=== PATIENT | male | born 1940 | race Caucasian/White ===

== ENCOUNTER 2017-08-04 12:04 | Day surgery (SDC) | payer OTHER ==
[2017-08-04] MEDS ORDERED: LIDOCAINE HCL 2% (20ML MULTI-DOSE VIAL) NR ONE (12:50)
[2017-08-04] MEDS ORDERED: PROPOFOL 20 ML ONE (12:50)
[2017-08-04 12:51] VITALS: BMI 24.9
[2017-08-04] MEDS ORDERED: METOPROLOL TARTRATE 5 MG/5 ML VIAL ONE (13:21)
[2017-08-04 13:37] VITALS: TEMP 98.5
[2017-08-04] MEDS ORDERED: AMIODARONE HCL 200 MG TABLET (FP) PO ONE (13:45)
[2017-08-04] MEDS ORDERED: METOPROLOL TARTRATE 5 MG/5 ML VIAL IVPUSH ONE (13:45)
[2017-08-04 15:51] VITALS: BP 107/77; PULSE 106
== END 2017-08-04 14:15 | disposition home or self-care (01) ==
LOC: JASU-ENDO 12:04
PROVIDERS: ATTEND Internal Medicine Cardiovascular Disease
PROC: 5A2204Z Restoration of Cardiac Rhythm, Single (ICD-10-PCS; principal; 2017-08-04 12:30)
DX: I48.91 Unspecified atrial fibrillation (principal)
CPT/HCPCS: 92960

== ENCOUNTER 2017-08-25 11:15 | Day surgery (SDC) | payer OTHER ==
[2017-08-25 11:35] VITALS: BMI 24.9
--- NOTE | 2017-08-25 12:28 | EKG ---
Test Reason : Blood Pressure : / mmHG Vent. Rate : 055 BPM Atrial Rate : 055 BPM P-R Int : 182 ms QRS Dur : 088 ms QT Int : 492 ms P-R-T Axes : 084 074 081 degrees QTc Int : 470 ms SINUS BRADYCARDIA WITH PREMATURE ATRIAL COMPLEXES OTHERWISE NORMAL ECG WHEN COMPARED WITH ECG OF 12-FEB-2013 09:38, SINUS RHYTHM HAS REPLACED ATRIAL FIBRILLATION VENT. RATE HAS DECREASED BY 44 BPM NONSPECIFIC T WAVE ABNORMALITY NO LONGER EVIDENT IN INFERIOR LEADS Confirmed by RYLAND PHAM MD ([id number]) on 08/25/2017 12:28:25 PM Referred By: LAKISHA ALCANTARA Confirmed By:RYLAND PHAM MD
== END 2017-08-25 12:26 | disposition home or self-care (01) ==
LOC: JASU-ENDO 11:15
PROVIDERS: ATTEND Internal Medicine Cardiovascular Disease
PROC: 0WQ Anatomical Regions, General, Repair (ICD-10-PCS; principal; 2017-08-25)
DX: Z53.8 Procedure and treatment not carried out for other reasons (principal)
CPT/HCPCS: 93005; 93010

== ENCOUNTER 2018-02-17 19:40 | Emergency (ER) | payer OTHER ==
--- NOTE | 2018-02-17 19:56 | PDOC ---
History of Present Illness - General History Source: Patient (O actually is) Exam Limitations: No Limitations - History of Present Illness Initial Comments: 02/17/18 20:40 A portion of this note was documented by scribe services under my direction. I have reviewed the details of the note, within reason, and agree with the documentation with the following case summary and management plan written by me. Patient treated in the ED. Nursing notes are reviewed and incorporated into the medical decision-making. Vital signs reviewed. Procedure note laceration repair left eyebrow Laceration cleaned and then closed with Dermabond patient tolerated well Assessment and plan: This is an 7-year-old male who sustained a mechanical trip and fall hitting his head on the ground. Patient's last tetanus was unknown so he got a tetanus to update his tetanus Patient sustained abrasion to his left hand, right knee and larger abrasion with associated small laceration to the left side of the face just lateral to the left eye and left eyebrow area. Superficial laceration of the left eyebrow area was closed with Dermabond Patient had a head CT that was negative for any acute pathology. Patient discharged home with his significant other will follow up with his primary care doctor as needed <Les Castillo I - Last Filed: 02/17/18 20:40> - History of Present Illness Initial Comments: 02/17/18 21:03 Patient is a 77 year old male with a significant past medical history of COPD, atrial fibrillation, CAD, and RA, who presents to the ED with complaints of left sided head pain, s/p fall that occurred just prior to ED arrival. Patient reports getting out of his car when he tripped over the curb, hitting his right knee and the left side of his head on the ground. He reports experiencing immediate pain, as well as being able to get up immediately after the fall. Patient reports coming into the ED for further evaluation after he was unable to control the bleeding as time progressed. Denies chest pain, Sob. Denies nausea, vomiting. Denies fevers, chills. Denies contact with sick individuals, out of state travelling. Denies constipation, diarrhea. Denies dysuria, hematuria. Denies trauma to affected area. Denies any other symptoms. Allergies: None Social history: Current smoker. Social drinker. No illicit drugs. Surgical history: None PMD: Dr. Valencia Adult ROS General: No fevers or chills, no weakness, no weight loss HEENT: +Left sided head pain. No change in vision. No sore throat, No ear pain Cardiovascular: No chest pain or shortness of breath Respiratory:No cough, or wheezing. Gastrointestinal: No nausea, vomiting, diarrhea or constipation, No rectal bleeding Genitourinary: No dysuria, hematuria, or frequency Musculoskeletal: No joint or muscle pain or swelling Neurologic: No headache, vertigo, dizziness or loss of consciousness Psychiatric: No depression Skin: No rashes or easy bruising Endocrine: No increased thirst or abnormal weight change Allergic: No skin or latex allergy All other systems reviewed and normal Adult PE General: Well-nourished well-developed individual, no acute distress HEENT: +Left eyebrow contusion with superficial abrasion approximately 1 cm in length. No active bleeding. +Left side of face lateral to left eye larger abrasion approximately 3 cm by 5 cm. No active bleeding. No bony tenderness. Neuro intact Throat: Normal, tonsils normal, no erythema or exudate Neck: Supple, no meningeal signs, no lymphadenopathy Eyes:Pupils equal reactive and round, extraocular motion intact Chest: Nontender to palpation Cardiac: S1-S2 normal, regular rate and rhythm, no murmurs rubs or gallops Respiratory: Lungs clear to auscultation bilateral Abdomen: Soft, nondistended, normal bowel sounds, nontender to palpation diffusely Extremities: +left hand contusion dorsal of hand proximal to middle finger. No bony tenderness. Neuro intact Warm, dry, no cyanosis, clubbing, or edema Skin: No rashes Neuro: Alert and oriented x3, nonfocal exam, grossly intact, normal gait Psych: Normal mood and affect <Ted Raymond - Last Filed: 02/17/18 21:10> - General Chief Complaint: Injury Stated Complaint: HEAD INJURY, FACIAL LAC Time Seen by Provider: 02/17/18 19:55 Past History - Past Medical History Anemia: No Asthma: Yes Cancer: No Cardiac Disorders: Yes (a fib,angina,cad) CVA: No COPD: Yes CHF: No Dementia: No Diabetes: No GI Disorders: Yes (acid reflux) Disorders: No HTN: No Hypercholesterolemia: Yes Liver Disease: No Seizures: No Thyroid Disease: No - Surgical History Abdominal Surgery: No Appendectomy: No Cardiac Surgery: No Cholecystectomy: No Lung Surgery: No Neurologic Surgery: No Orthopedic Surgery: No - Suicide/Smoking/Psychosocial Hx Smoking History: Current some day smoker Have you smoked in the past 12 months: Yes Number of Cigarettes Smoked Daily: 5 Cigars Per Day: 10 Information on smoking cessation initiated: Yes 'Breaking Loose' booklet given: 02/17/18 Hx Alcohol Use: (occasional) Drug/Substance Use Hx: No Substance Use Type: Alcohol Hx Substance Use Treatment: No <Les Castillo I - Last Filed: 02/17/18 20:40> <Ted Raymond - Last Filed: 02/17/18 21:10> - Past Medical History Allergies/Adverse Reactions: Allergies Allergy/AdvReac Type Severity Reaction Status Date / Time No Known Allergies Allergy Verified 02/17/18 19:42 Home Medications: Ambulatory Orders Dabigatran Etexilate Mesylate [Pradaxa -] 150 mg PO BID #0 cap 02/14/13 Sulfasalazine 500 mg PO BID #0 tablet 02/14/13 Carvedilol [Coreg] 6.25 mg PO BID 02/17/18 Ramipril [Altace] 5 mg PO DAILY 02/17/18 *Physical Exam - Vital Signs Last Vital Signs Temp Pulse Resp BP Pulse Ox 97.8 F 87 18 105/77 96 02/17/18 19:40 02/17/18 19:40 02/17/18 19:40 02/17/18 19:40 02/17/18 19:40 <Les Castillo I - Last Filed: 02/17/18 20:40> - Vital Signs Last Vital Signs Temp Pulse Resp BP Pulse Ox 97.8 F 87 18 105/77 96 02/17/18 19:40 02/17/18 19:40 02/17/18 19:40 02/17/18 19:40 02/17/18 19:40 <Ted Raymond - Last Filed: 02/17/18 21:10> Moderate Sedation - Procedure Monitoring Vital Signs: Procedure Monitoring Vital Signs Temperature 97.8 F 02/17/18 19:40 Pulse Rate 87 02/17/18 19:40 Respiratory Rate 18 02/17/18 19:40 Blood Pressure 105/77 02/17/18 19:40 O2 Sat by Pulse Oximetry (%) 96 02/17/18 19:40 <Les Castillo I - Last Filed: 02/17/18 20:40> - Procedure Monitoring Vital Signs: Procedure Monitoring Vital Signs Temperature 97.8 F 02/17/18 19:40 Pulse Rate 87 02/17/18 19:40 Respiratory Rate 18 02/17/18 19:40 Blood Pressure 105/77 02/17/18 19:40 O2 Sat by Pulse Oximetry (%) 96 02/17/18 19:40 <Ted Raymond - Last Filed: 02/17/18 21:10> ED Treatment Course - Medications Given in the ED: ED Medications Discontinued Medications Generic Name Dose Route Start Last Admin Trade Name Freq PRN Reason Stop Dose Admin Diphtheria/Tetanus/Acell Pertussis 0.5 ml 02/17/18 20:40 02/17/18 20:52 Boostrix - IM 02/17/18 20:41 0.5 ml ONCE ONE Administration <Ted Raymond - Last Filed: 02/17/18 21:10> *DC/Admit/Observation/Transfer <Les Castillo I - Last Filed: 02/17/18 20:40> - Attestations Scribe Attestion: 02/17/18 21:10 Documentation prepared by Ted Raymond, acting as medical representative for Les Castillo MD. <Ted Raymond - Last Filed: 02/17/18 21:10> Diagnosis at time of Disposition: Abrasion, right knee, initial encounter Fall Qualifiers: Encounter type: initial encounter Qualified Code(s): W19.XXXA - Unspecified fall, initial encounter Abrasion of face Qualifiers: Encounter type: initial encounter Qualified Code(s): S00.81XA - Abrasion of other part of head, initial encounter Laceration of eyebrow, left Qualifiers: Encounter type: initial encounter Qualified Code(s): S01.112A - Laceration without foreign body of left eyelid and periocular area, initial encounter Abrasion of left hand Qualifiers: Encounter type: initial encounter Qualified Code(s): S60.512A - Abrasion of left hand, initial encounter - Discharge Dispostion Disposition: HOME Condition at time of disposition: Stable - Referrals Referrals: Julia Valencia MD [Primary Care Provider] - - Patient Instructions Printed Discharge Instructions: DI for Laceration Repair With Dermabond, DI for Closed Head Injury Additional Instructions: Read over and follow Dermabond instructions. Tylenol or Motrin as needed for pain apply bacitracin or an antibiotic ointment to the abrasions once a day Return to the emergency department immediately with ANY new, persistent or worsening symptoms. Continue any medications as previously prescribed by your physician. You should follow up with your primary doctor as soon as possible regarding today's emergency department visit. . Please make sure your doctor reviews the results of your emergency evaluation. Thank you for coming to the Emergency Department today for your care. It was a pleasure to see you today. Please note that your evaluation is INCOMPLETE until you follow-up with your doctor. - Post Discharge Activity
[2018-02-17 20:07] VITALS: BP 105/77; PULSE 87; TEMP 97.8; BMI 23.7
[2018-02-17] MEDS ORDERED: DIPHTH,PERTUSS(ACELL),TET 0.5 ML DISP.SYRIN IM ONE ×2 (20:40)
== END 2018-02-17 21:19 | disposition home or self-care (01) ==
LOC: FER 19:40
PROC: 0HQ1XZZ Repair Face Skin, External Approach (ICD-10-PCS; principal; 2018-02-17)
DX: S01.112A Laceration without foreign body of left eyelid and periocular area, initial encounter (principal); S60.512A Abrasion of left hand, initial encounter; W01.0XXA Fall on same level from slipping, tripping and stumbling without subsequent striking against object, initial encounter; Y93.89 Activity, other specified; Y92.89 Other specified places as the place of occurrence of the external cause; F17.210 Nicotine dependence, cigarettes, uncomplicated; E78.00 Pure hypercholesterolemia, unspecified; K21.9 Gastro-esophageal reflux disease without esophagitis; I48.91 Unspecified atrial fibrillation; J44.9 Chronic obstructive pulmonary disease, unspecified; I25.10 Atherosclerotic heart disease of native coronary artery without angina pectoris; M06.9 Rheumatoid arthritis, unspecified; S80.211A Abrasion, right knee, initial encounter
CPT/HCPCS: 12001; 70450-TC; 90715; 99283-25

== ENCOUNTER 2018-06-14 14:00 | Inpatient (IN) | payer OTHER ==
--- NOTE | 2018-06-14 14:21 | PDOC ---
Attending Attestation - Resident Resident Name: Maryam Lancaster - ED Attending Attestation I have performed the following: I have examined & evaluated the patient, The case was reviewed & discussed with the resident, I agree w/resident's findings & plan - HPI HPI: 06/14/18 14:46 78 y/o male with chills and SOB. Patient with cough. Has COPD and a-fib. Prescribed Prednisone a few days ago by his PMD for SOB. No N/V/D/C, Denies chest pain or traveling. Had the Flu and Pneumonia vaccinations this year. Feels weak. - Physicial Exam PE: 06/14/18 14:47 VS noted temp 103 HEENT; unremarkable Heart: RRR without murmur Lungs: coarse breath sounds b/l, no wheezing noted Abdomen: soft non tender +BS EXT: no C/C/E Neuro: grossly intact, no focal deficits noted - Medical Decision Making 06/14/18 17:17 Pt with chills, cough, fever RLL pneumonia, elevated lactate, will treat for sepsis IVF, Tylenol, Levaquin Hospitalist called Dr. Barreto, agrees with admission Further orders as per hospitalist Case discussed with Dr. Lancaster, in agreement with plan CXR RLL infiltrate EKG: NSR Dx: RLL pneumonia Sepsis
[2018-06-14 14:23] VITALS: BMI 23.0
[2018-06-14] MEDS ORDERED: ACETAMINOPHEN 500 MG TABLET (FP) PO ONE (14:27)
[2018-06-14] MEDS ORDERED: ACETAMINOPHEN 500 MG TABLET (FP) ONE (14:28)
--- NOTE | 2018-06-14 14:38 | PDOC ---
History of Present Illness - General Chief Complaint: Respiratory Stated Complaint: CHILLS Time Seen by Provider: 06/14/18 14:05 - History of Present Illness Initial Comments: 78yo M with PMH of COPD, Afib, CAD s/p cath in 2010, RA presenting with chills. "I was shivering uncontrollably today." Patient states the chills came on all of a sudden this morning. He also endorses a cough productive of yellow-brown sputum for the past month or two. Patient states he has had pneumonia, most recently one year ago. He has been feeling poorly for the past couple days such that he contacted his primary care physician and was sent a prescription for prednisone (unknown dose) to his pharmacy. Patient is unsure if he has a fever because he does not have a thermometer at home. He is equivocal about feeling short of breath, but also says that he felt some relief of his symptoms after taking his home inhalers today. He does not use home oxygen. Endorses intermittent angina, but has not felt chest pain today. PCP: Dr. Valencia Past History - Past Medical History Allergies/Adverse Reactions: Allergies Allergy/AdvReac Type Severity Reaction Status Date / Time No Known Allergies Allergy Verified 06/14/18 14:04 Home Medications: Ambulatory Orders Dabigatran Etexilate Mesylate [Pradaxa -] 150 mg PO BID #0 cap 02/14/13 Sulfasalazine 500 mg PO BID #0 tablet 02/14/13 Carvedilol [Coreg] 6.25 mg PO BID 02/17/18 Ramipril [Altace] 5 mg PO DAILY 02/17/18 Aspirin 81 mg PO DAILY 06/14/18 Digoxin [Lanoxin -] 0.125 mg PO DAILY 06/14/18 predniSONE [Deltasone -] 2.5 mg PO DAILY 06/14/18 Anemia: No Asthma: Yes Cancer: No Cardiac Disorders: Yes (a fib,angina,cad) CVA: No COPD: Yes CHF: No Dementia: No Diabetes: No GI Disorders: Yes (acid reflux) Disorders: No HTN: No Hypercholesterolemia: Yes Liver Disease: No Seizures: No Thyroid Disease: No Other medical history: RHEUMATOID ARTHRITIS - Surgical History Abdominal Surgery: No Appendectomy: No Cardiac Surgery: No Cholecystectomy: No Lung Surgery: No Neurologic Surgery: No Orthopedic Surgery: No - Suicide/Smoking/Psychosocial Hx Smoking History: Current every day smoker Have you smoked in the past 12 months: Yes Number of Cigarettes Smoked Daily: 3 Cigars Per Day: 10 Information on smoking cessation initiated: Yes 'Breaking Loose' booklet given: 02/17/18 Hx Alcohol Use: Yes (WINE) Drug/Substance Use Hx: No Substance Use Type: Alcohol Hx Substance Use Treatment: No Review of Systems - Review of Systems Comments:: Constitutional: +fever, +chills HEENT: no throat pain, no dysphagia Cardiovascular: no chest pain, no palpitations Respiratory: +cough, +shortness of breath Gastrointestinal: no abdominal pain, no diarrhea Genitourinary: no dysuria, no frequency Musculoskeletal: no myalgia, no arthralgia Skin: no rash, no itching Neurologic: +headache, no weakness *Physical Exam - Vital Signs Last Vital Signs Temp Pulse Resp BP Pulse Ox 103 F H 90 20 133/75 94 L 06/14/18 14:02 06/14/18 14:02 06/14/18 14:02 06/14/18 14:02 06/14/18 14:02 - Physical Exam Comments: General: Awake, alert, and fully oriented, in no acute distress Head: No signs of trauma Eyes: EOMI, sclera anicteric ENT: Dry mucus membranes Neck: Normal ROM, supple Lungs: Course lung sounds, prolonged expiratory phase Cardio: Regular rhythm, S1 and S2 present Abdomen: Soft, nontender Extremities: Normal range of motion, Distal pulses present SKIN: Warm, Dry, normal turgor Neurologic: Cranial nerves II through XII grossly intact. Normal speech Moderate Sedation - Procedure Monitoring Vital Signs: Procedure Monitoring Vital Signs Temperature 103 F H 06/14/18 14:02 Pulse Rate 90 06/14/18 14:02 Respiratory Rate 20 06/14/18 14:02 Blood Pressure 133/75 06/14/18 14:02 O2 Sat by Pulse Oximetry (%) 94 L 06/14/18 14:02 ED Treatment Course - LABORATORY CBC & Chemistry Diagram: 06/14/18 14:45 06/14/18 14:45 Medical Decision Making - Medical Decision Making 78yo M with PMH of COPD, Afib, CAD s/p cath in 2010, RA presenting with chills. DDX including but not limited to pneumonia, COPD exacerbation, acute bronchitis , URI CBC, CMP, Blood Cx, Tpn, Digoxin level, Lactate Rapid influenza test 1g Ofirmev for fever and headache 06/14/18 15:08 1L NS for hydration EKG: rate 83, QTc 404, NSR CXR suspicious for RLL consolidation, Levaquin ordered 06/14/18 15:14 CXR: "2 apical lordotic views reveal clear lungs, normal mediastinal and sharp angles. There is a scoliosis with convexity to the left. An acute process is not seen. Since 03/27/2018, the density in the left upper lobe is less evident. Correlation recommended. " Patient resting comfortably in stretcher. Periods of hypoxia into the mid-80s. 2L NC placed. Lab at this facility is unable to process the CBC. Sent over to [facility]. 06/14/18 16:22 Plan for admission. Will page Dr. Valencia. 06/14/18 16:39 Omar Barbosa unable to take this case at this time. Discussed case with [facility] hospitalist, Dr. Loyola, who accepted patient for admission 06/14/18 17:00 *DC/Admit/Observation/Transfer Diagnosis at time of Disposition: Pneumonia Qualifiers: Pneumonia type: due to unspecified organism Laterality: right Lung location: lower lobe of lung Qualified Code(s): J18.1 - Lobar pneumonia, unspecified organism Sepsis Qualifiers: Sepsis type: sepsis due to unspecified organism Qualified Code(s): A41.9 - Sepsis, unspecified organism - Discharge Dispostion Condition at time of disposition: Guarded Decision to Admit order: Yes - Referrals Referrals: Julia Valencia MD [Primary Care Provider] - - Patient Instructions - Post Discharge Activity
[2018-06-14 15:21] LABS: ALBUMIN 3.8 g/dl (3.4-5.0); ALK PHOS 51 U/L (45-117); ANION GAP 8 MMOL/L (8-16); BILIRUBIN,TOTAL 0.8 mg/dl (0.2-1); BLOOD UREA NITROGEN 27 mg/dl (7-18); CALCIUM 8.8 mg/dl (8.5-10); CHLORIDE 101 mmol/L (98-107); CO2 26 mmol/L (21-32); CREATININE 0.9 mg/dl (0.55-1.3); GLUCOSE,RANDOM 126 mg/dl (74-106); POTASSIUM 4.4 mmol/L (3.5-5.1); SGOT/AST 19 U/L (15-37); SGPT/ALT 11 U/L (13-61); SODIUM 135 mmol/L (136-145); TOT PROT 5.7 g/dl (6.4-8.2)
[2018-06-14] MEDS ORDERED: SODIUM CHLORIDE 1,000 ML IV STA ×2 (15:28→19:16)
[2018-06-14 17:28] LABS: BASO % 0.1 % (0-2.0); HEMATOCRIT 30.5 % (35.4-49); HEMOGLOBIN 10.6 GM/dL (11.7-16.9); LYMPH % 13.3 % (8-40); MCH 38.1 pg (25.7-33.7); MCHC 34.6 g/dl (32.0-35.9); MEAN CELL VOLUME 109.9 fl (80-96); MEAN PLT VOLUME 7.6 fl (7.5-11.1); MONO % 6.3 % (3.8-10.2); NEUT % 80.3 % (42.8-82.8); PLATELET COUNT 111 K/MM3 (134-434); RBC 2.78 M/mm3 (4.00-5.60)
[2018-06-14] MEDS: SODIUM CHLORIDE 1,000 ML IV SCH (21:28)
[2018-06-14] MEDS: DABIGATRAN ETEXILATE MESYLATE 150 MG CAPSULE PO SCH (21:28)
[2018-06-14] MEDS ORDERED: ALBUTEROL SO4 2.5/IPRATROPIUM 0.5 INH SOL 3 ML VIAL.NEB. NEB PRN (21:40)
[2018-06-14] MEDS ORDERED: PANTOPRAZOLE 40 MG TABLET (FP) PO ONE (21:41)
--- NOTE | 2018-06-14 21:48 | HP ---
Admitting History and Physical - Admission Chief Complaint: fever with chills assoicated with productive cough History of Present Illness: this is a 78 y/o male patient with atrial fibrillation, HTN am rheumatoid arthritis presented to the hospital for fever and chills associated with SOB, and productive cough, patient denied any n/v/d. denied any burning sensation while he urinates stated he was fine until this morning when he started to feel feverish with chills History Source: Patient Limitations to Obtaining History: No Limitations - Past Medical History Cardiovascular: Yes: AFIB, CAD Pulmonary: Yes: COPD Rheumatology: Yes: Rheumatoid Arthritis - Past Surgical History Past Surgical History: Yes: None - Smoking History Smoking history: Current every day smoker Have you smoked in the past 12 months: Yes Aproximately how many cigarettes per day: 3 - Alcohol/Substance Use Hx Alcohol Use: Yes (WINE) Home Medications - Allergies Allergies/Adverse Reactions: Allergies Allergy/AdvReac Type Severity Reaction Status Date / Time No Known Allergies Allergy Verified 06/14/18 14:04 - Home Medications Home Medications: Ambulatory Orders Dabigatran Etexilate Mesylate [Pradaxa -] 150 mg PO BID #0 cap 02/14/13 Sulfasalazine 500 mg PO BID #0 tablet 02/14/13 Carvedilol [Coreg] 6.25 mg PO BID 02/17/18 Ramipril [Altace] 5 mg PO DAILY 02/17/18 Aspirin 81 mg PO DAILY 06/14/18 Digoxin [Lanoxin -] 0.125 mg PO DAILY 06/14/18 predniSONE [Deltasone -] 2.5 mg PO DAILY 06/14/18 Review of Systems - Review of Systems Constitutional: reports: No Symptoms Eyes: reports: No Symptoms HENT: reports: No Symptoms Neck: reports: No Symptoms Cardiovascular: reports: No Symptoms Respiratory: reports: Cough, SOB, SOB on Exertion, Wheezing Gastrointestinal: reports: No Symptoms Genitourinary: reports: No Symptoms Breasts: reports: No Symptoms Reported Musculoskeletal: reports: No Symptoms Physical Examination Vital Signs: Vital Signs Temperature 99.7 F H 06/14/18 20:17 Pulse Rate 75 06/14/18 20:17 Respiratory Rate 20 06/14/18 20:18 Blood Pressure 88/46 L 06/14/18 20:17 O2 Sat by Pulse Oximetry (%) 100 03/24/19 20:18 Constitutional: Yes: Well Nourished, No Distress, Calm Eyes: Yes: WNL, Conjunctiva Clear, EOM Intact HENT: Yes: WNL, Atraumatic, Normocephalic Neck: Yes: WNL, Supple, Trachea Midline Cardiovascular: Yes: WNL, Pulse Irregular, S1, S2 Respiratory: Yes: WNL, Regular, SOB, Wheezes Gastrointestinal: Yes: WNL, Normal Bowel Sounds, Soft Musculoskeletal: Yes: WNL Extremities: Yes: WNL Edema: No Peripheral Pulses WNL: No Integumentary: Yes: WNL Neurological: Yes: WNL, Alert, Oriented ...Motor Strength: WNL Psychiatric: Yes: WNL, Alert, Oriented Labs: CBC, BMP 06/14/18 14:45 06/14/18 14:45 Imaging - Results Chest X-ray: Image Reviewed EKG: Image Reviewed Problem List - Problems (1) Pneumonia Assessment/Plan: CAP start the patient on Levofloxacin 750mg IV daily switch to PO after the patient improves Code(s): J18.9 - PNEUMONIA, UNSPECIFIED ORGANISM Qualifiers: Pneumonia type: due to unspecified organism Laterality: right Lung location: lower lobe of lung Qualified Code(s): J18.1 - Lobar pneumonia, unspecified organism (2) Sepsis Assessment/Plan: 2/2 Community acquired pneumonia levofloxacin fluid x 2 bolus 100cc/hr fluid Code(s): A41.9 - SEPSIS, UNSPECIFIED ORGANISM Qualifiers: Sepsis type: sepsis due to unspecified organism Qualified Code(s): A41.9 - Sepsis, unspecified organism (3) Bronchitis Assessment/Plan: Viral vs bacterial ID consult Pulmonary consult Code(s): J40 - BRONCHITIS, NOT SPECIFIED ACUTE OR CHRONIC (4) COPD with acute exacerbation Code(s): J44.1 - CHRONIC OBSTRUCTIVE PULMONARY DISEASE W (ACUTE) EXACERBATION (5) Atrial fibrillation Assessment/Plan: c/w diagtriban 150mg BID place the carvedilol on hold due to low BP only IVP metoprolol 2.5mg if the patient becomes in rapid atrial fibrillation but first volume replenishment Code(s): I48.91 - UNSPECIFIED ATRIAL FIBRILLATION Qualifiers: Atrial fibrillation type: paroxysmal Qualified Code(s): I48.0 - Paroxysmal atrial fibrillation (6) Troponin level elevated Assessment/Plan: trending down patient has no chest pain cardiology evaluation Code(s): R74.8 - ABNORMAL LEVELS OF OTHER SERUM ENZYMES (7) Lactic acid acidosis Assessment/Plan: 2/ to sepsis resolving with IVF hydration Code(s): E87.2 - ACIDOSIS
--- NOTE | 2018-06-14 23:45 | EKG ---
Test Reason : Blood Pressure : / mmHG Vent. Rate : 083 BPM Atrial Rate : 083 BPM P-R Int : 168 ms QRS Dur : 082 ms QT Int : 344 ms P-R-T Axes : 075 078 075 degrees QTc Int : 404 ms NORMAL SINUS RHYTHM NORMAL ECG WHEN COMPARED WITH ECG OF 25-AUG-2017 12:14, PREMATURE ATRIAL COMPLEXES ARE NO LONGER PRESENT VENT. RATE HAS INCREASED BY 28 BPM QT HAS SHORTENED Confirmed by TAQUERIA CARLSON, DARLINE ([id number]) on 06/14/2018 11:44:23 PM Referred By: GAURAV BOWDEN Confirmed By:DARLINE MENG MD
[2018-06-15] MEDS ORDERED: PIPERACILLIN/TAZOBACTAM 3.375 GM VIAL IVPB ONE ×3 (06:04→17:49)
[2018-06-15] MEDS ORDERED: DEXTROSE 5%-WATER - 50 ML IVPB ONE ×3 (06:04→17:49)
[2018-06-15] MEDS: PIPERACILLIN/TAZOB 3.375 GM 3.375 GM in DEXTROSE 5%-WATER - 50 ML IVPB SCH ×2 (06:52→18:16)
[2018-06-15] MEDS ORDERED: SODIUM CHLORIDE 1,000 ML IV STA (07:55)
--- NOTE | 2018-06-15 07:57 | PN ---
Physical Exam: SUBJECTIVE: Patient seen and examined at bedside. OBJECTIVE: Vital Signs Period Temp Pulse Resp BP Sys/Cedillo Pulse Ox Last 24 Hr 98.9 F-103 F 73-90 16-120 75-133/43-75 94-100 GENERAL: The patient is awake, alert, and fully oriented. No acute distress. LUNGS: Poor air movement, no wheezing; dyspneic with speaking, pursed lip breathing HEART: Regular rate and rhythm, S1, S2 ABDOMEN: Soft, nontender, nondistended EXTREMITIES: 2+ pulses, warm, well-perfused, no edema. NEUROLOGICAL: Cranial nerves II through XII grossly intact. Normal speech, gait not observed. SKIN: Warm, dry, normal turgor Laboratory Results - last 24 hr 06/14/18 06/14/18 06/14/18 14:45 14:45 14:45 WBC 7.0 RBC 2.78 L Hgb 10.6 L Hct 30.5 L MCV 109.9 H MCH 38.1 H D MCHC 34.6 RDW 13.0 Plt Count 111 L D MPV 7.6 D Absolute Neuts (auto) 5.6 Neutrophils % 80.3 Lymphocytes % 13.3 Monocytes % 6.3 Eosinophils % 0.0 Basophils % 0.1 Nucleated RBC % 0 Sodium 135 L Potassium 4.4 Chloride 101 Carbon Dioxide 26 Anion Gap 8 BUN 27 H Creatinine 0.9 Creat Clearance w eGFR 82.04 Random Glucose 126 H Lactic Acid 2.2 H* Calcium 8.8 Total Bilirubin 0.8 AST 19 ALT 11 L Alkaline Phosphatase 51 Troponin I Total Protein 5.7 L Albumin 3.8 Urine Color Urine Appearance Urine pH Urine Protein Urine Glucose (UA) Urine Ketones Urine Blood Urine Nitrite Urine Bilirubin Urine Urobilinogen Ur Leukocyte Esterase Digoxin 1.14 Influenza A (Rapid) Influenza B (Rapid) 06/14/18 06/14/18 06/14/18 14:45 14:51 18:10 WBC RBC Hgb Hct MCV MCH MCHC RDW Plt Count MPV Absolute Neuts (auto) Neutrophils % Lymphocytes % Monocytes % Eosinophils % Basophils % Nucleated RBC % Sodium Potassium Chloride Carbon Dioxide Anion Gap BUN Creatinine Creat Clearance w eGFR Random Glucose Lactic Acid Calcium Total Bilirubin AST ALT Alkaline Phosphatase Troponin I 0.79 H* < 0.03 Total Protein Albumin Urine Color Urine Appearance Urine pH Urine Protein Urine Glucose (UA) Urine Ketones Urine Blood Urine Nitrite Urine Bilirubin Urine Urobilinogen Ur Leukocyte Esterase Digoxin Influenza A (Rapid) Negative Influenza B (Rapid) Negative 06/14/18 06/14/18 06/14/18 18:10 21:10 21:30 WBC RBC Hgb Hct MCV MCH MCHC RDW Plt Count MPV Absolute Neuts (auto) Neutrophils % Lymphocytes % Monocytes % Eosinophils % Basophils % Nucleated RBC % Sodium Potassium Chloride Carbon Dioxide Anion Gap BUN Creatinine Creat Clearance w eGFR Random Glucose Lactic Acid 1.7 Calcium Total Bilirubin AST ALT Alkaline Phosphatase Troponin I < 0.03 Total Protein Albumin Urine Color Yellow Urine Appearance Clear Urine pH 5.5 Urine Protein Negative Urine Glucose (UA) Negative Urine Ketones Negative Urine Blood Trace Urine Nitrite Negative Urine Bilirubin Negative Urine Urobilinogen 0.2 Ur Leukocyte Esterase Negative Digoxin Influenza A (Rapid) Influenza B (Rapid) Active Medications Generic Name Dose Route Start Last Admin Trade Name Freq PRN Reason Stop Dose Admin Acetaminophen 650 mg 06/14/18 21:56 Tylenol - PO Q6H PRN Fever Or Pain Albuterol/Ipratropium 1 amp 06/14/18 21:40 06/14/18 22:11 Duoneb - NEB 1 amp Q6H PRN Administration SHORTNESS OF BREATH Aspirin 81 mg 06/15/18 10:00 Asa - PO DAILY JOSELIN Dabigatran 150 mg 06/14/18 22:00 06/14/18 21:28 Pradaxa - PO 150 mg BID JOSELIN Administration Sodium Chloride 1,000 mls @ 100 mls/hr 06/14/18 20:45 06/14/18 21:28 Normal Saline - IV 100 mls/hr ASDIR JOSELIN Administration Levofloxacin 750 mg in 150 mls @ 150 mls/hr 06/15/18 10:00 Levaquin 750 Mg Premixed Ivpb - IVPB DAILY JOSELIN Protocol Piperacillin Sod/Tazobactam 50 mls @ 100 mls/hr 06/16/18 06:00 Sod 3.375 gm/ Dextrose IVPB TID JOSELIN Protocol Piperacillin Sod/Tazobactam 50 mls @ 100 mls/hr 06/15/18 06:00 06/15/18 06:52 Sod 3.375 gm/ Dextrose IVPB 06/15/18 22:29 100 mls/hr TID JOSELIN Administration Protocol Sodium Chloride 1,000 mls @ 1,000 mls/hr 06/15/18 07:55 Normal Saline - IV 06/15/18 08:54 ASDIR STA Prednisone 40 mg 06/15/18 10:00 Deltasone - PO DAILY JOSELIN Sulfasalazine 500 mg 06/14/18 22:00 06/14/18 22:30 Azulfidine En-Tabs - PO 500 mg BID JOSELIN Administration ASSESSMENT/PLAN 78 year-old male with a PMH significant for HLD, paroxysmal afib on Pradaxa, COPD, RA, and GERD. Admitted with fever, bacteremia, COPD exacerbation, possible pneumonia. Community acquired pneumonia Gram negative bacteremia COPD exacerbation --Tm 103.0; no leukocytosis; hypotensive overnight systolic BP dropped >40 points --NS x2L overnight; 3rd L ordered --CXR: previously seen BHUPENDRA density, no acute process --CT on 04/17 showed moderate to marked centriblobular emphysema with a nodular 9mm opacity BHUPENDRA; will get repeat --CTAP ordered --UA negative --pulmonary consult pending --ID consult pending --Zosyn started --duonebs scheduled --daily peak flows --pre post --started several days ago on prednisone 40mg daily by PCP, continue Elevated troponin --initial troponin elevated, second two negative --demand ischemia from infection Paroxysmal atrial fibrillation with RVR --was in SR on admission, beta leena was held overnight due to hypotension ; went in afib today with RVR @125bmp --restart carvedilol 6.25mg BID --hold Ramipril --continue Pradaxa, ASA --telemetry monitoring Rheumatoid arthritis --on sulfasalazine FEN Fluids: NS @ 100mL/hr Electrolytes: replete as indicated Nutrition: clears pending CTAP DVT prophylaxis: on Pradaxa Physical therapy Dispo: continues to require inpatient care. Full code. Visit type - Emergency Visit Emergency Visit: Yes ED Registration Date: 06/14/18 Care time: The patient presented to the Emergency Department on the above date and was hospitalized for further evaluation of their emergent condition. - New Patient This patient is new to me today: Yes Date on this admission: 06/15/18 - Critical Care Critical Care patient: No
[2018-06-15] MEDS: ALBUTEROL SO4 2.5/IPRATROPIUM 0.5 INH SOL 3 ML VIAL.NEB. NEB SCH ×4 (08:15→21:08)
[2018-06-15] MEDS: ACETAMINOPHEN 325 MG TABLET (FP) PO PRN (09:04)
[2018-06-15] MEDS: ASPIRIN 81 MG CHEWABLE TABLETS PO SCH (09:05)
[2018-06-15] MEDS: predniSONE 20 MG TABLET (UD) PO SCH (09:05)
[2018-06-15] MEDS: DABIGATRAN ETEXILATE MESYLATE 150 MG CAPSULE PO SCH ×2 (09:05→21:09)
--- NOTE | 2018-06-15 09:05 | CON.CARD ---
Consult Consult Specialty:: Cardiology Referred by:: Hospitalist Reason for Consultation:: Demand ischemia - History of Present Illness Chief Complaint: Cough and dyspnea History of Present Illness: cc: fever with chills assoicated with productive cough History of Present Illness: this is a 78 y/o male patient with atrial fibrillation, HTN , COPD, non- obstructive CAD, rheumatoid arthritis presented to the hospital for fever and chills associated with SOB, post-tussive right-sided chest pain, positional light-headedness and cough productive of yellow sputum, patient denied any n/v/ d. denied any burning sensation while he urinates. - History Source History Provided By: Patient Limitations to Obtaining History: No Limitations - Past Medical History Cardio/Vascular: Yes: AFIB, CAD Pulmonary: Yes: COPD Rheumatology: Yes: Rheumatoid Arthritis - Past Surgical History Past Surgical History: Yes: None - Alcohol/Substance Use Hx Alcohol Use: Yes (WINE) - Smoking History Smoking history: Current every day smoker Have you smoked in the past 12 months: Yes Aproximately how many cigarettes per day: 3 Home Medications - Allergies Allergies/Adverse Reactions: Allergies Allergy/AdvReac Type Severity Reaction Status Date / Time No Known Allergies Allergy Verified 06/14/18 14:04 - Home Medications Home Medications: Ambulatory Orders Dabigatran Etexilate Mesylate [Pradaxa -] 150 mg PO BID #0 cap 02/14/13 Carvedilol [Coreg] 6.25 mg PO BID 02/17/18 Ramipril [Altace] 5 mg PO DAILY 02/17/18 Aspirin 81 mg PO DAILY 06/14/18 Digoxin [Lanoxin -] 0.125 mg PO DAILY 06/14/18 predniSONE [Deltasone -] 2.5 mg PO DAILY 06/14/18 Sulfasalazine 1,000 mg PO BID 06/15/18 Review of Systems - Review of Systems Constitutional: reports: Chills, Fever Respiratory: reports: Cough, SOB Vital Signs: Vital Signs Temperature 100.0 F H 06/15/18 06:08 Pulse Rate 78 06/15/18 06:08 Respiratory Rate 19 06/15/18 06:08 Blood Pressure 109/56 L 06/15/18 06:08 O2 Sat by Pulse Oximetry (%) 100 06/15/18 08:31 Constitutional: Yes: No Distress, Calm, Thin Neck: Yes: Supple Respiratory: Yes: Regular, Diminished, On Nasal O2 Gastrointestinal: Yes: Soft, Hypoactive Bowel Sounds Cardiovascular: Yes: Regular Rate and Rhythm JVD: No Carotid Bruit: No Heart Sounds: Yes: S1, S2 Edema: No - Other Data Labs, Other Data: CBC, BMP 06/14/18 14:45 06/14/18 14:45 Troponin, BNP 06/14/18 06/14/18 06/14/18 14:45 18:10 21:10 Troponin I 0.79 H* < 0.03 < 0.03 Troponin, BNP 06/14/18 06/14/18 06/14/18 14:45 18:10 21:10 Troponin I 0.79 H* < 0.03 < 0.03 NSR @ 83 PAC no longer seen Ejection Fraction %: LVEF > or = 40 % Imaging - Results Chest X-ray: Report Reviewed (BHUPENDRA density less evident) Problem List - Problems (1) Demand ischemia Code(s): I24.8 - OTHER FORMS OF ACUTE ISCHEMIC HEART DISEASE (2) COPD (chronic obstructive pulmonary disease) with acute bronchitis Code(s): J44.0 - CHRONIC OBSTRUCTIVE PULMON DISEASE W ACUTE LOWER RESP INFCT; J20.9 - ACUTE BRONCHITIS, UNSPECIFIED (3) Atrial fibrillation Code(s): I48.91 - UNSPECIFIED ATRIAL FIBRILLATION Qualifiers: Atrial fibrillation type: paroxysmal Qualified Code(s): I48.0 - Paroxysmal atrial fibrillation (4) Lactic acid acidosis Code(s): E87.2 - ACIDOSIS (5) Pneumonia Code(s): J18.9 - PNEUMONIA, UNSPECIFIED ORGANISM Qualifiers: Pneumonia type: due to unspecified organism Laterality: right Lung location: lower lobe of lung Qualified Code(s): J18.1 - Lobar pneumonia, unspecified organism (6) Sepsis Code(s): A41.9 - SEPSIS, UNSPECIFIED ORGANISM Qualifiers: Sepsis type: sepsis due to unspecified organism Qualified Code(s): A41.9 - Sepsis, unspecified organism (7) Troponin level elevated Code(s): R74.8 - ABNORMAL LEVELS OF OTHER SERUM ENZYMES (8) Bronchitis Code(s): J40 - BRONCHITIS, NOT SPECIFIED ACUTE OR CHRONIC Assessment/Plan 01/15/2018 Mildly decreased LVEF 45-50%, mild MR, TR, HI 1. CAP, acute bronchitis with sepsis 2. Paroxysmal afib -> SR on Pradaxa 3. Demand ischemia referable to #1 4. Lactic acidosis resolving 5. COPD 6. Rheumatoid arthritis P:1. Trops downtrending 2. Abx course per C&S, BD and O2 as needed 3. Continue Pradaxa 150 bid, ASA 81 qd, resume carvedilol and ramipril as hemodynamics tolerate 4. Thank you for consultative opportunity
[2018-06-15] MEDS ORDERED: PT OWN MED DRAWER 7, Y5N ONE ×3 (09:08→21:07)
[2018-06-15] MEDS ORDERED: predniSONE 2.5 MG TABLET PO SCH (10:00)
--- NOTE | 2018-06-15 13:05 | CON.PULM ---
Consult Consult Specialty:: PULMONARY Referred by:: PMD Reason for Consultation:: COUGH/FEVER/CHILLS - History of Present Illness Chief Complaint: COUGH/FEVER/CHILLS/SOB/YELLOW SPUTUM History of Present Illness: 78 ACTIVE SMOKER H/O COPD/AF/RA ON SULFASALAZINE WITH NO RECENT FLARES. PRESENTS WITH TWO WEEKS OF COUGH WHICH CULMINATED IN SHAKING CHILLS YESTERDAY PROMPTING ER VISIT. PATIENT WAS PLACED ON PRED 20 MG TWO WEEKS AGO VIA PMD DUE TO A/E COPD. HE USES INHALERS AND NEBS AT HOME. ASKED TO EVAL SOURCE OF FEVER. NO RECENT SICK CONTACTS. 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 Cardio/Vascular: Yes: AFIB, CAD Pulmonary: Yes: COPD Gastrointestinal: No: Ascites Hepatobiliary: No: Cirrhosis Renal/: No: Renal Failure Heme/Onc: Yes: Anemia Rheumatology: Yes: Rheumatoid Arthritis - Past Surgical History Past Surgical History: Yes: None - Alcohol/Substance Use Hx Alcohol Use: Yes (WINE) - Smoking History Smoking history: Current every day smoker Have you smoked in the past 12 months: Yes Aproximately how many cigarettes per day: 3 - Social History Usual Living Arrangement: With Spouse ADL: Family Assistance Place of : [facility] Home Medications - Allergies Allergies/Adverse Reactions: Allergies Allergy/AdvReac Type Severity Reaction Status Date / Time No Known Allergies Allergy Verified 06/14/18 14:04 - Home Medications Home Medications: Ambulatory Orders Dabigatran Etexilate Mesylate [Pradaxa -] 150 mg PO BID #0 cap 02/14/13 Carvedilol [Coreg] 6.25 mg PO BID 02/17/18 Ramipril [Altace] 5 mg PO DAILY 02/17/18 Aspirin 81 mg PO DAILY 06/14/18 Digoxin [Lanoxin -] 0.125 mg PO DAILY 06/14/18 predniSONE [Deltasone -] 2.5 mg PO DAILY 06/14/18 Sulfasalazine 1,000 mg PO BID 06/15/18 Family Disease History - Family Disease History Family History: Unremarkable Review of Systems - Review of Systems Constitutional: reports: Chills, Fever, Night Sweats Eyes: denies: Blurred Vision HENT: denies: Difficult Swallowing Neck: denies: Decreased ROM Cardiovascular: reports: Chest Pain (WITH COUGH) Respiratory: reports: Cough, Exercise Intolerance, SOB, SOB on Exertion. denies : Hemoptysis, Orthopnea, Wheezing Gastrointestinal: reports: No Symptoms Genitourinary: reports: No Symptoms Breasts: reports: No Symptoms Reported Musculoskeletal: reports: Muscle Pain Neurological: reports: Headache Physical Exam Vital Sings: Vital Signs Temperature 99.4 F 06/15/18 09:41 Pulse Rate 78 06/15/18 09:41 Respiratory Rate 18 06/15/18 09:41 Blood Pressure 98/53 L 06/15/18 09:41 O2 Sat by Pulse Oximetry (%) 93 L 06/15/18 09:41 Constitutional: Yes: Calm Eyes: Yes: EOM Intact HENT: Yes: Normocephalic Neck: Yes: Trachea Midline Cardiovascular: Yes: Pulse Irregular, S1, S2 Respiratory: Yes: Rhonchi (RIGHT BASE) Gastrointestinal: Yes: Normal Bowel Sounds Extremities: Yes: WNL Edema: No Labs: CBC, BMP 06/14/18 14:45 06/14/18 14:45 Imaging - Results Chest X-ray: Report Reviewed, Image Reviewed Problem List - Problems (1) Atrial fibrillation Code(s): I48.91 - UNSPECIFIED ATRIAL FIBRILLATION Qualifiers: Atrial fibrillation type: paroxysmal Qualified Code(s): I48.0 - Paroxysmal atrial fibrillation (2) Lactic acid acidosis Code(s): E87.2 - ACIDOSIS (3) Pneumonia Code(s): J18.9 - PNEUMONIA, UNSPECIFIED ORGANISM Qualifiers: Pneumonia type: due to unspecified organism Laterality: right Lung location: lower lobe of lung Qualified Code(s): J18.1 - Lobar pneumonia, unspecified organism (4) Sepsis Code(s): A41.9 - SEPSIS, UNSPECIFIED ORGANISM Qualifiers: Sepsis type: sepsis due to unspecified organism Qualified Code(s): A41.9 - Sepsis, unspecified organism (5) Troponin level elevated Code(s): R74.8 - ABNORMAL LEVELS OF OTHER SERUM ENZYMES Assessment/Plan LIKELY GRAM NEGATIVE PNEUMONIA SUPERIMPOSED UPON COPD R/O H. INFLUENZA/KLEBSIELLA PNEUMONIA AWAIT ID ON BLOOD CULTURES CONTINUE ZOSYN FOR NOW/IV FLUIDS/ANTIPYRETICS NEBS/O2 REQUIRED Juana APONTE MD
[2018-06-15] MEDS ORDERED: DIGOXIN 0.125 MG TABLET (FP) PO ONE (13:35)
[2018-06-15] MEDS ORDERED: RAMIPRIL 5 MG CAPSULE (FP) PO ONE (13:35)
[2018-06-15] MEDS ORDERED: CARVEDILOL 6.25 MG TABLET (FP) PO ONE (13:35)
--- NOTE | 2018-06-15 15:43 | CON.ID ---
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 Cardio/Vascular: Yes: AFIB, CAD Pulmonary: Yes: COPD Gastrointestinal: No: Ascites Hepatobiliary: No: Cirrhosis Renal/: No: Renal Failure Rheumatology: Yes: Rheumatoid Arthritis - Past Surgical History Past Surgical History: Yes: None - Alcohol/Substance Use Hx Alcohol Use: Yes (WINE) - Smoking History Smoking history: Current every day smoker Have you smoked in the past 12 months: Yes Aproximately how many cigarettes per day: 3 - Social History Usual Living Arrangement: With Spouse ADL: Family Assistance Home Medications - Allergies Allergies/Adverse Reactions: Allergies Allergy/AdvReac Type Severity Reaction Status Date / Time No Known Allergies Allergy Verified 06/14/18 14:04 - Home Medications Home Medications: Ambulatory Orders Dabigatran Etexilate Mesylate [Pradaxa -] 150 mg PO BID #0 cap 02/14/13 Carvedilol [Coreg] 6.25 mg PO BID 02/17/18 Ramipril [Altace] 5 mg PO DAILY 02/17/18 Aspirin 81 mg PO DAILY 06/14/18 Digoxin [Lanoxin -] 0.125 mg PO DAILY 06/14/18 predniSONE [Deltasone -] 2.5 mg PO DAILY 06/14/18 Sulfasalazine 1,000 mg PO BID 06/15/18 Physical Exam Vital Signs: Vital Signs Temperature 99.4 F 06/15/18 09:41 Pulse Rate 124 H 06/15/18 13:50 Respiratory Rate 18 06/15/18 09:41 Blood Pressure 98/53 L 06/15/18 09:41 O2 Sat by Pulse Oximetry (%) 93 L 06/15/18 09:41 Labs: CBC, BMP 06/14/18 14:45 06/14/18 14:45
[2018-06-15] MEDS: SODIUM CHLORIDE 1,000 ML IV SCH (21:09)
[2018-06-15] MEDS ORDERED: CARVEDILOL 6.25 MG TABLET (FP) PO SCH ×2 (22:00)
[2018-06-16] MEDS ORDERED: SODIUM CHLORIDE 250 ML IV STA (00:18)
[2018-06-16] MEDS ORDERED: DEXTROSE 5%-WATER - 50 ML IVPB ONE ×3 (00:45→16:59)
[2018-06-16] MEDS ORDERED: PIPERACILLIN/TAZOBACTAM 3.375 GM VIAL IVPB ONE ×3 (00:45→16:59)
[2018-06-16] MEDS: ALBUTEROL SO4 2.5/IPRATROPIUM 0.5 INH SOL 3 ML VIAL.NEB. NEB SCH ×6 (00:47→20:47)
[2018-06-16] MEDS: PIPERACILLIN/TAZOB 3.375 GM 3.375 GM in DEXTROSE 5%-WATER - 50 ML IVPB SCH ×4 (01:49→17:11)
[2018-06-16] MEDS ORDERED: PIPERACILLIN/TAZOB 3.375 GM 3.375 GM in DEXTROSE 5%-WATER - 50 ML IVPB SCH (06:00)
[2018-06-16] MEDS ORDERED: PT OWN MED DRAWER 7, Y5N ONE (09:19)
--- NOTE | 2018-06-16 09:28 | EKG ---
Test Reason : Blood Pressure : / mmHG Vent. Rate : 125 BPM Atrial Rate : 147 BPM P-R Int : 000 ms QRS Dur : 084 ms QT Int : 332 ms P-R-T Axes : 000 050 -42 degrees QTc Int : 479 ms ATRIAL FIBRILLATION WITH RAPID VENTRICULAR RESPONSE NONSPECIFIC ST AND T WAVE ABNORMALITY ABNORMAL ECG WHEN COMPARED WITH ECG OF 14-JUN-2018 14:13, ATRIAL FIBRILLATION HAS REPLACED SINUS RHYTHM VENT. RATE HAS INCREASED BY 42 BPM T WAVE VARIATION Confirmed by LAKISHA ALCANTARA MD ([id number]) on 06/16/2018 9:28:04 AM Referred By: JON DIAZ Confirmed By:LAKISHA ALCANTARA MD
[2018-06-16] MEDS: DABIGATRAN ETEXILATE MESYLATE 150 MG CAPSULE PO SCH (09:37)
[2018-06-16] MEDS: predniSONE 20 MG TABLET (UD) PO SCH (09:38)
[2018-06-16 09:42] LABS: BASO % 0.1 % (0-2.0); HEMATOCRIT 25.3 % (35.4-49); HEMOGLOBIN 8.3 GM/dl (11.7-16.9); LYMPH % 17.6 % (8-40); MCH 35.9 pg (25.7-33.7); MCHC 32.8 g/dl (32.0-35.9); MEAN CELL VOLUME 109.4 fl (80-96); MEAN PLT VOLUME 6.9 fl (7.5-11.1); MONO % 4.7 % (3.8-10.2); NEUT % 77.6 % (42.8-82.8); PLATELET COUNT 91 K/MM3 (134-434); RBC 2.31 M/mm3 (4.00-5.60); RDW 12.7 % (11.9-15.9); WHITE BLOOD COUNT 7.4 K/mm3 (4.0-10.8)
[2018-06-16] MEDS: ASPIRIN 81 MG CHEWABLE TABLETS PO SCH (09:44)
[2018-06-16] MEDS ORDERED: DIGOXIN 0.125 MG TABLET (FP) PO SCH ×2 (10:00)
[2018-06-16] MEDS ORDERED: RAMIPRIL 5 MG CAPSULE (FP) PO SCH ×2 (10:00)
[2018-06-16 10:12] LABS: ALBUMIN 2.6 g/dl (3.4-5.0); ALK PHOS 41 U/L (45-117); ANION GAP 6 MMOL/L (8-16); BILIRUBIN,TOTAL 0.8 mg/dl (0.2-1); BLOOD UREA NITROGEN 17 mg/dl (7-18); CALCIUM 7.8 mg/dl (8.5-10); CHLORIDE 107 mmol/L (98-107); CO2 22 mmol/L (21-32); CREATININE 0.9 mg/dl (0.55-1.3); GLUCOSE,RANDOM 130 mg/dl (74-106); MAGNESIUM 1.8 mg/dL (1.8-2.4); POTASSIUM 3.6 mmol/L (3.5-5.1); SGOT/AST 21 U/L (15-37); SGPT/ALT 13 U/L (13-61); SODIUM 135 mmol/L (136-145); TOT PROT 4.3 g/dl (6.4-8.2)
[2018-06-16] MEDS ORDERED: SODIUM CHLORIDE 500 ML IV STA (10:32)
--- NOTE | 2018-06-16 10:40 | PN ---
Progress Note, Physician History of Present Illness: pulmonary alert,less dyspneic,= cough,-cp - Current Medication List Current Medications: Active Medications Acetaminophen (Tylenol -) 650 mg PO Q6H PRN PRN Reason: Fever Or Pain Last Admin: 06/15/18 09:04 Dose: 650 mg Albuterol/Ipratropium (Duoneb -) 1 amp NEB Q4H [facility] Last Admin: 06/16/18 07:42 Dose: 1 amp Aspirin (Asa -) 81 mg PO DAILY [facility] Last Admin: 06/16/18 09:44 Dose: Not Given Carvedilol (Coreg -) 6.25 mg PO BID [facility] Last Admin: 06/15/18 21:09 Dose: 6.25 mg Dabigatran (Pradaxa -) 150 mg PO BID [facility] Last Admin: 06/16/18 09:37 Dose: 150 mg Digoxin (Lanoxin -) 0.125 mg PO DAILY [facility] Last Admin: 06/16/18 09:38 Dose: 0.125 mg Sodium Chloride (Normal Saline -) 1,000 mls @ 100 mls/hr IV ASDIR JOSELIN Last Admin: 06/15/18 21:09 Dose: 100 mls/hr Piperacillin Sod/Tazobactam (Sod 3.375 gm/ Dextrose) 50 mls @ 100 mls/hr IVPB Q8H-IV JOSELIN; Protocol Last Admin: 06/16/18 09:39 Dose: 100 mls/hr Sodium Chloride (Normal Saline -) 500 mls @ 500 mls/hr IV ASDIR STA Stop: 06/16/18 11:31 Prednisone (Deltasone -) 40 mg PO DAILY [facility] Last Admin: 06/16/18 09:38 Dose: 40 mg Sulfasalazine (Azulfidine En-Tabs -) 500 mg PO BID [facility] Last Admin: 06/16/18 09:38 Dose: 500 mg - Objective Vital Signs: Vital Signs Temperature 98.7 F 06/16/18 09:22 Pulse Rate 111 H 06/16/18 09:38 Respiratory Rate 18 06/16/18 09:22 Blood Pressure 80/52 L 06/16/18 09:22 O2 Sat by Pulse Oximetry (%) 93 L 06/16/18 06:00 Constitutional: Yes: Well Nourished, Calm Eyes: Yes: WNL HENT: Yes: WNL Neck: Yes: WNL Cardiovascular: Yes: Pulse Irregular, S1, S2 Respiratory: Yes: Wheezes (scattered lionel wheezes) Gastrointestinal: Yes: Normal Bowel Sounds, Soft Extremities: Yes: WNL Edema: No Labs: CBC, BMP 06/16/18 09:11 06/16/18 09:11 Assessment/Plan Problem List - Problems (1) Atrial fibrillation Code(s): I48.91 - UNSPECIFIED ATRIAL FIBRILLATION Qualifiers: Atrial fibrillation type: paroxysmal Qualified Code(s): I48.0 - Paroxysmal atrial fibrillation (2) Lactic acid acidosis Code(s): E87.2 - ACIDOSIS (3) Pneumonia Code(s): J18.9 - PNEUMONIA, UNSPECIFIED ORGANISM Qualifiers: Pneumonia type: due to unspecified organism Laterality: right Lung location: lower lobe of lung Qualified Code(s): J18.1 - Lobar pneumonia, unspecified organism (4) Sepsis Code(s): A41.9 - SEPSIS, UNSPECIFIED ORGANISM Qualifiers: Sepsis type: sepsis due to unspecified organism Qualified Code(s): A41.9 - Sepsis, unspecified organism (5) Troponin level elevated Code(s): R74.8 - ABNORMAL LEVELS OF OTHER SERUM ENZYMES Assessment/Plan GRAM NEGATIVE PNEUMONIA/BACTEREMIA SEPSIS COPD HYPOTENSION ANEMIA/THROMBOCYTOPENIA PLAN ABX PER ID IV FLUIDS INHALED BRONCHODILATORS PREDNISONE NORMAL TRANFUSION PROTOCOL MONITOR H+H,PLT CT MONITOR LYTES MONITOR BP TRANSFER TO MONITORED BED DR FALK
--- NOTE | 2018-06-16 11:25 | PN ---
Physical Exam: SUBJECTIVE: Patient seen and examined oob to chair. OBJECTIVE: Vital Signs Period Temp Pulse Resp BP Sys/Cedillo Pulse Ox Last 24 Hr 98.5 F-99.6 F 77-124 17-20 80-105/40-54 92-93 GENERAL: The patient is awake, alert, and fully oriented. LUNGS: Poor air movement, wheezing and rhonchi appreciated at the bases; dyspneic with speaking, pursed lip breathing HEART: Regular rate and rhythm, S1, S2 ABDOMEN: Soft, nontender, nondistended EXTREMITIES: 2+ pulses, warm, well-perfused, no edema. NEUROLOGICAL: Cranial nerves II through XII grossly intact. Normal speech, steady gait SKIN: Warm, dry, normal turgor Laboratory Results - last 24 hr 06/15/18 06/16/18 06/16/18 15:30 09:11 09:11 WBC 7.4 RBC 2.31 L Hgb 8.3 L Hct 25.3 L D MCV 109.4 H MCH 35.9 H MCHC 32.8 RDW 12.7 D Plt Count 91 L MPV 6.9 L Absolute Neuts (auto) 5.8 Neutrophils % 77.6 D Lymphocytes % 17.6 D Monocytes % 4.7 Eosinophils % 0.0 D Basophils % 0.1 Sodium 135 L Potassium 3.6 Chloride 107 Carbon Dioxide 22 Anion Gap 6 L BUN 17 Creatinine 0.9 Creat Clearance w eGFR 82.04 Random Glucose 130 H Calcium 7.8 L Magnesium 1.8 Total Bilirubin 0.8 AST 21 ALT 13 Alkaline Phosphatase 41 L D Total Protein 4.3 L Albumin 2.6 L RSV Rapid Negative Active Medications Generic Name Dose Route Start Last Admin Trade Name Kunalq PRN Reason Stop Dose Admin Acetaminophen 650 mg 06/14/18 21:56 06/15/18 09:04 Tylenol - PO 650 mg Q6H PRN Administration Fever Or Pain Albuterol/Ipratropium 1 amp 06/15/18 08:15 06/16/18 07:42 Duoneb - NEB 1 amp Q4H [facility] Administration Aspirin 81 mg 06/15/18 10:00 06/16/18 09:44 Asa - PO Not Given DAILY [facility] Carvedilol 6.25 mg 06/15/18 22:00 06/15/18 21:09 Coreg - PO 6.25 mg BID [facility] Administration Dabigatran 150 mg 06/14/18 22:00 06/16/18 09:37 Pradaxa - PO 150 mg BID [facility] Administration Digoxin 0.125 mg 06/16/18 10:00 06/16/18 09:38 Lanoxin - PO 0.125 mg DAILY [facility] Administration Sodium Chloride 1,000 mls @ 100 mls/hr 06/14/18 20:45 06/15/18 21:09 Normal Saline - IV 100 mls/hr ASDIR [facility] Administration Piperacillin Sod/Tazobactam 50 mls @ 100 mls/hr 06/15/18 18:00 06/16/18 09:39 Sod 3.375 gm/ Dextrose IVPB 100 mls/hr Q8H-IV [facility] Administration Protocol Sodium Chloride 500 mls @ 500 mls/hr 06/16/18 10:32 Normal Saline - IV 06/16/18 11:31 ASDIR STA Prednisone 40 mg 06/15/18 10:00 06/16/18 09:38 Deltasone - PO 40 mg DAILY [facility] Administration Sulfasalazine 500 mg 06/14/18 22:00 06/16/18 09:38 Azulfidine En-Tabs - PO 500 mg BID [facility] Administration ASSESSMENT/PLAN: 78 year-old male with a PMH significant for HLD, paroxysmal afib on Pradaxa, COPD, RA, and GERD. Admitted with fever, bacteremia, COPD exacerbation, possible pneumonia. Community acquired pneumonia COPD exacerbation --afebrile 48 hours; no leukocytosis --CXR today shows new RUL infiltrate --CT chest: extensive bronchiectatic changes probably with active infection; extensive changes of COPD --continue Zosyn --continue PO prednisone --continue duonebs --daily peak flows, pre post --ID and pulmonary following E. coli bacteremia --continues to be hypotensive despite fluid resuscitation --question if there is another source other than pulmonary, CTAP shows fluid in the pelvis of uncertain etiology; IR aspiration? --stool studies pending --continue Zosyn Paroxysmal atrial fibrillation with RVR --was in SR on admission, beta leena held due to hypotension, now in afib with RVR --continue digoxin --continue Pradaxa, ASA --telemetry monitoring --cardiology following Anemia --drop in Hgb 10.6-->8.3 on Pradaxa --occult stool pending --patient had colonoscopy with Dr. Henderson 6 months ago, several polyps removed, was told studies were negative --type and screen --monitor h/h Elevated troponin --initial troponin elevated, second two negative --demand ischemia from infection Rheumatoid arthritis --on sulfasalazine FEN Fluids: NS @ 100mL/hr Electrolytes: replete as indicated Nutrition: low sodium DVT prophylaxis: on Pradaxa Physical therapy Dispo: transfer to [facility] to telemetry. Consider IR aspiration of pelvic fluid. Full code. Visit type - Emergency Visit Emergency Visit: Yes ED Registration Date: 06/14/18 Care time: The patient presented to the Emergency Department on the above date and was hospitalized for further evaluation of their emergent condition. - New Patient This patient is new to me today: No - Critical Care Critical Care patient: Yes Total Critical Care Time (in minutes): 60 Critical Care Statement: The care of this patient involved high complexity decision making to prevent further life threatening deterioration of the patient 's condition and/or to evaluate & treat vital organ system(s) failure or risk of failure.
[2018-06-16] MEDS: ACETAMINOPHEN 325 MG TABLET (FP) PO PRN (17:11)
--- NOTE | 2018-06-16 17:11 | PN ---
Progress Note, Physician History of Present Illness: patient slightly better bp has been stable now hypotension resolving ct scan done of the abdomen - Current Medication List Current Medications: Active Medications Acetaminophen (Tylenol -) 650 mg PO Q6H PRN PRN Reason: Fever Or Pain Last Admin: 06/15/18 09:04 Dose: 650 mg Albuterol/Ipratropium (Duoneb -) 1 amp NEB Q4H [facility] Last Admin: 06/16/18 15:53 Dose: 1 amp Aspirin (Asa -) 81 mg PO DAILY [facility] Last Admin: 06/16/18 09:44 Dose: Not Given Carvedilol (Coreg -) 6.25 mg PO BID [facility] Last Admin: 06/15/18 21:09 Dose: 6.25 mg Dabigatran (Pradaxa -) 150 mg PO BID [facility] Last Admin: 06/16/18 09:37 Dose: 150 mg Digoxin (Lanoxin -) 0.125 mg PO DAILY [facility] Last Admin: 06/16/18 09:38 Dose: 0.125 mg Sodium Chloride (Normal Saline -) 1,000 mls @ 100 mls/hr IV ASDIR [facility] Last Admin: 06/15/18 21:09 Dose: 100 mls/hr Piperacillin Sod/Tazobactam (Sod 3.375 gm/ Dextrose) 50 mls @ 100 mls/hr IVPB Q8H-IV [facility]; Protocol Last Admin: 06/16/18 09:39 Dose: 100 mls/hr Prednisone (Deltasone -) 40 mg PO DAILY [facility] Last Admin: 06/16/18 09:38 Dose: 40 mg Sulfasalazine (Azulfidine En-Tabs -) 500 mg PO BID [facility] Last Admin: 06/16/18 09:38 Dose: 500 mg - Objective Vital Signs: Vital Signs Temperature 99.8 F H 06/16/18 16:12 Pulse Rate 95 H 06/16/18 15:48 Respiratory Rate 20 06/16/18 15:48 Blood Pressure 107/74 06/16/18 15:48 O2 Sat by Pulse Oximetry (%) 93 L 06/16/18 06:00 Constitutional: Yes: No Distress, Calm Cardiovascular: Yes: Pulse Irregular Respiratory: Yes: Regular, Other (barrell chest) Gastrointestinal: Yes: Normal Bowel Sounds, Soft Musculoskeletal: Yes: WNL Extremities: Yes: WNL Neurological: Yes: Alert, Oriented Labs: CBC, BMP 06/16/18 09:11 06/16/18 09:11 - ....Imaging Cat Scan: Report Reviewed, Image Reviewed Assessment/Plan Assessment/Plan Problem List - Problems (1) Atrial fibrillation Code(s): I48.91 - UNSPECIFIED ATRIAL FIBRILLATION Qualifiers: Atrial fibrillation type: paroxysmal Qualified Code(s): I48.0 - Paroxysmal atrial fibrillation (2) Lactic acid acidosis Code(s): E87.2 - ACIDOSIS (3) Pneumonia Code(s): J18.9 - PNEUMONIA, UNSPECIFIED ORGANISM Qualifiers: Pneumonia type: due to unspecified organism Laterality: right Lung location: lower lobe of lung Qualified Code(s): J18.1 - Lobar pneumonia, unspecified organism (4) Sepsis Code(s): A41.9 - SEPSIS, UNSPECIFIED ORGANISM Qualifiers: Sepsis type: sepsis due to unspecified organism Qualified Code(s): A41.9 - Sepsis, unspecified organism (5) Troponin level elevated Code(s): R74.8 - ABNORMAL LEVELS OF OTHER SERUM ENZYMES patients pathology probably coming from the gut or urine plan continue abx should consider aspirating the collectionif possible and check close watch improving close watch on resuscitation
--- NOTE | 2018-06-16 19:27 | PN ---
Progress Note, Physician - Current Medication List Current Medications: Active Medications Acetaminophen (Tylenol -) 650 mg PO Q6H PRN PRN Reason: Fever Or Pain Last Admin: 06/16/18 17:11 Dose: 650 mg Albuterol/Ipratropium (Duoneb -) 1 amp NEB Q4H [facility] Last Admin: 06/16/18 15:53 Dose: 1 amp Aspirin (Asa -) 81 mg PO DAILY [facility] Last Admin: 06/16/18 09:44 Dose: Not Given Carvedilol (Coreg -) 6.25 mg PO BID [facility] Last Admin: 06/15/18 21:09 Dose: 6.25 mg Dabigatran (Pradaxa -) 150 mg PO BID [facility] Last Admin: 06/16/18 09:37 Dose: 150 mg Digoxin (Lanoxin -) 0.125 mg PO DAILY [facility] Last Admin: 06/16/18 09:38 Dose: 0.125 mg Sodium Chloride (Normal Saline -) 1,000 mls @ 100 mls/hr IV ASDIR [facility] Last Admin: 06/15/18 21:09 Dose: 100 mls/hr Piperacillin Sod/Tazobactam (Sod 3.375 gm/ Dextrose) 50 mls @ 100 mls/hr IVPB Q8H-IV [facility]; Protocol Last Admin: 06/16/18 17:11 Dose: 100 mls/hr Prednisone (Deltasone -) 40 mg PO DAILY [facility] Last Admin: 06/16/18 09:38 Dose: 40 mg Sulfasalazine (Azulfidine En-Tabs -) 500 mg PO BID [facility] Last Admin: 06/16/18 09:38 Dose: 500 mg - Objective Vital Signs: Vital Signs Temperature 99.8 F H 06/16/18 16:12 Pulse Rate 95 H 06/16/18 15:48 Respiratory Rate 20 06/16/18 15:48 Blood Pressure 107/74 06/16/18 15:48 O2 Sat by Pulse Oximetry (%) 93 L 06/16/18 06:00 Cardiovascular: Yes: S1, S2 Respiratory: Yes: On Nasal O2, Rhonchi Gastrointestinal: Yes: Normal Bowel Sounds, Soft Labs: CBC, BMP 06/16/18 09:11 06/16/18 09:11 Problem List - Problems (1) COPD with acute exacerbation Assessment/Plan: --continue PO prednisone --continue duonebs --daily peak flows, pre post --ID and pulmonary following Code(s): J44.1 - CHRONIC OBSTRUCTIVE PULMONARY DISEASE W (ACUTE) EXACERBATION (2) Anemia Assessment/Plan: --drop in Hgb 10.6-->8.3 -- --occult stool pending --patient had colonoscopy with Dr. Henderson 6 months ago, several polyps removed, was told studies were negative --type and screen--transfuse if further drop --monitor h/h Code(s): D64.9 - ANEMIA, UNSPECIFIED (3) Atrial fibrillation Assessment/Plan: --was in SR on admission, beta leena held due to hypotension, now in afib with RVR --continue digoxin --continue Pradaxa, ASA --telemetry monitoring --cardiology following Code(s): I48.91 - UNSPECIFIED ATRIAL FIBRILLATION Qualifiers: Atrial fibrillation type: paroxysmal Qualified Code(s): I48.0 - Paroxysmal atrial fibrillation (4) Pneumonia Assessment/Plan: --CT chest: extensive bronchiectatic changes probably with active infection; extensive changes of COPD --continue Zosyn Code(s): J18.9 - PNEUMONIA, UNSPECIFIED ORGANISM Qualifiers: Pneumonia type: due to unspecified organism Laterality: right Lung location: lower lobe of lung Qualified Code(s): J18.1 - Lobar pneumonia, unspecified organism (5) Sepsis Assessment/Plan: --E. coli bacteremia -- hypotensive despite fluid resuscitation --ID on Case --continue Zosyn Code(s): A41.9 - SEPSIS, UNSPECIFIED ORGANISM Qualifiers: Sepsis type: sepsis due to unspecified organism Qualified Code(s): A41.9 - Sepsis, unspecified organism
[2018-06-16] MEDS: SODIUM CHLORIDE 1,000 ML IV SCH (20:45)
[2018-06-16 20:47] LABS: BASO % 0.1 % (0-2.0); HEMATOCRIT 25.6 % (35.4-49); LYMPH % 10.3 % (8-40); MCH 38.7 pg (25.7-33.7); MCHC 35.1 g/dl (32.0-35.9); MEAN CELL VOLUME 110.3 fl (80-96); MEAN PLT VOLUME 7.8 fl (7.5-11.1); MONO % 4.8 % (3.8-10.2); NEUT % 84.8 % (42.8-82.8); PLATELET COUNT 86 K/MM3 (134-434); RBC 2.33 M/mm3 (4.00-5.60); RDW 13.2 % (11.9-15.9); WHITE BLOOD COUNT 7.5 K/mm3 (4.0-10.0)
[2018-06-16] MEDS: CARVEDILOL 6.25 MG TABLET (FP) PO SCH (21:15)
[2018-06-16 21:28] LABS: ALBUMIN 2.7 g/dl (3.4-5.0); ALK PHOS 52 U/L (45-117); ANION GAP 7 MMOL/L (8-16); BILIRUBIN,TOTAL 0.4 mg/dL (0.2-1); BLOOD UREA NITROGEN 18 mg/dL (7-18); CALCIUM 7.8 mg/dL (8.5-10.1); CHLORIDE 111 mmol/L (98-107); CO2 24 mmol/L (21-32); CREATININE 0.8 mg/dL (0.55-1.3); GLUCOSE,RANDOM 159 mg/dL (74-106); POTASSIUM 3.8 mmol/L (3.5-5.1); SGOT/AST 17 U/L (15-37); SGPT/ALT 14 U/L (13-61); SODIUM 142 mmol/L (136-145); TOT PROT 5.1 g/dl (6.4-8.2)
--- NOTE | 2018-06-16 21:47 | EKG ---
Test Reason : Blood Pressure : / mmHG Vent. Rate : 091 BPM Atrial Rate : 110 BPM P-R Int : 000 ms QRS Dur : 084 ms QT Int : 354 ms P-R-T Axes : 000 053 069 degrees QTc Int : 435 ms ATRIAL FIBRILLATION LOW VOLTAGE QRS CANNOT RULE OUT ANTERIOR INFARCT , AGE UNDETERMINED ABNORMAL ECG WHEN COMPARED WITH ECG OF 15-JUN-2018 13:02, MINIMAL CRITERIA FOR ANTERIOR INFARCT ARE NOW PRESENT Confirmed by MD LEXY, FABRICIO ([id number]) on 06/16/2018 9:47:30 PM Referred By: ANABELL Confirmed By:FABRICIO PUGH MD
[2018-06-16] MEDS ORDERED: DABIGATRAN ETEXILATE MESYLATE 150 MG CAPSULE PO SCH (22:00)
[2018-06-17] MEDS: ALBUTEROL SO4 2.5/IPRATROPIUM 0.5 INH SOL 3 ML VIAL.NEB. NEB SCH ×6 (01:20→20:40)
[2018-06-17] MEDS ORDERED: DEXTROSE 5%-WATER - 50 ML IVPB ONE ×3 (01:34→15:35)
[2018-06-17] MEDS ORDERED: PIPERACILLIN/TAZOBACTAM 3.375 GM VIAL IVPB ONE ×2 (01:34→09:12)
[2018-06-17] MEDS: PIPERACILLIN/TAZOB 3.375 GM 3.375 GM in DEXTROSE 5%-WATER - 50 ML IVPB SCH ×2 (01:38→09:23)
[2018-06-17 06:21] LABS: BASO % 0.1 % (0-2.0); HEMATOCRIT 22.5 % (35.4-49); HEMOGLOBIN 7.7 GM/dL (11.7-16.9); MCH 37.3 pg (25.7-33.7); MCHC 34.2 g/dl (32.0-35.9); MEAN CELL VOLUME 108.9 fl (80-96); MEAN PLT VOLUME 7.3 fl (7.5-11.1); MONO % 6.6 % (3.8-10.2); NEUT % 74.3 % (42.8-82.8); PLATELET COUNT 78 K/MM3 (134-434); RBC 2.07 M/mm3 (4.00-5.60); WHITE BLOOD COUNT 6.5 K/mm3 (4.0-10.0)
[2018-06-17 06:50] LABS: ALBUMIN 2.4 g/dl (3.4-5.0); ALK PHOS 47 U/L (45-117); ANION GAP 6 MMOL/L (8-16); BILIRUBIN,TOTAL 0.6 mg/dL (0.2-1); BLOOD UREA NITROGEN 15 mg/dL (7-18); CALCIUM 7.6 mg/dL (8.5-10.1); CHLORIDE 112 mmol/L (98-107); CO2 26 mmol/L (21-32); CREATININE 0.6 mg/dL (0.55-1.3); GLUCOSE,RANDOM 88 mg/dL (74-106); POTASSIUM 3.7 mmol/L (3.5-5.1); SGOT/AST 16 U/L (15-37); SGPT/ALT 13 U/L (13-61); SODIUM 143 mmol/L (136-145); TOT PROT 4.5 g/dl (6.4-8.2)
[2018-06-17] MEDS ORDERED: PT OWN MED DRAWER 7, Y5N ONE ×3 (09:12→21:18)
[2018-06-17] MEDS: predniSONE 20 MG TABLET (UD) PO SCH (09:24)
[2018-06-17] MEDS: CARVEDILOL 6.25 MG TABLET (FP) PO SCH ×2 (09:25→21:18)
[2018-06-17] MEDS ORDERED: DIGOXIN 0.125 MG TABLET (FP) PO SCH (10:00)
[2018-06-17] MEDS ORDERED: ASPIRIN 81 MG CHEWABLE TABLETS PO SCH (10:00)
--- NOTE | 2018-06-17 10:31 | PN ---
Progress Note, Physician History of Present Illness: Transferred for E. coli sepsis, no further fevers or chills, episodes of rapid afib rate-controlled with resumption of carvediolol and IV Lopressor, acute anemia noted planed for pRBC transfusion, a/c to be held pending hemostasis. Dyspnea improved, denies chest pain. - Current Medication List Current Medications: Active Medications Acetaminophen (Tylenol -) 650 mg PO Q6H PRN PRN Reason: Fever Albuterol/Ipratropium (Duoneb -) 1 amp NEB RQ4H [facility] Last Admin: 06/17/18 04:00 Dose: Not Given Carvedilol (Coreg -) 6.25 mg PO BID [facility] Last Admin: 06/17/18 09:25 Dose: 6.25 mg Digoxin (Lanoxin -) 0.125 mg PO DAILY [facility] Last Admin: 06/17/18 09:24 Dose: 0.125 mg Sodium Chloride (Normal Saline -) 1,000 mls @ 100 mls/hr IV ASDIR [facility] Last Admin: 06/16/18 20:45 Dose: 100 mls/hr Piperacillin Sod/Tazobactam (Sod 3.375 gm/ Dextrose) 50 mls @ 100 mls/hr IVPB Q8H-IV [facility]; Protocol Last Admin: 06/17/18 09:23 Dose: 100 mls/hr Metoprolol Tartrate (Lopressor Injection -) 5 mg IVPB Q4H PRN PRN Reason: HEART RATE Pantoprazole Sodium (Protonix -) 40 mg PO BID [facility] Prednisone (Deltasone -) 40 mg PO DAILY [facility] Last Admin: 06/17/18 09:24 Dose: 40 mg Sulfasalazine (Azulfidine En-Tabs -) 1,000 mg PO BID [facility] Last Admin: 06/17/18 09:25 Dose: 1,000 mg - Objective Vital Signs: Vital Signs Temperature 97.7 F 06/17/18 06:00 Pulse Rate 88 06/17/18 09:24 Respiratory Rate 18 06/17/18 06:00 Blood Pressure 113/81 06/17/18 06:00 O2 Sat by Pulse Oximetry (%) 97 06/16/18 21:00 Constitutional: Yes: No Distress, Calm, Thin Neck: Yes: Supple Cardiovascular: Yes: Pulse Irregular Respiratory: Yes: Regular, Diminished, On Nasal O2 Gastrointestinal: Yes: Soft, Hypoactive Bowel Sounds Edema: No Labs: CBC, BMP 06/17/18 06:00 06/17/18 06:00 - ....Imaging EKG: Report Reviewed (Tele: Rapid afib) Problem List - Problems (1) Demand ischemia Code(s): I24.8 - OTHER FORMS OF ACUTE ISCHEMIC HEART DISEASE (2) COPD (chronic obstructive pulmonary disease) with acute bronchitis Code(s): J44.0 - CHRONIC OBSTRUCTIVE PULMON DISEASE W ACUTE LOWER RESP INFCT; J20.9 - ACUTE BRONCHITIS, UNSPECIFIED (3) Atrial fibrillation Code(s): I48.91 - UNSPECIFIED ATRIAL FIBRILLATION Qualifiers: Atrial fibrillation type: paroxysmal Qualified Code(s): I48.0 - Paroxysmal atrial fibrillation (4) Lactic acid acidosis Code(s): E87.2 - ACIDOSIS (5) Pneumonia Code(s): J18.9 - PNEUMONIA, UNSPECIFIED ORGANISM Qualifiers: Pneumonia type: due to unspecified organism Laterality: right Lung location: lower lobe of lung Qualified Code(s): J18.1 - Lobar pneumonia, unspecified organism (6) Sepsis Code(s): A41.9 - SEPSIS, UNSPECIFIED ORGANISM Qualifiers: Sepsis type: sepsis due to unspecified organism Qualified Code(s): A41.9 - Sepsis, unspecified organism (7) Troponin level elevated Code(s): R74.8 - ABNORMAL LEVELS OF OTHER SERUM ENZYMES (8) Bronchitis Code(s): J40 - BRONCHITIS, NOT SPECIFIED ACUTE OR CHRONIC Assessment/Plan 01/15/2018 Mildly decreased LVEF 45-50%, mild MR, [place], [place] 1. CAP, acute bronchitis with e. coli sepsis 2. Paroxysmal afib -> SR on Pradaxa 3. Demand ischemia referable to #1 4. Lactic acidosis resolving 5. COPD 6. Rheumatoid arthritis P:1. Trops downtrending 2. Abx course per C&S, BD, prednisone with gi protection and O2 as needed 3. Hold Pradaxa 150 bid, ASA 81 qd pending hemostasis 4. Continue carvedilol 6.25 bid, IV Lopressor as needed, d/c digoxin, and resume ramipril as hemodynamics tolerate
[2018-06-17] MEDS: PANTOPRAZOLE 40 MG TABLET (FP) PO SCH ×2 (10:50→21:18)
--- NOTE | 2018-06-17 11:46 | PN ---
Progress Note, Physician - Current Medication List Current Medications: Active Medications Acetaminophen (Tylenol -) 650 mg PO Q6H PRN PRN Reason: Fever Albuterol/Ipratropium (Duoneb -) 1 amp NEB RQ4H [facility] Last Admin: 06/17/18 11:33 Dose: 1 amp Carvedilol (Coreg -) 6.25 mg PO BID [facility] Last Admin: 06/17/18 09:25 Dose: 6.25 mg Sodium Chloride (Normal Saline -) 1,000 mls @ 100 mls/hr IV ASDIR [facility] Last Admin: 06/16/18 20:45 Dose: 100 mls/hr Piperacillin Sod/Tazobactam (Sod 3.375 gm/ Dextrose) 50 mls @ 100 mls/hr IVPB Q8H-IV [facility]; Protocol Last Admin: 06/17/18 09:23 Dose: 100 mls/hr Metoprolol Tartrate (Lopressor Injection -) 5 mg IVPB Q4H PRN PRN Reason: HEART RATE Pantoprazole Sodium (Protonix -) 40 mg PO BID [facility] Last Admin: 06/17/18 10:50 Dose: 40 mg Prednisone (Deltasone -) 40 mg PO DAILY [facility] Last Admin: 06/17/18 09:24 Dose: 40 mg Sulfasalazine (Azulfidine En-Tabs -) 1,000 mg PO BID [facility] Last Admin: 06/17/18 09:25 Dose: 1,000 mg - Objective Vital Signs: Vital Signs Temperature 97.7 F 06/17/18 06:00 Pulse Rate 88 06/17/18 09:24 Respiratory Rate 18 06/17/18 06:00 Blood Pressure 113/81 06/17/18 06:00 O2 Sat by Pulse Oximetry (%) 97 06/16/18 21:00 Cardiovascular: Yes: S1, S2 Respiratory: Yes: On Nasal O2, Rhonchi Gastrointestinal: Yes: Normal Bowel Sounds, Soft. No: Tenderness Edema: No Labs: CBC, BMP 06/17/18 06:00 06/17/18 06:00 Problem List - Problems (1) COPD with acute exacerbation Assessment/Plan: --continue PO prednisone --continue duonebs --daily peak flows, pre post --ID and pulmonary following Code(s): J44.1 - CHRONIC OBSTRUCTIVE PULMONARY DISEASE W (ACUTE) EXACERBATION (2) Anemia Assessment/Plan: --drop in Hgb 10.6-->8.3 -->7.7 hold Pradaxa --occult stool pending --patient had colonoscopy with Dr. Henderson 6 months ago, several polyps removed, was told studies were negative --type and screen--transfuse --monitor h/h Code(s): D64.9 - ANEMIA, UNSPECIFIED (3) Atrial fibrillation Assessment/Plan: --was in SR on admission, beta leena held due to hypotension, now in afib with RVR --continue digoxin --Hold Pradaxa, ASA--d/w cardio --telemetry monitoring --cardiology following Code(s): I48.91 - UNSPECIFIED ATRIAL FIBRILLATION Qualifiers: Atrial fibrillation type: paroxysmal Qualified Code(s): I48.0 - Paroxysmal atrial fibrillation (4) Pneumonia Assessment/Plan: --CT chest: extensive bronchiectatic changes probably with active infection; extensive changes of COPD --continue Zosyn Code(s): J18.9 - PNEUMONIA, UNSPECIFIED ORGANISM Qualifiers: Pneumonia type: due to unspecified organism Laterality: right Lung location: lower lobe of lung Qualified Code(s): J18.1 - Lobar pneumonia, unspecified organism (5) Sepsis Assessment/Plan: --E. coli bacteremia -- hypotensive despite fluid resuscitation --ID on Case --continue [employer] [facility] 06/15/18 16:20 Sputum - Expectorated Gram Stain - Final 06/15/18 16:20 Sputum - Expectorated Sputum Culture - Preliminary NORMAL RESPIRATORY BÁRBARA 06/15/18 16:20 Stool Clostridioides difficile Antigen - Final 06/15/18 16:20 Stool Clostridioides difficile Toxin Assay - Final 06/15/18 15:00 Urine - Urine Clean Catch Legionella Antigen - Final 06/15/18 15:00 Urine - Urine Clean Catch Streptococcus pneumoniae Antigen ( M - Final 06/14/18 15:02 Blood - Peripheral Venous Blood Culture - Final Escherichia Coli 06/14/18 14:45 Blood - Peripheral Venous Blood Culture - Final Escherichia Coli 06/14/18 21:30 Urine - Urine Clean Catch Urine Culture - Final NO GROWTH OBTAINED Code(s): A41.9 - SEPSIS, UNSPECIFIED ORGANISM Qualifiers: Sepsis type: sepsis due to unspecified organism Qualified Code(s): A41.9 - Sepsis, unspecified organism
--- NOTE | 2018-06-17 14:37 | PN ---
Progress Note, Physician History of Present Illness: patient feels much better being transfused - Current Medication List Current Medications: Active Medications Acetaminophen (Tylenol -) 650 mg PO Q6H PRN PRN Reason: Fever Albuterol/Ipratropium (Duoneb -) 1 amp NEB RQ4H [facility] Last Admin: 06/17/18 11:33 Dose: 1 amp Carvedilol (Coreg -) 6.25 mg PO BID [facility] Last Admin: 06/17/18 09:25 Dose: 6.25 mg Sodium Chloride (Normal Saline -) 1,000 mls @ 100 mls/hr IV ASDIR [facility] Last Admin: 06/16/18 20:45 Dose: 100 mls/hr Metoprolol Tartrate (Lopressor Injection -) 5 mg IVPB Q4H PRN PRN Reason: HEART RATE Pantoprazole Sodium (Protonix -) 40 mg PO BID [facility] Last Admin: 06/17/18 10:50 Dose: 40 mg Prednisone (Deltasone -) 40 mg PO DAILY [facility] Last Admin: 06/17/18 09:24 Dose: 40 mg Sulfasalazine (Azulfidine En-Tabs -) 1,000 mg PO BID [facility] Last Admin: 06/17/18 09:25 Dose: 1,000 mg - Objective Vital Signs: Vital Signs Temperature 98 F 06/17/18 09:00 Pulse Rate 88 06/17/18 09:24 Respiratory Rate 18 06/17/18 09:00 Blood Pressure 132/74 06/17/18 09:00 O2 Sat by Pulse Oximetry (%) 93 L 06/17/18 09:00 Constitutional: Yes: No Distress, Calm Cardiovascular: Yes: Regular Rate and Rhythm Respiratory: Yes: Regular, CTA Bilaterally Gastrointestinal: Yes: Normal Bowel Sounds, Soft Musculoskeletal: Yes: WNL Extremities: Yes: WNL Neurological: Yes: Alert, Oriented Psychiatric: Yes: Alert, Oriented Labs: CBC, BMP 06/17/18 06:00 06/17/18 06:00 Assessment/Plan Assessment/Plan Problem List - Problems (1) Atrial fibrillation Code(s): I48.91 - UNSPECIFIED ATRIAL FIBRILLATION Qualifiers: Atrial fibrillation type: paroxysmal Qualified Code(s): I48.0 - Paroxysmal atrial fibrillation (2) Lactic acid acidosis Code(s): E87.2 - ACIDOSIS (3) Pneumonia Code(s): J18.9 - PNEUMONIA, UNSPECIFIED ORGANISM Qualifiers: Pneumonia type: due to unspecified organism Laterality: right Lung location: lower lobe of lung Qualified Code(s): J18.1 - Lobar pneumonia, unspecified organism (4) Sepsis Code(s): A41.9 - SEPSIS, UNSPECIFIED ORGANISM Qualifiers: Sepsis type: sepsis due to unspecified organism Qualified Code(s): A41.9 - Sepsis, unspecified organism (5) Troponin level elevated Code(s): R74.8 - ABNORMAL LEVELS OF OTHER SERUM ENZYMES patients pathology probably coming from the gut or urine plan continue abx awaiting for repeat blood cx monitor h and h close watch
--- NOTE | 2018-06-17 14:50 | PN ---
Progress Note, Physician History of Present Illness: pulmonary alert,feeling better,less dyspneic,bp improved - Current Medication List Current Medications: Active Medications Acetaminophen (Tylenol -) 650 mg PO Q6H PRN PRN Reason: Fever Albuterol/Ipratropium (Duoneb -) 1 amp NEB RQ4H [facility] Last Admin: 06/17/18 11:33 Dose: 1 amp Carvedilol (Coreg -) 6.25 mg PO BID [facility] Last Admin: 06/17/18 09:25 Dose: 6.25 mg Sodium Chloride (Normal Saline -) 1,000 mls @ 100 mls/hr IV ASDIR [facility] Last Admin: 06/16/18 20:45 Dose: 100 mls/hr Ceftriaxone Sodium 1 gm/ (Dextrose) 50 mls @ 100 mls/hr IVPB DAILY [facility]; Protocol Metoprolol Tartrate (Lopressor Injection -) 5 mg IVPB Q4H PRN PRN Reason: HEART RATE Pantoprazole Sodium (Protonix -) 40 mg PO BID [facility] Last Admin: 06/17/18 10:50 Dose: 40 mg Prednisone (Deltasone -) 40 mg PO DAILY [facility] Last Admin: 06/17/18 09:24 Dose: 40 mg Sulfasalazine (Azulfidine En-Tabs -) 1,000 mg PO BID [facility] Last Admin: 06/17/18 09:25 Dose: 1,000 mg - Objective Vital Signs: Vital Signs Temperature 98 F 06/17/18 09:00 Pulse Rate 88 06/17/18 09:24 Respiratory Rate 18 06/17/18 09:00 Blood Pressure 132/74 06/17/18 09:00 O2 Sat by Pulse Oximetry (%) 93 L 06/17/18 09:00 Constitutional: Yes: Well Nourished, Calm Eyes: Yes: WNL HENT: Yes: WNL Neck: Yes: WNL Cardiovascular: Yes: Pulse Irregular, S1, S2 Respiratory: Yes: Rhonchi (few rhonchi) Gastrointestinal: Yes: Normal Bowel Sounds, Soft Extremities: Yes: WNL Edema: No Labs: CBC, BMP 06/17/18 06:00 06/17/18 06:00 Assessment/Plan Problem List - Problems (1) Atrial fibrillation Code(s): I48.91 - UNSPECIFIED ATRIAL FIBRILLATION Qualifiers: Atrial fibrillation type: paroxysmal Qualified Code(s): I48.0 - Paroxysmal atrial fibrillation (2) Lactic acid acidosis Code(s): E87.2 - ACIDOSIS (3) Pneumonia Code(s): J18.9 - PNEUMONIA, UNSPECIFIED ORGANISM Qualifiers: Pneumonia type: due to unspecified organism Laterality: right Lung location: lower lobe of lung Qualified Code(s): J18.1 - Lobar pneumonia, unspecified organism (4) Sepsis Code(s): A41.9 - SEPSIS, UNSPECIFIED ORGANISM Qualifiers: Sepsis type: sepsis due to unspecified organism Qualified Code(s): A41.9 - Sepsis, unspecified organism (5) Troponin level elevated Code(s): R74.8 - ABNORMAL LEVELS OF OTHER SERUM ENZYMES Assessment/Plan GRAM NEGATIVE PNEUMONIA/BACTEREMIA SEPSIS COPD HYPOTENSION IMPROVED ANEMIA/THROMBOCYTOPENIA PLAN ABX PER ID IV FLUIDS INHALED BRONCHODILATORS PREDNISONE NORMAL TRANFUSION PROTOCOL MONITOR H+H,PLT CT MONITOR MAX FALK
[2018-06-17] MEDS ORDERED: cefTRIAXone SODIUM 1 GM VIAL ONE (15:35)
[2018-06-17] MEDS: CEFTRIAXONE 1 GM in DEXTROSE 5%-WATER - 50 ML IVPB SCH (16:58)
[2018-06-17] MEDS: METOPROLOL TARTRATE 5 MG/5 ML VIAL IVPB PRN (18:42)
[2018-06-17] MEDS: SODIUM CHLORIDE 1,000 ML IV SCH (21:15)
[2018-06-18] MEDS: ALBUTEROL SO4 2.5/IPRATROPIUM 0.5 INH SOL 3 ML VIAL.NEB. NEB SCH ×6 (00:05→20:34)
[2018-06-18] MEDS: SODIUM CHLORIDE 1,000 ML IV SCH ×3 (04:57→21:36)
[2018-06-18 07:00] LABS: HEMATOCRIT 28.4 % (35.4-49); HEMOGLOBIN 9.7 GM/dL (11.7-16.9); MCH 35.2 pg (25.7-33.7); MEAN CELL VOLUME 103.4 fl (80-96); MEAN PLT VOLUME 7.8 fl (7.5-11.1); PLATELET COUNT 75 K/MM3 (134-434); RBC 2.75 M/mm3 (4.00-5.60); RDW 18.4 % (11.9-15.9); WHITE BLOOD COUNT 6.7 K/mm3 (4.0-10.0)
--- NOTE | 2018-06-18 09:09 | CON.GI ---
Consult Consult Specialty:: GI Referred by:: Drs. Hema Katz/Erik Reason for Consultation:: GI bleed - History of Present Illness Chief Complaint: blood in stool History of Present Illness: Patient is a 78 y/o male with past medical history of Afib (no home AC-on digoxin and metoprolol), HTN, RA. I was consulted for anemia. Patient noted with drop in Hg from 10.6 to 8.3 on admission. On 06/17/18 noted with Hg 7.7 and was transfused 2U PRBC, current Hg 9.7. Noted with low Platelet level 75. Prior to admission patient states he has been experiencing intermittent episodes of bright red blood in stool. Stool OB performed and negative result. Most recent colonoscopy is less than [address] scan done shows several small calcifications in pancreatic head, esophagus has thickened wall and mildly dilated with air, and fluid noted in R pelvis. Patient refused rectal examinaton. 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: Alzheimer's Cardio/Vascular: Yes: AFIB, CAD Pulmonary: Yes: COPD Gastrointestinal: No: Ascites Hepatobiliary: No: Cirrhosis Renal/: No: Renal Failure Rheumatology: Yes: Rheumatoid Arthritis - Past Surgical History Past Surgical History: Yes: None - Alcohol/Substance Use Hx Alcohol Use: Yes (WINE) - Smoking History Smoking history: Current every day smoker Have you smoked in the past 12 months: Yes Aproximately how many cigarettes per day: 3 - Social History Usual Living Arrangement: With Spouse ADL: Family Assistance Home Medications - Allergies Allergies/Adverse Reactions: Allergies Allergy/AdvReac Type Severity Reaction Status Date / Time No Known Allergies Allergy Verified 06/14/18 14:04 - Home Medications Home Medications: Ambulatory Orders Dabigatran Etexilate Mesylate [Pradaxa -] 150 mg PO BID #0 cap 02/14/13 Carvedilol [Coreg] 6.25 mg PO BID 02/17/18 Ramipril [Altace] 5 mg PO DAILY 02/17/18 Aspirin 81 mg PO DAILY 06/14/18 Digoxin [Lanoxin -] 0.125 mg PO DAILY 06/14/18 predniSONE [Deltasone -] 2.5 mg PO DAILY 06/14/18 Sulfasalazine 1,000 mg PO BID 06/15/18 Review of Systems - Review of Systems Constitutional: reports: No Symptoms Eyes: reports: No Symptoms HENT: reports: No Symptoms Neck: reports: No Symptoms Cardiovascular: reports: No Symptoms Respiratory: reports: Cough, SOB Gastrointestinal: reports: No Symptoms, Rectal Bleeding Genitourinary: reports: No Symptoms Breasts: reports: No Symptoms Reported Musculoskeletal: reports: No Symptoms Integumentary: reports: No Symptoms Neurological: reports: No Symptoms Endocrine: reports: No Symptoms Hematology/Lymphatic: reports: No Symptoms Psychiatric: reports: No Symptoms Physical Exam-GI Vital Signs: Vital Signs Temperature 97.9 F 06/18/18 06:00 Pulse Rate 71 06/18/18 06:00 Respiratory Rate 18 06/18/18 06:00 Blood Pressure 119/66 06/18/18 06:00 O2 Sat by Pulse Oximetry (%) 95 06/17/18 21:00 Constitutional: Yes: Well Nourished, No Distress, Calm Eyes: Yes: Conjunctiva Clear HENT: Yes: Atraumatic Cardiovascular: Yes: Pulse Irregular Respiratory: Yes: On Nasal O2, Rhonchi Gastrointestinal Inspection: Yes: Distention (mild distention). No: WNL, Ascites, Hernia, Scars, Other ...Auscultate: Yes: Normoactive Bowel Sounds. No: Hyperactive Bowel Sounds, Hypoactive Bowel Sounds, No Bowel Sounds, Other ...Palpate: Yes: Soft. No: Firm/Rigid, Guarding, Hepatomegaly, Mass, Pulsatile Mass, Splenomegaly, Tenderness, Tenderness, Epigastium, Tenderness, Rebound, Other ...Percussion: Yes: Tympanitic. No: Dullness, Fluid Wave, Other Neurological: Yes: Alert, Oriented Psychiatric: Yes: Alert, Oriented Labs: CBC, BMP 06/18/18 06:00 06/17/18 06:00 Active Medications Generic Name Dose Route Start Last Admin Trade Name Freq PRN Reason Stop Dose Admin Acetaminophen 650 mg 06/16/18 20:08 Tylenol - PO Q6H PRN Fever Albuterol/Ipratropium 1 amp 06/16/18 20:15 06/18/18 07:49 Duoneb - NEB 1 amp RQ4H [facility] Administration Carvedilol 6.25 mg 06/16/18 22:00 06/17/18 21:18 Coreg - PO 6.25 mg BID [facility] Administration Sodium Chloride 1,000 mls @ 100 mls/hr 06/16/18 20:08 06/18/18 04:57 Normal Saline - IV 100 mls/hr ASDIR [facility] Administration Ceftriaxone Sodium 1 gm/ 50 mls @ 100 mls/hr 06/17/18 14:45 06/17/18 16:58 Dextrose IVPB 100 mls/hr DAILY [facility] Administration Protocol Metoprolol Tartrate 5 mg 06/16/18 20:15 06/17/18 18:42 Lopressor Injection - IVPB 5 mg Q4H PRN Administration HEART RATE Pantoprazole Sodium 40 mg 06/17/18 10:00 06/17/18 21:18 Protonix - PO 40 mg BID [facility] Administration Prednisone 40 mg 06/17/18 10:00 06/17/18 09:24 Deltasone - PO 40 mg DAILY [facility] Administration Sulfasalazine 1,000 mg 06/16/18 22:00 06/17/18 21:19 Azulfidine En-Tabs - PO 1,000 mg BID [facility] Administration Problem List - Problems (1) Anemia Assessment/Plan: >monitor Hg daily >transfuse for Hg <8.0 >continue with Pantoprazole Code(s): D64.9 - ANEMIA, UNSPECIFIED (2) Rectal bleeding Assessment/Plan: most likely secondary to large internal hemorrhoids R> consider switching to Coumadin,IV heparin close observation while on anticoagulant Code(s): K62.5 - HEMORRHAGE OF ANUS AND RECTUM
[2018-06-18] MEDS ORDERED: PT OWN MED DRAWER 7, Y5N ONE ×2 (09:26→21:28)
[2018-06-18] MEDS ORDERED: cefTRIAXone SODIUM 1 GM VIAL ONE (09:27)
[2018-06-18] MEDS ORDERED: DEXTROSE 5%-WATER - 50 ML IVPB ONE (09:27)
[2018-06-18] MEDS: CARVEDILOL 6.25 MG TABLET (FP) PO SCH ×2 (09:34→21:33)
[2018-06-18] MEDS: predniSONE 20 MG TABLET (UD) PO SCH (09:34)
[2018-06-18] MEDS: PANTOPRAZOLE 40 MG TABLET (FP) PO SCH ×2 (09:34→21:33)
[2018-06-18] MEDS: ACETAMINOPHEN 325 MG TABLET (FP) PO PRN (09:35)
[2018-06-18] MEDS: CEFTRIAXONE 1 GM in DEXTROSE 5%-WATER - 50 ML IVPB SCH (09:41)
--- NOTE | 2018-06-18 10:47 | PN ---
Progress Note, Physician History of Present Illness: No further fevers or chills, afib rate-controlled with resumption of carvediolol and IV Lopressor, acute anemia noted post 2U pRBC transfusion, a/c held pending hemostasis. Dyspnea improved, denies chest pain. - Current Medication List Current Medications: Active Medications Acetaminophen (Tylenol -) 650 mg PO Q6H PRN PRN Reason: Fever Last Admin: 06/18/18 09:35 Dose: 650 mg Albuterol/Ipratropium (Duoneb -) 1 amp NEB RQ4H [facility] Last Admin: 06/18/18 07:49 Dose: 1 amp Carvedilol (Coreg -) 6.25 mg PO BID [facility] Last Admin: 06/18/18 09:34 Dose: 6.25 mg Sodium Chloride (Normal Saline -) 1,000 mls @ 100 mls/hr IV ASDIR [facility] Last Admin: 06/18/18 04:57 Dose: 100 mls/hr Ceftriaxone Sodium 1 gm/ (Dextrose) 50 mls @ 100 mls/hr IVPB DAILY [facility]; Protocol Last Admin: 06/18/18 09:41 Dose: 100 mls/hr Metoprolol Tartrate (Lopressor Injection -) 5 mg IVPB Q4H PRN PRN Reason: HEART RATE Last Admin: 06/17/18 18:42 Dose: 5 mg Pantoprazole Sodium (Protonix -) 40 mg PO BID [facility] Last Admin: 06/18/18 09:34 Dose: 40 mg Prednisone (Deltasone -) 40 mg PO DAILY [facility] Last Admin: 06/18/18 09:34 Dose: 40 mg Sulfasalazine (Azulfidine En-Tabs -) 1,000 mg PO BID [facility] Last Admin: 06/18/18 09:35 Dose: 1,000 mg - Objective Vital Signs: Vital Signs Temperature 97.9 F 06/18/18 06:00 Pulse Rate 71 06/18/18 06:00 Respiratory Rate 18 06/18/18 06:00 Blood Pressure 119/66 06/18/18 06:00 O2 Sat by Pulse Oximetry (%) 95 06/17/18 21:00 Constitutional: Yes: No Distress, Calm Neck: Yes: Supple Cardiovascular: Yes: Pulse Irregular Respiratory: Yes: Regular, CTA Bilaterally, On Nasal O2 Gastrointestinal: Yes: Soft, Hypoactive Bowel Sounds Edema: No Labs: CBC, BMP 06/18/18 06:00 06/17/18 06:00 - ....Imaging EKG: Report Reviewed (Tele: Afib) Problem List - Problems (1) Demand ischemia Code(s): I24.8 - OTHER FORMS OF ACUTE ISCHEMIC HEART DISEASE (2) COPD (chronic obstructive pulmonary disease) with acute bronchitis Code(s): J44.0 - CHRONIC OBSTRUCTIVE PULMON DISEASE W ACUTE LOWER RESP INFCT; J20.9 - ACUTE BRONCHITIS, UNSPECIFIED (3) Atrial fibrillation Code(s): I48.91 - UNSPECIFIED ATRIAL FIBRILLATION Qualifiers: Atrial fibrillation type: paroxysmal Qualified Code(s): I48.0 - Paroxysmal atrial fibrillation (4) Lactic acid acidosis Code(s): E87.2 - ACIDOSIS (5) Pneumonia Code(s): J18.9 - PNEUMONIA, UNSPECIFIED ORGANISM Qualifiers: Pneumonia type: due to unspecified organism Laterality: right Lung location: lower lobe of lung Qualified Code(s): J18.1 - Lobar pneumonia, unspecified organism (6) Sepsis Code(s): A41.9 - SEPSIS, UNSPECIFIED ORGANISM Qualifiers: Sepsis type: Escherichia coli Qualified Code(s): A41.51 - Sepsis due to Escherichia coli [E. coli] (7) Troponin level elevated Code(s): R74.8 - ABNORMAL LEVELS OF OTHER SERUM ENZYMES (8) Bronchitis Code(s): J40 - BRONCHITIS, NOT SPECIFIED ACUTE OR CHRONIC Assessment/Plan 01/15/2018 Mildly decreased LVEF 45-50%, mild MR, TR, OK 1. CAP, acute bronchitis with e. coli sepsis 2. Paroxysmal afib -> SR on Pradaxa 3. Demand ischemia referable to #1 4. Lactic acidosis resolving 5. COPD 6. Rheumatoid arthritis 7. Hematochezia, anemia post transfusion, thrombocytopenia P:1. Trops downtrending 2. Abx course per C&S, BD, prednisone with gi protection and O2 as needed 3. Hold Pradaxa 150 bid, ASA 81 qd pending hemostasis and GI eval for hematochezia 4. Continue carvedilol 6.25 bid, IV Lopressor as needed, d/c digoxin, and resume ramipril as hemodynamics tolerate
--- NOTE | 2018-06-18 13:36 | PN ---
Progress Note (short form) - Note Progress Note: PULMONARY States breathing a little worse than yesterday. +cough with yellow sputum. No fevers or chills. Vital Signs Period Temp Pulse Resp BP Sys/Cedillo Pulse Ox Last 24 Hr 97.3 F-99.0 F 71-136 16-18 105-148/66-96 95 Gen: tachypneic with speaking Heart: RRR Lung: distant breath sounds Abd: soft, nontender Ext: no edema CBC, BMP 06/18/18 06:00 06/17/18 06:00 Active Medications Acetaminophen (Tylenol -) 650 mg PO Q6H PRN PRN Reason: Fever Last Admin: 06/18/18 09:35 Dose: 650 mg Albuterol/Ipratropium (Duoneb -) 1 amp NEB RQ4H [facility] Last Admin: 06/18/18 11:16 Dose: 1 amp Amino Acids (Prosource No Carb Liquid Pkt) 30 ml PO BID@0800,1730 [facility] Carvedilol (Coreg -) 6.25 mg PO BID [facility] Last Admin: 06/18/18 09:34 Dose: 6.25 mg Sodium Chloride (Normal Saline -) 1,000 mls @ 100 mls/hr IV ASDIR [facility] Last Admin: 06/18/18 04:57 Dose: 100 mls/hr Ceftriaxone Sodium 1 gm/ (Dextrose) 50 mls @ 100 mls/hr IVPB DAILY [facility]; Protocol Last Admin: 06/18/18 09:41 Dose: 100 mls/hr Metoprolol Tartrate (Lopressor Injection -) 5 mg IVPB Q4H PRN PRN Reason: HEART RATE Last Admin: 06/17/18 18:42 Dose: 5 mg Pantoprazole Sodium (Protonix -) 40 mg PO BID [facility] Last Admin: 06/18/18 09:34 Dose: 40 mg Prednisone (Deltasone -) 40 mg PO DAILY [facility] Last Admin: 06/18/18 09:34 Dose: 40 mg Sulfasalazine (Azulfidine En-Tabs -) 1,000 mg PO BID [facility] Last Admin: 06/18/18 09:35 Dose: 1,000 mg A/P Pneumonia E Coli Bacteremia Sepsis +Troponins likely Demand Ischemia Paroxysmal Atrial Fibrillation COPD Likely Chronic Hypoxic Respiratory Failure Rheumatoid Arthritis - continue antibiotics - will change prednisone to medrol 40mg q8h - inhled bronchodilators - O2 to keep SPo2 >90% - when ready for discharge will need to assess for home O2 - DVT prophylaxis
--- NOTE | 2018-06-18 15:44 | PN ---
Progress Note, Physician Chief Complaint: AWAKE ALERT C/O DYSPNEA EVENTS AND NOTES REVIEWED - Current Medication List Current Medications: Active Medications Acetaminophen (Tylenol -) 650 mg PO Q6H PRN PRN Reason: Fever Last Admin: 06/18/18 09:35 Dose: 650 mg Albuterol/Ipratropium (Duoneb -) 1 amp NEB RQ4H [facility] BEDS AT [facility] Last Admin: 06/18/18 15:22 Dose: 1 amp Amino Acids (Prosource No Carb Liquid Pkt) 30 ml PO BID@0800,1730 [facility] 234 BEDS AT [facility] Carvedilol (Coreg -) 6.25 mg PO BID [facility] 234 BEDS AT [facility] Last Admin: 06/18/18 09:34 Dose: 6.25 mg Sodium Chloride (Normal Saline -) 1,000 mls @ 100 mls/hr IV ASDIR [facility]S [facility]CLUDE 234 BEDS AT [facility] Last Admin: 06/18/18 04:57 Dose: 100 mls/hr Ceftriaxone Sodium 1 gm/ (Dextrose) 50 mls @ 100 mls/hr IVPB DAILY [facility] 234 BEDS AT [facility]; Protocol Last Admin: 06/18/18 09:41 Dose: 100 mls/hr Methylprednisolone Sodium Succinate (Solu-Medrol -) 40 mg IVPUSH Q8H-IV [facility] Metoprolol Tartrate (Lopressor Injection -) 5 mg IVPB Q4H PRN PRN Reason: HEART RATE Last Admin: 06/17/18 18:42 Dose: 5 mg Pantoprazole Sodium (Protonix -) 40 mg PO BID [facility] B[facility]S AT [facility] Last Admin: 06/18/18 09:34 Dose: 40 mg Sulfasalazine (Azulfidine En-Tabs -) 1,000 mg PO BID [facility] 234 B[facility]S AT [facility] Last Admin: 06/18/18 09:35 Dose: 1,000 mg - Objective Vital Signs: Vital Signs Temperature 98.2 F 06/18/18 13:45 Pulse Rate 85 06/18/18 13:45 Respiratory Rate 16 06/18/18 13:45 Blood Pressure 117/72 06/18/18 13:45 O2 Sat by Pulse Oximetry (%) 93 L 06/18/18 09:00 Constitutional: Yes: Mild Distress Eyes: Yes: WNL HENT: Yes: WNL Neck: Yes: WNL Cardiovascular: Yes: Pulse Irregular Respiratory: Yes: Cough, Diminished, On Nasal O2, Orthopnea, SOB Gastrointestinal: Yes: Soft Genitourinary: Yes: WNL Musculoskeletal: Yes: Muscle Weakness Extremities: Yes: WNL Edema: No Peripheral Pulses WNL: Yes Integumentary: Yes: WNL Wound/Incision: Yes: Clean/Dry Neurological: Yes: WNL ...Motor Strength: WNL Psychiatric: Yes: WNL Labs: CBC, BMP 06/18/18 06:00 06/17/18 06:00 Problem List - Problems (1) Anemia Code(s): D64.9 - ANEMIA, UNSPECIFIED (2) Atrial fibrillation Code(s): I48.91 - UNSPECIFIED ATRIAL FIBRILLATION Qualifiers: Atrial fibrillation type: paroxysmal Qualified Code(s): I48.0 - Paroxysmal atrial fibrillation (3) COPD (chronic obstructive pulmonary disease) with acute bronchitis Code(s): J44.0 - CHRONIC OBSTRUCTIVE PULMON DISEASE W ACUTE LOWER RESP INFCT; J20.9 - ACUTE BRONCHITIS, UNSPECIFIED (4) Demand ischemia Code(s): I24.8 - OTHER FORMS OF ACUTE ISCHEMIC HEART DISEASE (5) Lactic acid acidosis Code(s): E87.2 - ACIDOSIS (6) Pneumonia Code(s): J18.9 - PNEUMONIA, UNSPECIFIED ORGANISM Qualifiers: Pneumonia type: due to unspecified organism Laterality: right Lung location: lower lobe of lung Qualified Code(s): J18.1 - Lobar pneumonia, unspecified organism (7) Sepsis Code(s): A41.9 - SEPSIS, UNSPECIFIED ORGANISM Qualifiers: Sepsis type: Escherichia coli Qualified Code(s): A41.51 - Sepsis due to Escherichia coli [E. coli] (8) Troponin level elevated Code(s): R74.8 - ABNORMAL LEVELS OF OTHER SERUM ENZYMES (9) COPD with acute exacerbation Code(s): J44.1 - CHRONIC OBSTRUCTIVE PULMONARY DISEASE W (ACUTE) EXACERBATION Assessment/Plan AGREE WITH INCREASING IV STEROIDS IV ABX CONTINUE 02 SUPPORT HOME 02 WILL BE NEEDED SNF PLACEMENT FOR PULM REHAB CARDIO F/U FOR AFIB/DEMAND ISCHEMIA ANEMIA GI F/U TRANSFUSE PRBC
--- NOTE | 2018-06-18 16:04 | PN ---
Progress Note, Physician History of Present Illness: resp difficulty continues stable at rest - Current Medication List Current Medications: Active Medications Acetaminophen (Tylenol -) 650 mg PO Q6H PRN PRN Reason: Fever Last Admin: 06/18/18 09:35 Dose: 650 mg Albuterol/Ipratropium (Duoneb -) 1 amp NEB RQ4H [facility] Last Admin: 06/18/18 15:22 Dose: 1 amp Amino Acids (Prosource No Carb Liquid Pkt) 30 ml PO BID@0800,1730 [facility] Carvedilol (Coreg -) 6.25 mg PO BID [facility] Last Admin: 06/18/18 09:34 Dose: 6.25 mg Sodium Chloride (Normal Saline -) 1,000 mls @ 100 mls/hr IV ASDIR [facility] Last Admin: 06/18/18 04:57 Dose: 100 mls/hr Ceftriaxone Sodium 1 gm/ (Dextrose) 50 mls @ 100 mls/hr IVPB DAILY [facility]; Protocol Last Admin: 06/18/18 09:41 Dose: 100 mls/hr Methylprednisolone Sodium Succinate (Solu-Medrol -) 40 mg IVPUSH Q8H-IV [facility] Metoprolol Tartrate (Lopressor Injection -) 5 mg IVPB Q4H PRN PRN Reason: HEART RATE Last Admin: 06/17/18 18:42 Dose: 5 mg Pantoprazole Sodium (Protonix -) 40 mg PO BID [facility] Last Admin: 06/18/18 09:34 Dose: 40 mg Sulfasalazine (Azulfidine En-Tabs -) 1,000 mg PO BID [facility] Last Admin: 06/18/18 09:35 Dose: 1,000 mg - Objective Vital Signs: Vital Signs Temperature 98.2 F 06/18/18 13:45 Pulse Rate 85 06/18/18 13:45 Respiratory Rate 16 06/18/18 13:45 Blood Pressure 117/72 06/18/18 13:45 O2 Sat by Pulse Oximetry (%) 93 L 06/18/18 09:00 Constitutional: Yes: No Distress, Calm Cardiovascular: Yes: S1, S2 Respiratory: Yes: Regular, On Nasal O2, Poor Air Entry Gastrointestinal: Yes: Normal Bowel Sounds, Soft Musculoskeletal: Yes: WNL Extremities: Yes: WNL Neurological: Yes: Alert Psychiatric: Yes: Alert Labs: CBC, BMP 06/18/18 06:00 06/17/18 06:00 Assessment/Plan Assessment/Plan Problem List - Problems (1) Atrial fibrillation Code(s): I48.91 - UNSPECIFIED ATRIAL FIBRILLATION Qualifiers: Atrial fibrillation type: paroxysmal Qualified Code(s): I48.0 - Paroxysmal atrial fibrillation (2) Lactic acid acidosis Code(s): E87.2 - ACIDOSIS (3) Pneumonia Code(s): J18.9 - PNEUMONIA, UNSPECIFIED ORGANISM Qualifiers: Pneumonia type: due to unspecified organism Laterality: right Lung location: lower lobe of lung Qualified Code(s): J18.1 - Lobar pneumonia, unspecified organism (4) Sepsis Code(s): A41.9 - SEPSIS, UNSPECIFIED ORGANISM Qualifiers: Sepsis type: sepsis due to unspecified organism Qualified Code(s): A41.9 - Sepsis, unspecified organism (5) Troponin level elevated Code(s): R74.8 - ABNORMAL LEVELS OF OTHER SERUM ENZYMES patients pathology probably coming from the gut or urine plan continue abx repeat blood cx noted monitor h and h close watch
[2018-06-18] MEDS: AMINO ACIDS/PROTEIN HYDROLYS 30 ML LIQUID.PKT PO SCH (18:38)
[2018-06-18] MEDS: methylPREDNISolone NA SUCC 40 MG/1 ML VIAL IVPUSH SCH (18:38)
[2018-06-19] MEDS: ALBUTEROL SO4 2.5/IPRATROPIUM 0.5 INH SOL 3 ML VIAL.NEB. NEB SCH ×7 (00:10→23:48)
[2018-06-19] MEDS: methylPREDNISolone NA SUCC 40 MG/1 ML VIAL IVPUSH SCH ×3 (01:29→17:30)
[2018-06-19 06:59] LABS: HEMATOCRIT 29.7 % (35.4-49); MCH 34.4 pg (25.7-33.7); MCHC 33.7 g/dl (32.0-35.9); MEAN CELL VOLUME 102.2 fl (80-96); MEAN PLT VOLUME 7.5 fl (7.5-11.1); PLATELET COUNT 84 K/MM3 (134-434); RBC 2.91 M/mm3 (4.00-5.60); RDW 17.8 % (11.9-15.9)
[2018-06-19 07:32] LABS: WHITE BLOOD COUNT 5.5 K/mm3 (4.0-10.0)
[2018-06-19 07:55] LABS: ANION GAP 4 MMOL/L (8-16); BLOOD UREA NITROGEN 21 mg/dL (7-18); CALCIUM 8.3 mg/dL (8.5-10.1); CHLORIDE 108 mmol/L (98-107); CO2 27 mmol/L (21-32); CREATININE 0.6 mg/dL (0.55-1.3); GLUCOSE,RANDOM 137 mg/dL (74-106); POTASSIUM 4.1 mmol/L (3.5-5.1); SODIUM 139 mmol/L (136-145)
--- NOTE | 2018-06-19 08:14 | PN.GI ---
GI Progress Note Subjective: Patient denies further episodes of rectal bleeding. States he had two episodes of dark colored loose bowel movement, one last night and this morning. Denies abdominal pain, nausea, vomiting. Current stable Hg at 10.0. - Objective Vital Signs: Vital Signs Temperature 97.5 F L 06/19/18 02:00 Pulse Rate 90 06/19/18 05:58 Respiratory Rate 20 06/19/18 05:58 Blood Pressure 109/70 06/19/18 05:58 O2 Sat by Pulse Oximetry (%) 93 L 06/18/18 21:00 Constitutional: No Distress, Calm Eyes: Yes: Conjunctiva Clear HENT: Yes: Atraumatic Cardiovascular: Yes: Pulse Irregular Respiratory: Yes: Diminished, On Nasal O2 Gastrointestinal Inspection: Yes: WNL. No: Ascites, Distention, Hernia, Scars, Other ...Auscultate: Yes: Normoactive Bowel Sounds. No: Hyperactive Bowel Sounds, Hypoactive Bowel Sounds, No Bowel Sounds, Other ...Palpate: Yes: Soft. No: Firm/Rigid, Guarding, Hepatomegaly, Mass, Pulsatile Mass, Splenomegaly, Tenderness, Tenderness, Epigastium, Tenderness, Rebound, Other ...Percussion: Yes: Other (high tympany). No: Dullness, Fluid Wave, Tympanitic Neurological: Yes: Alert, Oriented Psychiatric: Yes: Alert, Oriented Labs: CBC, BMP 06/19/18 06:00 06/19/18 06:00 Active Medications Generic Name Dose Route Start Last Admin Trade Name Freq PRN Reason Stop Dose Admin Acetaminophen 650 mg 06/16/18 20:08 06/18/18 09:35 Tylenol - PO 650 mg Q6H PRN Administration Fever Albuterol/Ipratropium 1 amp 06/16/18 20:15 06/19/18 04:10 Duoneb - NEB Not Given RQ4H [facility] Amino Acids 30 ml 06/18/18 17:30 06/18/18 18:38 Prosource No Carb Liquid Pkt PO 30 ml BID@0800,1730 [facility] Administration Carvedilol 6.25 mg 06/16/18 22:00 06/18/18 21:33 Coreg - PO 6.25 mg BID [facility] Administration Sodium Chloride 1,000 mls @ 100 mls/hr 06/16/18 20:08 06/18/18 21:36 Normal Saline - IV Not Given ASDIR [facility] Ceftriaxone Sodium 1 gm/ 50 mls @ 100 mls/hr 06/17/18 14:45 06/18/18 09:41 Dextrose IVPB 100 mls/hr DAILY [facility] Administration Protocol Methylprednisolone Sodium Succinate 40 mg 06/18/18 18:00 06/19/18 01:29 Solu-Medrol - IVPUSH 40 mg Q8H-IV [facility] Administration Metoprolol Tartrate 5 mg 06/16/18 20:15 06/17/18 18:42 Lopressor Injection - IVPB 5 mg Q4H PRN Administration HEART RATE Pantoprazole Sodium 40 mg 06/17/18 10:00 06/18/18 21:33 Protonix - PO 40 mg BID [facility] Administration Sulfasalazine 1,000 mg 06/16/18 22:00 06/18/18 21:33 Azulfidine En-Tabs - PO 1,000 mg BID [facility] Administration Problem List - Problems (1) Anemia Assessment/Plan: >monitor Hg daily >current Hg stable at 10.0 >transfuse for Hg <8.0 >continue with Pantoprazole Code(s): D64.9 - ANEMIA, UNSPECIFIED (2) Rectal bleeding Assessment/Plan: most likely secondary to large internal hemorrhoids R> consider switching to Coumadin,IV heparin close observation while on anticoagulant Code(s): K62.5 - HEMORRHAGE OF ANUS AND RECTUM (3) Chronic pancreatitis Code(s): K86.1 - OTHER CHRONIC PANCREATITIS
[2018-06-19] MEDS ORDERED: PT OWN MED DRAWER 7, Y5N ONE ×3 (08:48→22:43)
[2018-06-19] MEDS ORDERED: cefTRIAXone SODIUM 1 GM VIAL ONE (08:49)
[2018-06-19] MEDS ORDERED: DEXTROSE 5%-WATER - 50 ML IVPB ONE (08:49)
[2018-06-19] MEDS: PANTOPRAZOLE 40 MG TABLET (FP) PO SCH ×2 (09:04→22:44)
[2018-06-19] MEDS: AMINO ACIDS/PROTEIN HYDROLYS 30 ML LIQUID.PKT PO SCH ×2 (09:05→17:30)
[2018-06-19] MEDS: CARVEDILOL 6.25 MG TABLET (FP) PO SCH ×2 (09:06→22:44)
--- NOTE | 2018-06-19 10:23 | PN ---
Progress Note, Physician History of Present Illness: No further fevers or chills, afib rate-controlled with resumption of carvediolol and IV Lopressor, acute anemia noted post 2U pRBC transfusion, a/c held pending hemostasis. Dyspnea worse and IV steroids resumed, denies chest pain. - Current Medication List Current Medications: Active Medications Acetaminophen (Tylenol -) 650 mg PO Q6H PRN PRN Reason: Fever Last Admin: 06/18/18 09:35 Dose: 650 mg Albuterol/Ipratropium (Duoneb -) 1 amp NEB RQ4H [facility] Last Admin: 06/19/18 08:19 Dose: 1 amp Amino Acids (Prosource No Carb Liquid Pkt) 30 ml PO BID@0800,1730 [facility] Last Admin: 06/19/18 09:05 Dose: 30 ml Carvedilol (Coreg -) 6.25 mg PO BID [facility] Last Admin: 06/19/18 09:06 Dose: 6.25 mg Sodium Chloride (Normal Saline -) 1,000 mls @ 100 mls/hr IV ASDIR [facility] Last Admin: 06/18/18 21:36 Dose: Not Given Ceftriaxone Sodium 1 gm/ (Dextrose) 50 mls @ 100 mls/hr IVPB DAILY [facility]; Protocol Last Admin: 06/18/18 09:41 Dose: 100 mls/hr Methylprednisolone Sodium Succinate (Solu-Medrol -) 40 mg IVPUSH Q8H-IV [facility] Last Admin: 06/19/18 09:04 Dose: 40 mg Metoprolol Tartrate (Lopressor Injection -) 5 mg IVPB Q4H PRN PRN Reason: HEART RATE Last Admin: 06/17/18 18:42 Dose: 5 mg Pantoprazole Sodium (Protonix -) 40 mg PO BID [facility] Last Admin: 06/19/18 09:04 Dose: 40 mg Sulfasalazine (Azulfidine En-Tabs -) 1,000 mg PO BID [facility] Last Admin: 06/19/18 09:06 Dose: 1,000 mg - Objective Vital Signs: Vital Signs Temperature 97.5 F L 06/19/18 02:00 Pulse Rate 90 06/19/18 05:58 Respiratory Rate 20 06/19/18 05:58 Blood Pressure 109/70 06/19/18 05:58 O2 Sat by Pulse Oximetry (%) 93 L 06/18/18 21:00 Constitutional: Yes: No Distress, Calm, Thin Neck: Yes: Supple Cardiovascular: Yes: Pulse Irregular Respiratory: Yes: Regular, Diminished, On Nasal O2 Gastrointestinal: Yes: Normal Bowel Sounds, Soft Edema: No Labs: CBC, BMP 06/19/18 06:00 06/19/18 06:00 - ....Imaging EKG: Report Reviewed (Tele: Rate-controlled afib) Problem List - Problems (1) Demand ischemia Code(s): I24.8 - OTHER FORMS OF ACUTE ISCHEMIC HEART DISEASE (2) COPD (chronic obstructive pulmonary disease) with acute bronchitis Code(s): J44.0 - CHRONIC OBSTRUCTIVE PULMON DISEASE W ACUTE LOWER RESP INFCT; J20.9 - ACUTE BRONCHITIS, UNSPECIFIED (3) Atrial fibrillation Code(s): I48.91 - UNSPECIFIED ATRIAL FIBRILLATION Qualifiers: Atrial fibrillation type: paroxysmal Qualified Code(s): I48.0 - Paroxysmal atrial fibrillation (4) Lactic acid acidosis Code(s): E87.2 - ACIDOSIS (5) Pneumonia Code(s): J18.9 - PNEUMONIA, UNSPECIFIED ORGANISM Qualifiers: Pneumonia type: due to unspecified organism Laterality: right Lung location: lower lobe of lung Qualified Code(s): J18.1 - Lobar pneumonia, unspecified organism (6) Sepsis Code(s): A41.9 - SEPSIS, UNSPECIFIED ORGANISM Qualifiers: Sepsis type: Escherichia coli Qualified Code(s): A41.51 - Sepsis due to Escherichia coli [E. coli] (7) Troponin level elevated Code(s): R74.8 - ABNORMAL LEVELS OF OTHER SERUM ENZYMES (8) Bronchitis Code(s): J40 - BRONCHITIS, NOT SPECIFIED ACUTE OR CHRONIC Assessment/Plan 01/15/2018 Mildly decreased LVEF 45-50%, mild MR, TR, [place] 1. CAP, acute bronchitis with e. coli sepsis 2. Paroxysmal afib -> SR on Pradaxa 3. Demand ischemia referable to #1 4. Lactic acidosis resolving 5. COPD 6. Rheumatoid arthritis 7. Hematochezia most likely secondary to large internal hemorrhoid, anemia post transfusion, thrombocytopenia P:1. Trops downtrending 2. Abx course per C&S, BD, prednisone with gi protection and O2 as needed 3. Resume Pradaxa 150 bid without ASA 81 qd once hemostasis assured 4. Continue carvedilol 6.25 bid, IV Lopressor as needed, d/c digoxin, and resume ramipril 2.5 qd as hemodynamics tolerate
[2018-06-19] MEDS: CEFTRIAXONE 1 GM in DEXTROSE 5%-WATER - 50 ML IVPB SCH (10:31)
--- NOTE | 2018-06-19 12:15 | PN ---
Progress Note, Physician History of Present Illness: pulmonary alert,still dyspneic,+ cough,-cp - Current Medication List Current Medications: Active Medications Acetaminophen (Tylenol -) 650 mg PO Q6H PRN PRN Reason: Fever Last Admin: 06/18/18 09:35 Dose: 650 mg Albuterol/Ipratropium (Duoneb -) 1 amp NEB RQ4H [facility] Last Admin: 06/19/18 11:36 Dose: 1 amp Amino Acids (Prosource No Carb Liquid Pkt) 30 ml PO BID@0800,1730 [facility] Last Admin: 06/19/18 09:05 Dose: 30 ml Carvedilol (Coreg -) 6.25 mg PO BID [facility] Last Admin: 06/19/18 09:06 Dose: 6.25 mg Dabigatran (Pradaxa -) 150 mg PO BID [facility] Sodium Chloride (Normal Saline -) 1,000 mls @ 100 mls/hr IV ASDIR [facility] Last Admin: 06/18/18 21:36 Dose: Not Given Ceftriaxone Sodium 1 gm/ (Dextrose) 50 mls @ 100 mls/hr IVPB DAILY [facility]; Protocol Last Admin: 06/19/18 10:31 Dose: 100 mls/hr Methylprednisolone Sodium Succinate (Solu-Medrol -) 40 mg IVPUSH Q8H-IV [facility] Last Admin: 06/19/18 09:04 Dose: 40 mg Metoprolol Tartrate (Lopressor Injection -) 5 mg IVPB Q4H PRN PRN Reason: HEART RATE Last Admin: 06/17/18 18:42 Dose: 5 mg Pantoprazole Sodium (Protonix -) 40 mg PO BID [facility] Last Admin: 06/19/18 09:04 Dose: 40 mg Ramipril (Altace -) 2.5 mg PO DAILY [facility] Sulfasalazine (Azulfidine En-Tabs -) 1,000 mg PO BID [facility] Last Admin: 06/19/18 09:06 Dose: 1,000 mg - Objective Vital Signs: Vital Signs Temperature 97.5 F L 06/19/18 02:00 Pulse Rate 90 06/19/18 05:58 Respiratory Rate 20 06/19/18 05:58 Blood Pressure 109/70 06/19/18 05:58 O2 Sat by Pulse Oximetry (%) 93 L 06/18/18 21:00 Constitutional: Yes: Well Nourished, Calm Eyes: Yes: WNL HENT: Yes: WNL Neck: Yes: WNL Cardiovascular: Yes: Pulse Irregular, S1, S2 Respiratory: Yes: Rhonchi (few scattered rhonchi) Gastrointestinal: Yes: Normal Bowel Sounds, Soft Extremities: Yes: WNL Edema: No Labs: CBC, BMP 06/19/18 06:00 06/19/18 06:00 Assessment/Plan Problem List - Problems (1) Atrial fibrillation Code(s): I48.91 - UNSPECIFIED ATRIAL FIBRILLATION Qualifiers: Atrial fibrillation type: paroxysmal Qualified Code(s): I48.0 - Paroxysmal atrial fibrillation (2) Lactic acid acidosis Code(s): E87.2 - ACIDOSIS (3) Pneumonia Code(s): J18.9 - PNEUMONIA, UNSPECIFIED ORGANISM Qualifiers: Pneumonia type: due to unspecified organism Laterality: right Lung location: lower lobe of lung Qualified Code(s): J18.1 - Lobar pneumonia, unspecified organism (4) Sepsis Code(s): A41.9 - SEPSIS, UNSPECIFIED ORGANISM Qualifiers: Sepsis type: sepsis due to unspecified organism Qualified Code(s): A41.9 - Sepsis, unspecified organism (5) Troponin level elevated Code(s): R74.8 - ABNORMAL LEVELS OF OTHER SERUM ENZYMES Assessment/Plan GRAM NEGATIVE PNEUMONIA/BACTEREMIA SEPSIS COPD HYPOTENSION IMPROVED ANEMIA/THROMBOCYTOPENIA PLAN ABX PER ID IV FLUIDS INHALED BRONCHODILATORS MEDROL NORMAL TRANFUSION PROTOCOL MONITOR H+H,PLT CT MONITOR LYTES chest x-ray today DR FALK
[2018-06-19] MEDS: RAMIPRIL 2.5 MG CAPSULE (FP) PO SCH (12:33)
[2018-06-19] MEDS: SODIUM CHLORIDE 1,000 ML IV SCH ×2 (12:59→22:46)
--- NOTE | 2018-06-19 13:31 | PN ---
Progress Note, Physician Chief Complaint: patient seen and examined cough is better today on iv steriods - Current Medication List Current Medications: Active Medications Acetaminophen (Tylenol -) 650 mg PO Q6H PRN PRN Reason: Fever Last Admin: 06/18/18 09:35 Dose: 650 mg Albuterol/Ipratropium (Duoneb -) 1 amp NEB RQ4H [facility] Last Admin: 06/19/18 11:36 Dose: 1 amp Amino Acids (Prosource No Carb Liquid Pkt) 30 ml PO BID@0800,1730 [facility] Last Admin: 06/19/18 09:05 Dose: 30 ml Carvedilol (Coreg -) 6.25 mg PO BID [facility] Last Admin: 06/19/18 09:06 Dose: 6.25 mg Dabigatran (Pradaxa -) 150 mg PO BID [facility] Sodium Chloride (Normal Saline -) 1,000 mls @ 100 mls/hr IV ASDIR [facility] Last Admin: 06/19/18 12:59 Dose: 100 mls/hr Ceftriaxone Sodium 1 gm/ (Dextrose) 50 mls @ 100 mls/hr IVPB DAILY [facility]; Protocol Last Admin: 06/19/18 10:31 Dose: 100 mls/hr Methylprednisolone Sodium Succinate (Solu-Medrol -) 40 mg IVPUSH Q8H-IV [facility] Last Admin: 06/19/18 09:04 Dose: 40 mg Metoprolol Tartrate (Lopressor Injection -) 5 mg IVPB Q4H PRN PRN Reason: HEART RATE Last Admin: 06/17/18 18:42 Dose: 5 mg Pantoprazole Sodium (Protonix -) 40 mg PO BID [facility] Last Admin: 06/19/18 09:04 Dose: 40 mg Ramipril (Altace -) 2.5 mg PO DAILY [facility] Last Admin: 06/19/18 12:33 Dose: 2.5 mg Sulfasalazine (Azulfidine En-Tabs -) 1,000 mg PO BID [facility] Last Admin: 06/19/18 09:06 Dose: 1,000 mg - Objective Vital Signs: Vital Signs Temperature 97.5 F L 06/19/18 02:00 Pulse Rate 90 06/19/18 05:58 Respiratory Rate 20 06/19/18 05:58 Blood Pressure 109/70 06/19/18 05:58 O2 Sat by Pulse Oximetry (%) 93 L 06/18/18 21:00 Constitutional: Yes: Calm Cardiovascular: Yes: Regular Rate and Rhythm, S1, S2 Respiratory: Yes: Diminished, On Nasal O2 Gastrointestinal: Yes: Normal Bowel Sounds, Soft Edema: No Neurological: Yes: Alert, Oriented Labs: CBC, BMP 06/19/18 06:00 06/19/18 06:00 Problem List - Problems (1) Atrial fibrillation Assessment/Plan: pradaxa coreg Code(s): I48.91 - UNSPECIFIED ATRIAL FIBRILLATION Qualifiers: Atrial fibrillation type: paroxysmal Qualified Code(s): I48.0 - Paroxysmal atrial fibrillation (2) Pneumonia Assessment/Plan: on rocephin for bacteremia and pna Microbiology 06/17/18 18:31 Stool Escherichia coli 0157 Culture - Final NO GROWTH OF VIBRIO SPECIES OBTAINED NO GROWTH OF E COLI 0157 OBTAINED 06/14/18 21:30 Urine - Urine Clean Catch Urine Culture - Final NO GROWTH OBTAINED 06/14/18 15:02 Blood - Peripheral Venous Blood Culture - Final Escherichia Coli 06/14/18 14:45 Blood - Peripheral Venous Blood Culture - Final Escherichia Coli 06/17/18 18:31 Stool Salmonella/Shigella Culture - Preliminary 06/17/18 18:31 Stool Yersinia Culture - Preliminary NO ENTERIC PATHOGENS, 24 HOURS, ON PRIMARY PLATES NO ENTERIC PATHOGENS, 24 HOURS, ON PRIMARY PLATES Code(s): J18.9 - PNEUMONIA, UNSPECIFIED ORGANISM Qualifiers: Pneumonia type: due to unspecified organism Laterality: right Lung location: lower lobe of lung Qualified Code(s): J18.1 - Lobar pneumonia, unspecified organism (3) COPD with acute exacerbation Assessment/Plan: iv medrol and oxygen Code(s): J44.1 - CHRONIC OBSTRUCTIVE PULMONARY DISEASE W (ACUTE) EXACERBATION
--- NOTE | 2018-06-19 15:18 | PN ---
Progress Note, Physician - Current Medication List Current Medications: Active Medications Acetaminophen (Tylenol -) 650 mg PO Q6H PRN PRN Reason: Fever Last Admin: 06/18/18 09:35 Dose: 650 mg Albuterol/Ipratropium (Duoneb -) 1 amp NEB RQ4H [facility] Last Admin: 06/19/18 11:36 Dose: 1 amp Amino Acids (Prosource No Carb Liquid Pkt) 30 ml PO BID@0800,1730 [facility] Last Admin: 06/19/18 09:05 Dose: 30 ml Carvedilol (Coreg -) 6.25 mg PO BID [facility] Last Admin: 06/19/18 09:06 Dose: 6.25 mg Dabigatran (Pradaxa -) 150 mg PO BID [facility] Sodium Chloride (Normal Saline -) 1,000 mls @ 100 mls/hr IV ASDIR [facility] Last Admin: 06/19/18 12:59 Dose: 100 mls/hr Ceftriaxone Sodium 1 gm/ (Dextrose) 50 mls @ 100 mls/hr IVPB DAILY [facility]; Protocol Last Admin: 06/19/18 10:31 Dose: 100 mls/hr Methylprednisolone Sodium Succinate (Solu-Medrol -) 40 mg IVPUSH Q8H-IV [facility] Last Admin: 06/19/18 09:04 Dose: 40 mg Metoprolol Tartrate (Lopressor Injection -) 5 mg IVPB Q4H PRN PRN Reason: HEART RATE Last Admin: 06/17/18 18:42 Dose: 5 mg Pantoprazole Sodium (Protonix -) 40 mg PO BID [facility] Last Admin: 06/19/18 09:04 Dose: 40 mg Ramipril (Altace -) 2.5 mg PO DAILY [facility] Last Admin: 06/19/18 12:33 Dose: 2.5 mg Sulfasalazine (Azulfidine En-Tabs -) 1,000 mg PO BID [facility] Last Admin: 06/19/18 09:06 Dose: 1,000 mg - Objective Vital Signs: Vital Signs Temperature 97.5 F L 06/19/18 02:00 Pulse Rate 90 06/19/18 05:58 Respiratory Rate 20 06/19/18 05:58 Blood Pressure 109/70 06/19/18 05:58 O2 Sat by Pulse Oximetry (%) 93 L 06/18/18 21:00 Labs: CBC, BMP 06/19/18 06:00 06/19/18 06:00
[2018-06-19] MEDS: DABIGATRAN ETEXILATE MESYLATE 150 MG CAPSULE PO SCH (22:43)
[2018-06-20] MEDS: methylPREDNISolone NA SUCC 40 MG/1 ML VIAL IVPUSH SCH ×3 (01:55→17:28)
[2018-06-20] MEDS: ALBUTEROL SO4 2.5/IPRATROPIUM 0.5 INH SOL 3 ML VIAL.NEB. NEB SCH ×5 (03:56→20:10)
[2018-06-20 08:28] LABS: BASO % 0.1 % (0-2.0); EOS % 0.1 % (0-4.5); LYMPH % 22.4 % (8-40); MCH 34.4 pg (25.7-33.7); MCHC 33.4 g/dl (32.0-35.9); MEAN PLT VOLUME 7.6 fl (7.5-11.1); MONO % 4.4 % (3.8-10.2); PLATELET COUNT 85 K/MM3 (134-434); RBC 2.91 M/mm3 (4.00-5.60); RDW 17.1 % (11.9-15.9); WHITE BLOOD COUNT 4.1 K/mm3 (4.0-10.0)
[2018-06-20 08:31] LABS: ALBUMIN 2.5 g/dl (3.4-5.0); ALK PHOS 56 U/L (45-117); ANION GAP 3 MMOL/L (8-16); BILIRUBIN,TOTAL 0.4 mg/dL (0.2-1); BLOOD UREA NITROGEN 20 mg/dL (7-18); CALCIUM 8.1 mg/dL (8.5-10.1); CHLORIDE 108 mmol/L (98-107); CO2 28 mmol/L (21-32); CREATININE 0.5 mg/dL (0.55-1.3); GLUCOSE,RANDOM 121 mg/dL (74-106); POTASSIUM 4.4 mmol/L (3.5-5.1); SGOT/AST 21 U/L (15-37); SGPT/ALT 33 U/L (13-61); SODIUM 139 mmol/L (136-145); TOT PROT 4.9 g/dl (6.4-8.2)
[2018-06-20] MEDS: AMINO ACIDS/PROTEIN HYDROLYS 30 ML LIQUID.PKT PO SCH ×2 (08:38→17:28)
[2018-06-20] MEDS ORDERED: DEXTROSE 5%-WATER - 50 ML IVPB ONE (08:59)
[2018-06-20] MEDS ORDERED: cefTRIAXone SODIUM 1 GM VIAL ONE (08:59)
[2018-06-20] MEDS: CEFTRIAXONE 1 GM in DEXTROSE 5%-WATER - 50 ML IVPB SCH (09:38)
[2018-06-20] MEDS: PANTOPRAZOLE 40 MG TABLET (FP) PO SCH ×2 (09:39→22:16)
[2018-06-20] MEDS: CARVEDILOL 6.25 MG TABLET (FP) PO SCH ×2 (09:39→22:16)
[2018-06-20] MEDS: RAMIPRIL 2.5 MG CAPSULE (FP) PO SCH (09:39)
[2018-06-20] MEDS: DABIGATRAN ETEXILATE MESYLATE 150 MG CAPSULE PO SCH ×2 (09:39→22:16)
--- NOTE | 2018-06-20 11:23 | PN ---
Progress Note, Physician Chief Complaint: AWAKE ALERT EVENTS REVIEWED C/O BRBPR FROM RECTAL HEMORRHOIDS - Current Medication List Current Medications: Active Medications Acetaminophen (Tylenol -) 650 mg PO Q6H PRN PRN Reason: Fever Last Admin: 06/18/18 09:35 Dose: 650 mg Albuterol/Ipratropium (Duoneb -) 1 amp NEB RQ4H [facility] Last Admin: 06/20/18 08:56 Dose: 1 amp Amino Acids (Prosource No Carb Liquid Pkt) 30 ml PO BID@0800,1730 [facility] Last Admin: 06/20/18 08:38 Dose: 30 ml Carvedilol (Coreg -) 6.25 mg PO BID [facility] Last Admin: 06/20/18 09:39 Dose: 6.25 mg Dabigatran (Pradaxa -) 150 mg PO BID [facility] Last Admin: 06/20/18 09:39 Dose: 150 mg Ceftriaxone Sodium 1 gm/ (Dextrose) 50 mls @ 100 mls/hr IVPB DAILY [facility]; Protocol Last Admin: 06/20/18 09:38 Dose: 100 mls/hr Methylprednisolone Sodium Succinate (Solu-Medrol -) 40 mg IVPUSH Q8H-IV [facility] Last Admin: 06/20/18 09:39 Dose: 40 mg Metoprolol Tartrate (Lopressor Injection -) 5 mg IVPB Q4H PRN PRN Reason: HEART RATE Last Admin: 06/17/18 18:42 Dose: 5 mg Pantoprazole Sodium (Protonix -) 40 mg PO BID [facility] Last Admin: 06/20/18 09:39 Dose: 40 mg Ramipril (Altace -) 2.5 mg PO DAILY [facility] Last Admin: 06/20/18 09:39 Dose: 2.5 mg Starch (Anusol Suppository -) 1 each [place] BID [facility] Sulfasalazine (Azulfidine En-Tabs -) 1,000 mg PO BID [facility] Last Admin: 06/20/18 09:39 Dose: 1,000 mg Witch Tamra/Glycerin (Tucks Pads -) 1 pad TP TID [facility] - Objective Vital Signs: Vital Signs Temperature 98.1 F 06/20/18 05:58 Pulse Rate 8 L 06/20/18 05:58 Respiratory Rate 18 06/20/18 05:58 Blood Pressure 114/86 06/20/18 05:58 O2 Sat by Pulse Oximetry (%) 93 L 06/19/18 21:00 Constitutional: Yes: Mild Distress Eyes: Yes: WNL HENT: Yes: WNL Neck: Yes: WNL Cardiovascular: Yes: Pulse Irregular Respiratory: Yes: Diminished, On Nasal O2 Gastrointestinal: Yes: Soft ...Rectal Exam: Yes: Hemorrhoids/External Genitourinary: Yes: Other Musculoskeletal: Yes: WNL Extremities: Yes: WNL Edema: No Peripheral Pulses WNL: Yes Integumentary: Yes: WNL Wound/Incision: Yes: Clean/Dry Neurological: Yes: WNL ...Motor Strength: WNL Psychiatric: Yes: WNL Labs: CBC, BMP 06/20/18 06:00 06/20/18 06:00 Problem List - Problems (1) Anemia Code(s): D64.9 - ANEMIA, UNSPECIFIED (2) Atrial fibrillation Code(s): I48.91 - UNSPECIFIED ATRIAL FIBRILLATION Qualifiers: Atrial fibrillation type: paroxysmal Qualified Code(s): I48.0 - Paroxysmal atrial fibrillation (3) COPD (chronic obstructive pulmonary disease) with acute bronchitis Code(s): J44.0 - CHRONIC OBSTRUCTIVE PULMON DISEASE W ACUTE LOWER RESP INFCT; J20.9 - ACUTE BRONCHITIS, UNSPECIFIED (4) Demand ischemia Code(s): I24.8 - OTHER FORMS OF ACUTE ISCHEMIC HEART DISEASE (5) Lactic acid acidosis Code(s): E87.2 - ACIDOSIS (6) Pneumonia Code(s): J18.9 - PNEUMONIA, UNSPECIFIED ORGANISM Qualifiers: Pneumonia type: due to unspecified organism Laterality: right Lung location: lower lobe of lung Qualified Code(s): J18.1 - Lobar pneumonia, unspecified organism (7) Sepsis Code(s): A41.9 - SEPSIS, UNSPECIFIED ORGANISM Qualifiers: Sepsis type: Escherichia coli Qualified Code(s): A41.51 - Sepsis due to Escherichia coli [E. coli] (8) Troponin level elevated Code(s): R74.8 - ABNORMAL LEVELS OF OTHER SERUM ENZYMES (9) COPD with acute exacerbation Code(s): J44.1 - CHRONIC OBSTRUCTIVE PULMONARY DISEASE W (ACUTE) EXACERBATION Assessment/Plan RECTAL TUCKS TO AREA TID ANUSOL SUPPOSITORY MONITOR LABS/ HEMOGLOBIN LEVELS AGREE WITH INCREASING IV STEROIDS IV ABX CONTINUE 02 SUPPORT HOME 02 WILL BE NEEDED SNF PLACEMENT FOR PULM REHAB CARDIO F/U FOR AFIB/DEMAND ISCHEMIA ANEMIA GI F/U TRANSFUSE PRBC NEEDED GI EVAL
--- NOTE | 2018-06-20 12:07 | PN ---
Progress Note, Physician History of Present Illness: Still dyspneic with use of accessory muscles, denies chest pain or recurrent hematochezia. - Current Medication List Current Medications: Active Medications Acetaminophen (Tylenol -) 650 mg PO Q6H PRN PRN Reason: Fever Last Admin: 06/18/18 09:35 Dose: 650 mg Albuterol/Ipratropium (Duoneb -) 1 amp NEB RQ4H [facility] Last Admin: 06/20/18 08:56 Dose: 1 amp Amino Acids (Prosource No Carb Liquid Pkt) 30 ml PO BID@0800,1730 [facility] Last Admin: 06/20/18 08:38 Dose: 30 ml Carvedilol (Coreg -) 6.25 mg PO BID [facility] Last Admin: 06/20/18 09:39 Dose: 6.25 mg Dabigatran (Pradaxa -) 150 mg PO BID [facility] Last Admin: 06/20/18 09:39 Dose: 150 mg Ceftriaxone Sodium 1 gm/ (Dextrose) 50 mls @ 100 mls/hr IVPB DAILY [facility]; Protocol Last Admin: 06/20/18 09:38 Dose: 100 mls/hr Methylprednisolone Sodium Succinate (Solu-Medrol -) 40 mg IVPUSH Q8H-IV [facility] Last Admin: 06/20/18 09:39 Dose: 40 mg Metoprolol Tartrate (Lopressor Injection -) 5 mg IVPB Q4H PRN PRN Reason: HEART RATE Last Admin: 06/17/18 18:42 Dose: 5 mg Pantoprazole Sodium (Protonix -) 40 mg PO BID [facility] Last Admin: 06/20/18 09:39 Dose: 40 mg Ramipril (Altace -) 2.5 mg PO DAILY [facility] Last Admin: 06/20/18 09:39 Dose: 2.5 mg Starch (Anusol Suppository -) 1 each [place] BID [facility] Sulfasalazine (Azulfidine En-Tabs -) 1,000 mg PO BID [facility] Last Admin: 06/20/18 09:39 Dose: 1,000 mg Witch Tamra/Glycerin (Tucks Pads -) 1 pad TP TID [facility] - Objective Vital Signs: Vital Signs Temperature 98.1 F 06/20/18 05:58 Pulse Rate 8 L 06/20/18 05:58 Respiratory Rate 18 06/20/18 05:58 Blood Pressure 114/86 06/20/18 05:58 O2 Sat by Pulse Oximetry (%) 93 L 06/19/18 21:00 Constitutional: Yes: No Distress, Calm, Thin Neck: Yes: Supple Cardiovascular: Yes: Pulse Irregular Respiratory: Yes: Regular, Diminished, On Nasal O2 Gastrointestinal: Yes: Normal Bowel Sounds, Soft, Hemorrhoids Edema: No Labs: CBC, BMP 06/20/18 06:00 06/20/18 06:00 - ....Imaging Chest X-ray: Report Reviewed (RUL resolving bronchiectasis) EKG: Report Reviewed (Tele: Rate-controlled afib) Problem List - Problems (1) Demand ischemia Code(s): I24.8 - OTHER FORMS OF ACUTE ISCHEMIC HEART DISEASE (2) COPD (chronic obstructive pulmonary disease) with acute bronchitis Code(s): J44.0 - CHRONIC OBSTRUCTIVE PULMON DISEASE W ACUTE LOWER RESP INFCT; J20.9 - ACUTE BRONCHITIS, UNSPECIFIED (3) Atrial fibrillation Code(s): I48.91 - UNSPECIFIED ATRIAL FIBRILLATION Qualifiers: Atrial fibrillation type: paroxysmal Qualified Code(s): I48.0 - Paroxysmal atrial fibrillation (4) Lactic acid acidosis Code(s): E87.2 - ACIDOSIS (5) Pneumonia Code(s): J18.9 - PNEUMONIA, UNSPECIFIED ORGANISM Qualifiers: Pneumonia type: due to unspecified organism Laterality: right Lung location: lower lobe of lung Qualified Code(s): J18.1 - Lobar pneumonia, unspecified organism (6) Sepsis Code(s): A41.9 - SEPSIS, UNSPECIFIED ORGANISM Qualifiers: Sepsis type: Escherichia coli Qualified Code(s): A41.51 - Sepsis due to Escherichia coli [E. coli] (7) Troponin level elevated Code(s): R74.8 - ABNORMAL LEVELS OF OTHER SERUM ENZYMES (8) Bronchitis Code(s): J40 - BRONCHITIS, NOT SPECIFIED ACUTE OR CHRONIC Assessment/Plan 01/15/2018 Mildly decreased LVEF 45-50%, mild MR, TR, [place] 1. CAP, acute bronchitis with e. coli sepsis 2. Paroxysmal afib -> SR on Pradaxa 3. Demand ischemia referable to #1 4. Lactic acidosis resolving 5. COPD 6. Rheumatoid arthritis 7. Hematochezia most likely secondary to large internal hemorrhoid, anemia post transfusion, thrombocytopenia P:1. Trops downtrending 2. Abx course per C&S, BD, IV steroids with gi protection and O2 as needed 3. Resumed Pradaxa 150 bid without ASA 81 qd as hemostasis achieved 4. Continue carvedilol 6.25 bid, IV Lopressor as needed, d/c digoxin, and resume ramipril 2.5 qd as hemodynamics tolerate
[2018-06-20] MEDS: PHENYLEPHRINE 0.25%/STARCH 1 EACH SUPP.RECT PR SCH ×3 (12:23→22:16)
--- NOTE | 2018-06-20 13:43 | PN ---
Progress Note (short form) - Note Progress Note: Alert. No overall change in dyspnea. No CP. Some dry cough. Intake & Output 06/17/18 06/18/18 06/19/18 06/20/18 23:59 23:59 23:59 23:59 Intake Total 3080 3740 2230 700 Output Total 825 500 300 Balance 2255 3240 1930 700 Last Vital Signs Temp Pulse Resp BP Pulse Ox 98.1 F 8 L 18 114/86 93 L 06/20/18 05:58 06/20/18 05:58 06/20/18 05:58 06/20/18 05:58 06/19/18 21:00 Active Medications Acetaminophen (Tylenol -) 650 mg PO Q6H PRN PRN Reason: Fever Last Admin: 06/18/18 09:35 Dose: 650 mg Albuterol/Ipratropium (Duoneb -) 1 amp NEB RQ4H [facility] Last Admin: 06/20/18 13:23 Dose: 1 amp Amino Acids (Prosource No Carb Liquid Pkt) 30 ml PO BID@0800,1730 [facility] Last Admin: 06/20/18 08:38 Dose: 30 ml Carvedilol (Coreg -) 6.25 mg PO BID [facility] Last Admin: 06/20/18 09:39 Dose: 6.25 mg Dabigatran (Pradaxa -) 150 mg PO BID [facility] Last Admin: 06/20/18 09:39 Dose: 150 mg Ceftriaxone Sodium 1 gm/ (Dextrose) 50 mls @ 100 mls/hr IVPB DAILY [facility]; Protocol Last Admin: 06/20/18 09:38 Dose: 100 mls/hr Methylprednisolone Sodium Succinate (Solu-Medrol -) 40 mg IVPUSH Q8H-IV [facility] Last Admin: 06/20/18 09:39 Dose: 40 mg Metoprolol Tartrate (Lopressor Injection -) 5 mg IVPB Q4H PRN PRN Reason: HEART RATE Last Admin: 06/17/18 18:42 Dose: 5 mg Pantoprazole Sodium (Protonix -) 40 mg PO BID [facility] Last Admin: 06/20/18 09:39 Dose: 40 mg Ramipril (Altace -) 2.5 mg PO DAILY [facility] Last Admin: 06/20/18 09:39 Dose: 2.5 mg Starch (Anusol Suppository -) 1 each [place] BID [facility] Sulfasalazine (Azulfidine En-Tabs -) 1,000 mg PO BID [facility] Last Admin: 06/20/18 09:39 Dose: 1,000 mg Witch Tamra/Glycerin (Tucks Pads -) 1 pad TP TID [facility] Constitutional: Yes: Mildly tachypneic at rest Eyes: Yes: WNL HENT: Yes: WNL Neck: Yes: WNL Cardiovascular: Yes: Pulse Irregular, S1, S2 Respiratory: Yes: Bilateral Rhonchi Gastrointestinal: Yes: Normal Bowel Sounds, Soft Extremities: Yes: WNL Edema: No Labs: Laboratory Results - last 24 hr 06/16/18 06/19/18 06/20/18 11:30 06:00 06:00 WBC 4.1 RBC 2.91 L Hgb 10.0 L Hct 30.0 L MCV 103.0 H MCH 34.4 H MCHC 33.4 RDW 17.1 H Plt Count 85 L MPV 7.6 Absolute Neuts (auto) 3.0 Neutrophils % 73.0 Lymphocytes % 22.4 Monocytes % 4.4 Eosinophils % 0.1 D Basophils % 0.1 Nucleated RBC % 0 Sodium Potassium Chloride Carbon Dioxide Anion Gap BUN Creatinine Creat Clearance w eGFR Random Glucose Calcium Iron 60 Total Bilirubin AST ALT Alkaline Phosphatase Total Protein Albumin Blood Type A POSITIVE Antibody Screen Negative Crossmatch See Detail 06/20/18 06:00 WBC RBC Hgb Hct MCV MCH MCHC RDW Plt Count MPV Absolute Neuts (auto) Neutrophils % Lymphocytes % Monocytes % Eosinophils % Basophils % Nucleated RBC % Sodium 139 Potassium 4.4 Chloride 108 H Carbon Dioxide 28 Anion Gap 3 L BUN 20 H Creatinine 0.5 L Creat Clearance w eGFR 161.67 Random Glucose 121 H Calcium 8.1 L Iron Total Bilirubin 0.4 AST 21 ALT 33 Alkaline Phosphatase 56 Total Protein 4.9 L Albumin 2.5 L Blood Type Antibody Screen Crossmatch Problem List - Problems (1) Atrial fibrillation Code(s): I48.91 - UNSPECIFIED ATRIAL FIBRILLATION Qualifiers: Atrial fibrillation type: paroxysmal Qualified Code(s): I48.0 - Paroxysmal atrial fibrillation (2) Lactic acid acidosis Code(s): E87.2 - ACIDOSIS (3) Pneumonia Code(s): J18.9 - PNEUMONIA, UNSPECIFIED ORGANISM Qualifiers: Pneumonia type: due to unspecified organism Laterality: right Lung location: lower lobe of lung Qualified Code(s): J18.1 - Lobar pneumonia, unspecified organism (4) Sepsis Code(s): A41.9 - SEPSIS, UNSPECIFIED ORGANISM Qualifiers: Sepsis type: sepsis due to unspecified organism Qualified Code(s): A41.9 - Sepsis, unspecified organism (5) Troponin level elevated Code(s): R74.8 - ABNORMAL LEVELS OF OTHER SERUM ENZYMES Assessment/Plan GRAM NEGATIVE PNEUMONIA/BACTEREMIA SEPSIS COPD HYPOTENSION IMPROVED ANEMIA/THROMBOCYTOPENIA PLAN ABX PER ID INHALED BRONCHODILATORS MEDROL AT THE SAME DOSE NORMAL TRANFUSION THRESHOLDS O2 TO MAINTAIN SATURATIONS DR REYNOLDS
[2018-06-20] MEDS ORDERED: PT OWN MED DRAWER 7, Y5N ONE ×2 (13:49→21:25)
[2018-06-20] MEDS ORDERED: MAG HYDROX/AL HYDROX/SIMETH 30 ML UNIT-DOSE CUP PO ONE (14:00)
[2018-06-20] MEDS: WITCH HAZEL 50% (TUCKS) 40 PAD/JAR PAD TP SCH ×2 (14:20→22:18)
--- NOTE | 2018-06-20 16:39 | PN ---
Progress Note, Physician History of Present Illness: Pt seen and examined. Events, labs/imaging studies reviewed. Pt states he feel better overall with less SOB but with cough. Remains afebrile, without acute distress on O2 NC. - Current Medication List Current Medications: Active Medications Acetaminophen (Tylenol -) 650 mg PO Q6H PRN PRN Reason: Fever Last Admin: 06/18/18 09:35 Dose: 650 mg Albuterol/Ipratropium (Duoneb -) 1 amp NEB RQ4H [facility] Last Admin: 06/20/18 13:23 Dose: 1 amp Amino Acids (Prosource No Carb Liquid Pkt) 30 ml PO BID@0800,1730 [facility] Last Admin: 06/20/18 08:38 Dose: 30 ml Carvedilol (Coreg -) 6.25 mg PO BID [facility] Last Admin: 06/20/18 09:39 Dose: 6.25 mg Dabigatran (Pradaxa -) 150 mg PO BID [facility] Last Admin: 06/20/18 09:39 Dose: 150 mg Ceftriaxone Sodium 1 gm/ (Dextrose) 50 mls @ 100 mls/hr IVPB DAILY [facility]; Protocol Last Admin: 06/20/18 09:38 Dose: 100 mls/hr Methylprednisolone Sodium Succinate (Solu-Medrol -) 40 mg IVPUSH Q8H-IV [facility] Last Admin: 06/20/18 09:39 Dose: 40 mg Metoprolol Tartrate (Lopressor Injection -) 5 mg IVPB Q4H PRN PRN Reason: HEART RATE Last Admin: 06/17/18 18:42 Dose: 5 mg Pantoprazole Sodium (Protonix -) 40 mg PO BID [facility] Last Admin: 06/20/18 09:39 Dose: 40 mg Ramipril (Altace -) 2.5 mg PO DAILY [facility] Last Admin: 06/20/18 09:39 Dose: 2.5 mg Starch (Anusol Suppository -) 1 each [place] BID [facility] Last Admin: 06/20/18 12:23 Dose: Not Given Sulfasalazine (Azulfidine En-Tabs -) 1,000 mg PO BID [facility] Last Admin: 06/20/18 09:39 Dose: 1,000 mg Witch Tamra/Glycerin (Tucks Pads -) 1 pad TP TID [facility] Last Admin: 06/20/18 14:20 Dose: 1 pad - Objective Vital Signs: Vital Signs Temperature 97.9 F 06/20/18 14:22 Pulse Rate 80 06/20/18 14:22 Respiratory Rate 18 06/20/18 14:22 Blood Pressure 142/83 06/20/18 14:22 O2 Sat by Pulse Oximetry (%) 93 L 06/19/18 21:00 Constitutional: Yes: No Distress, Calm Eyes: Yes: Conjunctiva Clear Cardiovascular: Yes: Pulse Irregular Respiratory: Yes: On Nasal O2, Wheezes (mild expiratory) Gastrointestinal: Yes: Normal Bowel Sounds, Soft Genitourinary: Yes: WNL Musculoskeletal: Yes: WNL Extremities: Yes: WNL Integumentary: Yes: WNL Neurological: Yes: Alert, Oriented Labs: CBC, BMP 06/20/18 06:00 06/20/18 06:00 Microbiology 06/17/18 18:31 Stool Salmonella/Shigella Culture - Final NO GROWTH OF SALMONELLA OR SHIGELLA SPECIES OBTAINED 06/17/18 18:31 Stool Campylobacter Culture - Final NO GROWTH OF CAMPYLOBACTER SPECIES OBTAINED 06/17/18 18:31 Stool Yersinia Culture - Final NO GROWTH OF YERSINIA SPECIES OBTAINED 06/17/18 18:31 Stool Vibrio Culture - Final NO GROWTH OF VIBRIO SPECIES OBTAINED 06/17/18 18:31 Stool Escherichia coli 0157 Culture - Final NO GROWTH OF E COLI 0157 OBTAINED 06/16/18 17:40 Blood - Peripheral Venous Blood Culture - Preliminary NO GROWTH OBTAINED AFTER 72 HOURS, INCUBATION TO CONTINUE FOR 2 DAYS. 06/16/18 17:35 Blood - Peripheral Venous Blood Culture - Preliminary NO GROWTH OBTAINED AFTER 72 HOURS, INCUBATION TO CONTINUE FOR 2 DAYS. 06/15/18 16:20 Sputum - Expectorated Gram Stain - Final 06/15/18 16:20 Sputum - Expectorated Sputum Culture - Final NORMAL RESPIRATORY BÁRBARA 06/15/18 16:20 Stool Clostridioides difficile Antigen - Final 06/15/18 16:20 Stool Clostridioides difficile Toxin Assay - Final 06/15/18 15:00 Urine - Urine Clean Catch Legionella Antigen - Final 06/15/18 15:00 Urine - Urine Clean Catch Streptococcus pneumoniae Antigen ( M - Final 06/14/18 15:02 Blood - Peripheral Venous Blood Culture - Final Escherichia Coli 06/14/18 14:45 Blood - Peripheral Venous Blood Culture - Final Escherichia Coli 03/24/19 21:30 Urine - Urine Clean Catch Urine Culture - Final NO GROWTH OBTAINED - ....Imaging Chest X-ray: Report Reviewed Cat Scan: Report Reviewed Problem List - Problems (1) Anemia Code(s): D64.9 - ANEMIA, UNSPECIFIED (2) Atrial fibrillation Code(s): I48.91 - UNSPECIFIED ATRIAL FIBRILLATION Qualifiers: Atrial fibrillation type: paroxysmal Qualified Code(s): I48.0 - Paroxysmal atrial fibrillation (3) COPD (chronic obstructive pulmonary disease) with acute bronchitis Code(s): J44.0 - CHRONIC OBSTRUCTIVE PULMON DISEASE W ACUTE LOWER RESP INFCT; J20.9 - ACUTE BRONCHITIS, UNSPECIFIED (4) Pneumonia Code(s): J18.9 - PNEUMONIA, UNSPECIFIED ORGANISM Qualifiers: Pneumonia type: due to unspecified organism Laterality: right Lung location: lower lobe of lung Qualified Code(s): J18.1 - Lobar pneumonia, unspecified organism (5) Rectal bleeding Code(s): K62.5 - HEMORRHAGE OF ANUS AND RECTUM (6) Sepsis Code(s): A41.9 - SEPSIS, UNSPECIFIED ORGANISM Qualifiers: Sepsis type: Escherichia coli Qualified Code(s): A41.51 - Sepsis due to Escherichia coli [E. coli] (7) COPD with acute exacerbation Code(s): J44.1 - CHRONIC OBSTRUCTIVE PULMONARY DISEASE W (ACUTE) EXACERBATION Assessment/Plan E. Coli Bacteremia/Sepsis PNA Bronchitis COPD CAD Paroxysmal AFIB RA Rectal bleed -- Pt is alert, afebrile, without acute distress at this time, still with cough -- continue Ceftriaxone -- Latest blood cultures negative continue monitor
[2018-06-21] MEDS: ALBUTEROL SO4 2.5/IPRATROPIUM 0.5 INH SOL 3 ML VIAL.NEB. NEB SCH ×6 (00:01→20:18)
[2018-06-21] MEDS: methylPREDNISolone NA SUCC 40 MG/1 ML VIAL IVPUSH SCH ×3 (03:00→17:25)
[2018-06-21] MEDS: WITCH HAZEL 50% (TUCKS) 40 PAD/JAR PAD TP SCH ×3 (06:46→23:12)
[2018-06-21 08:18] LABS: HEMATOCRIT 30.9 % (35.4-49); HEMOGLOBIN 10.3 GM/dL (11.7-16.9); MCH 34.3 pg (25.7-33.7); MCHC 33.3 g/dl (32.0-35.9); MEAN PLT VOLUME 7.2 fl (7.5-11.1); PLATELET COUNT 92 K/MM3 (134-434); RDW 16.4 % (11.9-15.9); WHITE BLOOD COUNT 4.9 K/mm3 (4.0-10.0)
[2018-06-21] MEDS: AMINO ACIDS/PROTEIN HYDROLYS 30 ML LIQUID.PKT PO SCH ×2 (08:39→17:25)
[2018-06-21 08:43] LABS: ANION GAP 4 MMOL/L (8-16); BLOOD UREA NITROGEN 23 mg/dL (7-18); CALCIUM 8.2 mg/dL (8.5-10.1); CHLORIDE 105 mmol/L (98-107); CO2 30 mmol/L (21-32); CREATININE 0.5 mg/dL (0.55-1.3); GLUCOSE,RANDOM 114 mg/dL (74-106); POTASSIUM 3.9 mmol/L (3.5-5.1); SODIUM 140 mmol/L (136-145)
--- NOTE | 2018-06-21 10:03 | PN ---
Progress Note, Physician Chief Complaint: AWAKE ALERT FEELING BETTER LOOSE BOWEL MOVEMENTS - Current Medication List Current Medications: Active Medications Acetaminophen (Tylenol -) 650 mg PO Q6H PRN PRN Reason: Fever Last Admin: 06/18/18 09:35 Dose: 650 mg Albuterol/Ipratropium (Duoneb -) 1 amp NEB RQ4H [facility] Last Admin: 06/21/18 07:56 Dose: 1 amp Amino Acids (Prosource No Carb Liquid Pkt) 30 ml PO BID@0800,1730 [facility] Last Admin: 06/21/18 08:39 Dose: 30 ml Carvedilol (Coreg -) 6.25 mg PO BID [facility] Last Admin: 06/20/18 22:16 Dose: 6.25 mg Dabigatran (Pradaxa -) 150 mg PO BID [facility] Last Admin: 06/20/18 22:16 Dose: 150 mg Ceftriaxone Sodium 1 gm/ (Dextrose) 50 mls @ 100 mls/hr IVPB DAILY [facility]; Protocol Last Admin: 06/20/18 09:38 Dose: 100 mls/hr Methylprednisolone Sodium Succinate (Solu-Medrol -) 40 mg IVPUSH Q8H-IV [facility] Last Admin: 06/21/18 03:00 Dose: 40 mg Metoprolol Tartrate (Lopressor Injection -) 5 mg IVPB Q4H PRN PRN Reason: HEART RATE Last Admin: 06/17/18 18:42 Dose: 5 mg Pantoprazole Sodium (Protonix -) 40 mg PO BID [facility] Last Admin: 06/20/18 22:16 Dose: 40 mg Ramipril (Altace -) 2.5 mg PO DAILY [facility] Last Admin: 06/20/18 09:39 Dose: 2.5 mg Starch (Anusol Suppository -) 1 each [place] BID [facility] Last Admin: 06/20/18 22:16 Dose: Not Given Sulfasalazine (Azulfidine En-Tabs -) 1,000 mg PO BID [facility] Last Admin: 06/20/18 22:18 Dose: 1,000 mg Witch Tamra/Glycerin (Tucks Pads -) 1 pad TP TID [facility] Last Admin: 06/21/18 06:46 Dose: 1 pad - Objective Vital Signs: Vital Signs Temperature 97.6 F 06/21/18 07:20 Pulse Rate 73 06/21/18 07:20 Respiratory Rate 18 06/21/18 07:20 Blood Pressure 130/77 06/21/18 07:20 O2 Sat by Pulse Oximetry (%) 92 L 06/20/18 22:00 Constitutional: Yes: Mild Distress Eyes: Yes: WNL HENT: Yes: WNL Neck: Yes: WNL Cardiovascular: Yes: Pulse Irregular Respiratory: Yes: Cough, Diminished, On Nasal O2, Rhonchi Gastrointestinal: Yes: Soft Genitourinary: Yes: WNL Edema: Yes Edema: LLE: Trace, RLE: Trace Peripheral Pulses WNL: Yes Wound/Incision: Yes: Clean/Dry Neurological: Yes: WNL ...Motor Strength: WNL Psychiatric: Yes: WNL Labs: CBC, BMP 06/21/18 07:00 06/21/18 07:00 Problem List - Problems (1) Anemia Code(s): D64.9 - ANEMIA, UNSPECIFIED (2) Atrial fibrillation Code(s): I48.91 - UNSPECIFIED ATRIAL FIBRILLATION Qualifiers: Atrial fibrillation type: paroxysmal Qualified Code(s): I48.0 - Paroxysmal atrial fibrillation (3) COPD (chronic obstructive pulmonary disease) with acute bronchitis Code(s): J44.0 - CHRONIC OBSTRUCTIVE PULMON DISEASE W ACUTE LOWER RESP INFCT; J20.9 - ACUTE BRONCHITIS, UNSPECIFIED (4) Demand ischemia Code(s): I24.8 - OTHER FORMS OF ACUTE ISCHEMIC HEART DISEASE (5) Lactic acid acidosis Code(s): E87.2 - ACIDOSIS (6) Pneumonia Code(s): J18.9 - PNEUMONIA, UNSPECIFIED ORGANISM Qualifiers: Pneumonia type: due to unspecified organism Laterality: right Lung location: lower lobe of lung Qualified Code(s): J18.1 - Lobar pneumonia, unspecified organism (7) Sepsis Code(s): A41.9 - SEPSIS, UNSPECIFIED ORGANISM Qualifiers: Sepsis type: Escherichia coli Qualified Code(s): A41.51 - Sepsis due to Escherichia coli [E. coli] (8) Troponin level elevated Code(s): R74.8 - ABNORMAL LEVELS OF OTHER SERUM ENZYMES (9) COPD with acute exacerbation Code(s): J44.1 - CHRONIC OBSTRUCTIVE PULMONARY DISEASE W (ACUTE) EXACERBATION Assessment/Plan RECTAL TUCKS TO AREA TID ANUSOL SUPPOSITORY PRN MONITOR LABS/ HEMOGLOBIN LEVELS STABLE TODAY 01/20 START STEROID TAPER IV ABX CONTINUE ON CEFTRIAXONE BLOOD CX NEGATIVE 02 SUPPORT HOME 02 WILL BE NEEDED SNF PLACEMENT FOR PULM REHAB CARDIO F/U FOR AFIB/DEMAND ISCHEMIA ANEMIA GI F/U TRANSFUSE PRBC NEEDED GI EVAL
[2018-06-21] MEDS ORDERED: cefTRIAXone SODIUM 1 GM VIAL ONE (10:24)
[2018-06-21] MEDS ORDERED: DEXTROSE 5%-WATER - 50 ML IVPB ONE (10:24)
[2018-06-21] MEDS: RAMIPRIL 2.5 MG CAPSULE (FP) PO SCH (10:53)
[2018-06-21] MEDS: PANTOPRAZOLE 40 MG TABLET (FP) PO SCH ×2 (10:53→23:12)
[2018-06-21] MEDS: CARVEDILOL 6.25 MG TABLET (FP) PO SCH ×2 (10:54→23:12)
[2018-06-21] MEDS: PHENYLEPHRINE 0.25%/STARCH 1 EACH SUPP.RECT PR SCH ×2 (10:54→23:12)
[2018-06-21] MEDS: DABIGATRAN ETEXILATE MESYLATE 150 MG CAPSULE PO SCH ×2 (10:55→23:11)
[2018-06-21] MEDS: CEFTRIAXONE 1 GM in DEXTROSE 5%-WATER - 50 ML IVPB SCH (10:56)
--- NOTE | 2018-06-21 11:59 | PN ---
Progress Note (short form) - Note Progress Note: Alert. Feels a little better today, less dyspnea. No CP. Some dry cough. Intake & Output 06/18/18 06/19/18 06/20/18 06/21/18 23:59 23:59 23:59 23:59 Intake Total 3740 2230 2140 370 Output Total 500 300 Balance 3240 1930 2140 370 Last Vital Signs Temp Pulse Resp BP Pulse Ox 97.6 F 73 18 130/77 92 L 06/21/18 07:20 06/21/18 07:20 06/21/18 07:20 06/21/18 07:20 06/20/18 22:00 Active Medications Acetaminophen (Tylenol -) 650 mg PO Q6H PRN PRN Reason: Fever Last Admin: 06/18/18 09:35 Dose: 650 mg Albuterol/Ipratropium (Duoneb -) 1 amp NEB RQ4H [facility] Last Admin: 06/21/18 07:56 Dose: 1 amp Amino Acids (Prosource No Carb Liquid Pkt) 30 ml PO BID@0800,1730 [facility] Last Admin: 06/21/18 08:39 Dose: 30 ml Carvedilol (Coreg -) 6.25 mg PO BID [facility] Last Admin: 06/21/18 10:54 Dose: 6.25 mg Dabigatran (Pradaxa -) 150 mg PO BID [facility] Last Admin: 06/21/18 10:55 Dose: 150 mg Ceftriaxone Sodium 1 gm/ (Dextrose) 50 mls @ 100 mls/hr IVPB DAILY [facility]; Protocol Last Admin: 06/21/18 10:56 Dose: 100 mls/hr Methylprednisolone Sodium Succinate (Solu-Medrol -) 40 mg IVPUSH Q8H-IV [facility] Last Admin: 06/21/18 10:53 Dose: 40 mg Metoprolol Tartrate (Lopressor Injection -) 5 mg IVPB Q4H PRN PRN Reason: HEART RATE Last Admin: 06/17/18 18:42 Dose: 5 mg Pantoprazole Sodium (Protonix -) 40 mg PO BID [facility] Last Admin: 06/21/18 10:53 Dose: 40 mg Ramipril (Altace -) 2.5 mg PO DAILY [facility] Last Admin: 06/21/18 10:53 Dose: 2.5 mg Starch (Anusol Suppository -) 1 each [place] BID [facility] Last Admin: 06/21/18 10:54 Dose: Not Given Sulfasalazine (Azulfidine En-Tabs -) 1,000 mg PO BID [facility] Last Admin: 06/21/18 10:55 Dose: 1,000 mg Witch Tamra/Glycerin (Tucks Pads -) 1 pad TP TID [facility] Last Admin: 06/21/18 06:46 Dose: 1 pad Constitutional: Yes: Mildly tachypneic at rest Eyes: Yes: WNL HENT: Yes: WNL Neck: Yes: WNL Cardiovascular: Yes: Pulse Irregular, S1, S2 Respiratory: Yes: Bilateral Rhonchi Gastrointestinal: Yes: Normal Bowel Sounds, Soft Extremities: Yes: WNL Edema: No Labs: Laboratory Results - last 24 hr 06/16/18 06/21/18 06/21/18 11:30 07:00 07:00 WBC 4.9 RBC 3.00 L Hgb 10.3 L Hct 30.9 L MCV 103.0 H MCH 34.3 H MCHC 33.3 RDW 16.4 H Plt Count 92 L MPV 7.2 L Sodium 140 Potassium 3.9 Chloride 105 Carbon Dioxide 30 Anion Gap 4 L BUN 23 H Creatinine 0.5 L Creat Clearance w eGFR 161.67 Random Glucose 114 H Calcium 8.2 L Blood Type A POSITIVE Antibody Screen Negative Crossmatch See Detail Problem List - Problems (1) Atrial fibrillation Code(s): I48.91 - UNSPECIFIED ATRIAL FIBRILLATION Qualifiers: Atrial fibrillation type: paroxysmal Qualified Code(s): I48.0 - Paroxysmal atrial fibrillation (2) Lactic acid acidosis Code(s): E87.2 - ACIDOSIS (3) Pneumonia Code(s): J18.9 - PNEUMONIA, UNSPECIFIED ORGANISM Qualifiers: Pneumonia type: due to unspecified organism Laterality: right Lung location: lower lobe of lung Qualified Code(s): J18.1 - Lobar pneumonia, unspecified organism (4) Sepsis Code(s): A41.9 - SEPSIS, UNSPECIFIED ORGANISM Qualifiers: Sepsis type: sepsis due to unspecified organism Qualified Code(s): A41.9 - Sepsis, unspecified organism (5) Troponin level elevated Code(s): R74.8 - ABNORMAL LEVELS OF OTHER SERUM ENZYMES Assessment/Plan GRAM NEGATIVE PNEUMONIA/BACTEREMIA SEPSIS COPD HYPOTENSION IMPROVED ANEMIA/THROMBOCYTOPENIA PLAN ABX PER ID INHALED BRONCHODILATORS WILL WEAN MEDROL TOMORROW IF STABLE / IMPROVED NORMAL TRANFUSION THRESHOLDS O2 TO MAINTAIN SATURATIONS DR REYNOLDS
--- NOTE | 2018-06-21 12:18 | PN ---
Progress Note, Physician History of Present Illness: Pt is alert, remains afebrile. Denies SOB, has some nonproductive cough. No distress noted. He has no other specific complaints. - Current Medication List Current Medications: Active Medications Acetaminophen (Tylenol -) 650 mg PO Q6H PRN PRN Reason: Fever Last Admin: 06/18/18 09:35 Dose: 650 mg Albuterol/Ipratropium (Duoneb -) 1 amp NEB RQ4H [facility] Last Admin: 06/21/18 07:56 Dose: 1 amp Amino Acids (Prosource No Carb Liquid Pkt) 30 ml PO BID@0800,1730 [facility] Last Admin: 06/21/18 08:39 Dose: 30 ml Carvedilol (Coreg -) 6.25 mg PO BID [facility] Last Admin: 06/21/18 10:54 Dose: 6.25 mg Dabigatran (Pradaxa -) 150 mg PO BID [facility] Last Admin: 06/21/18 10:55 Dose: 150 mg Ceftriaxone Sodium 1 gm/ (Dextrose) 50 mls @ 100 mls/hr IVPB DAILY [facility]; Protocol Last Admin: 06/21/18 10:56 Dose: 100 mls/hr Methylprednisolone Sodium Succinate (Solu-Medrol -) 40 mg IVPUSH Q8H-IV [facility] Last Admin: 06/21/18 10:53 Dose: 40 mg Metoprolol Tartrate (Lopressor Injection -) 5 mg IVPB Q4H PRN PRN Reason: HEART RATE Last Admin: 06/17/18 18:42 Dose: 5 mg Pantoprazole Sodium (Protonix -) 40 mg PO BID [facility] Last Admin: 06/21/18 10:53 Dose: 40 mg Ramipril (Altace -) 2.5 mg PO DAILY [facility] Last Admin: 06/21/18 10:53 Dose: 2.5 mg Starch (Anusol Suppository -) 1 each DC BID [facility] Last Admin: 06/21/18 10:54 Dose: Not Given Sulfasalazine (Azulfidine En-Tabs -) 1,000 mg PO BID [facility] Last Admin: 06/21/18 10:55 Dose: 1,000 mg Witch Tamra/Glycerin (Tucks Pads -) 1 pad TP TID [facility] Last Admin: 06/21/18 06:46 Dose: 1 pad - Objective Vital Signs: Vital Signs Temperature 97.6 F 06/21/18 07:20 Pulse Rate 73 06/21/18 07:20 Respiratory Rate 18 06/21/18 07:20 Blood Pressure 130/77 06/21/18 07:20 O2 Sat by Pulse Oximetry (%) 92 L 06/20/18 22:00 Constitutional: Yes: No Distress, Calm Cardiovascular: Yes: Regular Rate and Rhythm Respiratory: Yes: CTA Bilaterally Gastrointestinal: Yes: Normal Bowel Sounds, Soft Genitourinary: Yes: WNL Integumentary: Yes: WNL Neurological: Yes: Alert Labs: CBC, BMP 06/21/18 07:00 06/21/18 07:00 Laboratory Tests 06/14/18 06/14/18 06/14/18 14:45 14:45 14:45 WBC 7.0 RBC 2.78 L Hgb 10.6 L Hct 30.5 L MCV 109.9 H MCH 38.1 H D MCHC 34.6 RDW 13.0 Plt Count 111 L D MPV 7.6 D Absolute Neuts (auto) 5.6 Neutrophils % 80.3 Lymphocytes % 13.3 Monocytes % 6.3 Eosinophils % 0.0 Basophils % 0.1 Nucleated RBC % 0 Manual Slide Review Platelet Comment Sodium 135 L Potassium 4.4 Chloride 101 Carbon Dioxide 26 Anion Gap 8 BUN 27 H Creatinine 0.9 Creat Clearance w eGFR 82.04 Random Glucose 126 H Lactic Acid 2.2 H* Calcium 8.8 Magnesium Iron Total Bilirubin 0.8 AST 19 ALT 11 L Alkaline Phosphatase 51 Troponin I Total Protein 5.7 L Albumin 3.8 Vitamin B12 Serum Folate TSH Free T4 Urine Color Urine Appearance Urine pH Urine Protein Urine Glucose (UA) Urine Ketones Urine Blood Urine Nitrite Urine Bilirubin Urine Urobilinogen Ur Leukocyte Esterase Stool Occult Blood Digoxin 1.14 RPR Titer Influenza A (Rapid) Influenza B (Rapid) RSV Rapid Blood Type Antibody Screen Crossmatch 06/14/18 06/14/18 06/14/18 14:45 14:51 18:10 WBC RBC Hgb Hct MCV MCH MCHC RDW Plt Count MPV Absolute Neuts (auto) Neutrophils % Lymphocytes % Monocytes % Eosinophils % Basophils % Nucleated RBC % Manual Slide Review Platelet Comment Sodium Potassium Chloride Carbon Dioxide Anion Gap BUN Creatinine Creat Clearance w eGFR Random Glucose Lactic Acid Calcium Magnesium Iron Total Bilirubin AST ALT Alkaline Phosphatase Troponin I 0.79 H* < 0.03 Total Protein Albumin Vitamin B12 Serum Folate TSH Free T4 Urine Color Urine Appearance Urine pH Urine Protein Urine Glucose (UA) Urine Ketones Urine Blood Urine Nitrite Urine Bilirubin Urine Urobilinogen Ur Leukocyte Esterase Stool Occult Blood Digoxin RPR Titer Influenza A (Rapid) Negative Influenza B (Rapid) Negative RSV Rapid Blood Type Antibody Screen Crossmatch 06/14/18 06/14/18 06/14/18 18:10 21:10 21:30 WBC RBC Hgb Hct MCV MCH MCHC RDW Plt Count MPV Absolute Neuts (auto) Neutrophils % Lymphocytes % Monocytes % Eosinophils % Basophils % Nucleated RBC % Manual Slide Review Platelet Comment Sodium Potassium Chloride Carbon Dioxide Anion Gap BUN Creatinine Creat Clearance w eGFR Random Glucose Lactic Acid 1.7 Calcium Magnesium Iron Total Bilirubin AST ALT Alkaline Phosphatase Troponin I < 0.03 Total Protein Albumin Vitamin B12 Serum Folate TSH Free T4 Urine Color Yellow Urine Appearance Clear Urine pH 5.5 Urine Protein Negative Urine Glucose (UA) Negative Urine Ketones Negative Urine Blood Trace Urine Nitrite Negative Urine Bilirubin Negative Urine Urobilinogen 0.2 Ur Leukocyte Esterase Negative Stool Occult Blood Digoxin RPR Titer Influenza A (Rapid) Influenza B (Rapid) RSV Rapid Blood Type Antibody Screen Crossmatch 06/15/18 06/16/18 06/16/18 15:30 09:11 09:11 WBC 7.4 RBC 2.31 L Hgb 8.3 L Hct 25.3 L D MCV 109.4 H MCH 35.9 H MCHC 32.8 RDW 12.7 D Plt Count 91 L MPV 6.9 L Absolute Neuts (auto) 5.8 Neutrophils % 77.6 D Lymphocytes % 17.6 D Monocytes % 4.7 Eosinophils % 0.0 D Basophils % 0.1 Nucleated RBC % Manual Slide Review Platelet Comment Sodium 135 L Potassium 3.6 Chloride 107 Carbon Dioxide 22 Anion Gap 6 L BUN 17 Creatinine 0.9 Creat Clearance w eGFR 82.04 Random Glucose 130 H Lactic Acid Calcium 7.8 L Magnesium 1.8 Iron Total Bilirubin 0.8 AST 21 ALT 13 Alkaline Phosphatase 41 L D Troponin I Total Protein 4.3 L Albumin 2.6 L Vitamin B12 Serum Folate TSH Free T4 Urine Color Urine Appearance Urine pH Urine Protein Urine Glucose (UA) Urine Ketones Urine Blood Urine Nitrite Urine Bilirubin Urine Urobilinogen Ur Leukocyte Esterase Stool Occult Blood Digoxin RPR Titer Influenza A (Rapid) Influenza B (Rapid) RSV Rapid Negative Blood Type Antibody Screen Crossmatch 06/16/18 06/16/18 06/16/18 11:30 11:35 20:00 WBC 7.5 RBC 2.33 L Hgb 9.0 L Hct 25.6 L D MCV 110.3 H MCH 38.7 H MCHC 35.1 RDW 13.2 Plt Count 86 L D MPV 7.8 Absolute Neuts (auto) 6.3 Neutrophils % 84.8 H Lymphocytes % 10.3 D Monocytes % 4.8 Eosinophils % 0.0 Basophils % 0.1 Nucleated RBC % 0 Manual Slide Review Platelet Comment Sodium Potassium Chloride Carbon Dioxide Anion Gap BUN Creatinine Creat Clearance w eGFR Random Glucose Lactic Acid Calcium Magnesium Iron Total Bilirubin AST ALT Alkaline Phosphatase Troponin I Total Protein Albumin Vitamin B12 Serum Folate TSH Free T4 Urine Color Urine Appearance Urine pH Urine Protein Urine Glucose (UA) Urine Ketones Urine Blood Urine Nitrite Urine Bilirubin Urine Urobilinogen Ur Leukocyte Esterase Stool Occult Blood Digoxin RPR Titer Influenza A (Rapid) Influenza B (Rapid) RSV Rapid Blood Type A POSITIVE A POSITIVE Antibody Screen Negative Crossmatch See Detail 06/16/18 06/17/18 06/17/18 20:00 06:00 06:00 WBC 6.5 RBC 2.07 L Hgb 7.7 L Hct 22.5 L MCV 108.9 H MCH 37.3 H MCHC 34.2 RDW 13.0 Plt Count 78 L MPV 7.3 L Absolute Neuts (auto) 4.8 Neutrophils % 74.3 Lymphocytes % 19.0 D Monocytes % 6.6 Eosinophils % 0.0 Basophils % 0.1 Nucleated RBC % 0 Manual Slide Review Platelet Comment Sodium 142 143 Potassium 3.8 3.7 Chloride 111 H 112 H Carbon Dioxide 24 26 Anion Gap 7 L 6 L BUN 18 15 Creatinine 0.8 0.6 Creat Clearance w eGFR 93.99 130.99 Random Glucose 159 H 88 Lactic Acid Calcium 7.8 L 7.6 L Magnesium Iron Total Bilirubin 0.4 0.6 AST 17 16 ALT 14 13 Alkaline Phosphatase 52 47 Troponin I Total Protein 5.1 L 4.5 L Albumin 2.7 L 2.4 L Vitamin B12 Serum Folate TSH Free T4 Urine Color Urine Appearance Urine pH Urine Protein Urine Glucose (UA) Urine Ketones Urine Blood Urine Nitrite Urine Bilirubin Urine Urobilinogen Ur Leukocyte Esterase Stool Occult Blood Digoxin RPR Titer Influenza A (Rapid) Influenza B (Rapid) RSV Rapid Blood Type Antibody Screen Crossmatch 06/17/18 06/18/18 06/19/18 18:40 06:00 06:00 WBC 6.7 5.5 RBC 2.75 L 2.91 L Hgb 9.7 L 10.0 L Hct 28.4 L D 29.7 L MCV 103.4 H 102.2 H MCH 35.2 H 34.4 H MCHC 34.0 33.7 RDW 18.4 H 17.8 H Plt Count 75 L 84 L MPV 7.8 7.5 Absolute Neuts (auto) Neutrophils % Lymphocytes % Monocytes % Eosinophils % Basophils % Nucleated RBC % Manual Slide Review Platelet Comment No clumping noted Sodium Potassium Chloride Carbon Dioxide Anion Gap BUN Creatinine Creat Clearance w eGFR Random Glucose Lactic Acid Calcium Magnesium Iron Total Bilirubin AST ALT Alkaline Phosphatase Troponin I Total Protein Albumin Vitamin B12 Serum Folate TSH Free T4 Urine Color Urine Appearance Urine pH Urine Protein Urine Glucose (UA) Urine Ketones Urine Blood Urine Nitrite Urine Bilirubin Urine Urobilinogen Ur Leukocyte Esterase Stool Occult Blood Negative Digoxin RPR Titer Influenza A (Rapid) Influenza B (Rapid) RSV Rapid Blood Type Antibody Screen Crossmatch 06/19/18 06/19/18 06/19/18 06:00 06:00 06:00 WBC RBC Hgb Hct MCV MCH MCHC RDW Plt Count MPV Absolute Neuts (auto) Neutrophils % Lymphocytes % Monocytes % Eosinophils % Basophils % Nucleated RBC % Manual Slide Review Platelet Comment Sodium 139 Potassium 4.1 Chloride 108 H Carbon Dioxide 27 Anion Gap 4 L BUN 21 H Creatinine 0.6 Creat Clearance w eGFR 130.99 Random Glucose 137 H Lactic Acid Calcium 8.3 L Magnesium Iron 60 Total Bilirubin AST ALT Alkaline Phosphatase Troponin I Total Protein Albumin Vitamin B12 296 Serum Folate 9 TSH 0.57 Free T4 0.83 Urine Color Urine Appearance Urine pH Urine Protein Urine Glucose (UA) Urine Ketones Urine Blood Urine Nitrite Urine Bilirubin Urine Urobilinogen Ur Leukocyte Esterase Stool Occult Blood Digoxin RPR Titer Influenza A (Rapid) Influenza B (Rapid) RSV Rapid Blood Type Antibody Screen Crossmatch 06/19/18 06/20/18 06/20/18 06:00 06:00 06:00 WBC 4.1 RBC 2.91 L Hgb 10.0 L Hct 30.0 L MCV 103.0 H MCH 34.4 H MCHC 33.4 RDW 17.1 H Plt Count 85 L MPV 7.6 Absolute Neuts (auto) 3.0 Neutrophils % 73.0 Lymphocytes % 22.4 Monocytes % 4.4 Eosinophils % 0.1 D Basophils % 0.1 Nucleated RBC % 0 Manual Slide Review Platelet Comment Sodium 139 Potassium 4.4 Chloride 108 H Carbon Dioxide 28 Anion Gap 3 L BUN 20 H Creatinine 0.5 L Creat Clearance w eGFR 161.67 Random Glucose 121 H Lactic Acid Calcium 8.1 L Magnesium Iron Total Bilirubin 0.4 AST 21 ALT 33 Alkaline Phosphatase 56 Troponin I Total Protein 4.9 L Albumin 2.5 L Vitamin B12 Serum Folate TSH Free T4 Urine Color Urine Appearance Urine pH Urine Protein Urine Glucose (UA) Urine Ketones Urine Blood Urine Nitrite Urine Bilirubin Urine Urobilinogen Ur Leukocyte Esterase Stool Occult Blood Digoxin RPR Titer Nonreactive Influenza A (Rapid) Influenza B (Rapid) RSV Rapid Blood Type Antibody Screen Crossmatch 06/21/18 06/21/18 07:00 07:00 WBC 4.9 RBC 3.00 L Hgb 10.3 L Hct 30.9 L MCV 103.0 H MCH 34.3 H MCHC 33.3 RDW 16.4 H Plt Count 92 L MPV 7.2 L Absolute Neuts (auto) Neutrophils % Lymphocytes % Monocytes % Eosinophils % Basophils % Nucleated RBC % Manual Slide Review Platelet Comment Sodium 140 Potassium 3.9 Chloride 105 Carbon Dioxide 30 Anion Gap 4 L BUN 23 H Creatinine 0.5 L Creat Clearance w eGFR 161.67 Random Glucose 114 H Lactic Acid Calcium 8.2 L Magnesium Iron Total Bilirubin AST ALT Alkaline Phosphatase Troponin I Total Protein Albumin Vitamin B12 Serum Folate TSH Free T4 Urine Color Urine Appearance Urine pH Urine Protein Urine Glucose (UA) Urine Ketones Urine Blood Urine Nitrite Urine Bilirubin Urine Urobilinogen Ur Leukocyte Esterase Stool Occult Blood Digoxin RPR Titer Influenza A (Rapid) Influenza B (Rapid) RSV Rapid Blood Type Antibody Screen Crossmatch Microbiology 06/16/18 17:40 Blood - Peripheral Venous Blood Culture - Preliminary NO GROWTH OBTAINED AFTER 96 HOURS, INCUBATION TO CONTINUE FOR 1 DAYS. 06/16/18 17:35 Blood - Peripheral Venous Blood Culture - Preliminary NO GROWTH OBTAINED AFTER 96 HOURS, INCUBATION TO CONTINUE FOR 1 DAYS. 06/17/18 18:31 Stool Salmonella/Shigella Culture - Final NO GROWTH OF SALMONELLA OR SHIGELLA SPECIES OBTAINED 06/17/18 18:31 Stool Campylobacter Culture - Final NO GROWTH OF CAMPYLOBACTER SPECIES OBTAINED 06/17/18 18:31 Stool Yersinia Culture - Final NO GROWTH OF YERSINIA SPECIES OBTAINED 06/17/18 18:31 Stool Vibrio Culture - Final NO GROWTH OF VIBRIO SPECIES OBTAINED 06/17/18 18:31 Stool Escherichia coli 0157 Culture - Final NO GROWTH OF E COLI 0157 OBTAINED 06/15/18 16:20 Sputum - Expectorated Gram Stain - Final 06/15/18 16:20 Sputum - Expectorated Sputum Culture - Final NORMAL RESPIRATORY BÁRBARA 06/15/18 16:20 Stool Clostridioides difficile Antigen - Final 06/15/18 16:20 Stool Clostridioides difficile Toxin Assay - Final 06/15/18 15:00 Urine - Urine Clean Catch Legionella Antigen - Final 06/15/18 15:00 Urine - Urine Clean Catch Streptococcus pneumoniae Antigen ( M - Final 06/14/18 15:02 Blood - Peripheral Venous Blood Culture - Final Escherichia Coli 06/14/18 14:45 Blood - Peripheral Venous Blood Culture - Final Escherichia Coli 06/14/18 21:30 Urine - Urine Clean Catch Urine Culture - Final NO GROWTH OBTAINED Problem List - Problems (1) Anemia Code(s): D64.9 - ANEMIA, UNSPECIFIED (2) Atrial fibrillation Code(s): I48.91 - UNSPECIFIED ATRIAL FIBRILLATION Qualifiers: Atrial fibrillation type: paroxysmal Qualified Code(s): I48.0 - Paroxysmal atrial fibrillation (3) COPD (chronic obstructive pulmonary disease) with acute bronchitis Code(s): J44.0 - CHRONIC OBSTRUCTIVE PULMON DISEASE W ACUTE LOWER RESP INFCT; J20.9 - ACUTE BRONCHITIS, UNSPECIFIED (4) Pneumonia Code(s): J18.9 - PNEUMONIA, UNSPECIFIED ORGANISM Qualifiers: Pneumonia type: due to unspecified organism Laterality: right Lung location: lower lobe of lung Qualified Code(s): J18.1 - Lobar pneumonia, unspecified organism (5) Rectal bleeding Code(s): K62.5 - HEMORRHAGE OF ANUS AND RECTUM (6) Sepsis Code(s): A41.9 - SEPSIS, UNSPECIFIED ORGANISM Qualifiers: Sepsis type: Escherichia coli Qualified Code(s): A41.51 - Sepsis due to Escherichia coli [E. coli] (7) COPD with acute exacerbation Code(s): J44.1 - CHRONIC OBSTRUCTIVE PULMONARY DISEASE W (ACUTE) EXACERBATION Assessment/Plan E. Coli Bacteremia/Sepsis PNA Bronchitis COPD CAD Paroxysmal AFIB RA Rectal bleed -- Pt is clinically improving -- Blood cultures now negative -- Will d/c Ceftriaxone and switch to Levaquin 750 mg PO daily x 8 days starting tomorrow to complete total 14 days treatment -- continue monitor -- Pt instructed to seek medical attention if develops abd cramping/pain or diarrhea or condition worsens after discharge
[2018-06-21] MEDS ORDERED: PT OWN MED DRAWER 7, Y5N ONE (23:07)
[2018-06-22] MEDS: ALBUTEROL SO4 2.5/IPRATROPIUM 0.5 INH SOL 3 ML VIAL.NEB. NEB SCH ×6 (00:06→20:10)
[2018-06-22] MEDS: methylPREDNISolone NA SUCC 40 MG/1 ML VIAL IVPUSH SCH ×2 (01:09→10:08)
[2018-06-22] MEDS ORDERED: PT OWN MED DRAWER 7, Y5N ONE ×2 (05:30→09:04)
[2018-06-22] MEDS: WITCH HAZEL 50% (TUCKS) 40 PAD/JAR PAD TP SCH ×3 (05:32→22:19)
[2018-06-22] MEDS: levoFLOXacin 750 MG TABLET PO SCH (05:32)
--- NOTE | 2018-06-22 08:13 | PN ---
Progress Note, Physician - Current Medication List Current Medications: Active Medications Acetaminophen (Tylenol -) 650 mg PO Q6H PRN PRN Reason: Fever Last Admin: 06/18/18 09:35 Dose: 650 mg Albuterol/Ipratropium (Duoneb -) 1 amp NEB RQ4H [facility] Last Admin: 06/22/18 08:00 Dose: 1 amp Amino Acids (Prosource No Carb Liquid Pkt) 30 ml PO BID@0800,1730 [facility] Last Admin: 06/21/18 17:25 Dose: 30 ml Carvedilol (Coreg -) 6.25 mg PO BID [facility] Last Admin: 06/21/18 23:12 Dose: 6.25 mg Dabigatran (Pradaxa -) 150 mg PO BID [facility] Last Admin: 06/21/18 23:11 Dose: 150 mg Levofloxacin (Levaquin) 750 mg PO DAILY@0630 [facility] Last Admin: 06/22/18 05:32 Dose: 750 mg Methylprednisolone Sodium Succinate (Solu-Medrol -) 40 mg IVPUSH Q8H-IV [facility] Last Admin: 06/22/18 01:09 Dose: 40 mg Metoprolol Tartrate (Lopressor Injection -) 5 mg IVPB Q4H PRN PRN Reason: HEART RATE Last Admin: 06/17/18 18:42 Dose: 5 mg Pantoprazole Sodium (Protonix -) 40 mg PO BID [facility] Last Admin: 06/21/18 23:12 Dose: 40 mg Ramipril (Altace -) 2.5 mg PO DAILY [facility] Last Admin: 06/21/18 10:53 Dose: 2.5 mg Starch (Anusol Suppository -) 1 each [place] BID [facility] Last Admin: 06/21/18 23:12 Dose: Not Given Sulfasalazine (Azulfidine En-Tabs -) 1,000 mg PO BID [facility] Last Admin: 06/21/18 23:12 Dose: 1,000 mg Witch Tamra/Glycerin (Tucks Pads -) 1 pad TP TID [facility] Last Admin: 06/22/18 05:32 Dose: 1 pad - Objective Vital Signs: Vital Signs Temperature 97.6 F 06/22/18 06:00 Pulse Rate 104 H 06/22/18 06:00 Respiratory Rate 18 06/22/18 06:00 Blood Pressure 150/93 06/22/18 06:00 O2 Sat by Pulse Oximetry (%) 93 L 06/21/18 21:00 Cardiovascular: Yes: S1, S2 Respiratory: Yes: Regular, CTA Bilaterally Gastrointestinal: Yes: Normal Bowel Sounds, Soft Labs: CBC, BMP 06/21/18 07:00 06/21/18 07:00 Problem List - Problems (1) COPD with acute exacerbation Assessment/Plan: --change to po --continue duonebs --daily peak flows, pre post --ID and pulmonary following Code(s): J44.1 - CHRONIC OBSTRUCTIVE PULMONARY DISEASE W (ACUTE) EXACERBATION (2) Anemia Assessment/Plan: --Monitor --patient had colonoscopy with Dr. Henderson 6 months ago, several polyps removed, was told studies were negative -- GI on Case Code(s): D64.9 - ANEMIA, UNSPECIFIED (3) Atrial fibrillation Assessment/Plan: --was in SR on admission --Pradaxa restarted by cardio --telemetry monitoring --cardiology following Code(s): I48.91 - UNSPECIFIED ATRIAL FIBRILLATION Qualifiers: Atrial fibrillation type: paroxysmal Qualified Code(s): I48.0 - Paroxysmal atrial fibrillation (4) Pneumonia Assessment/Plan: --CT chest: extensive bronchiectatic changes probably with active infection; extensive changes of COPD --continue Levaquin Code(s): J18.9 - PNEUMONIA, UNSPECIFIED ORGANISM Qualifiers: Pneumonia type: due to unspecified organism Laterality: right Lung location: lower lobe of lung Qualified Code(s): J18.1 - Lobar pneumonia, unspecified organism (5) Sepsis Code(s): A41.9 - SEPSIS, UNSPECIFIED ORGANISM Qualifiers: Sepsis type: Escherichia coli Qualified Code(s): A41.51 - Sepsis due to Escherichia coli [E. coli]
[2018-06-22] MEDS: CARVEDILOL 6.25 MG TABLET (FP) PO SCH ×2 (10:08→22:12)
[2018-06-22] MEDS: RAMIPRIL 2.5 MG CAPSULE (FP) PO SCH (10:08)
[2018-06-22] MEDS: PANTOPRAZOLE 40 MG TABLET (FP) PO SCH ×2 (10:08→22:12)
[2018-06-22] MEDS: AMINO ACIDS/PROTEIN HYDROLYS 30 ML LIQUID.PKT PO SCH ×2 (10:09→17:58)
[2018-06-22] MEDS: PHENYLEPHRINE 0.25%/STARCH 1 EACH SUPP.RECT PR SCH ×2 (10:10→22:20)
[2018-06-22] MEDS: DABIGATRAN ETEXILATE MESYLATE 150 MG CAPSULE PO SCH (10:11)
--- NOTE | 2018-06-22 10:19 | EKG ---
Test Reason : Blood Pressure : / mmHG Vent. Rate : 123 BPM Atrial Rate : 133 BPM P-R Int : 000 ms QRS Dur : 082 ms QT Int : 342 ms P-R-T Axes : 000 034 252 degrees QTc Int : 489 ms ATRIAL FIBRILLATION WITH RAPID VENTRICULAR RESPONSE LOW VOLTAGE QRS NONSPECIFIC ST AND T WAVE ABNORMALITY ABNORMAL ECG WHEN COMPARED WITH ECG OF 16-JUN-2018 09:34, NO SIGNIFICANT CHANGE WAS FOUND Confirmed by LAKISHA ALCANTARA MD ([id number]) on 06/22/2018 10:19:05 AM Referred By: Confirmed By:LAKISHA ALCANTARA MD
--- NOTE | 2018-06-22 10:48 | PN ---
Progress Note, Physician History of Present Illness: Still dyspneic with nnprodctive cough and recurrent hematochezia, denies chest pain. - Current Medication List Current Medications: Active Medications Acetaminophen (Tylenol -) 650 mg PO Q6H PRN PRN Reason: Fever Last Admin: 06/18/18 09:35 Dose: 650 mg Albuterol/Ipratropium (Duoneb -) 1 amp NEB RQ4H [facility] Last Admin: 06/22/18 08:00 Dose: 1 amp Amino Acids (Prosource No Carb Liquid Pkt) 30 ml PO BID@0800,1730 [facility] Last Admin: 06/22/18 10:09 Dose: 30 ml Carvedilol (Coreg -) 6.25 mg PO BID [facility] Last Admin: 06/22/18 10:08 Dose: 6.25 mg Levofloxacin (Levaquin) 750 mg PO DAILY@0630 [facility] Last Admin: 06/22/18 05:32 Dose: 750 mg Methylprednisolone Sodium Succinate (Solu-Medrol -) 40 mg IVPUSH Q8H-IV [facility] Last Admin: 06/22/18 10:08 Dose: 40 mg Metoprolol Tartrate (Lopressor Injection -) 5 mg IVPB Q4H PRN PRN Reason: HEART RATE Last Admin: 06/17/18 18:42 Dose: 5 mg Pantoprazole Sodium (Protonix -) 40 mg PO BID [facility] Last Admin: 06/22/18 10:08 Dose: 40 mg Ramipril (Altace -) 2.5 mg PO DAILY [facility] Last Admin: 06/22/18 10:08 Dose: 2.5 mg Starch (Anusol Suppository -) 1 each [place] BID [facility] Last Admin: 06/22/18 10:10 Dose: Not Given Sulfasalazine (Azulfidine En-Tabs -) 1,000 mg PO BID [facility] Last Admin: 06/22/18 10:09 Dose: 1,000 mg Witch Tamra/Glycerin (Tucks Pads -) 1 pad TP TID [facility] Last Admin: 06/22/18 05:32 Dose: 1 pad - Objective Vital Signs: Vital Signs Temperature 97.6 F 06/22/18 10:16 Pulse Rate 113 H 06/22/18 10:16 Respiratory Rate 18 06/22/18 10:16 Blood Pressure 145/89 06/22/18 10:16 O2 Sat by Pulse Oximetry (%) 93 L 06/21/18 21:00 Constitutional: Yes: No Distress, Calm, Thin Neck: Yes: Supple Cardiovascular: Yes: Tachycardia, Pulse Irregular Respiratory: Yes: Regular, Diminished, On Nasal O2, SOB, Wheezes Gastrointestinal: Yes: Normal Bowel Sounds, Soft Edema: No Labs: CBC, BMP 06/21/18 07:00 - ....Imaging EKG: Report Reviewed (Tele: Rapid afib) Problem List - Problems (1) Demand ischemia Code(s): I24.8 - OTHER FORMS OF ACUTE ISCHEMIC HEART DISEASE (2) COPD (chronic obstructive pulmonary disease) with acute bronchitis Code(s): J44.0 - CHRONIC OBSTRUCTIVE PULMON DISEASE W ACUTE LOWER RESP INFCT; J20.9 - ACUTE BRONCHITIS, UNSPECIFIED (3) Atrial fibrillation Code(s): I48.91 - UNSPECIFIED ATRIAL FIBRILLATION Qualifiers: Atrial fibrillation type: paroxysmal Qualified Code(s): I48.0 - Paroxysmal atrial fibrillation (4) Lactic acid acidosis Code(s): E87.2 - ACIDOSIS (5) Pneumonia Code(s): J18.9 - PNEUMONIA, UNSPECIFIED ORGANISM Qualifiers: Pneumonia type: due to unspecified organism Laterality: right Lung location: lower lobe of lung Qualified Code(s): J18.1 - Lobar pneumonia, unspecified organism (6) Sepsis Code(s): A41.9 - SEPSIS, UNSPECIFIED ORGANISM Qualifiers: Sepsis type: Escherichia coli Qualified Code(s): A41.51 - Sepsis due to Escherichia coli [E. coli] (7) Troponin level elevated Code(s): R74.8 - ABNORMAL LEVELS OF OTHER SERUM ENZYMES (8) Bronchitis Code(s): J40 - BRONCHITIS, NOT SPECIFIED ACUTE OR CHRONIC (9) Rectal bleeding Code(s): K62.5 - HEMORRHAGE OF ANUS AND RECTUM Assessment/Plan 01/15/2018 Mildly decreased LVEF 45-50%, mild MR, TR, [place] 1. CAP, acute bronchitis with e. coli sepsis 2. Paroxysmal afib with RVR on Pradaxa 3. Demand ischemia referable to #1 4. Lactic acidosis resolving 5. COPD 6. Rheumatoid arthritis 7. Hematochezia most likely secondary to large internal hemorrhoid, anemia post transfusion, thrombocytopenia P:1. Trops downtrending 2. Completre abx course per C&S, BD, IV steroid taper with gi protection and O2 as needed 3. Pradaxa 150 bid held awaiting resolution of recurrent hematochezia 4. Continue carvedilol 6.25 bid, IV Lopressor as needed, and resume ramipril 2.5 qd as hemodynamics tolerate
[2018-06-22 10:50] LABS: HEMATOCRIT 35.2 % (35.4-49); HEMOGLOBIN 11.5 GM/dL (11.7-16.9); MCH 33.7 pg (25.7-33.7); MCHC 32.5 g/dl (32.0-35.9); MEAN CELL VOLUME 103.7 fl (80-96); MEAN PLT VOLUME 7.4 fl (7.5-11.1); PLATELET COUNT 113 K/MM3 (134-434); RDW 16.7 % (11.9-15.9); WHITE BLOOD COUNT 6.9 K/mm3 (4.0-10.0)
[2018-06-22] MEDS: METOPROLOL TARTRATE 5 MG/5 ML VIAL IVPB PRN ×3 (10:50→23:22)
--- NOTE | 2018-06-22 12:07 | PN ---
Progress Note (short form) - Note Progress Note: Breathing slowly improving but does not feel at baseline. No wheezing. Some hematochezia. Intake & Output 06/19/18 06/20/18 06/21/18 06/22/18 23:59 23:59 23:59 23:59 Intake Total 2230 2140 820 370 Output Total 300 Balance 1930 2140 820 370 Last Vital Signs Temp Pulse Resp BP Pulse Ox 97.6 F 157 H 18 125/79 93 L 06/22/18 10:16 06/22/18 10:50 06/22/18 10:16 06/22/18 10:50 06/21/18 21:00 Active Medications Acetaminophen (Tylenol -) 650 mg PO Q6H PRN PRN Reason: Fever Last Admin: 06/18/18 09:35 Dose: 650 mg Albuterol/Ipratropium (Duoneb -) 1 amp NEB RQ4H [facility] Last Admin: 06/22/18 11:01 Dose: 1 amp Amino Acids (Prosource No Carb Liquid Pkt) 30 ml PO BID@0800,1730 [facility] Last Admin: 06/22/18 10:09 Dose: 30 ml Carvedilol (Coreg -) 6.25 mg PO BID [facility] Last Admin: 06/22/18 10:08 Dose: 6.25 mg Levofloxacin (Levaquin) 750 mg PO DAILY@0630 [facility] Last Admin: 06/22/18 05:32 Dose: 750 mg Methylprednisolone Sodium Succinate (Solu-Medrol -) 40 mg IVPUSH Q8H-IV [facility] Last Admin: 06/22/18 10:08 Dose: 40 mg Metoprolol Tartrate (Lopressor Injection -) 5 mg IVPB Q4H PRN PRN Reason: HEART RATE Last Admin: 06/22/18 10:50 Dose: 5 mg Pantoprazole Sodium (Protonix -) 40 mg PO BID [facility] Last Admin: 06/22/18 10:08 Dose: 40 mg Ramipril (Altace -) 2.5 mg PO DAILY [facility] Last Admin: 06/22/18 10:08 Dose: 2.5 mg Starch (Anusol Suppository -) 1 each OR BID [facility] Last Admin: 06/22/18 10:10 Dose: Not Given Sulfasalazine (Azulfidine En-Tabs -) 1,000 mg PO BID [facility] Last Admin: 06/22/18 10:09 Dose: 1,000 mg Witch Tamra/Glycerin (Tucks Pads -) 1 pad TP TID [facility] Last Admin: 06/22/18 05:32 Dose: 1 pad Constitutional: Yes: Mildly tachypneic at rest Eyes: Yes: WNL HENT: Yes: WNL Neck: Yes: WNL Cardiovascular: Yes: Pulse Irregular, S1, S2 Respiratory: Yes: Bilateral Rhonchi Gastrointestinal: Yes: Normal Bowel Sounds, Soft Extremities: Yes: WNL Edema: No Labs: Laboratory Results - last 24 hr 06/22/18 10:25 WBC 6.9 RBC 3.40 L Hgb 11.5 L Hct 35.2 L MCV 103.7 H MCH 33.7 MCHC 32.5 RDW 16.7 H Plt Count 113 L D MPV 7.4 L Problem List - Problems (1) Atrial fibrillation Code(s): I48.91 - UNSPECIFIED ATRIAL FIBRILLATION Qualifiers: Atrial fibrillation type: paroxysmal Qualified Code(s): I48.0 - Paroxysmal atrial fibrillation (2) Lactic acid acidosis Code(s): E87.2 - ACIDOSIS (3) Pneumonia Code(s): J18.9 - PNEUMONIA, UNSPECIFIED ORGANISM Qualifiers: Pneumonia type: due to unspecified organism Laterality: right Lung location: lower lobe of lung Qualified Code(s): J18.1 - Lobar pneumonia, unspecified organism (4) Sepsis Code(s): A41.9 - SEPSIS, UNSPECIFIED ORGANISM Qualifiers: Sepsis type: sepsis due to unspecified organism Qualified Code(s): A41.9 - Sepsis, unspecified organism (5) Troponin level elevated Code(s): R74.8 - ABNORMAL LEVELS OF OTHER SERUM ENZYMES Assessment/Plan GRAM NEGATIVE PNEUMONIA/BACTEREMIA SEPSIS COPD HYPOTENSION IMPROVED ANEMIA/THROMBOCYTOPENIA PLAN ABX PER ID INHALED BRONCHODILATORS WILL CHANGE TO PREDNISONE NORMAL TRANFUSION THRESHOLDS O2 TO MAINTAIN SATURATIONS DR REYNOLDS
[2018-06-22] MEDS: predniSONE 20 MG TABLET (UD) PO SCH (13:17)
--- NOTE | 2018-06-22 14:37 | PN ---
Progress Note, Physician History of Present Illness: stable breathing improving slowly hematochzia - Current Medication List Current Medications: Active Medications Acetaminophen (Tylenol -) 650 mg PO Q6H PRN PRN Reason: Fever Last Admin: 06/18/18 09:35 Dose: 650 mg Albuterol/Ipratropium (Duoneb -) 1 amp NEB RQ4H [facility] Last Admin: 06/22/18 11:01 Dose: 1 amp Amino Acids (Prosource No Carb Liquid Pkt) 30 ml PO BID@0800,1730 [facility] Last Admin: 06/22/18 10:09 Dose: 30 ml Carvedilol (Coreg -) 6.25 mg PO BID [facility] Last Admin: 06/22/18 10:08 Dose: 6.25 mg Levofloxacin (Levaquin) 750 mg PO DAILY@0630 [facility] Last Admin: 06/22/18 05:32 Dose: 750 mg Metoprolol Tartrate (Lopressor Injection -) 5 mg IVPB Q4H PRN PRN Reason: HEART RATE Last Admin: 06/22/18 10:50 Dose: 5 mg Pantoprazole Sodium (Protonix -) 40 mg PO BID [facility] Last Admin: 06/22/18 10:08 Dose: 40 mg Prednisone (Deltasone -) 40 mg PO DAILY [facility] Last Admin: 06/22/18 13:17 Dose: 40 mg Ramipril (Altace -) 2.5 mg PO DAILY [facility] Last Admin: 06/22/18 10:08 Dose: 2.5 mg Starch (Anusol Suppository -) 1 each [place] BID [facility] Last Admin: 06/22/18 10:10 Dose: Not Given Sulfasalazine (Azulfidine En-Tabs -) 1,000 mg PO BID [facility] Last Admin: 06/22/18 10:09 Dose: 1,000 mg Witch Tamra/Glycerin (Tucks Pads -) 1 pad TP TID [facility] Last Admin: 06/22/18 13:17 Dose: 1 pad - Objective Vital Signs: Vital Signs Temperature 97.6 F 06/22/18 10:16 Pulse Rate 157 H 06/22/18 10:50 Respiratory Rate 18 06/22/18 10:16 Blood Pressure 125/79 06/22/18 10:50 O2 Sat by Pulse Oximetry (%) 93 L 06/21/18 21:00 Constitutional: Yes: No Distress, Calm Cardiovascular: Yes: S1, S2 Respiratory: Yes: On Nasal O2, Poor Air Entry Gastrointestinal: Yes: Normal Bowel Sounds, Soft, Other (hematochezia) Musculoskeletal: Yes: WNL Extremities: Yes: WNL Neurological: Yes: Alert, Oriented Psychiatric: Yes: Alert, Oriented Labs: CBC, BMP 06/22/18 10:25 06/21/18 07:00 Assessment/Plan Assessment/Plan Problem List - Problems (1) Atrial fibrillation Code(s): I48.91 - UNSPECIFIED ATRIAL FIBRILLATION Qualifiers: Atrial fibrillation type: paroxysmal Qualified Code(s): I48.0 - Paroxysmal atrial fibrillation (2) Lactic acid acidosis Code(s): E87.2 - ACIDOSIS (3) Pneumonia Code(s): J18.9 - PNEUMONIA, UNSPECIFIED ORGANISM Qualifiers: Pneumonia type: due to unspecified organism Laterality: right Lung location: lower lobe of lung Qualified Code(s): J18.1 - Lobar pneumonia, unspecified organism (4) Sepsis Code(s): A41.9 - SEPSIS, UNSPECIFIED ORGANISM Qualifiers: Sepsis type: sepsis due to unspecified organism Qualified Code(s): A41.9 - Sepsis, unspecified organism (5) Troponin level elevated Code(s): R74.8 - ABNORMAL LEVELS OF OTHER SERUM ENZYMES patients pathology probably coming from the gut or urine plan conitnue abx incentive riri resp support rest as per pul and he team
[2018-06-22 16:46] LABS: HEMATOCRIT 33.1 % (35.4-49); HEMOGLOBIN 11.1 GM/dL (11.7-16.9); MCH 34.4 pg (25.7-33.7); MCHC 33.4 g/dl (32.0-35.9); MEAN CELL VOLUME 103.1 fl (80-96); MEAN PLT VOLUME 7.2 fl (7.5-11.1); PLATELET COUNT 108 K/MM3 (134-434); RBC 3.22 M/mm3 (4.00-5.60); RDW 16.3 % (11.9-15.9); WHITE BLOOD COUNT 7.3 K/mm3 (4.0-10.0)
[2018-06-22] MEDS: ACETAMINOPHEN 325 MG TABLET (FP) PO PRN (17:17)
[2018-06-23] MEDS: ALBUTEROL SO4 2.5/IPRATROPIUM 0.5 INH SOL 3 ML VIAL.NEB. NEB SCH ×6 (04:00→20:10)
[2018-06-23] MEDS ORDERED: PT OWN MED DRAWER 7, Y5N ONE ×3 (05:53→21:03)
[2018-06-23] MEDS: levoFLOXacin 750 MG TABLET PO SCH (06:44)
[2018-06-23] MEDS: WITCH HAZEL 50% (TUCKS) 40 PAD/JAR PAD TP SCH ×3 (06:45→21:09)
[2018-06-23 07:44] LABS: HEMATOCRIT 30.9 % (35.4-49); HEMOGLOBIN 10.5 GM/dL (11.7-16.9); MCH 35.3 pg (25.7-33.7); MCHC 33.8 g/dl (32.0-35.9); MEAN CELL VOLUME 104.2 fl (80-96); MEAN PLT VOLUME 7.4 fl (7.5-11.1); PLATELET COUNT 102 K/MM3 (134-434); RBC 2.97 M/mm3 (4.00-5.60); RDW 16.5 % (11.9-15.9); WHITE BLOOD COUNT 6.4 K/mm3 (4.0-10.0)
[2018-06-23] MEDS: AMINO ACIDS/PROTEIN HYDROLYS 30 ML LIQUID.PKT PO SCH ×2 (08:42→17:43)
--- NOTE | 2018-06-23 08:46 | PN ---
Progress Note, Physician - Current Medication List Current Medications: Active Medications Acetaminophen (Tylenol -) 650 mg PO Q6H PRN PRN Reason: Fever Last Admin: 06/22/18 17:17 Dose: 650 mg Albuterol/Ipratropium (Duoneb -) 1 amp NEB RQ4H [facility] Last Admin: 06/23/18 08:28 Dose: 1 amp Amino Acids (Prosource No Carb Liquid Pkt) 30 ml PO BID@0800,1730 [facility] Last Admin: 06/23/18 08:42 Dose: Not Given Carvedilol (Coreg -) 6.25 mg PO BID [facility] Last Admin: 06/22/18 22:12 Dose: 6.25 mg Levofloxacin (Levaquin) 750 mg PO DAILY@0630 [facility] Last Admin: 06/23/18 06:44 Dose: 750 mg Metoprolol Tartrate (Lopressor Injection -) 5 mg IVPB Q4H PRN PRN Reason: HEART RATE Last Admin: 06/22/18 23:22 Dose: 5 mg Pantoprazole Sodium (Protonix -) 40 mg PO BID [facility] Last Admin: 06/22/18 22:12 Dose: 40 mg Prednisone (Deltasone -) 40 mg PO DAILY [facility] Last Admin: 06/22/18 13:17 Dose: 40 mg Ramipril (Altace -) 2.5 mg PO DAILY [facility] Last Admin: 06/22/18 10:08 Dose: 2.5 mg Starch (Anusol Suppository -) 1 each [place] BID [facility] Last Admin: 06/22/18 22:20 Dose: Not Given Sulfasalazine (Azulfidine En-Tabs -) 1,000 mg PO BID [facility] Last Admin: 06/22/18 22:14 Dose: 1,000 mg Witch Tamra/Glycerin (Tucks Pads -) 1 pad TP TID [facility] Last Admin: 06/23/18 06:45 Dose: Not Given - Objective Vital Signs: Vital Signs Temperature 98.1 F 06/23/18 08:42 Pulse Rate 109 H 06/23/18 08:42 Respiratory Rate 18 06/23/18 08:42 Blood Pressure 142/73 06/23/18 08:42 O2 Sat by Pulse Oximetry (%) 93 L 06/22/18 21:00 Cardiovascular: Yes: S1, S2 Respiratory: Yes: Regular, CTA Bilaterally Gastrointestinal: Yes: Normal Bowel Sounds, Soft Labs: CBC, BMP 06/23/18 06:00 06/21/18 07:00 Problem List - Problems (1) COPD with acute exacerbation Assessment/Plan: --change to po --continue duonebs --daily peak flows, pre post --ID and pulmonary following Code(s): J44.1 - CHRONIC OBSTRUCTIVE PULMONARY DISEASE W (ACUTE) EXACERBATION (2) Anemia Assessment/Plan: --Monitor --patient had colonoscopy with Dr. Henderson 6 months ago, several polyps removed, was told studies were negative -- GI on Case --Hold Pradaxa Code(s): D64.9 - ANEMIA, UNSPECIFIED (3) Atrial fibrillation Assessment/Plan: --Pradaxa on hold --telemetry monitoring --cardiology following --Coreg 12.5 bid Code(s): I48.91 - UNSPECIFIED ATRIAL FIBRILLATION Qualifiers: Atrial fibrillation type: paroxysmal Qualified Code(s): I48.0 - Paroxysmal atrial fibrillation (4) Pneumonia Assessment/Plan: --CT chest: extensive bronchiectatic changes probably with active infection; extensive changes of COPD --continue Levaquin Code(s): J18.9 - PNEUMONIA, UNSPECIFIED ORGANISM Qualifiers: Pneumonia type: due to unspecified organism Laterality: right Lung location: lower lobe of lung Qualified Code(s): J18.1 - Lobar pneumonia, unspecified organism (5) Sepsis Code(s): A41.9 - SEPSIS, UNSPECIFIED ORGANISM Qualifiers: Sepsis type: Escherichia coli Qualified Code(s): A41.51 - Sepsis due to Escherichia coli [E. coli]
[2018-06-23] MEDS: RAMIPRIL 2.5 MG CAPSULE (FP) PO SCH (10:12)
[2018-06-23] MEDS: PANTOPRAZOLE 40 MG TABLET (FP) PO SCH ×2 (10:12→21:08)
[2018-06-23] MEDS: predniSONE 20 MG TABLET (UD) PO SCH (10:12)
[2018-06-23] MEDS: PHENYLEPHRINE 0.25%/STARCH 1 EACH SUPP.RECT PR SCH ×2 (10:13→21:08)
[2018-06-23] MEDS: CARVEDILOL 12.5 MG TABLET (FP) PO SCH ×2 (10:14→21:08)
--- NOTE | 2018-06-23 10:55 | PN ---
Progress Note, Physician History of Present Illness: PULMONARY ALERT,BREATHING CONTINUES TO IMPROVE,-CP,+ HEMATOCHEZIA - Current Medication List Current Medications: Active Medications Acetaminophen (Tylenol -) 650 mg PO Q6H PRN PRN Reason: Fever Last Admin: 06/22/18 17:17 Dose: 650 mg Albuterol/Ipratropium (Duoneb -) 1 amp NEB RQ4H [facility] Last Admin: 06/23/18 08:28 Dose: 1 amp Amino Acids (Prosource No Carb Liquid Pkt) 30 ml PO BID@0800,1730 [facility] Last Admin: 06/23/18 08:42 Dose: Not Given Carvedilol (Coreg -) 12.5 mg PO BID [facility] Last Admin: 06/23/18 10:14 Dose: 12.5 mg Levofloxacin (Levaquin) 750 mg PO DAILY@0630 [facility] Last Admin: 06/23/18 06:44 Dose: 750 mg Metoprolol Tartrate (Lopressor Injection -) 5 mg IVPB Q4H PRN PRN Reason: HEART RATE Last Admin: 06/22/18 23:22 Dose: 5 mg Pantoprazole Sodium (Protonix -) 40 mg PO BID [facility] Last Admin: 06/23/18 10:12 Dose: 40 mg Prednisone (Deltasone -) 40 mg PO DAILY [facility] Last Admin: 06/23/18 10:12 Dose: 40 mg Ramipril (Altace -) 2.5 mg PO DAILY [facility] Last Admin: 06/23/18 10:12 Dose: 2.5 mg Starch (Anusol Suppository -) 1 each [place] BID [facility] Last Admin: 06/23/18 10:13 Dose: Not Given Sulfasalazine (Azulfidine En-Tabs -) 1,000 mg PO BID [facility] Last Admin: 06/23/18 10:12 Dose: 1,000 mg Witch Tamra/Glycerin (Tucks Pads -) 1 pad TP TID [facility] Last Admin: 06/23/18 06:45 Dose: Not Given - Objective Vital Signs: Vital Signs Temperature 98.1 F 06/23/18 08:42 Pulse Rate 109 H 06/23/18 08:42 Respiratory Rate 18 06/23/18 08:42 Blood Pressure 142/73 06/23/18 08:42 O2 Sat by Pulse Oximetry (%) 93 L 06/22/18 21:00 Constitutional: Yes: Well Nourished, Calm Eyes: Yes: WNL HENT: Yes: WNL Neck: Yes: WNL Cardiovascular: Yes: Pulse Irregular, S1, S2 Respiratory: Yes: Diminished Gastrointestinal: Yes: Normal Bowel Sounds, Soft Extremities: Yes: WNL Edema: Yes Labs: CBC, BMP 06/23/18 06:00 06/21/18 07:00 Assessment/Plan Problem List - Problems (1) Atrial fibrillation Code(s): I48.91 - UNSPECIFIED ATRIAL FIBRILLATION Qualifiers: Atrial fibrillation type: paroxysmal Qualified Code(s): I48.0 - Paroxysmal atrial fibrillation (2) Lactic acid acidosis Code(s): E87.2 - ACIDOSIS (3) Pneumonia Code(s): J18.9 - PNEUMONIA, UNSPECIFIED ORGANISM Qualifiers: Pneumonia type: due to unspecified organism Laterality: right Lung location: lower lobe of lung Qualified Code(s): J18.1 - Lobar pneumonia, unspecified organism (4) Sepsis Code(s): A41.9 - SEPSIS, UNSPECIFIED ORGANISM Qualifiers: Sepsis type: sepsis due to unspecified organism Qualified Code(s): A41.9 - Sepsis, unspecified organism (5) Troponin level elevated Code(s): R74.8 - ABNORMAL LEVELS OF OTHER SERUM ENZYMES Assessment/Plan GRAM NEGATIVE PNEUMONIA/BACTEREMIA SEPSIS COPD HYPOTENSION IMPROVED ANEMIA/THROMBOCYTOPENIA PLAN ABX PER ID INHALED BRONCHODILATORS MEDROL NORMAL TRANFUSION THRESHOLD MONITOR H+H,PLT CT MONITOR LYTES HOLD PRADAXA DR FALK
--- NOTE | 2018-06-23 13:28 | PN ---
Progress Note, Physician Chief Complaint: Events noted Intermittent dyspnea persists History of Present Illness: Patient was seen and examined. Awake and alert. Chart was reviewed Denies chest pain. Less SOB. Complains of intermittent cough. AF with RVR - Current Medication List Current Medications: Active Medications Acetaminophen (Tylenol -) 650 mg PO Q6H PRN PRN Reason: Fever Last Admin: 06/22/18 17:17 Dose: 650 mg Albuterol/Ipratropium (Duoneb -) 1 amp NEB RQ4H [facility] Last Admin: 06/23/18 08:28 Dose: 1 amp Amino Acids (Prosource No Carb Liquid Pkt) 30 ml PO BID@0800,1730 [facility] Last Admin: 06/23/18 08:42 Dose: Not Given Carvedilol (Coreg -) 12.5 mg PO BID [facility] Last Admin: 06/23/18 10:14 Dose: 12.5 mg Levofloxacin (Levaquin) 750 mg PO DAILY@0630 [facility] Last Admin: 06/23/18 06:44 Dose: 750 mg Metoprolol Tartrate (Lopressor Injection -) 5 mg IVPB Q4H PRN PRN Reason: HEART RATE Last Admin: 06/22/18 23:22 Dose: 5 mg Pantoprazole Sodium (Protonix -) 40 mg PO BID [facility] Last Admin: 06/23/18 10:12 Dose: 40 mg Prednisone (Deltasone -) 40 mg PO DAILY [facility] Last Admin: 06/23/18 10:12 Dose: 40 mg Ramipril (Altace -) 2.5 mg PO DAILY [facility] Last Admin: 06/23/18 10:12 Dose: 2.5 mg Starch (Anusol Suppository -) [address] BID [facility] Last Admin: 06/23/18 10:13 Dose: Not Given Sulfasalazine (Azulfidine En-Tabs -) 1,000 mg PO BID [facility] Last Admin: 06/23/18 10:12 Dose: 1,000 mg Witch Tamra/Glycerin (Tucks Pads -) 1 pad TP TID [facility] Last Admin: 06/23/18 06:45 Dose: Not Given - Objective Vital Signs: Vital Signs Temperature 98.1 F 06/23/18 08:42 Pulse Rate 109 H 06/23/18 08:42 Respiratory Rate 18 06/23/18 08:42 Blood Pressure 142/73 06/23/18 08:42 O2 Sat by Pulse Oximetry (%) 93 L 06/22/18 21:00 Eyes: Yes: PERRL HENT: Yes: Atraumatic Neck: Yes: Supple Cardiovascular: Yes: Tachycardia, Pulse Irregular, Murmur (Soft SM), S1, S2 Respiratory: Yes: Diminished Gastrointestinal: Yes: Normal Bowel Sounds, Soft. No: Tenderness Edema: No Labs: CBC, BMP 06/23/18 06:00 Problem List - Problems (1) Anemia Code(s): D64.9 - ANEMIA, UNSPECIFIED (2) Atrial fibrillation Code(s): I48.91 - UNSPECIFIED ATRIAL FIBRILLATION Qualifiers: Atrial fibrillation type: paroxysmal Qualified Code(s): I48.0 - Paroxysmal atrial fibrillation (3) COPD (chronic obstructive pulmonary disease) with acute bronchitis Code(s): J44.0 - CHRONIC OBSTRUCTIVE PULMON DISEASE W ACUTE LOWER RESP INFCT; J20.9 - ACUTE BRONCHITIS, UNSPECIFIED (4) Demand ischemia Code(s): I24.8 - OTHER FORMS OF ACUTE ISCHEMIC HEART DISEASE (5) Lactic acid acidosis Code(s): E87.2 - ACIDOSIS (6) Pneumonia Code(s): J18.9 - PNEUMONIA, UNSPECIFIED ORGANISM Qualifiers: Pneumonia type: due to unspecified organism Laterality: right Lung location: lower lobe of lung Qualified Code(s): J18.1 - Lobar pneumonia, unspecified organism (7) Rectal bleeding Code(s): K62.5 - HEMORRHAGE OF ANUS AND RECTUM (8) Sepsis Code(s): A41.9 - SEPSIS, UNSPECIFIED ORGANISM Qualifiers: Sepsis type: Escherichia coli Qualified Code(s): A41.51 - Sepsis due to Escherichia coli [E. coli] (9) Troponin level elevated Code(s): R74.8 - ABNORMAL LEVELS OF OTHER SERUM ENZYMES Assessment/Plan 1. Community acquired pneumonia, acute bronchitis and E. Coli sepsis 2. Paroxysmal AF with RVR on DOAC (Pradaxa) 3. Demand ischemia referable to #1 4. Lactic acidosis 5. COPD 6. Rheumatoid arthritis 7. Hematochezia most likely secondary to large internal hemorrhoid, anemia post transfusion, thrombocytopenia PLAN: 1. Trend troponin currently down trending 2. Antibiotics, bronchodilator, IV steroid taper with GI protection and O2 as needed 3. Pradaxa 150 mg BID held awaiting resolution of recurrent hematochezia. Ideally needs to be back on anticoagulation 4. Continue Carvedilol 12.5 mg BID, IV Lopressor as needed, and Ramipril 2.5 mg QD as hemodynamics tolerate. If need further rate control, Carvedilol may be changed to Metoprolol ER. Further plans are to follow Jordy Gregory MD
--- NOTE | 2018-06-23 13:44 | PN ---
Progress Note, Physician History of Present Illness: improving hematochizia comfortable - Current Medication List Current Medications: Active Medications Acetaminophen (Tylenol -) 650 mg PO Q6H PRN PRN Reason: Fever Last Admin: 06/22/18 17:17 Dose: 650 mg Albuterol/Ipratropium (Duoneb -) 1 amp NEB RQ4H [facility] Last Admin: 06/23/18 08:28 Dose: 1 amp Amino Acids (Prosource No Carb Liquid Pkt) 30 ml PO BID@0800,1730 [facility] Last Admin: 06/23/18 08:42 Dose: Not Given Carvedilol (Coreg -) 12.5 mg PO BID [facility] Last Admin: 06/23/18 10:14 Dose: 12.5 mg Levofloxacin (Levaquin) 750 mg PO DAILY@0630 [facility] Last Admin: 06/23/18 06:44 Dose: 750 mg Metoprolol Tartrate (Lopressor Injection -) 5 mg IVPB Q4H PRN PRN Reason: HEART RATE Last Admin: 06/22/18 23:22 Dose: 5 mg Pantoprazole Sodium (Protonix -) 40 mg PO BID [facility] Last Admin: 06/23/18 10:12 Dose: 40 mg Prednisone (Deltasone -) 40 mg PO DAILY [facility] Last Admin: 06/23/18 10:12 Dose: 40 mg Ramipril (Altace -) 2.5 mg PO DAILY [facility] Last Admin: 06/23/18 10:12 Dose: 2.5 mg Starch (Anusol Suppository -) 1 each [place] BID [facility] Last Admin: 06/23/18 10:13 Dose: Not Given Sulfasalazine (Azulfidine En-Tabs -) 1,000 mg PO BID [facility] Last Admin: 06/23/18 10:12 Dose: 1,000 mg Witch Tamra/Glycerin (Tucks Pads -) 1 pad TP TID [facility] Last Admin: 06/23/18 06:45 Dose: Not Given - Objective Vital Signs: Vital Signs Temperature 98.1 F 06/23/18 08:42 Pulse Rate 109 H 06/23/18 08:42 Respiratory Rate 18 06/23/18 08:42 Blood Pressure 142/73 06/23/18 08:42 O2 Sat by Pulse Oximetry (%) 93 L 06/22/18 21:00 Constitutional: Yes: No Distress, Calm Cardiovascular: Yes: Regular Rate and Rhythm Respiratory: Yes: On Nasal O2, Poor Air Entry, Other Gastrointestinal: Yes: Normal Bowel Sounds, Other (henatochizia) Musculoskeletal: Yes: WNL Extremities: Yes: WNL Neurological: Yes: Alert, Oriented Psychiatric: Yes: Alert, Oriented Labs: CBC, BMP 06/23/18 06:00 06/21/18 07:00 Assessment/Plan Assessment/Plan Problem List - Problems (1) Atrial fibrillation Code(s): I48.91 - UNSPECIFIED ATRIAL FIBRILLATION Qualifiers: Atrial fibrillation type: paroxysmal Qualified Code(s): I48.0 - Paroxysmal atrial fibrillation (2) Lactic acid acidosis Code(s): E87.2 - ACIDOSIS (3) Pneumonia Code(s): J18.9 - PNEUMONIA, UNSPECIFIED ORGANISM Qualifiers: Pneumonia type: due to unspecified organism Laterality: right Lung location: lower lobe of lung Qualified Code(s): J18.1 - Lobar pneumonia, unspecified organism (4) Sepsis Code(s): A41.9 - SEPSIS, UNSPECIFIED ORGANISM Qualifiers: Sepsis type: sepsis due to unspecified organism Qualified Code(s): A41.9 - Sepsis, unspecified organism (5) Troponin level elevated Code(s): R74.8 - ABNORMAL LEVELS OF OTHER SERUM ENZYMES patients pathology probably coming from the gut or urine plan continue abx as directed incentive riri resp support rest as per pul and he team
[2018-06-23] MEDS: METOPROLOL TARTRATE 5 MG/5 ML VIAL IVPB PRN (23:35)
[2018-06-24] MEDS: ALBUTEROL SO4 2.5/IPRATROPIUM 0.5 INH SOL 3 ML VIAL.NEB. NEB SCH ×6 (00:03→20:35)
[2018-06-24] MEDS ORDERED: PT OWN MED DRAWER 7, Y5N ONE ×2 (06:02→22:07)
[2018-06-24] MEDS: WITCH HAZEL 50% (TUCKS) 40 PAD/JAR PAD TP SCH ×3 (06:04→22:30)
[2018-06-24] MEDS: levoFLOXacin 750 MG TABLET PO SCH (06:04)
--- NOTE | 2018-06-24 08:14 | PN ---
Progress Note, Physician - Current Medication List Current Medications: Active Medications Acetaminophen (Tylenol -) 650 mg PO Q6H PRN PRN Reason: Fever Last Admin: 06/22/18 17:17 Dose: 650 mg Albuterol/Ipratropium (Duoneb -) 1 amp NEB RQ4H [facility] Last Admin: 06/24/18 04:00 Dose: Not Given Amino Acids (Prosource No Carb Liquid Pkt) 30 ml PO BID@0800,1730 [facility] Last Admin: 06/23/18 17:43 Dose: Not Given Carvedilol (Coreg -) 12.5 mg PO BID [facility] Last Admin: 06/23/18 21:08 Dose: 12.5 mg Levofloxacin (Levaquin) 750 mg PO DAILY@0630 [facility] Last Admin: 06/24/18 06:04 Dose: 750 mg Metoprolol Tartrate (Lopressor Injection -) 5 mg IVPB Q4H PRN PRN Reason: HEART RATE Last Admin: 06/23/18 23:35 Dose: 5 mg Pantoprazole Sodium (Protonix -) 40 mg PO BID [facility] Last Admin: 06/23/18 21:08 Dose: 40 mg Prednisone (Deltasone -) 40 mg PO DAILY [facility] Last Admin: 06/23/18 10:12 Dose: 40 mg Ramipril (Altace -) 2.5 mg PO DAILY [facility] Last Admin: 06/23/18 10:12 Dose: 2.5 mg Starch (Anusol Suppository -) 1 each [place] BID [facility] Last Admin: 06/23/18 21:08 Dose: Not Given Sulfasalazine (Azulfidine En-Tabs -) 1,000 mg PO BID [facility] Last Admin: 06/23/18 21:09 Dose: 1,000 mg Witch Tamra/Glycerin (Tucks Pads -) 1 pad TP TID [facility] Last Admin: 06/24/18 06:04 Dose: 1 pad - Objective Vital Signs: Vital Signs Temperature 97.5 F L 06/24/18 02:00 Pulse Rate 76 06/24/18 02:00 Respiratory Rate 20 06/24/18 02:00 Blood Pressure 135/83 06/24/18 02:00 O2 Sat by Pulse Oximetry (%) 94 L 06/23/18 20:35 Cardiovascular: Yes: Tachycardia, S1, S2 Respiratory: Yes: Regular, CTA Bilaterally Gastrointestinal: Yes: Normal Bowel Sounds, Soft Labs: CBC, BMP 06/23/18 06:00 06/21/18 07:00 Problem List - Problems (1) COPD with acute exacerbation Assessment/Plan: --On po pred --continue duonebs --PT Code(s): J44.1 - CHRONIC OBSTRUCTIVE PULMONARY DISEASE W (ACUTE) EXACERBATION (2) Anemia Assessment/Plan: --Monitor --patient had colonoscopy with Dr. Henderson 6 months ago, several polyps removed, was told studies were negative -- GI on Case --Resume Pradaxa Code(s): D64.9 - ANEMIA, UNSPECIFIED (3) Atrial fibrillation Assessment/Plan: --Pradaxa --telemetry monitoring --cardiology following --Coreg 12.5 bid--change to lopresoor 50 bid Code(s): I48.91 - UNSPECIFIED ATRIAL FIBRILLATION Qualifiers: Atrial fibrillation type: paroxysmal Qualified Code(s): I48.0 - Paroxysmal atrial fibrillation (4) Pneumonia Assessment/Plan: --CT chest: extensive bronchiectatic changes probably with active infection; extensive changes of COPD --continue Levaquin Code(s): J18.9 - PNEUMONIA, UNSPECIFIED ORGANISM Qualifiers: Pneumonia type: due to unspecified organism Laterality: right Lung location: lower lobe of lung Qualified Code(s): J18.1 - Lobar pneumonia, unspecified organism (5) Sepsis Assessment/Plan: --E. coli bacteremia --ID on Case --continue oral abx Code(s): A41.9 - SEPSIS, UNSPECIFIED ORGANISM Qualifiers: Sepsis type: Escherichia coli Qualified Code(s): A41.51 - Sepsis due to Escherichia coli [E. coli]
[2018-06-24 08:50] LABS: BASO % 0.4 % (0-2.0); HEMATOCRIT 32.8 % (35.4-49); HEMOGLOBIN 11.1 GM/dL (11.7-16.9); LYMPH % 33.3 % (8-40); MCH 35.3 pg (25.7-33.7); MCHC 33.9 g/dl (32.0-35.9); MEAN CELL VOLUME 104.2 fl (80-96); MEAN PLT VOLUME 7.1 fl (7.5-11.1); MONO % 6.4 % (3.8-10.2); NEUT % 59.9 % (42.8-82.8); PLATELET COUNT 95 K/MM3 (134-434); RBC 3.15 M/mm3 (4.00-5.60); RDW 16.6 % (11.9-15.9); WHITE BLOOD COUNT 7.6 K/mm3 (4.0-10.0)
[2018-06-24] MEDS: AMINO ACIDS/PROTEIN HYDROLYS 30 ML LIQUID.PKT PO SCH ×2 (09:31→17:49)
[2018-06-24] MEDS: PHENYLEPHRINE 0.25%/STARCH 1 EACH SUPP.RECT PR SCH ×2 (09:31→22:30)
[2018-06-24] MEDS: RAMIPRIL 2.5 MG CAPSULE (FP) PO SCH (09:32)
[2018-06-24] MEDS: PANTOPRAZOLE 40 MG TABLET (FP) PO SCH ×2 (09:32→22:23)
[2018-06-24] MEDS: CARVEDILOL 12.5 MG TABLET (FP) PO SCH (09:33)
[2018-06-24] MEDS: predniSONE 20 MG TABLET (UD) PO SCH (09:33)
--- NOTE | 2018-06-24 11:29 | PN ---
Progress Note, Physician - Current Medication List Current Medications: Active Medications Acetaminophen (Tylenol -) 650 mg PO Q6H PRN PRN Reason: Fever Last Admin: 06/22/18 17:17 Dose: 650 mg Albuterol/Ipratropium (Duoneb -) 1 amp NEB RQ4H [facility] Last Admin: 06/24/18 08:36 Dose: 1 amp Amino Acids (Prosource No Carb Liquid Pkt) 30 ml PO BID@0800,1730 [facility] Last Admin: 06/24/18 09:31 Dose: Not Given Dabigatran (Pradaxa -) 150 mg PO BID [facility] Levofloxacin (Levaquin) 750 mg PO DAILY@0630 [facility] Last Admin: 06/24/18 06:04 Dose: 750 mg Metoprolol Tartrate (Lopressor Injection -) 5 mg IVPB Q4H PRN PRN Reason: HEART RATE Last Admin: 06/23/18 23:35 Dose: 5 mg Metoprolol Tartrate (Lopressor -) 50 mg PO BID [facility] Pantoprazole Sodium (Protonix -) 40 mg PO BID [facility] Last Admin: 06/24/18 09:32 Dose: 40 mg Prednisone (Deltasone -) 40 mg PO DAILY [facility] Last Admin: 06/24/18 09:33 Dose: 40 mg Ramipril (Altace -) 2.5 mg PO DAILY [facility] Last Admin: 06/24/18 09:32 Dose: 2.5 mg Starch (Anusol Suppository -) 1 each [place] BID [facility] Last Admin: 06/24/18 09:31 Dose: Not Given Sulfasalazine (Azulfidine En-Tabs -) 1,000 mg PO BID [facility] Last Admin: 06/24/18 09:33 Dose: 1,000 mg Witch Tamra/Glycerin (Tucks Pads -) 1 pad TP TID [facility] Last Admin: 06/24/18 06:04 Dose: 1 pad - Objective Vital Signs: Vital Signs Temperature 97.5 F L 06/24/18 02:00 Pulse Rate 76 06/24/18 02:00 Respiratory Rate 20 06/24/18 02:00 Blood Pressure 135/83 06/24/18 02:00 O2 Sat by Pulse Oximetry (%) 94 L 06/23/18 20:35 Labs: CBC, BMP 06/24/18 08:40 06/21/18 07:00
[2018-06-24] MEDS: METOPROLOL TARTRATE 50 MG TABLET (FP) PO SCH ×3 (11:44→22:23)
--- NOTE | 2018-06-24 12:07 | PN ---
Progress Note, Physician Chief Complaint: pulmonary alert,comfortable,sob improved,-hematochezia,h+h stable - Current Medication List Current Medications: Active Medications Acetaminophen (Tylenol -) 650 mg PO Q6H PRN PRN Reason: Fever Last Admin: 06/22/18 17:17 Dose: 650 mg Albuterol/Ipratropium (Duoneb -) 1 amp NEB RQ4H [facility] Last Admin: 06/24/18 08:36 Dose: 1 amp Amino Acids (Prosource No Carb Liquid Pkt) 30 ml PO BID@0800,1730 [facility] Last Admin: 06/24/18 09:31 Dose: Not Given Dabigatran (Pradaxa -) 150 mg PO BID [facility] Levofloxacin (Levaquin) 750 mg PO DAILY@0630 [facility] Last Admin: 06/24/18 06:04 Dose: 750 mg Metoprolol Tartrate (Lopressor Injection -) 5 mg IVPB Q4H PRN PRN Reason: HEART RATE Last Admin: 06/23/18 23:35 Dose: 5 mg Metoprolol Tartrate (Lopressor -) 50 mg PO BID [facility] Last Admin: 06/24/18 11:44 Dose: Not Given Pantoprazole Sodium (Protonix -) 40 mg PO BID [facility] Last Admin: 06/24/18 09:32 Dose: 40 mg Prednisone (Deltasone -) 40 mg PO DAILY [facility] Last Admin: 06/24/18 09:33 Dose: 40 mg Ramipril (Altace -) 2.5 mg PO DAILY [facility] Last Admin: 06/24/18 09:32 Dose: 2.5 mg Starch (Anusol Suppository -) 1 each [place] BID [facility] Last Admin: 06/24/18 09:31 Dose: Not Given Sulfasalazine (Azulfidine En-Tabs -) 1,000 mg PO BID [facility] Last Admin: 06/24/18 09:33 Dose: 1,000 mg Witch Tamra/Glycerin (Tucks Pads -) 1 pad TP TID [facility] Last Admin: 06/24/18 06:04 Dose: 1 pad - Objective Vital Signs: Vital Signs Temperature 97.5 F L 06/24/18 02:00 Pulse Rate 76 06/24/18 02:00 Respiratory Rate 20 06/24/18 02:00 Blood Pressure 135/83 06/24/18 02:00 O2 Sat by Pulse Oximetry (%) 94 L 06/23/18 20:35 Constitutional: Yes: Well Nourished, Calm Eyes: Yes: WNL HENT: Yes: WNL Neck: Yes: WNL Cardiovascular: Yes: Pulse Irregular, S1, S2 Respiratory: Yes: Diminished Gastrointestinal: Yes: Normal Bowel Sounds, Soft Extremities: Yes: WNL Edema: No Labs: CBC, BMP 06/24/18 08:40 06/21/18 07:00 Assessment/Plan Problem List - Problems (1) Atrial fibrillation Code(s): I48.91 - UNSPECIFIED ATRIAL FIBRILLATION Qualifiers: Atrial fibrillation type: paroxysmal Qualified Code(s): I48.0 - Paroxysmal atrial fibrillation (2) Lactic acid acidosis Code(s): E87.2 - ACIDOSIS (3) Pneumonia Code(s): J18.9 - PNEUMONIA, UNSPECIFIED ORGANISM Qualifiers: Pneumonia type: due to unspecified organism Laterality: right Lung location: lower lobe of lung Qualified Code(s): J18.1 - Lobar pneumonia, unspecified organism (4) Sepsis Code(s): A41.9 - SEPSIS, UNSPECIFIED ORGANISM Qualifiers: Sepsis type: sepsis due to unspecified organism Qualified Code(s): A41.9 - Sepsis, unspecified organism (5) Troponin level elevated Code(s): R74.8 - ABNORMAL LEVELS OF OTHER SERUM ENZYMES Assessment/Plan GRAM NEGATIVE PNEUMONIA/BACTEREMIA SEPSIS COPD HYPOTENSION IMPROVED ANEMIA/THROMBOCYTOPENIA PLAN ABX PER ID INHALED BRONCHODILATORS PREDNISONE TAPER NORMAL TRANFUSION THRESHOLD MONITOR H+H,PLT CT MONITOR LYTES PRADAXA PER CARDIOLOGY DR FALK
--- NOTE | 2018-06-24 12:10 | PN ---
Progress Note, Physician History of Present Illness: Dyspnea slowly improving and recurrent hematochezia, denies chest pain, remains in rapid afib with RVR. - Current Medication List Current Medications: Active Medications Acetaminophen (Tylenol -) 650 mg PO Q6H PRN PRN Reason: Fever Last Admin: 06/22/18 17:17 Dose: 650 mg Albuterol/Ipratropium (Duoneb -) 1 amp NEB RQ4H [facility] Last Admin: 06/24/18 08:36 Dose: 1 amp Amino Acids (Prosource No Carb Liquid Pkt) 30 ml PO BID@0800,1730 [facility] Last Admin: 06/24/18 09:31 Dose: Not Given Dabigatran (Pradaxa -) 150 mg PO BID [facility] Levofloxacin (Levaquin) 750 mg PO DAILY@0630 [facility] Last Admin: 06/24/18 06:04 Dose: 750 mg Metoprolol Tartrate (Lopressor Injection -) 5 mg IVPB Q4H PRN PRN Reason: HEART RATE Last Admin: 06/23/18 23:35 Dose: 5 mg Metoprolol Tartrate (Lopressor -) 50 mg PO BID [facility] Last Admin: 06/24/18 11:44 Dose: Not Given Pantoprazole Sodium (Protonix -) 40 mg PO BID [facility] Last Admin: 06/24/18 09:32 Dose: 40 mg Prednisone (Deltasone -) 40 mg PO DAILY [facility] Last Admin: 06/24/18 09:33 Dose: 40 mg Ramipril (Altace -) 2.5 mg PO DAILY [facility] Last Admin: 06/24/18 09:32 Dose: 2.5 mg Starch (Anusol Suppository -) 1 each [place] BID [facility] Last Admin: 06/24/18 09:31 Dose: Not Given Sulfasalazine (Azulfidine En-Tabs -) 1,000 mg PO BID [facility] Last Admin: 06/24/18 09:33 Dose: 1,000 mg Witch Tamra/Glycerin (Tucks Pads -) 1 pad TP TID [facility] Last Admin: 06/24/18 06:04 Dose: 1 pad - Objective Vital Signs: Vital Signs Temperature 97.5 F L 06/24/18 02:00 Pulse Rate 76 06/24/18 02:00 Respiratory Rate 20 06/24/18 02:00 Blood Pressure 135/83 06/24/18 02:00 O2 Sat by Pulse Oximetry (%) 94 L 06/23/18 20:35 Constitutional: Yes: No Distress, Calm, Thin Neck: Yes: Supple Cardiovascular: Yes: Tachycardia, Pulse Irregular Respiratory: Yes: Regular, Diminished, On Nasal O2, SOB on Exertion Gastrointestinal: Yes: Normal Bowel Sounds, Soft Edema: No Labs: CBC, BMP 06/24/18 08:40 06/21/18 07:00 - ....Imaging EKG: Report Reviewed (Tele: Rapid afib) Problem List - Problems (1) Demand ischemia Code(s): I24.8 - OTHER FORMS OF ACUTE ISCHEMIC HEART DISEASE (2) COPD (chronic obstructive pulmonary disease) with acute bronchitis Code(s): J44.0 - CHRONIC OBSTRUCTIVE PULMON DISEASE W ACUTE LOWER RESP INFCT; J20.9 - ACUTE BRONCHITIS, UNSPECIFIED (3) Atrial fibrillation Code(s): I48.91 - UNSPECIFIED ATRIAL FIBRILLATION Qualifiers: Atrial fibrillation type: paroxysmal Qualified Code(s): I48.0 - Paroxysmal atrial fibrillation (4) Lactic acid acidosis Code(s): E87.2 - ACIDOSIS (5) Pneumonia Code(s): J18.9 - PNEUMONIA, UNSPECIFIED ORGANISM Qualifiers: Pneumonia type: due to unspecified organism Laterality: right Lung location: lower lobe of lung Qualified Code(s): J18.1 - Lobar pneumonia, unspecified organism (6) Sepsis Code(s): A41.9 - SEPSIS, UNSPECIFIED ORGANISM Qualifiers: Sepsis type: Escherichia coli Qualified Code(s): A41.51 - Sepsis due to Escherichia coli [E. coli] (7) Troponin level elevated Code(s): R74.8 - ABNORMAL LEVELS OF OTHER SERUM ENZYMES (8) Bronchitis Code(s): J40 - BRONCHITIS, NOT SPECIFIED ACUTE OR CHRONIC (9) Rectal bleeding Code(s): K62.5 - HEMORRHAGE OF ANUS AND RECTUM Assessment/Plan 01/15/2018 Mildly decreased LVEF 45-50%, mild MR, TR, [place] 1. Community acquired pneumonia, acute bronchitis and E. Coli sepsis 2. Paroxysmal AF with RVR on DOAC (Pradaxa) 3. Demand ischemia referable to #1 4. Lactic acidosis 5. COPD 6. Rheumatoid arthritis 7. Hematochezia most likely secondary to large internal hemorrhoid, anemia post transfusion, thrombocytopenia PLAN: 1. Trend troponin currently down trending 2. Antibiotics, bronchodilator, oral steroid taper with GI protection and O2 as needed 3. Pradaxa 150 mg BID resumed 4. Changed to Lopressor 50 mg BID, IV Lopressor as needed, and Ramipril 2.5 mg QD as hemodynamics tolerate.
--- NOTE | 2018-06-24 13:25 | EKG ---
Test Reason : Blood Pressure : / mmHG Vent. Rate : 115 BPM Atrial Rate : 117 BPM P-R Int : 000 ms QRS Dur : 080 ms QT Int : 316 ms P-R-T Axes : 000 058 078 degrees QTc Int : 437 ms ATRIAL FIBRILLATION WITH RAPID VENTRICULAR RESPONSE WITH PREMATURE VENTRICULAR OR ABERRANTLY CONDUCTED COMPLEXES LOW VOLTAGE QRS NONSPECIFIC ST AND T WAVE ABNORMALITY ABNORMAL ECG WHEN COMPARED WITH ECG OF 20-JUN-2018 14:07, NO SIGNIFICANT CHANGE WAS FOUND Confirmed by YARED SCHNEIDER MD ([id number]) on 06/24/2018 1:24:58 PM Referred By: MICHAEL THOMPSON DR Confirmed By:YARED SCHNEIDER MD
[2018-06-24] MEDS ORDERED: DABIGATRAN ETEXILATE MESYLATE 75 MG CAPSULE PO SCH (22:00)
[2018-06-24] MEDS: DABIGATRAN ETEXILATE MESYLATE 150 MG CAPSULE PO SCH (22:24)
[2018-06-25] MEDS: ALBUTEROL SO4 2.5/IPRATROPIUM 0.5 INH SOL 3 ML VIAL.NEB. NEB SCH ×5 (00:10→17:15)
[2018-06-25] MEDS: levoFLOXacin 750 MG TABLET PO SCH (06:27)
[2018-06-25] MEDS: WITCH HAZEL 50% (TUCKS) 40 PAD/JAR PAD TP SCH ×3 (06:28→21:11)
[2018-06-25] MEDS ORDERED: PT OWN MED DRAWER 7, Y5N ONE ×2 (06:30→21:05)
[2018-06-25 08:35] LABS: ALBUMIN 2.7 g/dl (3.4-5.0); ALK PHOS 49 U/L (45-117); ANION GAP 4 MMOL/L (8-16); BILIRUBIN,TOTAL 0.5 mg/dL (0.2-1); BLOOD UREA NITROGEN 20 mg/dL (7-18); CALCIUM 8.1 mg/dL (8.5-10.1); CHLORIDE 102 mmol/L (98-107); CO2 35 mmol/L (21-32); CREATININE 0.7 mg/dL (0.55-1.3); GLUCOSE,RANDOM 76 mg/dL (74-106); POTASSIUM 3.9 mmol/L (3.5-5.1); SGOT/AST 15 U/L (15-37); SGPT/ALT 22 U/L (13-61); SODIUM 141 mmol/L (136-145); TOT PROT 4.8 g/dl (6.4-8.2)
[2018-06-25] MEDS: RAMIPRIL 2.5 MG CAPSULE (FP) PO SCH (10:06)
[2018-06-25] MEDS: DABIGATRAN ETEXILATE MESYLATE 150 MG CAPSULE PO SCH ×2 (10:06→21:09)
[2018-06-25] MEDS: predniSONE 20 MG TABLET (UD) PO SCH (10:06)
[2018-06-25] MEDS: PANTOPRAZOLE 40 MG TABLET (FP) PO SCH ×2 (10:06→21:09)
[2018-06-25] MEDS: METOPROLOL TARTRATE 50 MG TABLET (FP) PO SCH ×2 (10:06→21:09)
[2018-06-25] MEDS: PHENYLEPHRINE 0.25%/STARCH 1 EACH SUPP.RECT PR SCH ×2 (10:11→21:11)
[2018-06-25] MEDS: AMINO ACIDS/PROTEIN HYDROLYS 30 ML LIQUID.PKT PO SCH ×2 (10:11→17:19)
--- NOTE | 2018-06-25 10:24 | PN ---
Progress Note, Physician History of Present Illness: Dyspnea slowly improving and recurrent hematochezia, denies chest pain, remains in rapid afib with RVR, ambulatory desaturation noted. - Current Medication List Current Medications: Active Medications Acetaminophen (Tylenol -) 650 mg PO Q6H PRN PRN Reason: Fever Last Admin: 06/22/18 17:17 Dose: 650 mg Albuterol/Ipratropium (Duoneb -) 1 amp NEB RQ4H [facility] Last Admin: 06/25/18 08:45 Dose: 1 amp Amino Acids (Prosource No Carb Liquid Pkt) 30 ml PO BID@0800,1730 [facility] Last Admin: 06/25/18 10:11 Dose: Not Given Dabigatran (Pradaxa -) 150 mg PO BID [facility] Last Admin: 06/25/18 10:06 Dose: 150 mg Levofloxacin (Levaquin) 750 mg PO DAILY@0630 [facility] Last Admin: 06/25/18 06:27 Dose: 750 mg Metoprolol Tartrate (Lopressor Injection -) 5 mg IVPB Q4H PRN PRN Reason: HEART RATE Last Admin: 06/23/18 23:35 Dose: 5 mg Metoprolol Tartrate (Lopressor -) 50 mg PO BID [facility] Last Admin: 06/25/18 10:06 Dose: 50 mg Pantoprazole Sodium (Protonix -) 40 mg PO BID [facility] Last Admin: 06/25/18 10:06 Dose: 40 mg Prednisone (Deltasone -) 40 mg PO DAILY [facility] Last Admin: 06/25/18 10:06 Dose: 40 mg Ramipril (Altace -) 2.5 mg PO DAILY [facility] Last Admin: 06/25/18 10:06 Dose: 2.5 mg Starch (Anusol Suppository -) 1 each [place] BID [facility] Last Admin: 06/25/18 10:11 Dose: Not Given Sulfasalazine (Azulfidine En-Tabs -) 1,000 mg PO BID [facility] Last Admin: 06/25/18 10:11 Dose: 1,000 mg Witch Tamra/Glycerin (Tucks Pads -) 1 pad TP TID [facility] Last Admin: 06/25/18 06:28 Dose: Not Given - Objective Vital Signs: Vital Signs Temperature 98.1 F 06/25/18 05:24 Pulse Rate 81 06/25/18 05:24 Respiratory Rate 18 04/04/19 05:24 Blood Pressure 116/75 06/25/18 05:24 O2 Sat by Pulse Oximetry (%) 94 L 06/24/18 22:31 Constitutional: Yes: No Distress, Calm, Thin Neck: Yes: Supple Cardiovascular: Yes: Tachycardia, Pulse Irregular Respiratory: Yes: Regular, Diminished, On Nasal O2 Gastrointestinal: Yes: Normal Bowel Sounds, Soft Edema: No Labs: CBC, BMP 06/24/18 08:40 06/25/18 07:09 - ....Imaging EKG: Report Reviewed (Tele: [employer] afib) Problem List - Problems (1) Demand ischemia Code(s): I24.8 - OTHER FORMS OF ACUTE ISCHEMIC HEART DISEASE (2) COPD (chronic obstructive pulmonary disease) with acute bronchitis Code(s): J44.0 - CHRONIC OBSTRUCTIVE PULMON DISEASE W ACUTE LOWER RESP INFCT; J20.9 - ACUTE BRONCHITIS, UNSPECIFIED (3) Atrial fibrillation Code(s): I48.91 - UNSPECIFIED ATRIAL FIBRILLATION Qualifiers: Atrial fibrillation type: paroxysmal Qualified Code(s): I48.0 - Paroxysmal atrial fibrillation (4) Lactic acid acidosis Code(s): E87.2 - ACIDOSIS (5) Pneumonia Code(s): J18.9 - PNEUMONIA, UNSPECIFIED ORGANISM Qualifiers: Pneumonia type: due to unspecified organism Laterality: right Lung location: lower lobe of lung Qualified Code(s): J18.1 - Lobar pneumonia, unspecified organism (6) Sepsis Code(s): A41.9 - SEPSIS, UNSPECIFIED ORGANISM Qualifiers: Sepsis type: Escherichia coli Qualified Code(s): A41.51 - Sepsis due to Escherichia coli [E. coli] (7) Troponin level elevated Code(s): R74.8 - ABNORMAL LEVELS OF OTHER SERUM ENZYMES (8) Bronchitis Code(s): J40 - BRONCHITIS, NOT SPECIFIED ACUTE OR CHRONIC (9) Rectal bleeding Code(s): K62.5 - HEMORRHAGE OF ANUS AND RECTUM Assessment/Plan 01/15/2018 Mildly decreased LVEF 45-50%, mild MR, [place], [place] 1. Community acquired pneumonia, acute bronchitis and E. Coli sepsis 2. Persistent AF with RVR on DOAC (Pradaxa) 3. Demand ischemia referable to #1 4. Lactic acidosis 5. COPD 6. Rheumatoid arthritis 7. Hematochezia most likely secondary to large internal hemorrhoid, anemia post transfusion, thrombocytopenia PLAN: 1. Troponin currently downtrending 2. Antibiotics, bronchodilator, oral steroid taper with GI protection and O2 as needed 3. Pradaxa 150 mg BID resumed 4. Continue Lopressor 50 mg BID, add Cardizem CD 120 qd, IV Lopressor as needed , and Ramipril 2.5 mg QD as hemodynamics tolerate. 5. Consider DCCV if rate-control inadequate and underwent 6-8 weeks on uninterrupted anticoagulation
--- NOTE | 2018-06-25 10:25 | PN ---
Progress Note, Physician Chief Complaint: AWAKE ALERT FEELING BETTER ON 02 NC BLOOD TINGED SPUTUM WITH COUGH - Current Medication List Current Medications: Active Medications Acetaminophen (Tylenol -) 650 mg PO Q6H PRN PRN Reason: Fever Last Admin: 06/22/18 17:17 Dose: 650 mg Albuterol/Ipratropium (Duoneb -) 1 amp NEB RQ4H [facility] Last Admin: 06/25/18 08:45 Dose: 1 amp Amino Acids (Prosource No Carb Liquid Pkt) 30 ml PO BID@0800,1730 [facility] Last Admin: 06/25/18 10:11 Dose: Not Given Dabigatran (Pradaxa -) 150 mg PO BID [facility] Last Admin: 06/25/18 10:06 Dose: 150 mg Levofloxacin (Levaquin) 750 mg PO DAILY@0630 [facility] Last Admin: 06/25/18 06:27 Dose: 750 mg Metoprolol Tartrate (Lopressor Injection -) 5 mg IVPB Q4H PRN PRN Reason: HEART RATE Last Admin: 06/23/18 23:35 Dose: 5 mg Metoprolol Tartrate (Lopressor -) 50 mg PO BID [facility] Last Admin: 06/25/18 10:06 Dose: 50 mg Pantoprazole Sodium (Protonix -) 40 mg PO BID [facility] Last Admin: 06/25/18 10:06 Dose: 40 mg Prednisone (Deltasone -) 40 mg PO DAILY [facility] Last Admin: 06/25/18 10:06 Dose: 40 mg Ramipril (Altace -) 2.5 mg PO DAILY [facility] Last Admin: 06/25/18 10:06 Dose: 2.5 mg Starch (Anusol Suppository -) 1 each [place] BID [facility] Last Admin: 06/25/18 10:11 Dose: Not Given Sulfasalazine (Azulfidine En-Tabs -) 1,000 mg PO BID [facility] Last Admin: 06/25/18 10:11 Dose: 1,000 mg Witch Tamra/Glycerin (Tucks Pads -) 1 pad TP TID [facility] Last Admin: 06/25/18 06:28 Dose: Not Given - Objective Vital Signs: Vital Signs Temperature 98.1 F 06/25/18 05:24 Pulse Rate 81 06/25/18 05:24 Respiratory Rate 18 06/25/18 05:24 Blood Pressure 116/75 06/25/18 05:24 O2 Sat by Pulse Oximetry (%) 94 L 06/24/18 22:31 Constitutional: Yes: Mild Distress Eyes: Yes: WNL HENT: Yes: WNL Neck: Yes: WNL Cardiovascular: Yes: Pulse Irregular Respiratory: Yes: Diminished, On Nasal O2 Gastrointestinal: Yes: Soft Genitourinary: Yes: WNL Musculoskeletal: Yes: Muscle Weakness Extremities: Yes: WNL Edema: Yes Integumentary: Yes: WNL Wound/Incision: Yes: Clean/Dry Neurological: Yes: WNL ...Motor Strength: WNL Psychiatric: Yes: WNL Labs: CBC, BMP 06/24/18 08:40 06/25/18 07:09 Problem List - Problems (1) Anemia Code(s): D64.9 - ANEMIA, UNSPECIFIED (2) Atrial fibrillation Code(s): I48.91 - UNSPECIFIED ATRIAL FIBRILLATION Qualifiers: Atrial fibrillation type: paroxysmal Qualified Code(s): I48.0 - Paroxysmal atrial fibrillation (3) COPD (chronic obstructive pulmonary disease) with acute bronchitis Code(s): J44.0 - CHRONIC OBSTRUCTIVE PULMON DISEASE W ACUTE LOWER RESP INFCT; J20.9 - ACUTE BRONCHITIS, UNSPECIFIED (4) Demand ischemia Code(s): I24.8 - OTHER FORMS OF ACUTE ISCHEMIC HEART DISEASE (5) Lactic acid acidosis Code(s): E87.2 - ACIDOSIS (6) Pneumonia Code(s): J18.9 - PNEUMONIA, UNSPECIFIED ORGANISM Qualifiers: Pneumonia type: due to unspecified organism Laterality: right Lung location: lower lobe of lung Qualified Code(s): J18.1 - Lobar pneumonia, unspecified organism (7) Sepsis Code(s): A41.9 - SEPSIS, UNSPECIFIED ORGANISM Qualifiers: Sepsis type: Escherichia coli Qualified Code(s): A41.51 - Sepsis due to Escherichia coli [E. coli] (8) Troponin level elevated Code(s): R74.8 - ABNORMAL LEVELS OF OTHER SERUM ENZYMES (9) COPD with acute exacerbation Code(s): J44.1 - CHRONIC OBSTRUCTIVE PULMONARY DISEASE W (ACUTE) EXACERBATION Assessment/Plan TAPER PREDNISONE ON LEVAQUIN PRADAXA STARTED MONITOR H/H- IF NORMAL H/H TOMORROW AND NO SIGNS OF BLEEDING CAN GO HOME. PRE-POST 02 SAT CHECK WITH HOME 02 THERAPY NEBS LEVAQUIN TODAY, ID FOLLOW UP IF NEEDED OUTPATIENT. OOB TO CHAIR
--- NOTE | 2018-06-25 11:30 | PN ---
Progress Note, Physician History of Present Illness: Dyspnea slowly improving and recurrent hematochezia, denies chest pain, remains in rapid afib with RVR. - Current Medication List Current Medications: Active Medications Acetaminophen (Tylenol -) 650 mg PO Q6H PRN PRN Reason: Fever Last Admin: 06/22/18 17:17 Dose: 650 mg Albuterol/Ipratropium (Duoneb -) 1 amp NEB RQ4H [facility] Last Admin: 06/25/18 08:45 Dose: 1 amp Amino Acids (Prosource No Carb Liquid Pkt) 30 ml PO BID@0800,1730 [facility] [place] Last Admin: 06/25/18 10:11 Dose: Not Given Dabigatran (Pradaxa -) 150 mg PO BID [facility] [place] Last Admin: 06/25/18 10:06 Dose: 150 mg Levofloxacin (Levaquin) 750 mg PO DAILY@0630 [facility] [place] Last Admin: 06/25/18 06:27 Dose: 750 mg Metoprolol Tartrate (Lopressor Injection -) 5 mg IVPB Q4H PRN PRN Reason: HEART RATE Last Admin: 06/23/18 23:35 Dose: 5 mg Metoprolol Tartrate (Lopressor -) 50 mg PO BID [facility] [place] Last Admin: 06/25/18 10:06 Dose: 50 mg Pantoprazole Sodium (Protonix -) 40 mg PO BID [facility] [place] Last Admin: 06/25/18 10:06 Dose: 40 mg Prednisone (Deltasone -) 40 mg PO DAILY [facility] [place] Last Admin: 06/25/18 10:06 Dose: 40 mg Ramipril (Altace -) 2.5 mg PO DAILY [facility] [place] Last Admin: 06/25/18 10:06 Dose: 2.5 mg Starch (Anusol Suppository -) 1 each [place] BID [facility] [place] Last Admin: 06/25/18 10:11 Dose: Not Given Sulfasalazine (Azulfidine En-Tabs -) 1,000 mg PO BID [facility] [place] Last Admin: 06/25/18 10:11 Dose: 1,000 mg Witch Tamra/Glycerin (Tucks Pads -) 1 pad TP TID [facility] [place] Last Admin: 06/25/18 06:28 Dose: Not Given - Objective Vital Signs: Vital Signs Temperature 98.4 F 06/25/18 09:00 Pulse Rate 74 06/25/18 09:00 Respiratory Rate 18 06/25/18 09:00 Blood Pressure 143/76 06/25/18 09:00 O2 Sat by Pulse Oximetry (%) 94 L 06/25/18 09:00 Labs: CBC, BMP 06/24/18 08:40 06/25/18 07:09 Problem List - Problems (1) Demand ischemia Code(s): I24.8 - OTHER FORMS OF ACUTE ISCHEMIC HEART DISEASE (2) COPD (chronic obstructive pulmonary disease) with acute bronchitis Code(s): J44.0 - CHRONIC OBSTRUCTIVE PULMON DISEASE W ACUTE LOWER RESP INFCT; J20.9 - ACUTE BRONCHITIS, UNSPECIFIED (3) Atrial fibrillation Code(s): I48.91 - UNSPECIFIED ATRIAL FIBRILLATION Qualifiers: Atrial fibrillation type: paroxysmal Qualified Code(s): I48.0 - Paroxysmal atrial fibrillation (4) Lactic acid acidosis Code(s): E87.2 - ACIDOSIS (5) Pneumonia Code(s): J18.9 - PNEUMONIA, UNSPECIFIED ORGANISM Qualifiers: Pneumonia type: due to unspecified organism Laterality: right Lung location: lower lobe of lung Qualified Code(s): J18.1 - Lobar pneumonia, unspecified organism (6) Sepsis Code(s): A41.9 - SEPSIS, UNSPECIFIED ORGANISM Qualifiers: Sepsis type: Escherichia coli Qualified Code(s): A41.51 - Sepsis due to Escherichia coli [E. coli] (7) Troponin level elevated Code(s): R74.8 - ABNORMAL LEVELS OF OTHER SERUM ENZYMES (8) Bronchitis Code(s): J40 - BRONCHITIS, NOT SPECIFIED ACUTE OR CHRONIC (9) Rectal bleeding Code(s): K62.5 - HEMORRHAGE OF ANUS AND RECTUM Assessment/Plan 01/15/2018 Mildly decreased LVEF 45-50%, mild MR, [place], [place] 1. Community acquired pneumonia, acute bronchitis and E. Coli sepsis 2. Paroxysmal AF with RVR on DOAC (Pradaxa) 3. Demand ischemia referable to #1 4. Lactic acidosis 5. COPD 6. Rheumatoid arthritis 7. Hematochezia most likely secondary to large internal hemorrhoid, anemia post transfusion, thrombocytopenia PLAN: 1. Trend troponin currently down trending 2. Antibiotics, bronchodilator, oral steroid taper with GI protection and O2 as needed 3. Pradaxa 150 mg BID resumed 4. Changed to Lopressor 50 mg BID, IV Lopressor as needed, and Ramipril 2.5 mg QD as hemodynamics tolerate. Acetaminophen (Tylenol -) 650 mg PO Q6H PRN PRN Reason: Fever Last Admin: 06/22/18 17:17 Dose: 650 mg Albuterol/Ipratropium (Duoneb -) 1 amp NEB RQ4H [facility] Last Admin: 06/25/18 08:45 Dose: 1 amp Amino Acids (Prosource No Carb Liquid Pkt) 30 ml PO BID@0800,1730 [facility] Last Admin: 06/25/18 10:11 Dose: Not Given Dabigatran (Pradaxa -) 150 mg PO BID [facility] Last Admin: 06/25/18 10:06 Dose: 150 mg Levofloxacin (Levaquin) 750 mg PO DAILY@0630 [facility] [place] Last Admin: 06/25/18 06:27 Dose: 750 mg Metoprolol Tartrate (Lopressor Injection -) 5 mg IVPB Q4H PRN PRN Reason: HEART RATE Last Admin: 06/23/18 23:35 Dose: 5 mg Metoprolol Tartrate (Lopressor -) 50 mg PO BID [facility] [place] Last Admin: 06/25/18 10:06 Dose: 50 mg Pantoprazole Sodium (Protonix -) 40 mg PO BID [facility] [place] Last Admin: 06/25/18 10:06 Dose: 40 mg Prednisone (Deltasone -) 40 mg PO DAILY [facility] [place] Last Admin: 06/25/18 10:06 Dose: 40 mg Ramipril (Altace -) 2.5 mg PO DAILY [facility] [place] Last Admin: 06/25/18 10:06 Dose: 2.5 mg Starch (Anusol Suppository -) 1 each ID BID [facility] [place] Last Admin: 06/25/18 10:11 Dose: Not Given Sulfasalazine (Azulfidine En-Tabs -) 1,000 mg PO BID [facility] [place] Last Admin: 06/25/18 10:11 Dose: 1,000 mg Witch Tamra/Glycerin (Tucks Pads -) 1 pad TP TID [facility] [place] Last Admin: 06/25/18 06:28 Dose: Not Given
--- NOTE | 2018-06-25 11:49 | PN ---
Progress Note (short form) - Note Progress Note: Breathing slowly improving and feels close to baseline. No wheezing. Elevated HR. Intake & Output 06/22/18 06/23/18 06/24/18 06/25/18 23:59 23:59 23:59 23:59 Intake Total 970 295 4810 240 Balance 383 793 8255 240 Weight 170 lb Last Vital Signs Temp Pulse Resp BP Pulse Ox 98.4 F 74 18 143/76 94 L 06/25/18 09:00 06/25/18 09:00 06/25/18 09:00 06/25/18 09:00 06/25/18 09:00 Active Medications Acetaminophen (Tylenol -) 650 mg PO Q6H PRN PRN Reason: Fever Last Admin: 06/22/18 17:17 Dose: 650 mg Albuterol/Ipratropium (Duoneb -) 1 amp NEB RQ4H [facility] Last Admin: 06/25/18 08:45 Dose: 1 amp Amino Acids (Prosource No Carb Liquid Pkt) 30 ml PO BID@0800,1730 [facility] Last Admin: 06/25/18 10:11 Dose: Not Given Dabigatran (Pradaxa -) 150 mg PO BID [facility] Last Admin: 06/25/18 10:06 Dose: 150 mg Levofloxacin (Levaquin) 750 mg PO DAILY@0630 [facility] Last Admin: 06/25/18 06:27 Dose: 750 mg Metoprolol Tartrate (Lopressor Injection -) 5 mg IVPB Q4H PRN PRN Reason: HEART RATE Last Admin: 06/23/18 23:35 Dose: 5 mg Metoprolol Tartrate (Lopressor -) 50 mg PO BID [facility] Last Admin: 06/25/18 10:06 Dose: 50 mg Pantoprazole Sodium (Protonix -) 40 mg PO BID [facility] Last Admin: 06/25/18 10:06 Dose: 40 mg Prednisone (Deltasone -) 40 mg PO DAILY [facility] Last Admin: 06/25/18 10:06 Dose: 40 mg Ramipril (Altace -) 2.5 mg PO DAILY [facility] Last Admin: 06/25/18 10:06 Dose: 2.5 mg Starch (Anusol Suppository -) 1 each [place] BID [facility] Last Admin: 06/25/18 10:11 Dose: Not Given Sulfasalazine (Azulfidine En-Tabs -) 1,000 mg PO BID [facility] Last Admin: 06/25/18 10:11 Dose: 1,000 mg Witch Tamra/Glycerin (Tucks Pads -) 1 pad TP TID [facility] Last Admin: 06/25/18 06:28 Dose: Not Given Constitutional: Yes: Less tachypneic at rest Eyes: Yes: WNL HENT: Yes: WNL Neck: Yes: WNL Cardiovascular: Yes: Pulse Irregular, S1, S2 Respiratory: Yes: Scattered bilateral Rhonchi, no wheeze Gastrointestinal: Yes: Normal Bowel Sounds, Soft Extremities: Yes: WNL Edema: No Labs: Laboratory Results - last 24 hr 06/25/18 07:09 Sodium 141 Potassium 3.9 Chloride 102 Carbon Dioxide 35 H Anion Gap 4 L BUN 20 H Creatinine 0.7 Creat Clearance w eGFR 109.64 Random Glucose 76 Calcium 8.1 L Total Bilirubin 0.5 AST 15 ALT 22 Alkaline Phosphatase 49 Total Protein 4.8 L Albumin 2.7 L Problem List - Problems (1) Atrial fibrillation Code(s): I48.91 - UNSPECIFIED ATRIAL FIBRILLATION Qualifiers: Atrial fibrillation type: paroxysmal Qualified Code(s): I48.0 - Paroxysmal atrial fibrillation (2) Lactic acid acidosis Code(s): E87.2 - ACIDOSIS (3) Pneumonia Code(s): J18.9 - PNEUMONIA, UNSPECIFIED ORGANISM Qualifiers: Pneumonia type: due to unspecified organism Laterality: right Lung location: lower lobe of lung Qualified Code(s): J18.1 - Lobar pneumonia, unspecified organism (4) Sepsis Code(s): A41.9 - SEPSIS, UNSPECIFIED ORGANISM Qualifiers: Sepsis type: sepsis due to unspecified organism Qualified Code(s): A41.9 - Sepsis, unspecified organism (5) Troponin level elevated Code(s): R74.8 - ABNORMAL LEVELS OF OTHER SERUM ENZYMES Assessment/Plan GRAM NEGATIVE PNEUMONIA/BACTEREMIA SEPSIS COPD HYPOTENSION IMPROVED ANEMIA/THROMBOCYTOPENIA PLAN ABX PER ID INHALED BRONCHODILATORS PREDNISONE O2 TO MAINTAIN SATURATIONS NO PULMONARY CONTRAINDICATION FOR D/C DR REYNOLDS
--- NOTE | 2018-06-25 14:23 | PN ---
Progress Note (short form) - Note Progress Note: PATIENT'S PNEUMONIA IS RESOLVED AND TREATED. PATIENT WOULD BENEFIT FROM HOME OXYGEN THERAPY TO REDUCE RE-HOSPITALIZATIONS AND IMPROVE QUALITY OF LIFE.
--- NOTE | 2018-06-25 18:19 | PN ---
Progress Note, Physician - Current Medication List Current Medications: Active Medications Acetaminophen (Tylenol -) 650 mg PO Q6H PRN PRN Reason: Fever Last Admin: 06/22/18 17:17 Dose: 650 mg Albuterol/Ipratropium (Duoneb -) 1 amp NEB RQ4H [facility] Last Admin: 06/25/18 12:02 Dose: 1 amp Amino Acids (Prosource No Carb Liquid Pkt) 30 ml PO BID@0800,1730 [facility] Last Admin: 06/25/18 17:19 Dose: Not Given Dabigatran (Pradaxa -) 150 mg PO BID [facility] Last Admin: 06/25/18 10:06 Dose: 150 mg Diltiazem HCl (Cardizem Cd -) 120 mg PO DAILY [facility] Last Admin: 06/25/18 13:58 Dose: 120 mg Levofloxacin (Levaquin) 750 mg PO DAILY@0630 [facility] Last Admin: 06/25/18 06:27 Dose: 750 mg Metoprolol Tartrate (Lopressor Injection -) 5 mg IVPB Q4H PRN PRN Reason: HEART RATE Last Admin: 06/23/18 23:35 Dose: 5 mg Metoprolol Tartrate (Lopressor -) 50 mg PO BID [facility] Last Admin: 06/25/18 10:06 Dose: 50 mg Pantoprazole Sodium (Protonix -) 40 mg PO BID [facility] Last Admin: 06/25/18 10:06 Dose: 40 mg Prednisone (Deltasone -) 40 mg PO DAILY [facility] Last Admin: 06/25/18 10:06 Dose: 40 mg Ramipril (Altace -) 2.5 mg PO DAILY [facility] Last Admin: 06/25/18 10:06 Dose: 2.5 mg Starch (Anusol Suppository -) 1 each [place] BID [facility] Last Admin: 06/25/18 10:11 Dose: Not Given Sulfasalazine (Azulfidine En-Tabs -) 1,000 mg PO BID [facility] Last Admin: 06/25/18 10:11 Dose: 1,000 mg Witch Tamra/Glycerin (Tucks Pads -) 1 pad TP TID [facility] Last Admin: 06/25/18 13:58 Dose: Not Given - Objective Vital Signs: Vital Signs Temperature 97.9 F 06/25/18 18:12 Pulse Rate 64 04/04/19 18:12 Respiratory Rate 20 06/25/18 18:12 Blood Pressure 136/74 06/25/18 18:12 O2 Sat by Pulse Oximetry (%) 93 L 06/25/18 11:59 Labs: CBC, BMP 06/24/18 08:40 06/25/18 07:09
[2018-06-26] MEDS ORDERED: PT OWN MED DRAWER 7, Y5N ONE (05:08)
[2018-06-26] MEDS: levoFLOXacin 750 MG TABLET PO SCH (05:49)
[2018-06-26] MEDS: WITCH HAZEL 50% (TUCKS) 40 PAD/JAR PAD TP SCH ×2 (05:53→14:15)
[2018-06-26 07:59] LABS: HEMATOCRIT 29.2 % (35.4-49); MCH 35.3 pg (25.7-33.7); MCHC 34.1 g/dl (32.0-35.9); MEAN CELL VOLUME 103.4 fl (80-96); MEAN PLT VOLUME 7.4 fl (7.5-11.1); PLATELET COUNT 86 K/MM3 (134-434); RBC 2.82 M/mm3 (4.00-5.60); RDW 16.6 % (11.9-15.9); WHITE BLOOD COUNT 6.7 K/mm3 (4.0-10.0)
[2018-06-26] MEDS: ALBUTEROL SO4 2.5/IPRATROPIUM 0.5 INH SOL 3 ML VIAL.NEB. NEB SCH ×2 (08:04→11:31)
--- NOTE | 2018-06-26 08:59 | DS ---
Physical Examination Vital Signs: Vital Signs Temperature 98.0 F 06/26/18 06:00 Pulse Rate 62 06/26/18 06:00 Respiratory Rate 18 06/26/18 08:44 Blood Pressure 124/67 06/26/18 06:00 O2 Sat by Pulse Oximetry (%) 95 06/26/18 08:44 Cardiovascular: Yes: S1, S2 Respiratory: Yes: Regular, CTA Bilaterally Gastrointestinal: Yes: Normal Bowel Sounds, Soft Labs: CBC, BMP 06/26/18 07:00 06/25/18 07:09 Discharge Summary Reason For Visit: SEPSIS, PNEUMONIA Current Active Problems Anemia (Acute) Atrial fibrillation (Acute) COPD (chronic obstructive pulmonary disease) with acute bronchitis (Acute) Chronic pancreatitis (Acute) Demand ischemia (Acute) Lactic acid acidosis (Acute) Pneumonia (Acute) Rectal bleeding (Acute) Sepsis (Acute) Troponin level elevated (Acute) Hospital Course: Problems (1) COPD with acute exacerbation Assessment/Plan: --On po pred --continue duonebs --PT Code(s): J44.1 - CHRONIC OBSTRUCTIVE PULMONARY DISEASE W (ACUTE) EXACERBATION (2) Anemia Assessment/Plan: --Monitor if hbg stable then dc home --patient had colonoscopy with Dr. Henderson 6 months ago, several polyps removed, was told studies were negative -- GI on Case --Resume Pradaxa Code(s): D64.9 - ANEMIA, UNSPECIFIED (3) Atrial fibrillation Assessment/Plan: --Pradaxa --telemetry monitoring --cardiology following --Coreg 12.5 bid--change to lopresoor 50 bid Code(s): I48.91 - UNSPECIFIED ATRIAL FIBRILLATION Qualifiers: Atrial fibrillation type: paroxysmal Qualified Code(s): I48.0 - Paroxysmal atrial fibrillation (4) Pneumonia Assessment/Plan: --CT chest: extensive bronchiectatic changes probably with active infection; extensive changes of COPD --continue Levaquin Code(s): J18.9 - PNEUMONIA, UNSPECIFIED ORGANISM Qualifiers: Pneumonia type: due to unspecified organism Laterality: right Lung location: lower lobe of lung Qualified Code(s): J18.1 - Lobar pneumonia, unspecified organism (5) Sepsis Assessment/Plan: --E. coli bacteremia --ID on Case --continue oral abx Code(s): A41.9 - SEPSIS, UNSPECIFIED ORGANISM Qualifiers: Sepsis type: Escherichia coli Qualified Code(s): A41.51 - Sepsis due to Escherichia coli [E. coli] Condition: Improved - Instructions Referrals: Julia Valencia MD [Primary Care Provider] - 1 Week Disposition: HOME - Home Medications Comprehensive Discharge Medication List: Ambulatory Orders Dabigatran Etexilate Mesylate [Pradaxa -] 150 mg PO BID #0 cap 02/14/13 Sulfasalazine 1,000 mg PO BID 06/15/18 Acetaminophen [Tylenol .Regular Strength -] 650 mg PO Q6H PRN tablet 06/26/18 Albuterol 2.5/Ipratropium 0.5 [Duoneb -] 1 amp NEB RQ4H #120 amp 06/26/18 Diltiazem Cd [Cardizem Cd -] 120 mg PO DAILY #30 cap.cd.24h 06/26/18 Metoprolol Tartrate [Lopressor -] 50 mg PO BID #60 tablet 06/26/18 Pantoprazole Sodium [Protonix -] 40 mg PO BID #60 tablet.ec 06/26/18 Phenylephrine 0.25%/Starch [Anusol Suppository -] 1 each [place] BID #20 supp.rect Ramipril [Altace] 2.5 mg PO DAILY #30 capsule 06/26/18 Sulfasalazine [Azulfidine En-Tabs -] 1,000 mg PO BID #120 tablet. 06/26/18 Sakina Barboza 50% (Tucks) [Tucks Pads -] 1 pad TP TID pad 06/26/18 levoFLOXacin [Levaquin] 750 mg PO DAILY@0630 #3 tab 06/26/18 predniSONE [Deltasone -] 40 mg PO DAILY #60 tablet 06/26/18
--- NOTE | 2018-06-26 09:20 | PN ---
Progress Note, Physician History of Present Illness: Dyspnea slowly improving and recurrent hematochezia, denies chest pain, spontaneous conversion to SR, ambulatory desaturation noted, home O2 started. - Current Medication List Current Medications: Active Medications Acetaminophen (Tylenol -) 650 mg PO Q6H PRN PRN Reason: Fever Last Admin: 06/22/18 17:17 Dose: 650 mg Albuterol/Ipratropium (Duoneb -) 1 amp NEB RQ4H [facility] Last Admin: 06/26/18 08:04 Dose: 1 amp Amino Acids (Prosource No Carb Liquid Pkt) 30 ml PO BID@0800,1730 [facility] Last Admin: 06/25/18 17:19 Dose: Not Given Dabigatran (Pradaxa -) 150 mg PO BID [facility] Last Admin: 06/25/18 21:09 Dose: 150 mg Diltiazem HCl (Cardizem Cd -) 120 mg PO DAILY [facility] Last Admin: 06/25/18 13:58 Dose: 120 mg Levofloxacin (Levaquin) 750 mg PO DAILY@0630 [facility] Last Admin: 06/26/18 05:49 Dose: 750 mg Metoprolol Tartrate (Lopressor Injection -) 5 mg IVPB Q4H PRN PRN Reason: HEART RATE Last Admin: 06/23/18 23:35 Dose: 5 mg Metoprolol Tartrate (Lopressor -) 50 mg PO BID [facility] Last Admin: 06/25/18 21:09 Dose: 50 mg Pantoprazole Sodium (Protonix -) 40 mg PO BID [facility] Last Admin: 06/25/18 21:09 Dose: 40 mg Prednisone (Deltasone -) 40 mg PO DAILY [facility] Last Admin: 06/25/18 10:06 Dose: 40 mg Ramipril (Altace -) 2.5 mg PO DAILY [facility] Last Admin: 06/25/18 10:06 Dose: 2.5 mg Starch (Anusol Suppository -) 1 each [place] BID [facility] Last Admin: 06/25/18 21:11 Dose: Not Given Sulfasalazine (Azulfidine En-Tabs -) 1,000 mg PO BID [facility] Last Admin: 06/25/18 21:09 Dose: 1,000 mg Witch Tamra/Glycerin (Tucks Pads -) 1 pad TP TID [facility] Last Admin: 06/26/18 05:53 Dose: Not Given - Objective Vital Signs: Vital Signs Temperature 98.0 F 06/26/18 06:00 Pulse Rate 62 06/26/18 06:00 Respiratory Rate 18 06/26/18 08:44 Blood Pressure 124/67 06/26/18 06:00 O2 Sat by Pulse Oximetry (%) 95 06/26/18 08:44 Constitutional: Yes: No Distress, Calm, Thin Neck: Yes: Supple Cardiovascular: Yes: Regular Rate and Rhythm Respiratory: Yes: Regular, Diminished, On Nasal O2 Gastrointestinal: Yes: Normal Bowel Sounds, Soft Edema: No Labs: CBC, BMP 06/26/18 07:00 06/25/18 07:09 - ....Imaging EKG: Report Reviewed (Tele: PAF->SR) Problem List - Problems (1) Demand ischemia Code(s): I24.8 - OTHER FORMS OF ACUTE ISCHEMIC HEART DISEASE (2) COPD (chronic obstructive pulmonary disease) with acute bronchitis Code(s): J44.0 - CHRONIC OBSTRUCTIVE PULMON DISEASE W ACUTE LOWER RESP INFCT; J20.9 - ACUTE BRONCHITIS, UNSPECIFIED (3) Atrial fibrillation Code(s): I48.91 - UNSPECIFIED ATRIAL FIBRILLATION Qualifiers: Atrial fibrillation type: paroxysmal Qualified Code(s): I48.0 - Paroxysmal atrial fibrillation (4) Lactic acid acidosis Code(s): E87.2 - ACIDOSIS (5) Pneumonia Code(s): J18.9 - PNEUMONIA, UNSPECIFIED ORGANISM Qualifiers: Pneumonia type: due to unspecified organism Laterality: right Lung location: lower lobe of lung Qualified Code(s): J18.1 - Lobar pneumonia, unspecified organism (6) Sepsis Code(s): A41.9 - SEPSIS, UNSPECIFIED ORGANISM Qualifiers: Sepsis type: Escherichia coli Qualified Code(s): A41.51 - Sepsis due to Escherichia coli [E. coli] (7) Troponin level elevated Code(s): R74.8 - ABNORMAL LEVELS OF OTHER SERUM ENZYMES (8) Bronchitis Code(s): J40 - BRONCHITIS, NOT SPECIFIED ACUTE OR CHRONIC (9) Rectal bleeding Code(s): K62.5 - HEMORRHAGE OF ANUS AND RECTUM Assessment/Plan 01/15/2018 Mildly decreased LVEF 45-50%, mild MR, [place], [place] 1. Community acquired pneumonia, acute bronchitis and E. Coli sepsis 2. Paroxysmal AF with RVR on DOAC (Pradaxa) 3. Demand ischemia referable to #1 4. Lactic acidosis 5. COPD 6. Rheumatoid arthritis 7. Hematochezia most likely secondary to large internal hemorrhoid, anemia post transfusion, thrombocytopenia PLAN: 1. Troponin currently downtrending 2. Antibiotics, bronchodilator, oral steroid taper with GI protection and O2 as needed 3. Pradaxa 150 mg BID resumed 4. Continue Lopressor 50 mg BID and Cardizem CD 120 qd, IV Lopressor as needed, and Ramipril 2.5 mg QD as hemodynamics tolerate. 5. D/c planning with f/u in office
[2018-06-26] MEDS: METOPROLOL TARTRATE 50 MG TABLET (FP) PO SCH (10:03)
[2018-06-26] MEDS: RAMIPRIL 2.5 MG CAPSULE (FP) PO SCH (10:03)
[2018-06-26] MEDS: predniSONE 20 MG TABLET (UD) PO SCH (10:03)
[2018-06-26] MEDS: PANTOPRAZOLE 40 MG TABLET (FP) PO SCH (10:03)
[2018-06-26] MEDS: PHENYLEPHRINE 0.25%/STARCH 1 EACH SUPP.RECT PR SCH (10:04)
[2018-06-26] MEDS: AMINO ACIDS/PROTEIN HYDROLYS 30 ML LIQUID.PKT PO SCH (10:07)
[2018-06-26] MEDS: DABIGATRAN ETEXILATE MESYLATE 150 MG CAPSULE PO SCH (10:08)
[2018-06-26 13:44] LABS: HEMATOCRIT 33.4 % (35.4-49); HEMOGLOBIN 11.3 GM/dL (11.7-16.9); MCH 35.1 pg (25.7-33.7); MCHC 33.7 g/dl (32.0-35.9); MEAN CELL VOLUME 104.1 fl (80-96); MEAN PLT VOLUME 7.4 fl (7.5-11.1); PLATELET COUNT 93 K/MM3 (134-434); RBC 3.21 M/mm3 (4.00-5.60); RDW 16.4 % (11.9-15.9); WHITE BLOOD COUNT 8.7 K/mm3 (4.0-10.0)
[2018-06-26 15:00] VITALS: BP 135/68; PULSE 60; TEMP 98.2
== END 2018-06-26 15:18 | disposition home or self-care (01) | DRG 871 ==
LOC: FER 14:00 → FM/S 17:01 → J4S 06-16 18:53
PROVIDERS: ADMIT Internal Medicine; ATTEND Family Medicine
PROC: 30233N1 Transfusion of Nonautologous Red Blood Cells into Peripheral Vein, Percutaneous Approach (ICD-10-PCS; principal; 2018-06-17)
DX: A41.51 Sepsis due to Escherichia coli [E. coli] (principal); J18.1 Lobar pneumonia, unspecified organism; J15.8 Pneumonia due to other specified bacteria; E87.2 Acidosis; J44.1 Chronic obstructive pulmonary disease with (acute) exacerbation; I24.8 Other forms of acute ischemic heart disease; K92.1 Melena; J96.11 Chronic respiratory failure with hypoxia; K86.1 Other chronic pancreatitis; I48.1 Persistent atrial fibrillation; K64.8 Other hemorrhoids; I48.0 Paroxysmal atrial fibrillation; D64.9 Anemia, unspecified; D69.6 Thrombocytopenia, unspecified; I25.10 Atherosclerotic heart disease of native coronary artery without angina pectoris; M06.9 Rheumatoid arthritis, unspecified; F17.210 Nicotine dependence, cigarettes, uncomplicated; I95.9 Hypotension, unspecified; K64.4 Residual hemorrhoidal skin tags
CPT/HCPCS: 36415; 36430; 36511; 71045-TC-FY; 71260-TC; 74177-TC; 80048; 80053; 80162; 82272; 82607; 82746; 82962; 83540; 83605; 83735; 84439; 84443; 84484; 85025; 85027; 86593; 86850; 86900; 86901; 86922; 87040; 87045; 87046; 87070; 87086; 87177; 87186; 87205; 87209; 87324; 87449; 87804; 87807; 87899; 93005; 93010; 94640; 94761; 97116-GP; 97161-GP; 99284-25; J7030; P9038; P9058

== ENCOUNTER 2018-08-20 19:21 | Inpatient (IN) | payer OTHER ==
[2018-08-20 19:35] VITALS: BMI 23.8
--- NOTE | 2018-08-20 19:51 | PDOC ---
History of Present Illness - General Chief Complaint: Lightheaded Stated Complaint: Time Seen by Provider: 08/20/18 19:46 History Source: Patient Exam Limitations: No Limitations - History of Present Illness Initial Comments: 08/20/18 20:31 Patient is a 78 year old male with history of Afib (on Pradaxa, Carvedilol), hypertension, COPD (has home oxygen, however currently does not use), rheumatoid arthritis, sent from Dr. Valencia office with complaint of lightheadedness. Patient endorses symptoms have been ongoing for approx. the past three weeks. Patient admits change in his medications around that time; his inside sales associate Dr. Gregory switched his Lopressor to Carvedilol. Patient endorses compliance with his medication regimen. Patient does admit subjective chills, and nonproductive cough. He denies sick contacts. He denies any falls, loss of consciousness or any trauma. Patient denies any bleeding, hemoptysis, melena, hematochezia, hematuria. Patient stepdaughter (Marisol Cabello [phone] PMH: Afib, hypertension, COPD, rheumatoid arthritis PSH: Denies Family history Father: lung cancer Mother: unknown heart condition (believes may have been related to Digitalis) Allergies NKDA Social: Lives at home with . He performs activities daily living by himself , without assistance. Former smoker, quit 1 month ago (significant smoking history; at most 1 pack per day, has been smoking for approx. 60 years). Admits three glasses of wine with dinner, and ocassional gin and tonic. Admits marijuana, and cocaine when younger. Past History - Past Medical History Allergies/Adverse Reactions: Allergies Allergy/AdvReac Type Severity Reaction Status Date / Time No Known Allergies Allergy Verified 08/20/18 19:35 Home Medications: Ambulatory Orders Dabigatran Etexilate Mesylate [Pradaxa -] 150 mg PO BID #0 cap 02/14/13 Sulfasalazine 1,000 mg PO BID 06/15/18 Acetaminophen [Tylenol .Regular Strength -] 650 mg PO Q6H PRN tablet 06/26/18 Albuterol 2.5/Ipratropium 0.5 [Duoneb -] 1 amp NEB RQ4H #120 amp 06/26/18 Diltiazem Cd [Cardizem Cd -] 120 mg PO DAILY #30 cap.cd.24h 06/26/18 Metoprolol Tartrate [Lopressor -] 50 mg PO BID #60 tablet 06/26/18 Pantoprazole Sodium [Protonix -] 40 mg PO BID #60 tablet.ec 06/26/18 Phenylephrine 0.25%/Starch [Anusol Suppository -] 1 each [place] BID #20 supp.rect Ramipril [Altace] 2.5 mg PO DAILY #30 capsule 06/26/18 Sulfasalazine [Azulfidine En-Tabs -] 1,000 mg PO BID #120 tablet.dr 06/26/18 Sakina Barboza 50% (Tucks) [Tucks Pads -] 1 pad TP TID pad 06/26/18 levoFLOXacin [Levaquin] 750 mg PO DAILY@0630 #3 tab 06/26/18 predniSONE [Deltasone -] 40 mg PO DAILY #60 tablet 06/26/18 Anemia: No Asthma: Yes Cancer: No Cardiac Disorders: Yes (a fib,angina,cad) CVA: No COPD: Yes CHF: No Dementia: No Diabetes: No GI Disorders: Yes (acid reflux) Disorders: No HTN: No Hypercholesterolemia: Yes Liver Disease: No Seizures: No Thyroid Disease: No - Surgical History Abdominal Surgery: No Appendectomy: No Cardiac Surgery: No Cholecystectomy: No Lung Surgery: No Neurologic Surgery: No Orthopedic Surgery: No - Suicide/Smoking/Psychosocial Hx Smoking History: Former smoker Have you smoked in the past 12 months: Yes Number of Cigarettes Smoked Daily: 3 Cigars Per Day: 10 Information on smoking cessation initiated: No 'Breaking Loose' booklet given: 02/17/18 Hx Alcohol Use: No Drug/Substance Use Hx: No Substance Use Type: Alcohol Hx Substance Use Treatment: No Review of Systems - Review of Systems Able to Perform ROS?: Yes Constitutional: Yes: Chills, Fever. No: Diaphoresis, Weakness HEENTM: Yes: Blurred Vision (with dizziness). No: Tinnitus, Hearing Loss, Throat Pain, Difficulty Swallowing Respiratory: Yes: Cough (nonproductive ). No: Orthopnea, Shortness of Breath, Stridor, Wheezing, Hemoptysis Cardiac (ROS): Yes: Irregular Heart Rate, Lightheadedness, Chest Tightness. No : Chest Pain, Palpitations, Syncope ABD/GI: No: Abd. Pain w/ defecation, Blood Streaked Bowels, Nausea, Poor Appetite, Vomiting : No: Burning, Dysuria, Discharge, Frequency *Physical Exam - Vital Signs Last Vital Signs Temp Pulse Resp BP Pulse Ox 97.7 F 75 18 87/64 L 100 08/20/18 19:33 08/20/18 19:33 08/20/18 19:33 08/20/18 19:33 08/20/18 19:33 - Physical Exam General Appearance: Yes: Nourished, Appropriately Dressed. No: Apparent Distress HEENT: positive: EOMI, URBANO. negative: Scleral Icterus (R), Scleral Icterus (L) Neck: positive: Supple. negative: Lymphadenopathy (R), Lymphadenopathy (L) Respiratory/Chest: positive: Lungs Clear, Normal Breath Sounds. negative: Respiratory Distress, Rapid RR, Crackles, Rhonchi, Stridor, Wheezing Cardiovascular: positive: S1, S2, Tachycardia, Irregularly Irregular. negative : Murmur Vascular Pulses: Dorsalis-Pedis (R): 2+, Doralis-Pedis (L): 2+ Gastrointestinal/Abdominal: positive: Normal Bowel Sounds, Flat, Soft. negative : Tender, Guarding, Rebound, Tenderness Extremity: positive: Other (1+ edema bilateral lower extremities) Integumentary: positive: Dry, Warm Neurologic: positive: furniture removalist's assistant II-XII NML intact, Fully Oriented, Alert, Normal Mood/ Affect, Motor Strength 5/ ED Treatment Course - LABORATORY CBC & Chemistry Diagram: 08/20/18 20:42 08/20/18 20:42 Medical Decision Making - Medical Decision Making 08/20/18 20:47 Patient is a 78 year old male with history of Afib (on Pradaxa, Carvedilol), hypertension, COPD, rheumatoid arthritis, presents with complaint of lightheadedness. Suspect symptoms are secondary to Afib that is not rate controlled. May be due to recent switch in medication, vs infection. Patient admits compliance with his medication regimen. Denies fall, loss of consciousness, trauma. Patient is resting comfortably, in no acute distress EKG shows Afib with RVR at [address] on air sampling and monitoring Lopressor held as patient hypotensive to 88/66 mmHg. Will hydrate with 1L normal saline bolus, and monitor vital signs closely. CBC, CMP, Mg EKG, Troponin TSH PT/INR 08/20/18 21:42 BP 96/77mmHg Troponin 0.02 08/20/18 22:27 Repeat BP Lopressor 5mg IVPUSH given HR decreased to low 100s -110s BP95/80 08/20/18 23:07 HR back to 120s -130s. BP 113/66 Lopressor 5mg IV PUSH 08/21/18 00:05 Will admit patient to Telemetry 08/21/18 00:13 Case discussed with GEGE Rodriguez. *DC/Admit/Observation/Transfer Diagnosis at time of Disposition: Atrial fibrillation - Discharge Dispostion Decision to Admit order: Yes - Referrals - Patient Instructions - Post Discharge Activity
[2018-08-20] MEDS ORDERED: METOPROLOL TARTRATE 5 MG/5 ML VIAL IVPUSH ONE ×2 (20:19→23:03)
[2018-08-20] MEDS ORDERED: METOPROLOL TARTRATE 5 MG/5 ML VIAL ONE ×2 (20:28→23:51)
[2018-08-20] MEDS ORDERED: SODIUM CHLORIDE 1,000 ML IV ONE (21:07)
[2018-08-20 21:22] LABS: BASO % 0.1 % (0-2.0); HEMATOCRIT 28.9 % (35.4-49); HEMOGLOBIN 9.7 GM/dL (11.7-16.9); LYMPH % 36.5 % (8-40); MCH 36.8 pg (25.7-33.7); MCHC 33.7 g/dl (32.0-35.9); MEAN CELL VOLUME 109.2 fl (80-96); MEAN PLT VOLUME 7.5 fl (7.5-11.1); MONO % 11.2 % (3.8-10.2); NEUT % 52.2 % (42.8-82.8); PLATELET COUNT 122 K/MM3 (134-434); RBC 2.64 M/mm3 (4.00-5.60); RDW 17.8 % (11.9-15.9); WHITE BLOOD COUNT 4.2 K/mm3 (4.0-10.0)
[2018-08-20 21:35] LABS: ALBUMIN 3.4 g/dl (3.4-5.0); ALK PHOS 51 U/L (45-117); BILIRUBIN,TOTAL 0.3 mg/dL (0.2-1); BLOOD UREA NITROGEN 22 mg/dL (7-18); CALCIUM 8.7 mg/dL (8.5-10.1); CHLORIDE 104 mmol/L (98-107); CO2 30 mmol/L (21-32); CREATININE 1.3 mg/dL (0.55-1.3); GLUCOSE,RANDOM 112 mg/dL (74-106); SGPT/ALT 18 U/L (13-61); SODIUM 142 mmol/L (136-145); TOT PROT 5.9 g/dl (6.4-8.2)
[2018-08-20 21:36] LABS: ANION GAP 7 MMOL/L (8-16); MAGNESIUM 2.2 mg/dL (1.8-2.4); POTASSIUM 5.1 mmol/L (3.5-5.1); SGOT/AST 15 U/L (15-37)
[2018-08-20 21:54] LABS: INR 1.36 (0.83-1.09); PROTHROMBIN TIME (PATIENT) 16.1 SEC (9.7-13.0)
[2018-08-20 21:57] LABS: ACTIVATED PTT 44.3 SECONDS (25.2-36.5)
[2018-08-20 22:13] LABS: MACROCYTOSIS 2+; PLATELET ESTIMATE SLT DECREASE
--- NOTE | 2018-08-20 23:58 | PDOC ---
Documentation entered by Mary Russo SCRIBE, acting as scribe for Crispin Nelson MD. Crispin Nelson MD: This documentation has been prepared by the payalibKaran larios Lincy, SCRIBE, under my direction and personally reviewed by me in its entirety. I confirm that the documentation accurately reflects all work, treatment, procedures, and medical decision making performed by me. Attending Attestation - Resident Resident Name: AnnetteJason - ED Attending Attestation I have performed the following: I have examined & evaluated the patient, The case was reviewed & discussed with the resident, I agree w/resident's findings & plan, Exceptions are as noted - HPI HPI: 08/20/18 20:56 The patient is a 78-year-old male with a past medical history significant for Afib (on Pradaxa), RA, COPD, and HTN was sent to the emergency department by Dr. Katz for lightheadedness. The patient presents with a couple of weeks of intermittent lightheadedness, to the extent where the patient feels like he might pass out. The patient reports associated symptom of shortness of breath with exertion, thats chronic in nature and a single episode of sharp chest pain yesterday, that last for half an hour before self-resolving. The patient reports he was formally on Carvedilol, which was discontinued when the patient was admitted to the hospital about a month ago for E. coli bacteremia sepsis and pneumonia. The patient was started on Lopressor 50 mg BID, which was discontinued by Dr. Gregory (pig machine operator helper), and the patient was started back on Carvedilol. The patient reports an additional complaint of diarrhea 2 weeks, which was noted to be dark in color, denies any recent episodes in the last 10 days, denies hematochezia. Denies palpitations, current chest pain. Denies a headache. Denies any other acute symptoms. Allergies: NKDA Social history: Reports the use of tobacco and wine. Denies the use of recreational drugs. PCP: Dr. Fernandes. Heart Doctor: Dr. Leticia Gregory. - Physicial Exam PE: 08/20/18 20:46 GENERAL: The patient is awake, alert, and fully oriented, Nontoxic - in no acute distress. HEAD: Normocephalic, atraumatic. EYES: extraocular movements intact, sclera anicteric, conjunctiva clear. ENT: Normal voice, Moist mucous membranes. NECK: Normal range of motion, supple LUNGS: Breath sounds equal, clear to auscultation bilaterally. No wheezes, no rhonchi, no rales. HEART: irregularlly irregular, normal S1 and S2 without murmur, rub or gallop. ABDOMEN: Soft, nontender, No guarding, no rebound. . No CVA tenderness EXTREMITIES: Normal range of motion, no edema. NEUROLOGICAL: No facial assymetry, Normal speech, moving all 4 extremities spontenaously and symmetrically PSYCH: Normal mood, normal affect. SKIN: Warm, Dry, normal turgor, 08/20/18 20:46 - Medical Decision Making 08/20/18 20:15 78y M afib on pradaxa, htn, copd, RA presents with intermittent episodes of lightheadedness/presyncope, noted be orthostatic at primary care doctor's and sent to the ER for evaluation. During his EKG performed in the ER the patient was noted to be in A. fib with AVR, bp here initially showed hypotensive BP, however on my assessment, his BP was normal. Patient did have a mid change from Lopressor to carvedilol recently seemed to coincide with onset of the symptoms. he has some diarrhea 2 weeks ago he mentioned was darkish in color however none since. We'll rule out anemia, metabolic deragmenent We'll give the patient's Toprol 5 mg for rate control 08/20/18 23:58 The patient's heart rate improved with metoprolol Will admit for further management blood pressure also improved to 120 systolic Heart Score/ECG Review - ECG Impressions Comment:: 08/20/18 20:46 Twelve-lead EKG was performed and reviewed by me. Rate is irregularly irregular rate of [address] changes suggestive of acute ischemia A. fib with RVR
--- NOTE | 2018-08-21 00:40 | HP ---
Admitting History and Physical - Primary Care Physician PCP: Julia Valencia - Admission Chief Complaint: Lightheadedness History of Present Illness: This is a 78 y/o man with a PMHx of Afib (on Pradaxa, Carvedilol), CAD, Angina, HTN, COPD (on home O2, prn), RA recent admission 06/14-06/26 for Sepsis, Pneumonia , Hematochezia. Who presents to the ED from his PCPs office for lightheadedness x 2 weeks. Patient reports Patient reports having left sided chest pain and left shoulder pain lasting several minutes while at rest, last Friday- now resolved. Patient reports that his Supervisor [employer] Dr. Gregory switched his Lopressor to Carvedilol, and that some of his other meds were adjusted. Patient reports recent viral syndrome. He denies chest pain, palpitations, AP, N/V/D, constipation, hematochezia, melena, hematuria, dysuria. Patient reports having a Colonoscopy 3 yrs ago- Polyps ED course was noted for: (1) EKG- Afib with RVR given NS bolus for BP manangements, then Metoprolol IV x2 (2) Troponin I- neg x1 (3) Cr 1.3 History Source: Patient Limitations to Obtaining History: No Limitations - Past Medical History Cardiovascular: Yes: AFIB, CAD, HTN Pulmonary: Yes: COPD Gastrointestinal: Yes: Hemorrhoids Heme/Onc: Yes: Anemia Rheumatology: Yes: Rheumatoid Arthritis - Past Surgical History Past Surgical History: Yes: Colonoscopy - Smoking History Smoking history: Former smoker Have you smoked in the past 12 months: Yes Aproximately how many cigarettes per day: 3 (60 pack yrs) - Alcohol/Substance Use Hx Alcohol Use: Yes (ocassional Wine, Gin and Tonic) Number of Drinks Daily: 2 History of Substance Use: reports: Cocaine (in his 20's), Marijuana (in his 20's ) - Social History Usual Living Arrangement: Yes: With Spouse ADL: Family Assistance History of Recent Travel: No Home Medications - Allergies Allergies/Adverse Reactions: Allergies Allergy/AdvReac Type Severity Reaction Status Date / Time No Known Allergies Allergy Verified 08/20/18 19:35 - Home Medications Home Medications: Ambulatory Orders Dabigatran Etexilate Mesylate [Pradaxa -] 150 mg PO BID #0 cap 02/14/13 Sulfasalazine 1,000 mg PO BID 06/15/18 Acetaminophen [Tylenol .Regular Strength -] 650 mg PO Q6H PRN tablet 06/26/18 Albuterol 2.5/Ipratropium 0.5 [Duoneb -] 1 amp NEB RQ4H #120 amp 06/26/18 Diltiazem Cd [Cardizem Cd -] 120 mg PO DAILY #30 cap.cd.24h 06/26/18 Metoprolol Tartrate [Lopressor -] 50 mg PO BID #60 tablet 06/26/18 Pantoprazole Sodium [Protonix -] 40 mg PO BID #60 tablet.ec 06/26/18 Phenylephrine 0.25%/Starch [Anusol Suppository -] 1 each [place] BID #20 supp.rect Ramipril [Altace] 2.5 mg PO DAILY #30 capsule 06/26/18 Sulfasalazine [Azulfidine En-Tabs -] 1,000 mg PO BID #120 tablet. 06/26/18 Sakina Barboza 50% ([place]) [Tucks Pads -] 1 pad TP TID pad 06/26/18 levoFLOXacin [Levaquin] 750 mg PO DAILY@0630 #3 tab 06/26/18 predniSONE [Deltasone -] 40 mg PO DAILY #60 tablet 06/26/18 Home Medications (free text): Pradaxa 150mg po BID. Pantoprazole 40mg po QD. Ramipril 5mg po QD. Prednisone 5mg po QD. Sulfasalazine 500mg 2 tabs po BID. Stiolto Respimat 2 puffs inh QD. Furosemide 40mg po QD. Vitamin D2 1250IU po weekly (last dose 08/20/18). Carvedilol 6.25mg po BID. Albuterol (2.5mg/0.5mg)/ 3ml inh Q6h prn. Confirmed by patient who brought in medications Family Disease History - Family Disease History Family Disease History: Heart Disease: Mother (CAD), CA: Father (Lung) Review of Systems - Review of Systems Constitutional: reports: No Symptoms Eyes: reports: No Symptoms HENT: reports: No Symptoms Neck: reports: No Symptoms Cardiovascular: reports: Chest Pain, Shortness of Breath Respiratory: reports: SOB Gastrointestinal: reports: No Symptoms Genitourinary: reports: No Symptoms Breasts: reports: No Symptoms Reported Musculoskeletal: reports: Joint Pain (left shoulder) Integumentary: reports: No Symptoms Neurological: reports: Dizziness Endocrine: reports: No Symptoms Hematology/Lymphatic: reports: No Symptoms Psychiatric: reports: No Symptoms Pain Intensity: 0 Physical Examination Vital Signs: Vital Signs Temperature 97.7 F 08/20/18 19:33 Pulse Rate 75 08/20/18 19:33 Respiratory Rate 18 08/20/18 19:33 Blood Pressure 88/66 L 08/20/18 21:02 O2 Sat by Pulse Oximetry (%) 100 08/20/18 19:33 Constitutional: Yes: No Distress, Calm Eyes: Yes: WNL, Conjunctiva Clear, EOM Intact, PERRL HENT: Yes: WNL, Atraumatic, Normocephalic Neck: Yes: WNL, Supple, Trachea Midline Cardiovascular: Yes: Pulse Irregular, S1, S2 Respiratory: Yes: Diminished (bases), SOB on Exertion Gastrointestinal: Yes: Normal Bowel Sounds, Soft ...Rectal Exam: Yes: Other (patient refused) Breast(s): Yes: WNL Musculoskeletal: Yes: WNL Extremities: Yes: WNL Edema: No Peripheral Pulses WNL: Yes Neurological: Yes: WNL, Alert, Oriented, Cran Nerves II-XII Intact ...Motor Strength: WNL Psychiatric: Yes: WNL, Alert, Oriented Labs: CBC, BMP 08/20/18 20:42 08/20/18 20:42 Laboratory Results - last 24 hr 08/20/18 08/20/18 08/20/18 20:42 20:42 20:42 WBC 4.2 RBC 2.64 L Hgb 9.7 L Hct 28.9 L MCV 109.2 H MCH 36.8 H MCHC 33.7 RDW 17.8 H Plt Count 122 L D MPV 7.5 Absolute Neuts (auto) 2.2 Neutrophils % 52.2 Lymphocytes % 36.5 Monocytes % 11.2 H Eosinophils % 0.0 Basophils % 0.1 Nucleated RBC % 0 Platelet Estimate Slt decrease Platelet Comment No clumping noted Macrocytosis 2+ PT with INR Cancelled INR Cancelled PTT (Actin FS) Sodium 142 Potassium 5.1 Chloride 104 Carbon Dioxide 30 Anion Gap 7 L BUN 22 H Creatinine 1.3 Est GFR (CKD-EPI)AfAm 61.43 Est GFR (CKD-EPI)NonAf 53.00 Random Glucose 112 H Calcium 8.7 Magnesium 2.2 Total Bilirubin 0.3 AST 15 ALT 18 Alkaline Phosphatase 51 Creatine Kinase 41 Troponin I < 0.02 Total Protein 5.9 L Albumin 3.4 TSH 1.17 D Urine Color Urine Appearance Urine pH Ur Specific Rule Urine Protein Urine Glucose (UA) Urine Ketones Urine Blood Urine Nitrite Urine Bilirubin Urine Urobilinogen Ur Leukocyte Esterase 08/20/18 08/21/18 08/21/18 21:16 00:01 01:17 WBC RBC Hgb Hct MCV MCH MCHC RDW Plt Count MPV Absolute Neuts (auto) Neutrophils % Lymphocytes % Monocytes % Eosinophils % Basophils % Nucleated RBC % Platelet Estimate Platelet Comment Macrocytosis PT with INR 16.10 H INR 1.36 H PTT (Actin FS) 44.3 H Sodium Potassium Chloride Carbon Dioxide Anion Gap BUN Creatinine Est GFR (CKD-EPI)AfAm Est GFR (CKD-EPI)NonAf Random Glucose Calcium Magnesium Total Bilirubin AST ALT Alkaline Phosphatase Creatine Kinase 54 Troponin I < 0.02 Total Protein Albumin TSH Urine Color Yellow Urine Appearance Clear Urine pH 5.5 Ur Specific Rule 1.011 Urine Protein Negative Urine Glucose (UA) Negative Urine Ketones Negative Urine Blood Negative Urine Nitrite Negative Urine Bilirubin Negative Urine Urobilinogen 0.2 Ur Leukocyte Esterase Negative Intake & Output 08/18/18 08/19/18 08/20/18 08/21/18 23:59 23:59 23:59 23:59 Weight 79.832 kg 79.832 kg Imaging - Results Chest X-ray: Pending EKG: Image Reviewed Problem List - Problems (1) Atrial fibrillation with RVR Assessment/Plan: Continue cardiac monitoring EKG- Afib with RVR Metoprolol IV given in ED Appreciate Cardiology consult [id number] Continue Pradaxa, Carvedilol with parameters Echo 01/15/18 mildly decreased LVEF, 45-50% EF, mild MR, TR, [place] Code(s): I48.91 - UNSPECIFIED ATRIAL FIBRILLATION (2) Near syncope Assessment/Plan: Likely secondary to Arrhythmia EKG- Afib with RVR Chest Xray-reviewed Given NS bolus n ED Neurochecks Continue cardiac monitoring Fall Precautions Monitor CBC, BMP Code(s): R55 - SYNCOPE AND COLLAPSE (3) Anemia Assessment/Plan: Stable Hgb 9.7 at baseline Will transfused Hgb < 7.0 Would benefit from rectal exam- stool occult, r/o GI bleed, patient adamantly declined Monitor vitals Code(s): D64.9 - ANEMIA, UNSPECIFIED (4) HTN (hypertension) Assessment/Plan: Will hold home meds secondary to hypotension Patient has been taking diuretic and BB likely causing postural hypotension Will defer to Cardiology Monitor BP Orthostatics Fall Precautions Code(s): I10 - ESSENTIAL (PRIMARY) HYPERTENSION (5) JADYN (acute kidney injury) Assessment/Plan: Likely secondary to Diuretics Cr 1.3 (baseline 0.5-0.9) Hold Lasix for now Monitor BMP Code(s): N17.9 - ACUTE KIDNEY FAILURE, UNSPECIFIED (6) COPD (chronic obstructive pulmonary disease) Assessment/Plan: Stable No acute flare Continue Duonebs prn Continue Stiolto Respimat Peak Flow Chest Xray image- coarse interstitial markings O2 Code(s): J44.9 - CHRONIC OBSTRUCTIVE PULMONARY DISEASE, UNSPECIFIED (7) CAD (coronary artery disease) Assessment/Plan: EKG- Afib with RVR Chest Xray image- interstitial markings Continue Pradaxa Will hold Ramipril for now secondary to hypotension Serial enzymes negx1, will trend Appreciate Cardiology consult Code(s): I25.10 - ATHSCL HEART DISEASE OF [place] CORONARY ARTERY W/O ANG PCTRS (8) Arthritis, rheumatoid Assessment/Plan: Stable Continue Sulfasalazine Code(s): M06.9 - RHEUMATOID ARTHRITIS, UNSPECIFIED Assessment/Plan This is a 78 y/o man with a PMHx of Afib (on Pradaxa Carvedilol), CAD, Angina, HTN, COPD (on O2, prn), RA. Admitted for Atrial Fibrillation with RVR, Near Syncope for further evaluation of their emergent medical condition. Plan: See problem List FEN PO fluids as tolerated Replete lytes prn Low Na Diet DVT ppx OOB SCDs Continue Pradaxa Dispo: Requires Inpatient Care Visit type - Emergency Visit Emergency Visit: Yes ED Registration Date: 08/20/18 Care time: The patient presented to the Emergency Department on the above date and was hospitalized for further evaluation of their emergent condition. - New Patient This patient is new to me today: Yes Date on this admission: 08/21/18 - Critical Care Critical Care patient: No
[2018-08-21 00:42] LABS: PH,URINE 5.5 (5.0-8.0); URINE APPEARANCE CLEAR; URINE BILIRUBIN NEGATIVE (NEGATIVE); URINE COLOR YELLOW; URINE GLUCOSE (UA) NEGATIVE (NEGATIVE); URINE KETONE NEGATIVE (NEGATIVE); URINE LEUK ESTERASE NEGATIVE (NEGATIVE); URINE NITRITE NEGATIVE (NEGATIVE); URINE PROTEIN NEGATIVE (NEGATIVE); URINE UROBILINOGEN 0.2 mg/dL (0.2-1.0)
[2018-08-21] MEDS: ALBUTEROL SO4 2.5/IPRATROPIUM 0.5 INH SOL 3 ML VIAL.NEB. NEB SCH ×4 (08:00→20:15)
[2018-08-21 08:01] LABS: BASO % 0.1 % (0-2.0); HEMATOCRIT 25.1 % (35.4-49); HEMOGLOBIN 8.5 GM/dL (11.7-16.9); LYMPH % 55.3 % (8-40); MEAN CELL VOLUME 108.8 fl (80-96); MEAN PLT VOLUME 7.2 fl (7.5-11.1); MONO % 11.8 % (3.8-10.2); NEUT % 32.8 % (42.8-82.8); PLATELET COUNT 102 K/MM3 (134-434); RBC 2.31 M/mm3 (4.00-5.60); RDW 17.5 % (11.9-15.9); WHITE BLOOD COUNT 3.8 K/mm3 (4.0-10.0)
[2018-08-21 08:48] LABS: ANION GAP 5 MMOL/L (8-16); BLOOD UREA NITROGEN 19 mg/dL (7-18); CALCIUM 8.4 mg/dL (8.5-10.1); CHLORIDE 107 mmol/L (98-107); CO2 30 mmol/L (21-32); GLUCOSE,RANDOM 73 mg/dL (74-106); MAGNESIUM 2.1 mg/dL (1.8-2.4); POTASSIUM 4.3 mmol/L (3.5-5.1); SODIUM 141 mmol/L (136-145)
--- NOTE | 2018-08-21 09:38 | CON.CARD ---
Consult Consult Specialty:: Cardiology Referred by:: Maye Rodriguez NP Reason for Consultation:: Rapid afib - History of Present Illness Chief Complaint: Near syncope History of Present Illness: This is a 78 y/o man with a PMHx of paroysmal Afib (on Pradaxa, Carvedilol), LV systolic dysfunction, non-obstructive CAD, Angina, HTN, COPD (on home O2, prn), rheumatoid arthritis, recent admission 06/14-06/26 for Sepsis, Pneumonia, Hematochezia, last seen in office 07/03/2018 presents to the ED from his PCPs office for lightheadedness x 2 weeks, atypical sharp left-sided chest pain and left shoulder pain lasting several minutes while at rest, last Friday- since resolved. Recent change Lopressor to Carvedilol, reports compliance. He denies chest pain, palpitations, near or true sncope, orthopnea, PND, hematochezia, melena, hematuria, dysuria. Patient reports having a Colonoscopy 3 yrs ago- Polyps ED course was noted for: (1) EKG- Afib with RVR given NS bolus for BP manangements, then Metoprolol IV x2 (2) Troponin I- neg x1 (3) Cr 1.3 History Source: Patient - History Source History Provided By: Patient Limitations to Obtaining History: No Limitations - Past Medical History Cardio/Vascular: Yes: AFIB, CAD, HTN Pulmonary: Yes: COPD Gastrointestinal: Yes: Hemorrhoids Rheumatology: Yes: Rheumatoid Arthritis - Past Surgical History Past Surgical History: Yes: Colonoscopy - Alcohol/Substance Use Hx Alcohol Use: No Number of Drinks Daily: 2 History of Substance Use: reports: Cocaine (in his 20's), Marijuana (in his 20's ) - Smoking History Smoking history: Former smoker Have you smoked in the past 12 months: Yes Aproximately how many cigarettes per day: 3 If you are a former smoker, when did you quit?: june 2018 - Social History Usual Living Arrangement: With Spouse ADL: Family Assistance History of Recent Travel: No Home Medications - Allergies Allergies/Adverse Reactions: Allergies Allergy/AdvReac Type Severity Reaction Status Date / Time No Known Allergies Allergy Verified 08/20/18 19:35 - Home Medications Home Medications: Ambulatory Orders Dabigatran Etexilate Mesylate [Pradaxa -] 150 mg PO BID #0 cap 02/14/13 Sulfasalazine 1,000 mg PO BID 06/15/18 Acetaminophen [Tylenol .Regular Strength -] 650 mg PO Q6H PRN tablet 06/26/18 Albuterol 2.5/Ipratropium 0.5 [Duoneb -] 1 amp NEB RQ4H #120 amp 06/26/18 Diltiazem Cd [Cardizem Cd -] 120 mg PO DAILY #30 cap.cd.24h 06/26/18 Metoprolol Tartrate [Lopressor -] 50 mg PO BID #60 tablet 06/26/18 Pantoprazole Sodium [Protonix -] 40 mg PO BID #60 tablet.ec 06/26/18 Phenylephrine 0.25%/Starch [Anusol Suppository -] 1 each [place] BID #20 supp.rect Ramipril [Altace] 2.5 mg PO DAILY #30 capsule 06/26/18 Sulfasalazine [Azulfidine En-Tabs -] 1,000 mg PO BID #120 tablet. 06/26/18 Sakina Barboza 50% ([place]) [Tucks Pads -] 1 pad TP TID pad 06/26/18 levoFLOXacin [Levaquin] 750 mg PO DAILY@0630 #3 tab 06/26/18 predniSONE [Deltasone -] 40 mg PO DAILY #60 tablet 06/26/18 Family Disease History - Family Disease History Family Disease History: Heart Disease: Mother (CAD), CA: Father (Lung) Review of Systems - Review of Systems Cardiovascular: reports: Chest Pain Neurological: reports: Dizziness Vital Signs: Vital Signs Temperature 97.8 F 08/21/18 06:00 Pulse Rate 80 08/21/18 06:00 Respiratory Rate 20 08/21/18 06:00 Blood Pressure 102/64 08/21/18 06:00 O2 Sat by Pulse Oximetry (%) 100 08/21/18 03:43 Constitutional: Yes: No Distress, Calm Neck: Yes: Supple Respiratory: Yes: Regular, CTA Bilaterally Gastrointestinal: Yes: Normal Bowel Sounds, Soft Cardiovascular: Yes: Tachycardia, Pulse Irregular JVD: No Carotid Bruit: No Heart Sounds: Yes: S1, S2 Edema: No - Other Data Labs, Other Data: CBC, BMP 08/21/18 05:56 08/21/18 05:56 INR, PTT INR 1.36 (0.83-1.09) H 08/20/18 21:16 Troponin, BNP 08/20/18 08/21/18 08/21/18 20:42 01:17 05:56 Troponin I < 0.02 < 0.02 < 0.02 Troponin, BNP 08/20/18 08/21/18 08/21/18 20:42 01:17 05:56 Troponin I < 0.02 < 0.02 < 0.02 Rapid afib @ 133, compared to previous 07/10/2018, now back in rapid afib Ejection Fraction %: LVEF > or = 40 % Imaging - Results Chest X-ray: Report Reviewed (Improvement, RUL changes) Problem List - Problems (1) Arthritis, rheumatoid Code(s): M06.9 - RHEUMATOID ARTHRITIS, UNSPECIFIED Qualifiers: Rheumatoid arthritis location: unspecified site (2) Atrial fibrillation with RVR Code(s): I48.91 - UNSPECIFIED ATRIAL FIBRILLATION (3) CAD (coronary artery disease) Code(s): I25.10 - ATHSCL HEART DISEASE OF [place] CORONARY ARTERY W/O ANG PCTRS Qualifiers: Coronary Disease-Associated Artery/Lesion type: [place] artery [place] vs. transplanted heart: [place] heart Associated angina: without angina Qualified Code(s): I25.10 - Atherosclerotic heart disease of [place] coronary artery without angina pectoris (4) COPD (chronic obstructive pulmonary disease) Code(s): J44.9 - CHRONIC OBSTRUCTIVE PULMONARY DISEASE, UNSPECIFIED Qualifiers: COPD type: unspecified COPD Qualified Code(s): J44.9 - Chronic obstructive pulmonary disease, unspecified (5) HTN (hypertension) Code(s): I10 - ESSENTIAL (PRIMARY) HYPERTENSION Qualifiers: Hypertension type: essential hypertension Qualified Code(s): I10 - Essential (primary) hypertension (6) Near syncope Code(s): R55 - SYNCOPE AND COLLAPSE Assessment/Plan 01/15/2018 Mildly decreased LVEF 45-50%, mild MR, TR, [place] 1. Near syncope and atypical chest pain referable to 2. Paroxysmal AF with RVR on DOAC (Pradaxa) 3. Non-obstructive CAD 4. LV systolic dysfunction 5. COPD 6. Rheumatoid arthritis 7. Hematochezia most likely secondary to large internal hemorrhoid, anemia post transfusion, thrombocytopenia 8. Recent community acquired pneumonia, acute bronchitis and E. Coli sepsis PLAN: 1. Ruled out for [place] 2. Change carvedilol 6.25 bid to Lopressor 25 bid, IV Cardizem as needed for rate-control, Pradaxa 150 mg BID, ramipril 5 qd 3. BD, oral steroid taper with GI protection, O2 as needed, sulfasalazine 1000 bid 4. Thank you for counsultative opportunity, outpatient f/u in office [phone]
[2018-08-21] MEDS: predniSONE 5 MG TABLET (UD) PO SCH (09:59)
[2018-08-21] MEDS: PANTOPRAZOLE 40 MG TABLET (FP) PO SCH (09:59)
[2018-08-21] MEDS: DABIGATRAN ETEXILATE MESYLATE 150 MG CAPSULE PO SCH ×2 (09:59→21:57)
[2018-08-21] MEDS ORDERED: dilTIAZem HCL 50 MG/10 ML - 10 ML VIAL IVPUSH PRN (11:07)
[2018-08-21] MEDS: METOPROLOL TARTRATE 25 MG TABLET (FP) PO SCH ×2 (11:27→21:57)
--- NOTE | 2018-08-21 15:08 | EKG ---
Test Reason : Blood Pressure : / mmHG Vent. Rate : 120 BPM Atrial Rate : 375 BPM P-R Int : 000 ms QRS Dur : 080 ms QT Int : 350 ms P-R-T Axes : 000 068 067 degrees QTc Int : 494 ms ATRIAL FIBRILLATION WITH RAPID VENTRICULAR RESPONSE ABNORMAL ECG WHEN COMPARED WITH ECG OF 20-AUG-2018 19:32, NO SIGNIFICANT CHANGE WAS FOUND Confirmed by LIZ BONILLA MD ([id number]) on 08/21/2018 3:08:14 PM Referred By: Confirmed By:LIZ BONILLA MD
--- NOTE | 2018-08-21 15:18 | EKG ---
Test Reason : Blood Pressure : / mmHG Vent. Rate : 133 BPM Atrial Rate : 300 BPM P-R Int : 000 ms QRS Dur : 080 ms QT Int : 280 ms P-R-T Axes : 000 063 071 degrees QTc Int : 416 ms POOR DATA QUALITY, INTERPRETATION MAY BE ADVERSELY AFFECTED ATRIAL FIBRILLATION WITH RAPID VENTRICULAR RESPONSE ABNORMAL ECG Confirmed by LIZ BONILLA MD ([id number]) on 08/21/2018 3:17:38 PM Referred By: Confirmed By:LIZ BONILLA MD
--- NOTE | 2018-08-21 15:37 | PN ---
Progress Note, Physician Chief Complaint: patient seen and examined HR in low 100 to 130 seen by cardiology patient complained of feeling lightheaded dizzy earlier in day - Current Medication List Current Medications: Active Medications Albuterol/Ipratropium (Duoneb -) 1 amp NEB RQID [facility] Last Admin: 08/21/18 12:00 Dose: 1 amp Dabigatran (Pradaxa -) 150 mg PO BID [facility] Last Admin: 08/21/18 09:59 Dose: 150 mg Diltiazem HCl (Cardizem Injection -) 10 mg IVPUSH Q4H PRN PRN Reason: TACHYCARDIA Metoprolol Tartrate (Lopressor -) 25 mg PO BID [facility] Last Admin: 08/21/18 11:27 Dose: 25 mg Pantoprazole Sodium (Protonix -) 40 mg PO DAILY [facility] Last Admin: 08/21/18 09:59 Dose: 40 mg Prednisone (Deltasone -) 5 mg PO DAILY [facility] Last Admin: 08/21/18 09:59 Dose: 5 mg Sulfasalazine (Azulfidine En-Tabs -) 1,000 mg PO BID [facility] Last Admin: 08/21/18 10:59 Dose: 1,000 mg - Objective Vital Signs: Vital Signs Temperature 97.8 F 08/21/18 06:00 Pulse Rate 80 08/21/18 06:00 Respiratory Rate 20 08/21/18 06:00 Blood Pressure 102/64 08/21/18 06:00 O2 Sat by Pulse Oximetry (%) 100 08/21/18 03:43 Constitutional: Yes: Calm Cardiovascular: Yes: Pulse Irregular, S1, S2 Respiratory: Yes: Diminished Gastrointestinal: Yes: Normal Bowel Sounds, Soft Edema: No Labs: CBC, BMP 08/21/18 05:56 08/21/18 05:56 INR, PTT INR 1.36 (0.83-1.09) H 08/20/18 21:16 Problem List - Problems (1) Atrial fibrillation with RVR Assessment/Plan: seen by cardiology started on metoprolol iv cardizem prn pradaxa will monitor over night Code(s): I48.91 - UNSPECIFIED ATRIAL FIBRILLATION (2) JADYN (acute kidney injury) Assessment/Plan: iv fluids creatinine is improving Code(s): N17.9 - ACUTE KIDNEY FAILURE, UNSPECIFIED (3) Arthritis, rheumatoid Assessment/Plan: sulfasalazine and prednisone Code(s): M06.9 - RHEUMATOID ARTHRITIS, UNSPECIFIED Qualifiers: Rheumatoid arthritis location: unspecified site
[2018-08-22] MEDS: ALBUTEROL SO4 2.5/IPRATROPIUM 0.5 INH SOL 3 ML VIAL.NEB. NEB SCH ×4 (07:25→19:59)
[2018-08-22 07:36] LABS: BASO % 0.1 % (0-2.0); HEMOGLOBIN 9.2 GM/dL (11.7-16.9); LYMPH % 46.8 % (8-40); MCH 37.3 pg (25.7-33.7); MCHC 34.2 g/dl (32.0-35.9); MEAN PLT VOLUME 7.6 fl (7.5-11.1); MONO % 12.5 % (3.8-10.2); NEUT % 40.6 % (42.8-82.8); PLATELET COUNT 117 K/MM3 (134-434); RBC 2.47 M/mm3 (4.00-5.60); RDW 17.4 % (11.9-15.9); WHITE BLOOD COUNT 5.6 K/mm3 (4.0-10.0)
[2018-08-22 08:21] LABS: BILIRUBIN,TOTAL 0.5 mg/dL (0.2-1); CALCIUM 8.9 mg/dL (8.5-10.1); POTASSIUM 4.7 mmol/L (3.5-5.1); TOT PROT 5.2 g/dl (6.4-8.2)
[2018-08-22] MEDS ORDERED: PT OWN MED DRAWER 7, Y5N ONE (09:07)
[2018-08-22] MEDS: predniSONE 5 MG TABLET (UD) PO SCH (09:30)
[2018-08-22] MEDS: DABIGATRAN ETEXILATE MESYLATE 150 MG CAPSULE PO SCH ×2 (09:30→21:46)
[2018-08-22] MEDS: PANTOPRAZOLE 40 MG TABLET (FP) PO SCH (09:30)
[2018-08-22] MEDS: METOPROLOL TARTRATE 25 MG TABLET (FP) PO SCH ×2 (09:30→21:47)
--- NOTE | 2018-08-22 11:40 | PN ---
Progress Note, Physician Chief Complaint: AWAKE ALERT FEELING BETTER STILL DIZZY WITH + ORTHOSTATICS - Current Medication List Current Medications: Active Medications Albuterol/Ipratropium (Duoneb -) 1 amp NEB RQID [facility] Last Admin: 08/22/18 07:25 Dose: 1 amp Dabigatran (Pradaxa -) 150 mg PO BID [facility] Last Admin: 08/22/18 09:30 Dose: 150 mg Diltiazem HCl (Cardizem Injection -) 10 mg IVPUSH Q4H PRN PRN Reason: TACHYCARDIA Last Admin: 08/21/18 16:50 Dose: 10 mg Metoprolol Tartrate (Lopressor -) 25 mg PO BID [facility] Last Admin: 08/22/18 09:30 Dose: 25 mg Pantoprazole Sodium (Protonix -) 40 mg PO DAILY [facility] Last Admin: 08/22/18 09:30 Dose: 40 mg Prednisone (Deltasone -) 5 mg PO DAILY [facility] Last Admin: 08/22/18 09:30 Dose: 5 mg Sulfasalazine (Azulfidine En-Tabs -) 1,000 mg PO BID [facility] Last Admin: 08/22/18 09:30 Dose: 1,000 mg - Objective Vital Signs: Vital Signs Temperature 98.1 F 08/22/18 08:00 Pulse Rate 128 H 08/22/18 10:00 Respiratory Rate 20 08/22/18 09:00 Blood Pressure 125/68 08/22/18 10:00 O2 Sat by Pulse Oximetry (%) 97 08/22/18 09:00 Constitutional: Yes: Mild Distress Eyes: Yes: WNL HENT: Yes: WNL Neck: Yes: WNL Cardiovascular: Yes: Pulse Irregular Respiratory: Yes: Diminished, On Nasal O2 Gastrointestinal: Yes: WNL Genitourinary: Yes: WNL Musculoskeletal: Yes: WNL Extremities: Yes: WNL Edema: No Peripheral Pulses WNL: Yes Integumentary: Yes: WNL Wound/Incision: Yes: Clean/Dry Neurological: Yes: WNL ...Motor Strength: WNL Psychiatric: Yes: WNL Labs: CBC, BMP 08/22/18 05:35 08/22/18 05:35 INR, PTT INR 1.36 (0.83-1.09) H 08/20/18 21:16 Problem List - Problems (1) Orthostatic hypotension Code(s): I95.1 - ORTHOSTATIC HYPOTENSION (2) Arthritis, rheumatoid Code(s): M06.9 - RHEUMATOID ARTHRITIS, UNSPECIFIED Qualifiers: Rheumatoid arthritis location: unspecified site (3) Atrial fibrillation Code(s): I48.91 - UNSPECIFIED ATRIAL FIBRILLATION Qualifiers: (4) COPD (chronic obstructive pulmonary disease) Code(s): J44.9 - CHRONIC OBSTRUCTIVE PULMONARY DISEASE, UNSPECIFIED Qualifiers: COPD type: unspecified COPD Qualified Code(s): J44.9 - Chronic obstructive pulmonary disease, unspecified (5) HTN (hypertension) Code(s): I10 - ESSENTIAL (PRIMARY) HYPERTENSION Qualifiers: Hypertension type: essential hypertension Qualified Code(s): I10 - Essential (primary) hypertension (6) Near syncope Code(s): R55 - SYNCOPE AND COLLAPSE Assessment/Plan CARDIO F/U ON TELE STOPPED COREG AND RAMIPRIL STARTED METOPTOLOL MONITOR ON BP MEDS IVF GENTLE DRIP PT EVAL
--- NOTE | 2018-08-22 17:00 | PN ---
Progress Note, Physician History of Present Illness: Orthostasis noted, remains in rapid afib, mild ADAME at baseline, denies chest pain, palpitations. - Current Medication List Current Medications: Active Medications Albuterol/Ipratropium (Duoneb -) 1 amp NEB RQID [facility] Last Admin: 08/22/18 16:03 Dose: 1 amp Dabigatran (Pradaxa -) 150 mg PO BID [facility] Last Admin: 08/22/18 09:30 Dose: 150 mg Diltiazem HCl (Cardizem Injection -) 10 mg IVPUSH Q4H PRN PRN Reason: TACHYCARDIA Last Admin: 08/21/18 16:50 Dose: 10 mg Metoprolol Tartrate (Lopressor -) 25 mg PO BID [facility] Last Admin: 08/22/18 09:30 Dose: 25 mg Pantoprazole Sodium (Protonix -) 40 mg PO DAILY [facility] Last Admin: 08/22/18 09:30 Dose: 40 mg Prednisone (Deltasone -) 5 mg PO DAILY [facility] Last Admin: 08/22/18 09:30 Dose: 5 mg Sulfasalazine (Azulfidine En-Tabs -) 1,000 mg PO BID [facility] Last Admin: 08/22/18 09:30 Dose: 1,000 mg - Objective Vital Signs: Vital Signs Temperature 98.1 F 08/22/18 08:00 Pulse Rate 128 H 08/22/18 10:00 Respiratory Rate 20 08/22/18 09:00 Blood Pressure 125/68 08/22/18 10:00 O2 Sat by Pulse Oximetry (%) 97 08/22/18 09:00 Constitutional: Yes: No Distress, Calm, Thin Neck: Yes: Supple Cardiovascular: Yes: Tachycardia, Pulse Irregular Respiratory: Yes: Regular, Diminished, On Nasal O2 Gastrointestinal: Yes: Normal Bowel Sounds, Soft Edema: No Labs: CBC, BMP 08/22/18 05:35 08/22/18 05:35 INR, PTT INR 1.36 (0.83-1.09) H 08/20/18 21:16 - ....Imaging EKG: Report Reviewed (Tele: Rapid afib) Problem List - Problems (1) Arthritis, rheumatoid Code(s): M06.9 - RHEUMATOID ARTHRITIS, UNSPECIFIED Qualifiers: Rheumatoid arthritis location: unspecified site (2) Atrial fibrillation with RVR Code(s): I48.91 - UNSPECIFIED ATRIAL FIBRILLATION (3) CAD (coronary artery disease) Code(s): I25.10 - ATHSCL HEART DISEASE OF [place] CORONARY ARTERY W/O ANG PCTRS Qualifiers: Coronary Disease-Associated Artery/Lesion type: [place] artery [place] vs. transplanted heart: [place] heart Associated angina: without angina Qualified Code(s): I25.10 - Atherosclerotic heart disease of [place] coronary artery without angina pectoris (4) COPD (chronic obstructive pulmonary disease) Code(s): J44.9 - CHRONIC OBSTRUCTIVE PULMONARY DISEASE, UNSPECIFIED Qualifiers: COPD type: unspecified COPD Qualified Code(s): J44.9 - Chronic obstructive pulmonary disease, unspecified (5) HTN (hypertension) Code(s): I10 - ESSENTIAL (PRIMARY) HYPERTENSION Qualifiers: Hypertension type: essential hypertension Qualified Code(s): I10 - Essential (primary) hypertension (6) Near syncope Code(s): R55 - SYNCOPE AND COLLAPSE Assessment/Plan 01/15/2018 Mildly decreased LVEF 45-50%, mild MR, TR, NM 1. Near syncope and atypical chest pain referable to 2. Paroxysmal AF with RVR on DOAC (Pradaxa) 3. Non-obstructive CAD 4. LV systolic dysfunction 5. COPD 6. Rheumatoid arthritis 7. Hematochezia most likely secondary to large internal hemorrhoid, anemia post transfusion, thrombocytopenia 8. Recent community acquired pneumonia, acute bronchitis and E. Coli sepsis 9. Orthostasis PLAN: 1. Ruled out for [place] 2. Increase Lopressor 50 bid, resume Cardizem CD 120 qd (previous d/c doses), IV Cardizem as needed for rate-control, Pradaxa 150 mg BID, d/c ramipril 5 qd for now 3. BD, oral steroid taper with GI protection, O2 as needed, sulfasalazine 1000 bid 4. Outpatient f/u in office
[2018-08-23] MEDS: ALBUTEROL SO4 2.5/IPRATROPIUM 0.5 INH SOL 3 ML VIAL.NEB. NEB SCH ×4 (08:56→20:25)
[2018-08-23] MEDS: METOPROLOL TARTRATE 25 MG TABLET (FP) PO SCH ×2 (10:25→22:03)
[2018-08-23] MEDS: DABIGATRAN ETEXILATE MESYLATE 150 MG CAPSULE PO SCH ×2 (10:25→22:03)
[2018-08-23] MEDS: PANTOPRAZOLE 40 MG TABLET (FP) PO SCH (10:25)
[2018-08-23] MEDS: predniSONE 5 MG TABLET (UD) PO SCH (10:25)
--- NOTE | 2018-08-23 10:43 | PN ---
Progress Note, Physician History of Present Illness: Orthostasis noted, remains in rapid afib, mild ADAME at baseline, denies chest pain, palpitations. - Current Medication List Current Medications: Active Medications Albuterol/Ipratropium (Duoneb -) 1 amp NEB RQID [facility] Last Admin: 08/23/18 08:56 Dose: 1 amp Dabigatran (Pradaxa -) 150 mg PO BID [facility] Last Admin: 08/23/18 10:25 Dose: 150 mg Diltiazem HCl (Cardizem Injection -) 10 mg IVPUSH Q4H PRN PRN Reason: TACHYCARDIA Last Admin: 08/21/18 16:50 Dose: 10 mg Diltiazem HCl (Cardizem Cd -) 120 mg PO DAILY [facility] Last Admin: 08/23/18 10:25 Dose: 120 mg Metoprolol Tartrate (Lopressor -) 50 mg PO BID [facility] Last Admin: 08/23/18 10:25 Dose: 50 mg Pantoprazole Sodium (Protonix -) 40 mg PO DAILY [facility] Last Admin: 08/23/18 10:25 Dose: 40 mg Prednisone (Deltasone -) 5 mg PO DAILY [facility] Last Admin: 08/23/18 10:25 Dose: 5 mg Sulfasalazine (Azulfidine En-Tabs -) 1,000 mg PO BID [facility] Last Admin: 08/23/18 10:25 Dose: 1,000 mg - Objective Vital Signs: Vital Signs Temperature 98 F 08/23/18 05:15 Pulse Rate 98 H 08/23/18 05:15 Respiratory Rate 20 08/23/18 09:00 Blood Pressure 83/49 L 08/23/18 05:15 O2 Sat by Pulse Oximetry (%) 95 08/23/18 09:00 Constitutional: Yes: No Distress, Calm, Thin Neck: Yes: Supple Cardiovascular: Yes: Pulse Irregular Respiratory: Yes: Regular, CTA Bilaterally Gastrointestinal: Yes: Normal Bowel Sounds, Soft Edema: No Labs: CBC, BMP 08/22/18 05:35 08/22/18 05:35 INR, PTT INR 1.36 (0.83-1.09) H 08/20/18 21:16 - ....Imaging EKG: Report Reviewed (Tele: Improved rate-controlled afib) Problem List - Problems (1) Arthritis, rheumatoid Code(s): M06.9 - RHEUMATOID ARTHRITIS, UNSPECIFIED Qualifiers: Rheumatoid arthritis location: unspecified site (2) Atrial fibrillation with RVR Code(s): I48.91 - UNSPECIFIED ATRIAL FIBRILLATION (3) CAD (coronary artery disease) Code(s): I25.10 - ATHSCL HEART DISEASE OF [place] CORONARY ARTERY W/O ANG PCTRS Qualifiers: Coronary Disease-Associated Artery/Lesion type: [place] artery [place] vs. transplanted heart: [place] heart Associated angina: without angina Qualified Code(s): I25.10 - Atherosclerotic heart disease of [place] coronary artery without angina pectoris (4) COPD (chronic obstructive pulmonary disease) Code(s): J44.9 - CHRONIC OBSTRUCTIVE PULMONARY DISEASE, UNSPECIFIED Qualifiers: COPD type: unspecified COPD Qualified Code(s): J44.9 - Chronic obstructive pulmonary disease, unspecified (5) HTN (hypertension) Code(s): I10 - ESSENTIAL (PRIMARY) HYPERTENSION Qualifiers: Hypertension type: essential hypertension Qualified Code(s): I10 - Essential (primary) hypertension (6) Near syncope Code(s): R55 - SYNCOPE AND COLLAPSE Assessment/Plan 01/15/2018 Mildly decreased LVEF 45-50%, mild MR, TR, ID 1. Near syncope and atypical chest pain referable to 2. Persistent AF with improved rate-control on DOAC (Pradaxa) 3. Non-obstructive CAD 4. LV systolic dysfunction 5. COPD 6. Rheumatoid arthritis 7. Hematochezia most likely secondary to large internal hemorrhoid, anemia post transfusion, thrombocytopenia 8. Recent community acquired pneumonia, acute bronchitis and E. Coli sepsis 9. Orthostasis improved PLAN: 1. Increased Lopressor 50 bid, Cardizem CD 120 qd (previous d/c doses), IV Cardizem as needed for rate-control, Pradaxa 150 mg BID, d/c ramipril 5 qd for now 2. BD, oral steroid taper with GI protection, O2 as needed, sulfasalazine 1000 bid 3. Ambulate to assess rate-response, anticipate d/c home with outpatient f/u in office
[2018-08-23] MEDS ORDERED: PT OWN MED DRAWER 7, Y5N ONE ×2 (11:14→22:01)
--- NOTE | 2018-08-23 13:02 | DS ---
Physical Examination Vital Signs: Vital Signs Temperature 98 F 08/23/18 05:15 Pulse Rate 98 H 08/23/18 05:15 Respiratory Rate 20 08/23/18 09:00 Blood Pressure 83/49 L 08/23/18 05:15 O2 Sat by Pulse Oximetry (%) 95 08/23/18 09:00 Findings/Remarks: WANTS TO GO HOME Constitutional: Yes: No Distress Eyes: Yes: WNL HENT: Yes: WNL, Tonsillar Exudate Cardiovascular: Yes: Pulse Irregular Respiratory: Yes: WNL Gastrointestinal: Yes: WNL Renal/: Yes: WNL Musculoskeletal: Yes: Back Pain Extremities: Yes: WNL Edema: No Peripheral Pulses WNL: Yes Integumentary: Yes: WNL Wound/Incision: Yes: Clean/Dry Neurological: Yes: WNL ...Motor Strength: WNL Psychiatric: Yes: WNL Labs: CBC, BMP 08/22/18 05:35 08/22/18 05:35 Discharge Summary Reason For Visit: ATRIAL FIBRILLATION Current Active Problems JADYN (acute kidney injury) (Acute) Arthritis, rheumatoid (Acute) Atrial fibrillation (Acute) Atrial fibrillation with RVR (Acute) CAD (coronary artery disease) (Acute) COPD (chronic obstructive pulmonary disease) (Acute) HTN (hypertension) (Acute) Near syncope (Acute) Orthostatic hypotension (Acute) Procedures: Principal: XRAYS Hospital Course: ADMITTED ORTHOSTATIC HYPOTENSION WITH NEAR SYNCOPE, CARDIAC WORKUP AND MEDS CHANGES. WILL NEED ROUTING MEDICAL FOLLOW UPS. Condition: Good - Instructions Diet, Activity, Other Instructions: SEE DR VALENCIA IN 3 DAYS CARDIO F/U OUTPATIENT Referrals: Julia Valencia MD [Primary Care Provider] - Disposition: HOME - Home Medications Comprehensive Discharge Medication List: Ambulatory Orders Dabigatran Etexilate Mesylate [Pradaxa -] 150 mg PO BID #0 cap 02/14/13 Sulfasalazine 1,000 mg PO BID 06/15/18 Acetaminophen [Tylenol .Regular Strength -] 650 mg PO Q6H PRN tablet 06/26/18 Albuterol 2.5/Ipratropium 0.5 [Duoneb -] 1 amp NEB RQ4H #120 amp 06/26/18 Diltiazem Cd [Cardizem Cd -] 120 mg PO DAILY #30 cap.cd.24h 06/26/18 Metoprolol Tartrate [Lopressor -] 50 mg PO BID #60 tablet 06/26/18 Pantoprazole Sodium [Protonix -] 40 mg PO BID #60 tablet.ec 06/26/18 Phenylephrine 0.25%/Starch [Anusol Suppository -] 1 each [place] BID #20 supp.rect Ramipril [Altace] 2.5 mg PO DAILY #30 capsule 06/26/18 Sulfasalazine [Azulfidine En-Tabs -] 1,000 mg PO BID #120 tablet. 06/26/18 Sakina Barboza 50% ([place]) [[place] Pads -] 1 pad TP TID pad 06/26/18 levoFLOXacin [Levaquin] 750 mg PO DAILY@0630 #3 tab 06/26/18 predniSONE [Deltasone -] 40 mg PO DAILY #60 tablet 06/26/18
[2018-08-23] MEDS: LIDOCAINE 5% TOPICAL PATCH TP SCH (13:34)
[2018-08-23] MEDS ORDERED: MAG HYDROX/AL HYDROX/SIMETH 30 ML UNIT-DOSE CUP PO ONE (18:21)
[2018-08-23] MEDS ORDERED: LIDOCAINE PATCH REMOVAL MC SCH (22:00)
[2018-08-24] MEDS: ALBUTEROL SO4 2.5/IPRATROPIUM 0.5 INH SOL 3 ML VIAL.NEB. NEB SCH ×2 (07:20→11:17)
[2018-08-24 09:42] VITALS: BP 94/68; PULSE 68; TEMP 98.2
--- NOTE | 2018-08-24 10:25 | PN ---
Progress Note, Physician History of Present Illness: Spontaneously converted to NSR, mild ADAME at baseline, denies chest pain, palpitations. - Current Medication List Current Medications: Active Medications Albuterol/Ipratropium (Duoneb -) 1 amp NEB RQID [facility] Last Admin: 08/24/18 07:20 Dose: 1 amp Dabigatran (Pradaxa -) 150 mg PO BID [facility] Last Admin: 08/23/18 22:03 Dose: 150 mg Diltiazem HCl (Cardizem Injection -) 10 mg IVPUSH Q4H PRN PRN Reason: TACHYCARDIA Last Admin: 08/21/18 16:50 Dose: 10 mg Diltiazem HCl (Cardizem Cd -) 120 mg PO DAILY [facility] Last Admin: 08/23/18 10:25 Dose: 120 mg Lidocaine (Lidoderm Patch -) 1 patch TP DAILY [facility] Last Admin: 08/23/18 13:34 Dose: 1 patch Metoprolol Tartrate (Lopressor -) 50 mg PO BID [facility] Last Admin: 08/23/18 22:03 Dose: 50 mg Miscellaneous (Lidoderm Patch Removal) 1 each MC DAILY@2200 [facility] Last Admin: 08/23/18 22:03 Dose: Not Given Pantoprazole Sodium (Protonix -) 40 mg PO DAILY [facility] Last Admin: 08/23/18 10:25 Dose: 40 mg Prednisone (Deltasone -) 5 mg PO DAILY [facility] Last Admin: 08/23/18 10:25 Dose: 5 mg Sulfasalazine (Azulfidine En-Tabs -) 1,000 mg PO BID [facility] Last Admin: 08/23/18 22:04 Dose: Not Given - Objective Vital Signs: Vital Signs Temperature 98.2 F 08/24/18 09:00 Pulse Rate 68 08/24/18 09:00 Respiratory Rate 18 08/24/18 09:00 Blood Pressure 94/68 08/24/18 09:00 O2 Sat by Pulse Oximetry (%) 95 08/23/18 20:43 Constitutional: Yes: No Distress, Calm Neck: Yes: Supple Cardiovascular: Yes: Regular Rate and Rhythm Respiratory: Yes: Regular, CTA Bilaterally Gastrointestinal: Yes: Normal Bowel Sounds, Soft Edema: No Labs: CBC, BMP 08/22/18 05:35 08/22/18 05:35 INR, PTT INR 1.36 (0.83-1.09) H 05/30/19 21:16 - ....Imaging EKG: Report Reviewed (Tele: NSR) Problem List - Problems (1) Arthritis, rheumatoid Code(s): M06.9 - RHEUMATOID ARTHRITIS, UNSPECIFIED Qualifiers: Rheumatoid arthritis location: unspecified site (2) Atrial fibrillation with RVR Code(s): I48.91 - UNSPECIFIED ATRIAL FIBRILLATION (3) CAD (coronary artery disease) Code(s): I25.10 - ATHSCL HEART DISEASE OF [place] CORONARY ARTERY W/O ANG PCTRS Qualifiers: Coronary Disease-Associated Artery/Lesion type: [place] artery [place] vs. transplanted heart: [place] heart Associated angina: without angina Qualified Code(s): I25.10 - Atherosclerotic heart disease of [place] coronary artery without angina pectoris (4) COPD (chronic obstructive pulmonary disease) Code(s): J44.9 - CHRONIC OBSTRUCTIVE PULMONARY DISEASE, UNSPECIFIED Qualifiers: COPD type: unspecified COPD Qualified Code(s): J44.9 - Chronic obstructive pulmonary disease, unspecified (5) HTN (hypertension) Code(s): I10 - ESSENTIAL (PRIMARY) HYPERTENSION Qualifiers: Hypertension type: essential hypertension Qualified Code(s): I10 - Essential (primary) hypertension (6) Near syncope Code(s): R55 - SYNCOPE AND COLLAPSE Assessment/Plan 01/15/2018 Mildly decreased LVEF 45-50%, mild MR, TR, MD 1. Near syncope and atypical chest pain referable to 2. Paroxysmal AF with RVR -> SR on DOAC (Pradaxa) 3. Non-obstructive CAD 4. LV systolic dysfunction 5. COPD 6. Rheumatoid arthritis 7. Hematochezia most likely secondary to large internal hemorrhoid, anemia post transfusion, thrombocytopenia 8. Recent community acquired pneumonia, acute bronchitis and E. Coli sepsis 9. Orthostasis improved PLAN: 1. Continue Lopressor 50 bid, Cardizem CD 120 qd (previous d/c doses), IV Cardizem as needed for rate-control, Pradaxa 150 mg BID, hold ramipril 5 qd for now, may rechallenge as outpatient at lower dose as hemodynamics tolerate 2. BD, oral steroid taper with GI protection, O2 as needed, sulfasalazine 1000 bid 3. Ambulate to assess rate-response, anticipate d/c home with outpatient f/u with Dr. Gregory in office
[2018-08-24] MEDS ORDERED: PT OWN MED DRAWER 7, Y5N ONE (10:52)
[2018-08-24] MEDS: LIDOCAINE 5% TOPICAL PATCH TP SCH (10:54)
[2018-08-24] MEDS: PANTOPRAZOLE 40 MG TABLET (FP) PO SCH (10:55)
[2018-08-24] MEDS: DABIGATRAN ETEXILATE MESYLATE 150 MG CAPSULE PO SCH (10:55)
[2018-08-24] MEDS: METOPROLOL TARTRATE 25 MG TABLET (FP) PO SCH (10:55)
[2018-08-24] MEDS: predniSONE 5 MG TABLET (UD) PO SCH (10:55)
== END 2018-08-24 14:17 | disposition home or self-care (01) | DRG 312 ==
LOC: JER 19:21 → JERBED 08-21 00:04 → OBSVTOIN 08-21 00:04 → J4W 08-21 03:26
PROVIDERS: ADMIT Family Medicine; ATTEND Family Medicine
DX: I95.1 Orthostatic hypotension (principal); I48.1 Persistent atrial fibrillation; N17.9 Acute kidney failure, unspecified; I48.0 Paroxysmal atrial fibrillation; I25.10 Atherosclerotic heart disease of native coronary artery without angina pectoris; I10 Essential (primary) hypertension; J44.9 Chronic obstructive pulmonary disease, unspecified; Z79.01 Long term (current) use of anticoagulants; Z99.81 Dependence on supplemental oxygen; M06.9 Rheumatoid arthritis, unspecified; Z87.891 Personal history of nicotine dependence; K21.9 Gastro-esophageal reflux disease without esophagitis; E87.5 Hyperkalemia; D64.9 Anemia, unspecified; K64.8 Other hemorrhoids; R07.89 Other chest pain
CPT/HCPCS: 36415; 71045-TC-FY; 71101-TC-LT-FY; 80048; 80053; 81003; 82550; 83735; 84443; 84484; 85025; 85610; 85730; 93005; 93010; 94640; 97116-GP; 97161-GP; 99284-25; J7030

== ENCOUNTER 2019-10-28 11:51 | Emergency (ER) | payer OTHER ==
[2019-10-28 12:03] VITALS: BP 132/93; PULSE 66; TEMP 98.1; BMI 27.6
[2019-10-28] MEDS ORDERED: ACETAMINOPHEN 325 MG TABLET (FP) PO ONE (12:05)
[2019-10-28] MEDS ORDERED: ACETAMINOPHEN 500 MG TABLET (FP) ONE (12:08)
--- NOTE | 2019-10-28 12:17 | PDOC ---
History of Present Illness - General Chief Complaint: Injury Stated Complaint: RIGHT SHOULDER INJURY Time Seen by Provider: 10/28/19 11:58 History Source: Patient Exam Limitations: No Limitations - History of Present Illness Initial Comments: Sergio is a 79 yo M w a hx of Afib (on Pradaxa, Carvedilol), CAD, anemia, Angina, HTN, COPD (on home O2, prn), and RA who presents to the [facility] after he fell down onto his right shoulder. He was walking and talking to the mailman when he didn't see the curb, tripped and landed on his right shoulder. He now presents with right shoulder pain and pain upon abduction of the shoulder. He also has a small bruise on the top of his shoulder. Denies numbness, tingling, weakness or pain at elbow or wrist. PCP: Dr. Valencia PSH: colonoscopy Social Hx: Former 60 pack year smoking history, recreational drinker, denies current illicit drugs. Independent in ADL Allergies: NKA, NKDA Past History - Medical History Allergies/Adverse Reactions: Allergies Allergy/AdvReac Type Severity Reaction Status Date / Time No Known Allergies Allergy Verified 10/28/19 11:53 Home Medications: Ambulatory Orders Dabigatran Etexilate Mesylate [Pradaxa -] 150 mg PO BID #0 cap 02/14/13 Acetaminophen [Tylenol .Regular Strength -] 650 mg PO Q6H PRN tablet 06/26/18 Albuterol 2.5/Ipratropium 0.5 [Duoneb -] 1 amp NEB RQ4H #120 amp 06/26/18 Diltiazem Cd [Cardizem Cd -] 120 mg PO DAILY #30 cap.cd.24h 06/26/18 Metoprolol Tartrate [Lopressor -] 50 mg PO BID #60 tablet 06/26/18 Pantoprazole Sodium [Protonix -] 40 mg PO BID #60 tablet.ec 06/26/18 Sulfasalazine [Azulfidine En-Tabs -] 1,000 mg PO BID #120 tablet. 06/26/18 Sakina Barboza 50% ([place]) [[place] Pads -] 1 pad TP TID pad 06/26/18 Albuterol 2.5/Ipratropium 0.5 [Duoneb -] 1 amp NEB RQID amp 08/24/18 Diltiazem Cd [Cardizem Cd -] 120 mg PO DAILY cap.cd.24h 08/24/18 Lidocaine 5% Patch [Lidoderm -] 1 patch TP DAILY #10 patch MDD 1 08/24/18 Sulfasalazine [Azulfidine En-Tabs -] 1,000 mg PO BID tablet. 08/24/18 predniSONE [Deltasone -] 5 mg PO DAILY #30 tablet MDD 1 08/24/18 Anemia: Yes Asthma: Yes Cancer: No Cardiac Disorders: Yes (a fib,angina,cad) CVA: No COPD: Yes CHF: No Dementia: No Diabetes: No GI Disorders: Yes (acid reflux) Disorders: No HTN: No Hypercholesterolemia: Yes Liver Disease: No Seizures: No Thyroid Disease: No Other medical history: RHEUMATOID ARTHRITIS - Surgical History Abdominal Surgery: No Appendectomy: No Cardiac Surgery: No Cholecystectomy: No Lung Surgery: No Neurologic Surgery: No Orthopedic Surgery: No - Psycho-Social/Smoking History Smoking History: Former smoker Have you smoked in the past 12 months: No Number of Cigarettes Smoked Daily: 3 If you are a former smoker, when did you quit?: 2019 Cigars Per Day: 10 Information on smoking cessation initiated: No 'Breaking Loose' booklet given: 02/17/18 - Substance Abuse Hx (Audit-C & DAST Scrn) How often the patient has a drink containing alcohol: 2-4 times / month Number of drinks the patient has on a typical day: 1 or 2 Score: In Men: 4 or > Positive; In Women: 3 or > Positive: 2 Screen Result (Pos requires Nsg. Audit-10AR): Negative In the last yr the pt used illegal drug/Rx for NonMed reason: No Score: Yes response is considered Positive: 0 Screen Result (Positive result requires Nsg. DAST-10): Negative Review of Systems - Review of Systems Able to Perform ROS?: Yes Comments:: CONSTITUTIONAL: Absent: fever, no chills, no fatigue EYES: Absent: visual changes ENT: Absent: ear pain, no sore throat CARDIOVASCULAR: Absent: chest pain, no palpitations RESPIRATORY: Absent: cough, no SOB GI: Absent: abdominal pain, no nausea, no vomiting, no constipation, no diarrhea GENITOURINARY: Absent: dysuria, no frequency, no hematuria MUSKULOSKELETAL: Present: Arthralgia Absent: back pain, no myalgia SKIN: Absent: rash NEURO: Absent: headache *Physical Exam - Vital Signs Last Vital Signs Temp Pulse Resp BP Pulse Ox 98.1 F 66 16 132/93 96 10/28/19 11:52 10/28/19 11:52 10/28/19 11:52 10/28/19 11:52 10/28/19 11:52 - Physical Exam RIGHT ARM: There is a small area of erythema around the glenoid. There is focal TTp around the anterior inferior glenoid labrum. There is also pain upon abduction of the shoulder. 5/5 strength, sensation, and ROM about the elbow and wrist. 2+ radial and ulnar pulses. GENERAL: Well-appearing, well-nourished. No apparent distress. HEENT: Normocephalic, atraumatic. PERRL, EOM intact. CARDIOVASCULAR: Normal S1, S2. Regular rate and rhythm. PULMONARY: No evidence of respiratory distress. Lungs clear to auscultation bilaterally. No wheezing, rales or rhonchi. ABDOMEN: Soft, non-distended, non-tender. EXTREMITIES: Normal ROM in all four extremities. No gross deformities. SKIN: Warm, dry. No rash NEUROLOGICAL: No focal neurological deficits. ED Treatment Course - RADIOLOGY Radiology Studies Ordered: Category Date Time Status HUMERUS-RIGHT [RAD] Stat Radiology 10/28/19 12:04 Ordered SHOULDER W/TRANS-RIGHT [RAD] Stat Radiology 10/28/19 12:04 Ordered SHOULDER-RIGHT [RAD] Stat Radiology 10/28/19 12:04 Ordered - Medications Given in the ED: ED Medications Discontinued Medications Generic Name Dose Route Start Last Admin Trade Name Freq PRN Reason Stop Dose Admin Acetaminophen 1,000 mg 10/28/19 12:05 10/28/19 12:07 Tylenol - PO 10/28/19 12:06 1,000 mg ONCE ONE Administration Medical Decision Making - Medical Decision Making Sergio is a 79 yo M w a hx of Afib (on Pradaxa, Carvedilol), CAD, anemia, Angina, HTN, COPD (on home O2, prn), and RA who presents to the [facility] after he fell down onto his right shoulder. He was walking and talking to the mailman when he didn't see the curb, tripped and landed on his right shoulder. He now presents with right shoulder pain and pain upon abduction of the shoulder. He also has a small bruise on the top of his shoulder. Denies numbness, tingling, weakness or pain at elbow or wrist. Vital Signs Temp Pulse Resp BP Pulse Ox 98.1 F 66 16 132/93 96 10/28/19 11:52 10/28/19 11:52 10/28/19 11:52 10/28/19 11:52 10/28/19 11:52 DDx IBNLT: Shoulder injury, dislocation, frozen shoulder, bruise Plan: XR, analgesia, ortho FU XR: Findings suspicious for non-displaced humeral head fx. Re-assessment: Patient feeling better in ED, ranging arm near full ROM, normal sensation in axillary nerve distribution - Arm placed in sling and patient given ortho fu The patient appears clinically sober, has no evidence of clinical intoxication, is A&O x4, has no sustained nystagmus, and appears to be capable and have capacity to make reasonable decisions. The patient states they are currently in the emergency department, knows who the president is, states the correct time, correct day, and correct month. The patient is ambulatory in ER and has walked around the nursing station multiple times with a straight and steady gait, and is not ataxic. Tolerating PO well, ate a sandwich and drank juice. Denies having any SI or HI. Patient states will not be driving home. I discussed the physical exam findings, ancillary test results and final diagnoses with the patient. I answered all of the patient's questions. The patient was satisfied with the care received and felt comfortable with the discharge plan and treatment plan. The patient will call their primary care physician within 24 hours to arrange follow-up and will return to the Emergency Department with any new, persistent or worsening symptoms. Dispo: Home with Ortho FU and strict return precautions Please note, this clinical encounter is taking place during a federal and state health care emergency attributable to the novel [place] Virus pandemic. The [place] of the Department of Health and Human Services has declared, pursuant to the Public Health Service Act 319F-3 (42 U.S.C. 247d-6d), that a covered persons activities related to medical countermeasures against COVID-19 will be immune from liability under Federal and State law. Discharge - Discharge Information Problems reviewed: Yes Clinical Impression/Diagnosis: Shoulder injury Qualifiers: Encounter type: initial encounter Laterality: right Qualified Code(s): S49.91XA - Unspecified injury of right shoulder and upper arm, initial encounter Condition: Stable Disposition: HOME - Admission No - Follow up/Referral Referrals: Julia Valencia MD [Primary Care Provider] - Alejandro Mcintyre MD [Staff Physician] - Parrish Weston MD [Staff Physician] - Maximo Rodriguez DO [Staff Physician] - J Luis Wakefield DO [Staff Physician] - - Patient Discharge Instructions Patient Printed Discharge Instructions: How to Use a Sling, DI for Shoulder Pain Additional Instructions: You came into the Er with a shoulder injury. We did an x ray and placed your arm in a sling. Please follow up with the orthopedist we are referring you to as a follow up appointment. You must return to the Emergency Department with any new complaints, if your symptoms persist and do not improve or if you develop any other new or worsening concerns. You can take over the counter Tylenol or Advil as needed for pain. Take as directed on the package insert. Do not exceed the recommended dosage. As discussed, please call to follow up with your Primary Care physician in 1-2 days to discuss what happened to you in the emergency room, and make sure you are being looked after and taken care of. Your emergency room visit is not complete without this follow up appointment. Please read the attached handouts for further information about your ER visit and what you should do moving forward. Thank you for coming to the [facility]. We hope you feel better soon! Print Language: GREEK - Post Discharge Activity
--- NOTE | 2019-10-28 12:22 | PDOC ---
Attending Attestation - Resident Resident Name: Anatoliy Presley - ED Attending Attestation I have performed the following: I have examined & evaluated the patient, The case was reviewed & discussed with the resident, I agree w/resident's findings & plan, Exceptions are as noted - HPI HPI: 10/28/19 13:40 79 years old past medical history significant for hypertension presents to the ED status post mechanical fall yesterday. Landed on his right shoulder. No head trauma. No headache. Able to move his right arm but pain was worse today now is 8 out of 10 persistent constant worse with movement alleviated by rest - Physicial Exam PE: 10/28/19 13:40 Vitals: Triage Vital signs reviewed General Appearance: No acute distress, well nourished well developed, Head: Atraumatic, Eyes: Pupils equal reactive round, extraocular movement intact Neck: Supple; no Nucal rigidity Chest Wall: Nontender Extremities: Decreased range of motion to right upper extremity ecchymosis to right arm, neurovascular intact distally no weakness Skin: Warm and dry, no rashes or lesions, no rash, no petechiae Neuro: AOX3; cranial Nerves 2-12 grossly intact, strength intact to all extremities, sensation intact to all extremities, gait normal Psych: Normal mood, normal affect - Medical Decision Making 10/28/19 13:42 Questionable subtle nondisplaced humeral head fracture will recommend sling with orthopedic follow-up ice Tylenol given that patient is on AC Findings, need for follow-up and strict return instructions discussed with patient. Heart Score/ECG Review - ECG Impressions Comment:: 10/28/19 13:52 EKG performed at 1342 demonstrates normal sinus rhythm no ST elevations or T wave inversions Interpreted by me. Discharge - Discharge Information Problems reviewed: Yes Clinical Impression/Diagnosis: Shoulder injury Qualifiers: Encounter type: initial encounter Laterality: right Qualified Code(s): S49.91XA - Unspecified injury of right shoulder and upper arm, initial encounter Condition: Stable Disposition: HOME - Follow up/Referral Referrals: Alejandro Mcintyre MD [Staff Physician] - Maximo Rodriguez DO [Staff Physician] - Julia Valencia MD [Primary Care Provider] - J Luis Wakefield DO [Staff Physician] - Parrish Weston MD [Staff Physician] - - Patient Discharge Instructions Patient Printed Discharge Instructions: How to Use a Sling, DI for Shoulder Pain Additional Instructions: You came into the Er with a shoulder injury. We did an x ray and placed your arm in a sling. Please follow up with the orthopedist we are referring you to as a follow up appointment. You must return to the Emergency Department with any new complaints, if your symptoms persist and do not improve or if you develop any other new or worsening concerns. You can take over the counter Tylenol or Advil as needed for pain. Take as directed on the package insert. Do not exceed the recommended dosage. As discussed, please call to follow up with your Primary Care physician in 1-2 days to discuss what happened to you in the emergency room, and make sure you are being looked after and taken care of. Your emergency room visit is not complete without this follow up appointment. Please read the attached handouts for further information about your ER visit and what you should do moving forward. Thank you for coming to the [facility]. We hope you feel better soon! Print Language: HUNGARIAN - Post Discharge Activity
== END 2019-10-28 13:40 | disposition home or self-care (01) ==
LOC: FER 11:51
DX: S49.91XA Unspecified injury of right shoulder and upper arm, initial encounter (principal)
CPT/HCPCS: 73030-TC-RT-FY; 73060-TC-RT-FY; 99284-25

== ENCOUNTER 2020-10-18 04:49 | Day surgery (SDC) | payer OTHER ==
[2020-10-18] MEDS ORDERED: LIDOCAINE HCL/PF 2% SDV 5ML VIAL ONE (07:14)
[2020-10-18] MEDS ORDERED: BUPIVACAINE HCL/PF 0.75% 10 ML VIAL ONE (07:14)
[2020-10-18] MEDS ORDERED: EPINEPHrine/PF 1 MG/1 ML (1:1,000) AMPULE ONE (07:14)
[2020-10-18] MEDS ORDERED: LIDOCAINE HCL/PF 1% SDV 5ML VIAL ONE (07:15)
[2020-10-18] MEDS ORDERED: POVIDONE-IODINE 5% OPHTHALMIC PREP 30 ML SOLUTION ONE (07:15)
[2020-10-18] MEDS ORDERED: LIDOCAINE HCL/PF 2% SDV 5ML VIAL INF ONE ×2 (07:39→10:13)
[2020-10-18] MEDS ORDERED: POVIDONE-IODINE 5% OPHTHALMIC PREP 30 ML SOLUTION OD ONE ×2 (07:40→10:17)
[2020-10-18] MEDS ORDERED: LIDOCAINE HCL 1% PRESERVATIVE FREE - 30ML VIAL IO ONE ×2 (07:40→10:20)
[2020-10-18] MEDS ORDERED: BUPIVACAINE HCL/PF 0.75% 10 ML VIAL NR ONE ×2 (07:40→10:13)
[2020-10-18] MEDS ORDERED: BSS (NA/CA/MG/K) BALANCED SALT SOLUTION OPHTH SOLN 15 ML BOTTLE OD ONE ×2 (07:41→10:22)
[2020-10-18] MEDS ORDERED: CHONDROITIN SU A/HYALUR SOD 1 KIT IO ONE ×2 (07:41→10:23)
[2020-10-18] MEDS ORDERED: PHENYLEPHRINE/KETOROLAC 4 ML VIAL IO ONE ×2 (07:41→10:23)
[2020-10-18] MEDS ORDERED: OFLOXACIN 0.3% OPHTHALMIC SOLUTION 5 ML BOTTLE ONE (07:59)
[2020-10-18] MEDS ORDERED: TROPICAMIDE 1% OPHTH SOLN 15 ML BOTTLE ONE (08:00)
[2020-10-18] MEDS ORDERED: KETOROLAC TROMETHAMINE 0.5% EYE DROP 1 DROP DROPS ONE (08:00)
[2020-10-18] MEDS ORDERED: CYCLOPENTOLATE HCL 1% OPHTH SOLN 2 ML BOTTLE ONE (08:00)
[2020-10-18] MEDS ORDERED: KETOROLAC TROMETHAMINE 0.5% EYE DROP 1 DROP DROPS OD ONE (08:05)
[2020-10-18] MEDS ORDERED: CYCLOPENTOLATE HCL 1% OPHTH SOLN 2 ML BOTTLE OD ONE (08:05)
[2020-10-18] MEDS ORDERED: OFLOXACIN 0.3% OPHTHALMIC SOLUTION 5 ML BOTTLE OD ONE (08:05)
[2020-10-18] MEDS ORDERED: PHENYLEPHRINE 2.5% OPHTH SOLN 15 ML BOTTLE OD ONE (08:05)
[2020-10-18] MEDS ORDERED: TROPICAMIDE 1% OPHTH SOLN 15 ML BOTTLE OD ONE (08:05)
[2020-10-18] MEDS ORDERED: TROPICAMIDE 1% OPHTH SOLN 15 ML BOTTLE OP ONE ×2 (08:10→08:15)
[2020-10-18] MEDS ORDERED: OFLOXACIN 0.3% OPHTHALMIC SOLUTION 5 ML BOTTLE OP ONE ×2 (08:10→08:15)
[2020-10-18] MEDS ORDERED: PHENYLEPHRINE 2.5% OPHTH SOLN 15 ML BOTTLE OP ONE ×2 (08:10→08:15)
[2020-10-18] MEDS ORDERED: KETOROLAC TROMETHAMINE 0.5% EYE DROP 1 DROP DROPS OP ONE ×2 (08:10→08:15)
[2020-10-18] MEDS ORDERED: ACETAMINOPHEN 325 MG TABLET (FP) PO PRN (08:12)
[2020-10-18] MEDS ORDERED: TROPICAMIDE 1% OPHTH SOLN 15 ML BOTTLE OP SCH (08:15)
[2020-10-18] MEDS ORDERED: OFLOXACIN 0.3% OPHTHALMIC SOLUTION 5 ML BOTTLE OP SCH (08:15)
[2020-10-18] MEDS ORDERED: CYCLOPENTOLATE HCL 1% OPHTH SOLN 2 ML BOTTLE OP ONE (08:15)
[2020-10-18] MEDS ORDERED: KETOROLAC TROMETHAMINE 0.5% EYE DROP 1 DROP DROPS OP SCH (08:15)
[2020-10-18] MEDS ORDERED: PHENYLEPHRINE 2.5% OPHTH SOLN 15 ML BOTTLE OP SCH (08:15)
[2020-10-18] MEDS ORDERED: PROPOFOL 20 ML ONE (09:51)
[2020-10-18 09:54] VITALS: BMI 29.2
[2020-10-18] MEDS ORDERED: ACETAMINOPHEN 325 MG TABLET (FP) ONE (10:57)
[2020-10-18 12:57] VITALS: BP 141/62; PULSE 80; TEMP 97.3
[2020-10-19] MEDS ORDERED: CYCLOPENTOLATE HCL 1% OPHTH SOLN 2 ML BOTTLE OP SCH (08:15)
== END 2020-10-18 11:30 | disposition home or self-care (01) ==
LOC: JASU-SURG 04:49
PROVIDERS: ATTEND Ophthalmology
PROC: 08RJ3JZ Replacement of Right Lens with Synthetic Substitute, Percutaneous Approach (ICD-10-PCS; principal; 2020-10-18 10:00)
DX: H26.9 Unspecified cataract (principal)
CPT/HCPCS: J1097

== ENCOUNTER 2022-12-04 18:49 | Inpatient (IN) | payer OTHER ==
[2022-12-04] MEDS ORDERED: methylPREDNISolone NA SUCC 125 MG/2 ML VIAL IVPUSH ONE (19:19)
[2022-12-04] MEDS ORDERED: SODIUM CHLORIDE 0.9% 500 ML INFUS.BAG IV ONE (19:21)
[2022-12-04] MEDS ORDERED: ACETAMINOPHEN 1000 MG/100 ML BAG IVPB ONE (19:22)
[2022-12-04] MEDS ORDERED: ALBUTEROL SO4 2.5/IPRATROPIUM 0.5 INH SOL 3 ML VIAL.NEB. NEB ONE (19:30)
[2022-12-04] MEDS: ALBUTEROL SO4 2.5/IPRATROPIUM 0.5 INH SOL 3 ML VIAL.NEB. NEB SCH ×4 (19:45→20:30)
[2022-12-04] MEDS ORDERED: ACETAMINOPHEN INJECTION 100 ML IVPB ONE (20:03)
[2022-12-04] MEDS ORDERED: methylPREDNISolone NA SUCC 125 MG/2 ML VIAL ONE (20:03)
[2022-12-04] MEDS ORDERED: ASPIRIN 325 MG TABLET PO ONE (20:08)
[2022-12-04 20:20] LABS: HEMATOCRIT 34.3 % (35.4-49); HEMOGLOBIN 11.4 G/dL (11.7-16.9); MCH 35.7 pg (25.7-33.7); MCHC 33.3 g/dl (32.0-35.9); MEAN CELL VOLUME 107.2 fl (80-96); MEAN PLT VOLUME 7.5 fl (7.5-11.1); PLATELET COUNT 123.9 10^3/uL (134-434); RDW 14.1 % (11.9-15.9); WHITE BLOOD COUNT 11.5 10^3/uL (4.0-10.8)
[2022-12-04 20:32] LABS: ALBUMIN 4.1 g/dl (3.4-5.0); BLOOD UREA NITROGEN 18.6 mg/dl (7-18); CALCIUM 8.7 mg/dl (8.5-10.1); CREATININE 0.8 mg/dl (0.6-1.3); POTASSIUM 4.7 mmol/L (3.5-5.1); SGOT/AST 35.5 U/L (15-37); TOT PROT 5.6 g/dl (6.4-8.2)
[2022-12-04] MEDS ORDERED: AZITHROMYCIN IVPB 500 MG in DEXTROSE 5%-WATER - 250 ML IVPB ONE (20:38)
[2022-12-04] MEDS ORDERED: CEFTRIAXONE 1 GM in DEXTROSE 5%-WATER - 100 ML IVPB ONE (20:38)
[2022-12-04 20:54] LABS: ANISOCYTOSIS 1+; MACROCYTOSIS 1+; PLATELET ESTIMATE ADEQUATE
[2022-12-04 20:55] LABS: VENOUS BASE EXCESS -1.6 mmol/L (-2-2); VENOUS PCO2 49.3 mmHg (38-52); VENOUS PH 7.32 (7.310-7.410)
[2022-12-04 21:14] LABS: BILIRUBIN,TOTAL 1.1 mg/dL (0.2-1)
[2022-12-04 21:15] LABS: N-TERMINAL BNP 1470.6 pg/ml (5-450)
[2022-12-04] MEDS ORDERED: cefTRIAXone SODIUM 1 GM VIAL ONE (21:31)
[2022-12-04] MEDS ORDERED: AZITHROMYCIN 500 MG VIAL IVPB ONE (21:31)
[2022-12-04 21:42] LABS: LACTIC ACID 2.5 mmol/L (0.4-2.0)
[2022-12-04] MEDS ORDERED: ALBUTEROL SO4 2.5/IPRATROPIUM 0.5 INH SOL 3 ML VIAL.NEB. NEB PRN (22:54)
[2022-12-05] MEDS: DIGOXIN 0.125 MG TABLET PO SCH (08:13)
[2022-12-05 08:29] LABS: BLOOD UREA NITROGEN 15.9 mg/dl (7-18); CALCIUM 8.7 mg/dl (8.5-10.1); CREATININE 0.8 mg/dl (0.6-1.3); POTASSIUM 4.3 mmol/L (3.5-5.1)
[2022-12-05] MEDS: methylPREDNISolone NA SUCC 40 MG/1 ML VIAL IVPUSH SCH ×2 (09:58→17:22)
[2022-12-05] MEDS: CEFTRIAXONE 1 GM in DEXTROSE 5%-WATER - 50 ML IVPB SCH (09:58)
[2022-12-05] MEDS: METOPROLOL TARTRATE 25 MG TABLET (FP) PO SCH ×2 (10:00→21:31)
[2022-12-05] MEDS: DABIGATRAN ETEXILATE MESYLATE 150 MG CAPSULE PO SCH ×2 (10:00→21:31)
[2022-12-05] MEDS: PANTOPRAZOLE 40 MG TABLET PO SCH (10:00)
[2022-12-05] MEDS ORDERED: TIOTROPIUM/OLODATEROL HCL (STIOLTO) 4 GM INHALER IH SCH (10:00)
[2022-12-05] MEDS ORDERED: PATIENT'S OWN MEDICATION (NON-FORMULARY) (Icosapent Ethyl [Vascepa] 1 GM Capsule) PO SCH (10:00)
[2022-12-05] MEDS: AZITHROMYCIN IVPB 500 MG/250 ML BAG IVPB SCH (10:01)
[2022-12-05] MEDS: FUROSEMIDE 40 MG/4 ML INJECTABLE VIAL IVPUSH SCH (10:11)
[2022-12-05] MEDS: FLUTICASONE/UMECLIDIN/VILANTER(200-62.5-25 TRELEGY ELLIPTA) INAHLER IH SCH (10:11)
[2022-12-05 10:22] LABS: HEMATOCRIT 34.3 % (35.4-49); HEMOGLOBIN 11.8 GM/dL (11.7-16.9); LYMPH % 14.6 % (8-40); MCH 35.3 pg (25.7-33.7); MCHC 34.4 g/dl (32.0-35.9); MEAN CELL VOLUME 102.9 fl (80-96); MEAN PLT VOLUME 7.3 fl (7.5-11.1); MONO % 3.7 % (3.8-10.2); NEUT % 81.7 % (42.8-82.8); PLATELET COUNT 136 10^3/uL (134-434); RBC 3.34 M/mm3 (4.00-5.60); RDW 13.9 % (11.9-15.9); WHITE BLOOD COUNT 12.7 K/mm3 (4.0-10.0)
[2022-12-05 14:27] VITALS: BMI 27.2
[2022-12-06] MEDS: methylPREDNISolone NA SUCC 40 MG/1 ML VIAL IVPUSH SCH ×3 (01:24→18:26)
[2022-12-06] MEDS: PANTOPRAZOLE 40 MG TABLET PO SCH (09:46)
[2022-12-06] MEDS: METOPROLOL TARTRATE 25 MG TABLET (FP) PO SCH ×2 (09:46→21:29)
[2022-12-06] MEDS: DABIGATRAN ETEXILATE MESYLATE 150 MG CAPSULE PO SCH ×2 (09:46→21:30)
[2022-12-06] MEDS: FUROSEMIDE 40 MG/4 ML INJECTABLE VIAL IVPUSH SCH (09:46)
[2022-12-06] MEDS: AZITHROMYCIN IVPB 500 MG/250 ML BAG IVPB SCH (09:47)
[2022-12-06] MEDS: CEFTRIAXONE 1 GM in DEXTROSE 5%-WATER - 50 ML IVPB SCH (09:47)
[2022-12-06] MEDS: FLUTICASONE/UMECLIDIN/VILANTER(200-62.5-25 TRELEGY ELLIPTA) INAHLER IH SCH (09:48)
[2022-12-06 16:24] LABS: HEMOGLOBIN 12.3 G/dL (11.7-16.9); MCH 33.7 pg (25.7-33.7); MCHC 31.5 g/dl (32.0-35.9); MEAN CELL VOLUME 106.8 fl (80-96); MEAN PLT VOLUME 7.6 fl (7.5-11.1); PLATELET COUNT 190.9 10^3/uL (134-434); RBC 3.65 10^6/uL (4.00-5.60); RDW 13.9 % (11.9-15.9); WHITE BLOOD COUNT 18.5 10^3/uL (4.0-10.8)
[2022-12-06 16:29] LABS: ALBUMIN 4.2 g/dl (3.4-5.0); BLOOD UREA NITROGEN 30.1 mg/dl (7-18); CALCIUM 9.2 mg/dl (8.5-10.1); POTASSIUM 4.2 mmol/L (3.5-5.1); SGOT/AST 41.9 U/L (15-37); SGPT/ALT 28.4 U/L (7-52)
[2022-12-06 21:23] LABS: BILIRUBIN,TOTAL 0.5 mg/dL (0.2-1)
[2022-12-07] MEDS: methylPREDNISolone NA SUCC 40 MG/1 ML VIAL IVPUSH SCH ×3 (01:30→18:09)
[2022-12-07] MEDS: DIGOXIN 0.125 MG TABLET PO SCH (06:36)
[2022-12-07] MEDS: AZITHROMYCIN IVPB 500 MG/250 ML BAG IVPB SCH (10:00)
[2022-12-07] MEDS: CEFTRIAXONE 1 GM in DEXTROSE 5%-WATER - 50 ML IVPB SCH (10:28)
[2022-12-07] MEDS: PANTOPRAZOLE 40 MG TABLET PO SCH (10:29)
[2022-12-07] MEDS: DABIGATRAN ETEXILATE MESYLATE 150 MG CAPSULE PO SCH ×2 (10:29→21:17)
[2022-12-07] MEDS: METOPROLOL TARTRATE 25 MG TABLET (FP) PO SCH ×2 (10:29→21:17)
[2022-12-07] MEDS: FLUTICASONE/UMECLIDIN/VILANTER(200-62.5-25 TRELEGY ELLIPTA) INAHLER IH SCH (10:31)
[2022-12-07] MEDS: FUROSEMIDE 40 MG/4 ML INJECTABLE VIAL IVPUSH SCH (10:40)
[2022-12-08] MEDS: methylPREDNISolone NA SUCC 40 MG/1 ML VIAL IVPUSH SCH ×2 (02:30→09:51)
[2022-12-08 09:50] VITALS: BP 113/66; PULSE 76; RESP 16; TEMP 98.6
[2022-12-08] MEDS: DABIGATRAN ETEXILATE MESYLATE 150 MG CAPSULE PO SCH (09:51)
[2022-12-08] MEDS: PANTOPRAZOLE 40 MG TABLET PO SCH (09:51)
[2022-12-08] MEDS: METOPROLOL TARTRATE 25 MG TABLET (FP) PO SCH (09:51)
[2022-12-08] MEDS: CEFTRIAXONE 1 GM in DEXTROSE 5%-WATER - 50 ML IVPB SCH (09:52)
[2022-12-08] MEDS: FLUTICASONE/UMECLIDIN/VILANTER(200-62.5-25 TRELEGY ELLIPTA) INAHLER IH SCH (09:55)
[2022-12-08] MEDS: AZITHROMYCIN IVPB 500 MG/250 ML BAG IVPB SCH (09:55)
[2022-12-08] MEDS: FUROSEMIDE 40 MG/4 ML INJECTABLE VIAL IVPUSH SCH (09:59)
[2022-12-08 10:02] LABS: ALBUMIN 3.8 g/dl (3.4-5.0); BLOOD UREA NITROGEN 31.7 mg/dl (7-18); CALCIUM 8.7 mg/dl (8.5-10.1); CREATININE 0.8 mg/dl (0.6-1.3); POTASSIUM 4.7 mmol/L (3.5-5.1); SGOT/AST 46.9 U/L (15-37); SGPT/ALT 51.8 U/L (7-52); TOT PROT 5.3 g/dl (6.4-8.2)
[2022-12-08 11:21] LABS: HEMATOCRIT 35.4 % (35.4-49); HEMOGLOBIN 11.6 GM/dL (11.7-16.9); MCH 34.5 pg (25.7-33.7); MCHC 32.8 g/dl (32.0-35.9); MEAN CELL VOLUME 105.1 fl (80-96); MEAN PLT VOLUME 7.4 fl (7.5-11.1); PLATELET COUNT 191 10^3/uL (134-434); RBC 3.37 M/mm3 (4.00-5.60); RDW 13.5 % (11.9-15.9); WHITE BLOOD COUNT 15.1 K/mm3 (4.0-10.0)
[2022-12-08 11:46] LABS: BILIRUBIN,TOTAL 0.5 mg/dL (0.2-1)
[2022-12-08 11:47] LABS: ANISOCYTOSIS 1+; MACROCYTOSIS 1+
[2022-12-08] MEDS ORDERED: predniSONE 20 MG TABLET (UD) PO SCH (14:15)
[2022-12-08] MEDS ORDERED: predniSONE 10 MG TABLET (UD) PO SCH (14:16)
[2022-12-08] MEDS ORDERED: predniSONE 10 MG TABLET (UD) PO ONE (15:08)
== END 2022-12-08 16:19 | disposition home or self-care (01) | DRG 190 ==
LOC: FER 18:49 → FM/S 12-05 00:42
PROVIDERS: ADMIT Internal Medicine; ATTEND Family Medicine
DX: J44.0 Chronic obstructive pulmonary disease with (acute) lower respiratory infection (principal); J18.9 Pneumonia, unspecified organism; I50.30 Unspecified diastolic (congestive) heart failure; I48.19 Other persistent atrial fibrillation; I11.0 Hypertensive heart disease with heart failure; I25.119 Atherosclerotic heart disease of native coronary artery with unspecified angina pectoris
CPT/HCPCS: 0241U-QW; 36415; 71045-TC-FY; 80048; 80053; 80162; 81003; 82803; 83605; 83880; 84484; 85025; 85027; 87040; 87070; 87086; 87205; 87899; 93005; 99291

== ENCOUNTER 2023-03-07 11:48 | Emergency (ER) | payer OTHER ==
[2023-03-07 12:00] VITALS: BP 128/51; PULSE 62; RESP 18; TEMP 98.8; BMI 27.8
[2023-03-07] MEDS ORDERED: LIDOCAINE 5% TOPICAL PATCH TP ONE (12:22)
[2023-03-07] MEDS ORDERED: ACETAMINOPHEN 325 MG TABLET (FP) PO ONE (12:22)
[2023-03-07] MEDS ORDERED: ACETAMINOPHEN 325 MG TABLET (FP) ONE (12:28)
[2023-03-07] MEDS ORDERED: LIDOCAINE 5% TOPICAL PATCH ONE (12:29)
[2023-03-07] MEDS ORDERED: oxyCODONE HCL 5 MG TABLET PO ONE (13:46)
[2023-03-07] MEDS ORDERED: oxyCODONE HCL 5 MG TABLET ONE (13:49)
[2023-03-07] MEDS ORDERED: LIDOCAINE PATCH REMOVAL MC ONE (22:00)
== END 2023-03-07 14:00 | disposition home or self-care (01) ==
LOC: FER 11:48
DX: R07.81 Pleurodynia (principal); R07.89 Other chest pain; W01.198A Fall on same level from slipping, tripping and stumbling with subsequent striking against other object, initial encounter
CPT/HCPCS: 70450-TC; 71250-TC; 99284-25

== ENCOUNTER 2023-04-09 13:40 | Emergency (ER) | payer OTHER ==
[2023-04-09] MEDS ORDERED: ALBUTEROL SO4 2.5/IPRATROPIUM 0.5 INH SOL 3 ML VIAL.NEB. NEB ONE ×2 (13:51→14:16)
[2023-04-09 13:54] VITALS: BMI 25.3
[2023-04-09] MEDS ORDERED: predniSONE 20 MG TABLET (UD) PO ONE (14:11)
[2023-04-09] MEDS ORDERED: predniSONE 20 MG TABLET (UD) ONE (14:17)
[2023-04-09 14:41] LABS: INR 1.48 (0.83-1.09); PROTHROMBIN TIME (PATIENT) 17.1 SEC (9.7-13.0)
[2023-04-09 14:41] LABS: HEMATOCRIT 34.6 % (35.4-49); HEMOGLOBIN 11.5 G/dL (11.7-16.9); MCH 34.5 pg (25.7-33.7); MCHC 33.2 g/dl (32.0-35.9); MEAN CELL VOLUME 103.9 fl (80-96); MEAN PLT VOLUME 7.2 fl (7.5-11.1); PLATELET COUNT 258.3 10^3/uL (134-434); RBC 3.33 10^6/uL (4.00-5.60); RDW 13.3 % (11.9-15.9); WHITE BLOOD COUNT 11.9 10^3/uL (4.0-10.8)
[2023-04-09 14:47] LABS: ADD RBC MORPHOLOGY YES
[2023-04-09 14:56] LABS: BILIRUBIN,TOTAL 0.7 mg/dl (0.2-1); CALCIUM 9.1 mg/dl (8.5-10.1); CREATININE 0.8 mg/dl (0.6-1.3); POTASSIUM 4.2 mmol/L (3.5-5.1); TOT PROT 5.5 g/dl (6.4-8.2)
[2023-04-09 15:26] LABS: ANISOCYTOSIS 1+; EPITHELIAL CELLS 0-5 /hpf; PLATELET ESTIMATE ADEQUATE; URINE MUCUS FEW
[2023-04-09 15:50] VITALS: RESP 20; TEMP 98
[2023-04-09 18:51] VITALS: BP 118/75; PULSE 108
== END 2023-04-09 19:00 | disposition short-term general hospital (02) ==
LOC: FER 13:40
PROC: 3E0F7GC Introduction of Other Therapeutic Substance into Respiratory Tract, Via Natural or Artificial Opening (ICD-10-PCS; principal; 2023-04-09)
DX: R06.02 Shortness of breath (principal); R05.9 Cough, unspecified; I60.9 Nontraumatic subarachnoid hemorrhage, unspecified; Z20.822 Contact with and (suspected) exposure to COVID-19
CPT/HCPCS: 0241U-QW; 36415; 70450-TC; 71045-TC-FY; 80053; 81003; 81015; 84484; 85025; 85610; 85730; 86850; 86900; 86901; 87086; 93005; 99285-25

== ENCOUNTER 2024-05-05 04:18 | Day surgery (SDC) | payer OTHER ==
[2024-04-30 13:24] VITALS: BMI 22.8
[2024-05-05] MEDS: LIDOCAINE HCL/PF 2% SDV 5ML VIAL INF ONE
[2024-05-05] MEDS: BUPIVACAINE HCL/PF 0.75% 10 ML VIAL RB ONE
[~2024-05-05 04:18] MED LIST: ACETAMINOPHEN 325 MG TABLET (FP) PO PRN
[2024-05-05] MEDS ORDERED: PHENYLEPHRINE 2.5% OPTHALMIC DROP 2ML BOTTLE ONE (06:52)
[2024-05-05] MEDS ORDERED: KETOROLAC TROMETHAMINE 0.5% EYE DROP 1 DROP DROPS ONE (06:52)
[2024-05-05] MEDS ORDERED: TROPICAMIDE 1% OPHTH SOLN 15 ML BOTTLE ONE (06:53)
[2024-05-05] MEDS ORDERED: OFLOXACIN 0.3% OPHTHALMIC SOLUTION 5 ML BOTTLE ONE (06:53)
[2024-05-05] MEDS ORDERED: CYCLOPENTOLATE HCL 1% OPHTH SOLN 2 ML BOTTLE ONE (06:53)
[2024-05-05] MEDS ORDERED: SEVOFLURANE 250 ML BTL ONE ×2 (07:07→07:10)
[2024-05-05 07:09] VITALS: RESP 20
[2024-05-05] MEDS: OFLOXACIN 0.3% OPHTHALMIC SOLUTION 5 ML BOTTLE OP SCH (07:10)
[2024-05-05] MEDS: PHENYLEPHRINE 2.5% OPHTH SOLN 15 ML BOTTLE OP SCH (07:10)
[2024-05-05] MEDS: KETOROLAC TROMETHAMINE 0.5% EYE DROP 1 DROP DROPS OP SCH (07:10)
[2024-05-05] MEDS: CYCLOPENTOLATE HCL 1% OPHTH SOLN 2 ML BOTTLE OP SCH (07:10)
[2024-05-05] MEDS: TROPICAMIDE 1% OPHTH SOLN 15 ML BOTTLE OP SCH (07:10)
[2024-05-05] MEDS ORDERED: SUCCINYLCHOLINE CHLORIDE 200 MG/10 ML SYRINGE ONE (07:11)
[2024-05-05] MEDS ORDERED: LIDOCAINE HCL/PF 1% SDV 5ML VIAL ONE (07:48)
[2024-05-05] MEDS ORDERED: BUPIVACAINE HCL/PF 0.75% 10 ML VIAL ONE (07:48)
[2024-05-05] MEDS ORDERED: LIDOCAINE HCL/PF 2% SDV 5ML VIAL ONE ×2 (07:48→09:01)
[2024-05-05] MEDS ORDERED: POVIDONE-IODINE 5% OPHTHALMIC PREP 30 ML SOLUTION ONE (07:49)
[2024-05-05] MEDS ORDERED: PHENYLEPHRINE/KETOROLAC 4 ML VIAL IO ONE (07:53)
[2024-05-05] MEDS ORDERED: ONDANSETRON 4 MG/2 ML VIAL ONE (09:01)
[2024-05-05] MEDS ORDERED: PROPOFOL 20 ML ONE (09:01)
[2024-05-05] MEDS ORDERED: MIDAZOLAM HCL 2 MG/2 ML SINGLE DOSE VIAL ONE (09:33)
[2024-05-05] MEDS: TETRACAINE 0.5% HCL 0.6ML DROPPER.BOTTLE OS ONE (09:33)
[2024-05-05] MEDS: POVIDONE-IODINE 5% OPHTHALMIC PREP 30 ML SOLUTION OS ONE ×2 (09:34)
[2024-05-05] MEDS: BSS (NA/CA/MG/K) BALANCED SALT SOLUTION OPHTH SOLN 15 ML BOTTLE IO ONE ×2 (09:40)
[2024-05-05] MEDS: LIDOCAINE HCL 1% PRESERVATIVE FREE - 30ML VIAL IO ONE ×2 (09:41)
[2024-05-05] MEDS: CHONDROITIN SU A/HYALUR SOD 1 KIT IO ONE ×3 (09:42)
[2024-05-05] MEDS: TRYPAN BLUE 0.5 ML DISP.SYRIN IO ONE (09:47)
[2024-05-05] MEDS: BUPIVACAINE HCL/PF 0.75% 10 ML VIAL PNB ONE (09:51)
[2024-05-05] MEDS: LIDOCAINE HCL/PF 2% SDV 5ML VIAL PNB ONE (09:51)
[2024-05-05] MEDS: PHENYLEPHRINE/KETOROLAC 4 ML VIAL IO ONE ×2 (10:01)
[2024-05-05] MEDS ORDERED: TETRACAINE 0.5% OPHTH SOLN 2 ML BOTTLE ONE (10:49)
[2024-05-05 11:29] VITALS: BP 131/65; PULSE 55; TEMP 97.3
== END 2024-05-05 11:30 | disposition home or self-care (01) ==
LOC: JASU-SURG 04:18
PROVIDERS: ATTEND Ophthalmology
PROC: 08RK3JZ Replacement of Left Lens with Synthetic Substitute, Percutaneous Approach (ICD-10-PCS; principal; 2024-05-05 09:00)
DX: H26.9 Unspecified cataract (principal)
CPT/HCPCS: J1097

== ENCOUNTER 2024-06-13 12:20 | Inpatient (IN) | payer OTHER ==
[2024-06-13] MEDS ORDERED: ALBUTEROL SO4 2.5/IPRATROPIUM 0.5 INH SOL 3 ML VIAL.NEB. NEB ONE (12:35)
[2024-06-13] MEDS: ALBUTEROL SO4 2.5/IPRATROPIUM 0.5 INH SOL 3 ML VIAL.NEB. NEB ONE ×2 (12:51)
[2024-06-13] MEDS ORDERED: ACETYLCYSTEINE 20% 200MG/ML 4 ML VIAL *FOR ORAL / INH USE ONLY ONE (12:53)
[2024-06-13] MEDS ORDERED: methylPREDNISolone NA SUCC 125 MG/2 ML VIAL ONE (12:53)
[2024-06-13] MEDS ORDERED: SODIUM CHLORIDE FOR INHALATION 3 ML VIAL.NEB IH ONE (12:54)
[2024-06-13] MEDS: ACETYLCYSTEINE 20% 200MG/ML 30 ML VIAL *FOR ORAL / INH USE ONLY NEB ONE (12:58)
[2024-06-13] MEDS: methylPREDNISolone NA SUCC 125 MG/2 ML VIAL IVPUSH ONE (12:59)
[2024-06-13 13:07] LABS: ABSOLUTE IMMATURE GRANULOCYTES 0.05 x10^3/uL (0.0-0.031); BASOPHILS # 0.01 x10^3/uL (0.01-0.08); HEMATOCRIT 32.4 % (40.1-51.0); MEAN CELL VOLUME 100.6 fl (79.0-92.2); MEAN PLT VOLUME 9.1 fl (9.4-12.4); MONOCYTE # 0.56 x10^3/uL (0.30-0.82); PLATELET COUNT # 177 x10^3/uL (163-337); RDW 13.1 % (12.6-16.6)
[2024-06-13 13:21] LABS: ALK PHOS 162 U/L (45-117); ANION GAP 10 mmol/L (4-13); CALCIUM 9.3 mg/dl (8.5-10.1); CHLORIDE 103 mmol/L (98-107); CO2 27 mmol/L (21-32); CREATININE 0.8 mg/dl (0.6-1.3); GLUCOSE,RANDOM 127 mg/dl (74-106); POTASSIUM 3.5 mmol/L (3.5-5.1); SGOT/AST 17 U/L (15-37); SGPT/ALT 16 U/L (7-52); SODIUM 140 mmol/L (136-145)
[2024-06-13 13:57] LABS: VENOUS BASE EXCESS -2.7 mmol/L (-2-2); VENOUS O2 SATURATION 50.5 % (70-80); VENOUS PCO2 40.8 mmHg (38-52); VENOUS PH 7.361 (7.310-7.410)
[2024-06-13 14:08] LABS: N-TERMINAL BNP 3669.3 pg/ml (5-450)
[2024-06-13] MEDS ORDERED: cefTRIAXone SODIUM 1 GM VIAL ONE (14:25)
[2024-06-13] MEDS: CEFTRIAXONE 1 GM in DEXTROSE 5%-WATER - 50 ML IVPB ONE (14:32)
[2024-06-13] MEDS ORDERED: ALBUTEROL SO4 0.083% IH SOL 2.5 MG/3 ML VIAL.NEB. NEB PRN (15:39)
[2024-06-13] MEDS ORDERED: ALBUTEROL SO4 2.5/IPRATROPIUM 0.5 INH SOL 3 ML VIAL.NEB. NEB PRN (15:39)
[2024-06-13] MEDS ORDERED: ACETAMINOPHEN 325 MG TABLET (FP) PO PRN (15:39)
[2024-06-13] MEDS: AZITHROMYCIN IVPB 250 MG in DEXTROSE 5%-WATER - 250 ML IVPB ONE (15:50)
[2024-06-13] MEDS: PANTOPRAZOLE 40 MG TABLET PO SCH (16:15)
[2024-06-13] MEDS ORDERED: METOPROLOL TARTRATE 5 MG/5 ML VIAL IVPUSH PRN (17:26)
[2024-06-13] MEDS: DIGOXIN 0.125 MG TABLET PO ONE (18:09)
[2024-06-13] MEDS: methylPREDNISolone NA SUCC 40 MG/1 ML VIAL IVPUSH SCH (18:42)
[2024-06-13] MEDS: METOPROLOL TARTRATE 25 MG TABLET (FP) PO SCH (21:14)
[2024-06-13] MEDS: DABIGATRAN ETEXILATE MESYLATE 150 MG CAPSULE PO SCH (21:14)
[2024-06-13] MEDS: OSELTAMIVIR PHOSPHATE 75 MG CAPSULE PO SCH (21:14)
[2024-06-14] MEDS: DIGOXIN 0.125 MG TABLET PO SCH ×2 (07:13→10:37)
[2024-06-14 08:10] LABS: HEMATOCRIT 30.3 % (40.1-51.0); HEMOGLOBIN 10.2 g/dL (13.7-17.5); MCHC 33.7 g/dl (32.3-36.5); MEAN CELL VOLUME 100.3 fl (79.0-92.2); MEAN PLT VOLUME 9.6 fl (9.4-12.4); PLATELET COUNT # 176 x10^3/uL (163-337); RDW 12.9 % (12.6-16.6)
[2024-06-14 09:10] LABS: ALBUMIN 3.7 g/dl (3.4-5.0); BILIRUBIN,TOTAL 0.6 mg/dl (0.2-1); CREATININE 0.7 mg/dl (0.6-1.3); MAGNESIUM 1.9 mg/dL (1.8-2.4); POTASSIUM 4.4 mmol/L (3.5-5.1); TOT PROT 5.5 g/dl (6.4-8.2)
[2024-06-14] MEDS: CEFTRIAXONE 1 GM in DEXTROSE 5%-WATER - 50 ML IVPB SCH (10:37)
[2024-06-14] MEDS: AZITHROMYCIN 250 MG TABLET PO SCH (10:37)
[2024-06-14] MEDS: NYSTATIN 500,000 UNITS/5 ML SUSPENSION PO SCH (15:45)
[2024-06-15 10:50] LABS: ABSOLUTE IMMATURE GRANULOCYTES 0.05 x10^3/uL (0.0-0.031); BASOPHILS # 0.01 x10^3/uL (0.01-0.08); HEMATOCRIT 30.6 % (40.1-51.0); MCHC 32.7 g/dl (32.3-36.5); MEAN CELL VOLUME 102.3 fl (79.0-92.2); MONOCYTE # 0.44 x10^3/uL (0.30-0.82); MONOCYTE % 3.9 % (5.3-12.2); PLATELET COUNT # 201 x10^3/uL (163-337); RDW 13.2 % (12.6-16.6)
[2024-06-15 11:11] LABS: ALBUMIN 3.8 g/dl (3.4-5.0); BILIRUBIN,TOTAL 0.5 mg/dl (0.2-1); CREATININE 0.7 mg/dl (0.6-1.3); POTASSIUM 4.2 mmol/L (3.5-5.1); TOT PROT 5.5 g/dl (6.4-8.2)
[2024-06-15] MEDS: methylPREDNISolone NA SUCC 40 MG/1 ML VIAL IVPUSH SCH (11:50)
[2024-06-16 10:57] VITALS: RESP 18; TEMP 98
[2024-06-16 12:53] VITALS: BMI 21.9
[2024-06-16 14:48] VITALS: BP 121/88; PULSE 78
== END 2024-06-16 17:00 | disposition home or self-care (01) | DRG 191 ==
LOC: FER 12:20 → FM/S 13:12
PROVIDERS: ADMIT Family Medicine; ATTEND Family Medicine
DX: J44.1 Chronic obstructive pulmonary disease with (acute) exacerbation (principal); I50.32 Chronic diastolic (congestive) heart failure; I11.0 Hypertensive heart disease with heart failure; I25.10 Atherosclerotic heart disease of native coronary artery without angina pectoris; I48.91 Unspecified atrial fibrillation; R09.02 Hypoxemia; K21.9 Gastro-esophageal reflux disease without esophagitis; E78.00 Pure hypercholesterolemia, unspecified; M06.9 Rheumatoid arthritis, unspecified; J10.1 Influenza due to other identified influenza virus with other respiratory manifestations
CPT/HCPCS: 0241U-QW; 36415; 71046-TC-FY; 71250-TC; 80053; 80162; 82728; 82803; 83540; 83550; 83735; 83880; 84484; 85025; 85027; 93005; 97116-GP; 97162-GP; 99285-25